=== PATIENT | female | born 1960 | race Caucasian/White ===

== ENCOUNTER 2017-10-05 09:44 | Outpatient (RCR) | payer BC, SELFPAY | END 2017-10-18 23:59 | LOC: NS 09:44 | PROVIDERS: Family Provider Internal Medicine; PCP Internal Medicine; Visit Provider Nurse Practitioner Family | DX: E66.01 Morbid (severe) obesity due to excess calories (principal); G47.30 Sleep apnea, unspecified; Z71.3 Dietary counseling and surveillance | CPT/HCPCS: 97802 ==

== ENCOUNTER 2017-11-16 10:52 | Outpatient (RCR) | payer BC, SELFPAY | END 2017-11-18 23:59 | LOC: NS 10:52 | PROVIDERS: Family Provider Internal Medicine; PCP Internal Medicine; Visit Provider Nurse Practitioner Family | DX: E66.01 Morbid (severe) obesity due to excess calories (principal); G47.30 Sleep apnea, unspecified; Z71.3 Dietary counseling and surveillance | CPT/HCPCS: 97803 ==

== ENCOUNTER 2018-01-11 10:00 | Outpatient (RCR) | payer BC, SELFPAY | END 2018-01-18 23:59 | LOC: NS 10:00 | PROVIDERS: Family Provider Internal Medicine; PCP Internal Medicine; Visit Provider Nurse Practitioner Family | DX: E66.01 Morbid (severe) obesity due to excess calories (principal); G47.30 Sleep apnea, unspecified; Z71.3 Dietary counseling and surveillance | CPT/HCPCS: 97803 ==

== ENCOUNTER 2018-01-25 08:14 | Outpatient (RCR) | payer BC, SELFPAY | END 2018-02-18 23:59 | LOC: NS 08:14 | PROVIDERS: Family Provider Internal Medicine; PCP Internal Medicine; Visit Provider Nurse Practitioner Family | DX: E66.01 Morbid (severe) obesity due to excess calories (principal); G47.30 Sleep apnea, unspecified; Z71.3 Dietary counseling and surveillance | CPT/HCPCS: 97803 ==

== ENCOUNTER → 2018-03-30 08:46 | Outpatient (CLI) | payer BC, SELFPAY ==
[2018-03-30 11:12] LABS: Absolute Lymphocyte Count 1.72 X10^3/ul (0.83-4.51); Absolute Neutrophil Count 4.5 X10^3/uL (2.0-7.7); Basophil# 0.02 X10^3/uL; Basophil% 0.3 % (0-1); Eosinophil# 0.34 X10^3/uL; Eosinophils% 4.8 % (0-5); Hemoglobin 13.1 g/dl (12.0-15.0); Lymphocyte # 1.72 X10^3/ul (4.0); Lymphocyte % 24.4 % (19-41); Mean Corpuscular Hgb 29.4 pg (27.0-32.0); Mean Corpuscular Volume 91.9 fL (81-99); Mean Platelet Vol. 10.1 fl (6.2-12.0); Monocyte# 0.47 X10^3/uL; Monocyte% 6.7 % (0-10); Neutrophil # 4.49 X10^3/uL (2.7-7.7); Neutrophil % 63.7 % (47-70); Platelet Count 312 K/mm3 (150-450); RBC Distribution Width CV 13.8 % (11.6-14.6); RBC Distribution Width SD 46.5 fl (35.1-43.9); Red Blood Count 4.46 M/mm3 (4.2-5.4); White Blood Count 7.1 K/mm3 (4.4-11.0)
[2018-03-30 11:15] LABS: POSITIVE COUNT NO; POSITIVE DIFFERENTIAL NO; POSITIVE MORPHOLOGY NO
[2018-03-30 11:35] LABS: ALB/GLOB Ratio 0.8 RATIO (0.9-2.4); AST(SGOT) 22 U/L (15-37); Alanine Aminotransfer ALT/SGPT 30 U/L (13-56); Albumin, Serum 3.4 g/dL (3.2-5.0); Alkaline Phosphatase 97 U/L (45-117); Anion Gap 6 (5-15); BUN 20 mg/dL (7-18); Calcium,Total 8.7 mg/dL (8.5-10.1); Chloride 106 mmol/L (98-107); Cholesterol 183 mg/dL (200); Creatinine, Serum 1.05 mg/dL (0.55-1.02); EST Glomerular Filtration Rate 57 mL/min (>60); Est Glom Filt Rate - Afr Amer 69 mL/min (>60); Glucose 109 mg/dL (74-106); High Density Lipoprotein 42 mg/dL; Potassium 4.7 mmol/L (3.5-5.1); Protein, Total 7.4 g/dL (6.4-8.2); Sodium Level 137 mmol/L (136-145); Triglycerides 99 mg/dL; Very Low Density Lipoprotein 20 mg/dL (5-40)
== END ==
PROVIDERS: Nurse Practitioner Family; Family Provider Internal Medicine; PCP Internal Medicine; Referring Provider Internal Medicine; Visit Provider Internal Medicine
DX: I10 Essential (primary) hypertension (principal); G47.30 Sleep apnea, unspecified; E66.01 Morbid (severe) obesity due to excess calories
CPT/HCPCS: 36415; 80053; 80061; 84443; 85025

== ENCOUNTER 2018-04-11 09:30 | Outpatient (RCR) | payer BC, SELFPAY | END 2018-04-11 23:59 | LOC: NS 09:30 | PROVIDERS: Family Provider Internal Medicine; PCP Internal Medicine; Visit Provider Nurse Practitioner Family | DX: E66.01 Morbid (severe) obesity due to excess calories (principal); G47.30 Sleep apnea, unspecified; Z71.3 Dietary counseling and surveillance | CPT/HCPCS: 97803 ==

== ENCOUNTER → 2018-09-16 10:01 | Outpatient (CLI) | payer BC, SELFPAY ==
[2018-07-05 11:07] VITALS: BMI 70.7
--- NOTE | 2018-09-16 10:03 | BI_ITS ---
MAMMOGRAPHY - BILATERAL SCREENING REASON FOR EXAM: Female, 58 years old. Routine annual screening examination. PERTINENT HISTORY: Non-contributory. Remote left excisional breast biopsy. TECHNIQUE: Digital bilateral breast eleanor (3D mammographic acquisition) in the CC and MLO projections. 2-D mediolateral oblique (MLO) and craniocaudad (CC) views of both breasts were obtained. CAD: Full Field Digital Mammography with Computer Added Detection was performed. COMPARISON: Comparison is made with prior artery examination dated October 14, 2016. FINDINGS: Breast Composition: The breasts are almost entirely fatty. There are no dominant masses or suspicious calcifications. Stable 7.3 mm well-defined nodule in the axillary region of the left breast most likely representing a small lymph node. Stable 7.1 mm well-defined nodule in the superior slightly lateral retroareolar region of the left breast suggestive of a small lymph node. No other significant abnormalities are identified. There has been no significant change since the prior study. BI/SCREEN MAMM (CAD) W/ELEANOR BILAT IMPRESSION: Stable bilateral screening mammogram. Yearly follow-up mammogram recommended. (A) ASSESSMENT CATEGORY: BIRADS Category 2: Benign. A letter regarding these results will be sent to the patient by the facility within 30 days. Approximately 10% of breast cancers are not detected by mammography. A normal mammogram should not delay biopsy of a clinically suspicious abnormality. [id number] Electronically Signed: Gutierrez Pichardo, at 8:31 EDT , Service support ,
== END ==
PROVIDERS: Family Provider Internal Medicine; PCP Internal Medicine; Referring Provider Internal Medicine; Visit Provider Internal Medicine
DX: Z12.31 Encounter for screening mammogram for malignant neoplasm of breast (principal)
CPT/HCPCS: 77063; 77067

== ENCOUNTER → 2018-10-06 10:05 | Outpatient (CLI) | payer BC, SELFPAY ==
[2018-10-06 09:27] VITALS: BMI 67.3
[2018-10-06 12:16] LABS: Absolute Lymphocyte Count 1.84 X10^3/ul (0.83-4.51); Absolute Neutrophil Count 7.7 X10^3/uL (2.0-7.7); Basophil# 0.01 X10^3/uL; Basophil% 0.1 % (0-1); Eosinophil# 0.19 X10^3/uL; Eosinophils% 1.8 % (0-5); Hematocrit 44.7 % (37-47); Hemoglobin 14.9 g/dl (12.0-15.0); Lymphocyte # 1.84 X10^3/ul (4.0); Lymphocyte % 17.4 % (19-41); Mean Corp Hgb Conc 33.3 g/gl (32-36); Mean Corpuscular Hgb 29.6 pg (27.0-32.0); Mean Corpuscular Volume 88.7 fL (81-99); Mean Platelet Vol. 10.4 fl (6.2-12.0); Monocyte# 0.83 X10^3/uL; Monocyte% 7.8 % (0-10); Neutrophil # 7.67 X10^3/uL (2.7-7.7); Neutrophil % 72.5 % (47-70); Platelet Count 378 K/mm3 (150-450); RBC Distribution Width CV 14.1 % (11.6-14.6); RBC Distribution Width SD 45.2 fl (35.1-43.9); Red Blood Count 5.04 M/mm3 (4.2-5.4); White Blood Count 10.6 K/mm3 (4.4-11.0)
[2018-10-06 12:17] LABS: POSITIVE COUNT NO; POSITIVE DIFFERENTIAL NO; POSITIVE MORPHOLOGY NO
[2018-10-06 12:31] LABS: ALB/GLOB Ratio 0.8 RATIO (0.9-2.4); AST(SGOT) 24 U/L (15-37); Alanine Aminotransfer ALT/SGPT 36 U/L (13-56); Albumin, Serum 3.4 g/dL (3.2-5.0); Alkaline Phosphatase 118 U/L (45-117); Amylase 17 U/L (25-115); Anion Gap 7 (5-15); BUN 14 mg/dL (7-18); BUN/Creat Ratio 9.9 RATIO (10-20); Calcium,Total 9.1 mg/dL (8.5-10.1); Chloride 104 mmol/L (98-107); Creatinine, Serum 1.41 mg/dL (0.55-1.02); EST Glomerular Filtration Rate 41 mL/min (>60); Est Glom Filt Rate - Afr Amer 49 mL/min (>60); Globulin 4.5 g/dL (2.2-4.2); Glucose 148 mg/dL (74-106); Lipase 61 U/L (73-393); Potassium 4.2 mmol/L (3.5-5.1); Protein, Total 7.9 g/dL (6.4-8.2); Sodium Level 135 mmol/L (136-145)
--- NOTE | 2018-10-06 14:54 | US_ITS ---
STUDY: ABDOMINAL ULTRASOUND - RIGHT UPPER QUADRANT REASON FOR VISIT: Female, 58 years old. Right upper quadrant pain. TECHNIQUE: Ultrasound evaluation of the right upper quadrant was performed with real-time and static whitaker-scale imaging. TECHNICAL QUALITY: Limited. Examination limited due to obesity. COMPARISON: None. FINDINGS: Liver: The liver measures 17.4 cm. There is increased echogenicity consistent with fatty infiltration. The bile ducts are within normal limits. There is hepatic color flow. The direction of portal flow is hepatopetal. There is no demonstrated mass lesion. Gallbladder: Normal distended gallbladder. The gallbladder wall is thickened and measures 12 mm. There is a positive sonographic Tapia's sign. There is pericholecystic fluid. There are multiple echogenic structures within the gallbladder, consistent with multiple gallstones. Sludge is seen in the gallbladder lumen. Common Bile Duct (C.B.D.): The common bile duct not well seen due to overlying bowel gas. Pancreas: Normal size of the head, body and tail of the pancreas. There is normal echogenicity of the pancreas. There is no demonstrated pancreatic mass or cyst. Right Kidney: Normal size of the right kidney. The right kidney measures 11.9 cm x 5.2 cm x 5.0 cm. Normal renal cortex. The right cortex measures 1.2 cm. There is no demonstrated renal mass or cyst. There is no right hydronephrosis. US/Abdomen Limited IMPRESSION: Diffuse fatty infiltration of the liver. Multiple gallstones with sludge in the gallbladder lumen and thickened gallbladder wall. Small amount of pericholecystic fluid. Electronically Signed: Gutierrez Pichardo, at 15:53 EDT , Service support ,
== END ==
PROVIDERS: Family Provider Internal Medicine; PCP Internal Medicine; Referring Provider Nurse Practitioner Family; Visit Provider Nurse Practitioner Family
DX: R10.11 Right upper quadrant pain (principal)
CPT/HCPCS: 36415; 76705; 80053; 82150; 83690; 85025

== ENCOUNTER 2018-10-11 07:13 | Inpatient (IN) | payer BC, SELFPAY ==
[2018-10-09 09:20] VITALS: BMI 67.3
[2018-10-10] VITALS (11 sets, daily range): BP systolic 105–147; BP diastolic 48–87; PULSE 61–76; RESP 16–20; TEMP 36.3–36.7; O2SAT 90–98; BMI 68.8
--- NOTE | 2018-10-10 13:20 | GALL_PTH ---
PATIENT: ANGELINA CALZADA LOC: [facility]2 U#:[id number] AGE/SX: 58/F ROOM: MS211 RE10/12/[address]: Dr. Sher Lam MD : 1960 BED: 1 DIS: 10/14/2018 SPEC #: [id number] RECD: 10/11/18 08:41 STATUS: YOEL SAVANNAH #: [id number] FELIPE: 10/10/18 13:[address]: Sher Lam DEPT: SURGICAL PATHOLOGY RECD BY: Shauna Mayo ENTERED: 10/11/18 11:27 SP TYPE: HERI GROVER DR: Dr. Esthela Wynne MD Tissues: Gallbladder, NOS Procedures: Surgery Specimen Level III HEADER OPERATION: Laparoscopic, cholecystectomy PRE-OP DIAGNOSIS: Calculus of gallbladder with acute on chronic cholecystitis without obstruction TISSUE SUBMITTED: Gallbladder MICROSCOPIC DIAGNOSIS Gallbladder, cholecystectomy: Acute and chronic cholecystitis with focal denudation of mucosa and cholelithiasis. AM:gayathri 10/12/18 MICROSCOPIC DESCRIPTION Slides are reviewed. GROSS DESCRIPTION Received is one container labeled with the patient's name and designated gallbladder. The specimen consists of a gallbladder measuring 7 cm in length and up to 4.5 cm in diameter. The external surface is pink-peng, smooth and glistening for the most part. Focally it is granular, hemorrhagic and contains cautery artifact. The gallbladder contains hemorrhagic bile and multiple multifaceted peng-brown stones measuring in aggregate 6.5 x 4 x 2 cm and 1 to 1.5 cm in greatest dimension. The mucosa is congested and hemorrhagic. The gallbladder wall measures up to 1 cm in thickness. Film Projector Operator sections from the gallbladder and the cystic duct are submitted in two cassettes. / SJ:gayathri 10/11/18 TC:2 CPT: 15574
--- NOTE | 2018-10-10 13:43 | PCM.OPRPT ---
Problem List (1) Calculus of gallbladder with acute on chronic cholecystitis without obstruction Status: Chronic Report of Operation Date of Procedure: 10/10/18 Pre-Operative Diagnosis: Calculus of the gallbladder with acute on chronic cholecystitis without obstruction Post-Operative Diagnosis: Same Surgery/Procedure Performed:: Laparoscopic cholecystectomy Type of Anesthesia:: General Anesthesiologist: Sher Brady Specimen's removed: Gallbladder Drains: #15 round IMELDA Estimated Blood Loss (mL): 50 cc Fluids Replaced: 1000cc LR Description of Procedure: Patient brought in the operating room and placed in the supine position. Under excellent general endotracheal intubation abdomen was sterilely prepped and draped in usual fashion. Local was injected supraumbilically dissection was carried down to the fascia the fascia grasped with a Vic varies needle was placed inside the abdomen the abdomen was insufflated 15 torr a 10/12 trocar was placed without difficulty. Patient was placed in the head up and rotated to the left subxiphoid #5 trocar was placed inferior to this another #5 trocar was placed laterally #5 trocar was placed. All of these were placed under direct visualization good hemostasis was noted. Patient had moderate amount of adhesions on the gallbladder. I took these down bluntly I tried to aspirate out the gallbladder the gallbladder was too thick it would not aspirate I tried to grasp the gallbladder and lifted in a cephalad direction I could not get a grasper around it. I placed a 5 mm liver retractor and I did a dome down dissection with the aid of a tenaculum grasper which actually really facilitated me getting circumferentially around the gallbladder and dissecting all the structures free . It became very clear that I was dissecting the cystic duct and common bile duct juncture and I identified the hepatic duct. At this point I had some bleeding from the cystic artery I was able to get around it and placed a Hemoclip just before it avulsed off of the gallbladder. At this point I then clearly saw both the hepatic duct, common bile duct and cystic duct I placed another clip on the cystic duct and ligated it. I placed a specimen specimen bag and delivered through the umbilical port without difficulty. There was a small visible vessel in the posterior aspect of the liver bed which I thought was the posterior cystic artery and I placed a Hemoclip on the liver edge itself was just very raw and since I did all that dissecting around the common bile duct I really did not want to do any electrocautery I placed Madhu on the liver bed and placed a 15 round Yadiel-Godfrey drain through the lateral incision into the liver bed is sutured into the skin with a 3-0 nylon. The remaining trochars were removed. Good hemostasis was noted. the umbilical defect was closed with interrupted sutures of 0 Vicryl. Skin incisions were closed with septicum stitches of 4-0 Monocryl. Steri-Strips were applied. Sterile dressings were applied. Patient tolerated the procedure well. - Admit VTE Documentation VTE Present on Admission: No VTE Mechan Device Prophylaxis: SCD's VTE Pharm Prophylaxis ordered?: No Reason prophylaxis not ordered:: Treatment Not Indicated
--- NOTE | 2018-10-10 13:45 | DCINST_ITS ---
Addendum entered and electronically signed by Bindu Kuo PA-C 10/13/18 15:15: Oxyir prescription was sent to the [facility] retail pharmacy. Percocet prescription was discarded. Original Note: Discharge Diet: Light diet - advance as tolerated Discharge Activity: May Not Drive - for 2-3 days or while taking narcotic pain medications., - - Do not drive, work heavy equipment or sign legal documents for 24 hours. May shower in (days): 1 - with the bandage in place. Additional Activity Instructions:: Pain medication may cause nausea. You should typically eat light foods as you take your pain medications. Pain medication may also cause constipation. If this is a problem for you, please discuss with your doctor. Call your doctor if your incision/area has: Continuous Slow Oozing, Sudden Increased Bleeding, Increased Pain/ Swelling, Increased Redness, Foul Smelling Discharge Call your doctor if you observe: Fever of 101 or Higher Suture Line Care: Avoid Pulling/Pushing, Avoid Pinching/Bending Additional Dressing/Incision Instructions:: Leave operative bandaids on for 2 days. When you remove dressing, leave Steri-Strips on until your follow-up appointment, or until the Steri-Strips fall off on their own. Allergies/Adverse Reactions: Allergies clindamycin Allergy (Severe, Verified 10/08/18 09:25) Hearing loss ciprofloxacin [From Cipro] Allergy (Verified 10/10/18 10:22) Other codeine Allergy (Verified 10/08/18 09:25) Other JITTERY & CRAZY hydrochlorothiazide Allergy (Verified 10/08/18 09:25) Other SORE JOINTS Penicillins [PCN] Allergy (Verified 10/08/18 09:25) Rash tramadol HCl [From Ultram] Allergy (Verified 10/08/18 09:25) Other MAKES MY HEART GO CRAZY HEART RACES Medications to take at Discharge Aspirin E.C. [Ecotrin] 81 mg PO DAILY@0800 06/24/15 Multivitamins,Therapeutic [Multivitamin] 1 tab PO DAILY 06/24/15 compression stocking,knee high,reg length, x-large circ See Dose Instructions .ROUTE .MEDSUPPLY #2 ea 09/15/17 ibuprofen 100 mg tablet 200 mg PO TID-QID PRN 03/25/18 lisinopril 40 mg tablet 40 mg PO DAILY #90 tab 03/25/18 amlodipine 10 mg tablet 10 mg PO QDAY #90 tab 09/05/18 fluoxetine 20 mg capsule 20 mg PO DAILY #90 cap 09/05/18 metronidazole 500 mg tablet 500 mg PO Q8H #21 tab 10/06/18 cefuroxime axetil 250 mg tablet 250 mg PO BID #14 tab 10/07/18 Oxycodone HCl/Acetaminophen [Percocet 5/325] 1 - 2 tab PO Q4H PRN PRN 6 Days #30 tab 10/10/18 The following prescriptions were given: Oxycodone HCl/Acetaminophen [Percocet 5/325] 1 - 2 tab PO Q4H PRN PRN 6 Days #30 tab PRN Reason: Pain Primary Care Physician: Esthela Wynne MD [Primary Care Provider] - Test Results: Test results from this visit will be discussed in further detail at your follow- up appointment, if applicable. Please Follow Up With: Sher Lam MD - Please call [phone] to schedule an appointment. When: 7 days after your surgery.
[2018-10-10] MEDS: Bupivacaine Mpf 0.5% 30 ML VIAL (13:54)
[2018-10-10] MEDS: HYDROmorphone 1 MG/ML Syringe IV ×3 (19:30→23:51)
--- NOTE | 2018-10-10 19:42 | CPS ---
rt added sterile water to home bipap.
[2018-10-10] MEDS: metroNIDAZOLE 500 MG Tablet PO (20:46)
[2018-10-10] MEDS: Ibuprofen 200 MG Tablet PO (20:49)
--- NOTE | 2018-10-10 20:49 | NURSING ---
pt walked to bathroom. pt unable to void. pt asst to chair
[2018-10-11] VITALS (7 sets, daily range): BP systolic 107–141; BP diastolic 52–79; PULSE 61–90; RESP 18–20; TEMP 36.2–36.7; O2SAT 85–95
[2018-10-11] MEDS: HYDROmorphone 1 MG/ML Syringe IV ×9 (00:18→20:32)
--- NOTE | 2018-10-11 00:21 | NURSING ---
pt yelling out in pain. 1mg dilaudid not helping. pt ordered 2mg dilaudid so anoth 1 mg ivp given
[2018-10-11] MEDS: Ibuprofen 200 MG Tablet PO ×2 (01:29→10:03)
[2018-10-11] MEDS: Lactated Ringers 1,000 ML 60 ML IV ×3 (04:45→16:38)
[2018-10-11] MEDS: metroNIDAZOLE 500 MG Tablet PO ×3 (04:49→20:36)
--- NOTE | 2018-10-11 05:02 | NURSING ---
Patient bladder scanned for 113ml
--- NOTE | 2018-10-11 07:13 | PCM.PN.SRG ---
Subjective: Patient evaluated resting comfortably in bed. She noted over night having intense pain in the right upper quadrant which required 2 mg Dilaudid. She notes discomfort at the drain site. She denies nausea, vomiting. She notes not being able to urinate much overnight. Last bladder scan was for 113 ml. - Physical Exam General: Alert, Oriented x3, Cooperative Abdomen: Hypoactive Bowel Sounds, Distended, Tender - RUQ, - - Incisions c/d/i. No active bleeding noted. IMELDA drain with dark red blood within the bulb. No bile noted. Vital Signs Temp Pulse Resp BP Pulse Ox 98.0 F 67 18 141/79 H 93 10/11/18 05:05 10/11/18 05:05 10/11/18 05:05 10/11/18 05:05 10/11/18 05:05 Oxygen Flow Rate (L/min) 1 Oxygen Delivery Method Bi-pap Weight: 400 lb 12.806 oz Body Mass Index (BMI) 68.8 Intake and Output for Last 24 Hours 10/09/18 10/10/18 10/11/18 23:59 23:59 23:59 Intake Total 1867 / 1867 919 / 919 Output Total 100 / 100 65 / 65 Balance 1767 / 1767 854 / 854 Laboratory Tests Past 24 Hrs 10/11/18 10/11/18 06:55 06:55 WBC Pending RBC Pending Hgb Pending Hct Pending MCV Pending MCH Pending MCHC Pending RDW Pending RDW Differential Pending Plt Count Pending Neut % (Auto) Pending Absolute Neuts (auto) Pending Total Counted Pending Sodium Pending Potassium Pending Chloride Pending Carbon Dioxide Pending Anion Gap Pending BUN Pending Creatinine Pending Est GFR (MDRD) Af Amer Pending Est GFR (MDRD) Non-Af Pending BUN/Creatinine Ratio Pending Glucose Pending Calcium Pending Total Bilirubin Pending AST Pending ALT Pending Alkaline Phosphatase Pending Total Protein Pending Albumin Pending Medical Necessity - Tobacco Use Smoking Status: Former smoker Assessment/Plan All Active Problems (Last Reviewed 10/09/18 @ 09:19 by Sher Lam MD) Abnormal uterine bleeding (Acute) History of benign breast tumor (Acute) I am following this patient in conjunction with Dr. Lam Impression: s/p cholecystectomy Order lab work Encourage ambulation and I.S. Lab work ordered We will continue to monitor this patient Code Visit Inpatient E&M: 99853 Subs Hosp L1 - Post-op/No charge
[2018-10-11 07:26] LABS: ALB/GLOB Ratio 0.8 RATIO (0.9-2.4); AST(SGOT) 89 U/L (15-37); Alanine Aminotransfer ALT/SGPT 95 U/L (13-56); Albumin, Serum 3.3 g/dL (3.2-5.0); Alkaline Phosphatase 118 U/L (45-117); Anion Gap 5 (5-15); BUN 25 mg/dL (7-18); Calcium,Total 8.5 mg/dL (8.5-10.1); Chloride 107 mmol/L (98-107); Creatinine, Serum 2.08 mg/dL (0.55-1.02); EST Glomerular Filtration Rate 26 mL/min (>60); Est Glom Filt Rate - Afr Amer 31 mL/min (>60); Estimated Creatinine Clearance 25.15 ml/min; Globulin 4.1 g/dL (2.2-4.2); Glucose 134 mg/dL (74-106); Potassium 5.4 mmol/L (3.5-5.1); Protein, Total 7.4 g/dL (6.4-8.2); Sodium Level 136 mmol/L (136-145)
[2018-10-11 07:28] LABS: Absolute Lymphocyte Count 1.01 X10^3/ul (0.83-4.51); Absolute Neutrophil Count 10.3 X10^3/uL (2.0-7.7); Basophil# 0.01 X10^3/uL; Basophil% 0.1 % (0-1); Eosinophil# 0.01 X10^3/uL; Eosinophils% 0.1 % (0-5); Hematocrit 39.6 % (37-47); Hemoglobin 12.8 g/dl (12.0-15.0); Lymphocyte # 1.01 X10^3/ul (4.0); Lymphocyte % 8.4 % (19-41); Mean Corp Hgb Conc 32.3 g/gl (32-36); Mean Corpuscular Volume 92.7 fL (81-99); Mean Platelet Vol. 9.5 fl (6.2-12.0); Monocyte# 0.75 X10^3/uL; Monocyte% 6.2 % (0-10); Neutrophil # 10.27 X10^3/uL (2.7-7.7); Neutrophil % 85.1 % (47-70); Platelet Count 430 K/mm3 (150-450); RBC Distribution Width CV 14.1 % (11.6-14.6); RBC Distribution Width SD 47.5 fl (35.1-43.9); Red Blood Count 4.27 M/mm3 (4.2-5.4); White Blood Count 12.1 K/mm3 (4.4-11.0)
[2018-10-11 07:36] LABS: POSITIVE COUNT NO; POSITIVE DIFFERENTIAL NO; POSITIVE MORPHOLOGY NO
[2018-10-11] MEDS: 0.9% NaCl Peripheral Flush Adult/Peds IV ×5 (08:10→18:16)
--- NOTE | 2018-10-11 08:15 | NURSING ---
PT USING CPAP FROM HOME
[2018-10-11] MEDS: Aspirin E.C. 81 MG Tablet PO (10:01)
[2018-10-11] MEDS: Enoxaparin 40 MG/0.4 ML Syringe SC (10:01)
[2018-10-11] MEDS: amLODIPine 10 MG Tablet PO (10:02)
[2018-10-11] MEDS: FLUoxetine 20 MG Capsule PO (10:02)
[2018-10-11] MEDS: Lisinopril 40 MG Tablet PO (10:02)
[2018-10-11] MEDS: Ondansetron 4 MG/2 ML Vial IV (10:12)
--- NOTE | 2018-10-11 10:31 | NURSING ---
PT PLACED ON O2 2L NC
--- NOTE | 2018-10-11 10:32 | NURSING ---
O2 SAT 88% ON RA. PT PLACED ON O2 2L NC.
--- NOTE | 2018-10-11 12:10 | NURSING ---
PT ATTEMPT TO VOID - UNSUCCESSFUL. BLADDER SCAN = 127ML. SILVIA NASSAR MADE AWARE. NEW ORDER RECEIVED.
[2018-10-11] MEDS: 0.9% Normal Saline 1,000 ML 999 ML IV (12:18)
[2018-10-11] MEDS: Tamsulosin HCl 0.4 MG Capsule PO (12:43)
--- NOTE | 2018-10-11 14:10 | NURSING ---
O2 INCREASED TO 3L NC
--- NOTE | 2018-10-11 15:55 | NURSING ---
PT RECEIVED ANOTHER NS BOLUS OF 1L PER MD ORDER. ATTEMPT TO VOID AGAIN UNSUCCESSFUL. BLADDER SCAN = 106ML. SILVIA NASSAR MADE AWARE. ELECTRONIC WARFARE TECHNICIAN STATES WILL DISCUSS WITH DR PERES & CONTACT THIS NURSE.
--- NOTE | 2018-10-11 16:07 | US_ITS ---
STUDY: RENAL ULTRASOUND - COMPLETE REASON FOR EXAM: Female, 58 years old. Acute renal failure. Recent cholecystectomy. Anuria. TECHNIQUE: Ultrasound evaluation of the kidneys was performed with real-time and static henry-scale imaging. COMPARISON: None. FINDINGS: Exam limited by patient size and bowel gas. RIGHT KIDNEY: Normal location of the right kidney, which is normal in size. The right kidney measures 11.8 x 4.9 x 5.3 cm. There is a normal cortex of the right kidney. The renal cortex measures 1.8 cm. There is no right renal mass or cyst. There are no right renal calculi. There is no right hydronephrosis. DISTAL RIGHT URETER: There is non-visualization of the distal right ureter. There is no demonstrated right ureterovesical junction calculus. There is no demonstrated right ureteral jet. LEFT KIDNEY: Normal location of the left kidney, which is normal in size. The left kidney measures 11.3 x 5.0 x 5.0 cm. There is a normal cortex of the left kidney. The renal cortex measures 1.9 cm. There is a 2.1 cm cyst. There are no left renal calculi. There is no left hydronephrosis. DISTAL LEFT URETER: There is non-visualization of the distal left ureter. There is no demonstrated left ureterovesical junction calculus. There is no demonstrated left ureteral jet. BLADDER: The distended urinary bladder has a volume of 175 ml. There is a normal wall thickness of the distended urinary bladder. There is no demonstrated mass within the urinary bladder. There are no demonstrated bladder calculi. US/Kidney and Bladder IMPRESSION: There are no acute malnutrition. No hydronephrosis. Electronically Signed: Destin Bowie MD at 18:17 EDT , Service support ,
--- NOTE | 2018-10-11 17:23 | PN_ITS ---
Subjective: Consulted for urinary retention. Patient underwent lap cholecystectomy yesterday with IMELDA drain placement per Dr. Lam for acute cholecystitis and cholelithiasis. Patient has not emptied her bladder since yesterday 9AM. She feels the need to go, and attempts to sit and go, but cannot. She complains of associated lower back pain. She also has noticed increased LE edema. She denies hx CHF. No fever or chills. No recent UTI or dysuria. She denies hx of voiding difficulties. She denies incontinence. She has underlying CKDIII. - Physical Exam General: Alert, Oriented x3, Cooperative HEENT: Atraumatic, PERRLA, EOMI, Normocephalic Neck: Supple, No JVD, Negative Carotid Bruits Lungs: Clear to auscultation, Normal air movement Cardiovascular: Regular rate, No murmurs Abdomen: Bowel Sounds Present, Soft, Non Tender, Obese Extremities: Capillary Refill Less than 3 Seconds, Edema Skin: No rashes, No breakdown Musculoskeletal: No Tenderness to Palpation of Joints or Extremities Neurological: Cranial nerves II-XII grossly intact Psych/Mental Status: Normal Affect, Appropriate Vital Signs Temp Pulse Resp BP Pulse Ox 97.9 F 65 18 119/60 86 10/11/18 14:00 10/11/18 14:00 10/11/18 17:00 10/11/18 14:00 10/11/18 14:00 Oxygen Flow Rate (L/min) 3 Oxygen Delivery Method Nasal Cannula Weight: 400 lb 12.806 oz Body Mass Index (BMI) 68.8 Intake and Output for Last 24 Hours 10/09/18 10/10/18 10/11/18 23:59 23:59 23:59 Intake Total 1867 / 1867 2876 / 2876 Output Total 100 / 100 155 / 155 Balance 1767 / 1767 2721 / 2721 Laboratory Tests Past 24 Hrs 10/11/18 10/11/18 06:55 06:55 WBC 12.1 H RBC 4.27 Hgb 12.8 Hct 39.6 MCV 92.7 MCH 30.0 MCHC 32.3 RDW 14.1 RDW Differential 47.5 H Plt Count 430 MPV 9.5 Immature Gran % (Auto) 0.100 Neut % (Auto) 85.1 H Lymph % (Auto) 8.4 L Wilson % (Auto) 6.2 Eos % (Auto) 0.1 Baso % (Auto) 0.1 Absolute Neuts (auto) 10.3 H Absolute Lymphs (auto) 1.01 Total Counted Not Reportable Sodium 136 Potassium 5.4 H Chloride 107 Carbon Dioxide 24.0 Anion Gap 5 BUN 25 H Creatinine 2.08 H Estim Creat Clear Calc 25.15 Est GFR (MDRD) Af Amer 31 L Est GFR (MDRD) Non-Af 26 L BUN/Creatinine Ratio 12.0 Glucose 134 H Calcium 8.5 Total Bilirubin 0.50 AST 89 H ALT 95 H Alkaline Phosphatase 118 H Total Protein 7.4 Albumin 3.3 Globulin 4.1 Albumin/Globulin Ratio 0.8 L Medical Necessity - Tobacco Use Smoking Status: Former smoker Assessment/Plan All Active Problems (Last Reviewed 10/09/18 @ 09:19 by Sher Lam MD) Abnormal uterine bleeding (Acute) History of benign breast tumor (Acute) 1. JASMINA 2/2 acute urinary retention - place flower. Obtain renal US. Hold nephrotoxins (pamela-i, ibuprofen). Renal dose lovenox. recheck potassium later tonight after flower successfully placed. If it does not go down - kayexalate x1. Bladder scan unreliable with morbid obesity. 2. Acute cholecystitis s/p resection / drain placement POD#1 - per Dr. Lam 3. FREDERICK - CPAP qhs 4. Super morbid obesity 5. HTN - stable 6. Anxiety - stable DVT ppx: renal lovenox Thank you for the opportunity to participate in the care of this patient. This patient was seen by Juan Barajas PA-C under the supervision of Dr. Zapata.
--- NOTE | 2018-10-11 18:51 | NURSING ---
1800 - LATE ENTRY - 16FR HANDY PLACED PER MD ORDER. PT TOLERATED WELL. IMMEDIATE RETURN OF 400ML DARK BC URINE.
[2018-10-11 19:21] LABS: Bacteria 0 SEEN /hpf (None Seen); Mucous, Urine 0 SEEN /hpf (<or=2+); Red Blood Cells-Urine 0 SEEN /hpf (0-5)
[2018-10-11 19:22] LABS: Color, Urine Straw (Yellow); Glucose, Dipstick Normal (Normal); Ketone-Dipstick 15 mg/dl (Negative); Leukocyte Esterase-Dipstick 25 /ul (Negative); Nitrite-Dipstick Positive (Negative); Occult Blood-Urine Negative /ul (Negative); Protein-Dipstick 30 mg/dl (Negative); Specific Gravity, Urine 1.025 (1.002-1.030); Urine Bilirubin Dipstick Negative (Negative); Urine Clarity Clear (Clear); Urine Urobilinogen Normal (Normal)
[2018-10-11 19:28] LABS: Urine Sodium 42 mmol/L (Not Establ.)
[2018-10-11 19:37] LABS: Squamous Epithelial Cells - UA 0-5 SEEN /hpf (5-10)
[2018-10-11 19:38] LABS: White Blood Cells 0-5 SEEN /hpf (0-5)
[2018-10-11] MEDS: 0.9% Normal Saline 1,000 ML 150 ML IV (20:38)
--- NOTE | 2018-10-11 21:36 | NURSING ---
PT PUT OWENS ON REQUESTING HER PAIN MEDS. INSTRUCTED PT SHE JUST GOT IT AT 2030. PT SAID OH I DONT REMEMBER. PT THEN WANTED TO GET PULLED UP IN BED. .I HAD PT GET OUT OF BED AND MOVE HERSELF UP IN BED. ENCOURAGE TO MOVE IN THE BED
[2018-10-12] VITALS (7 sets, daily range): BP systolic 100–111; BP diastolic 52–68; PULSE 68–78; RESP 16–20; TEMP 36.6–37.1; O2SAT 91–97
[2018-10-12] MEDS: HYDROmorphone 1 MG/ML Syringe IV ×5 (01:26→21:16)
[2018-10-12] MEDS: 0.9% Normal Saline 1,000 ML 150 ML IV ×3 (02:23→20:10)
[2018-10-12] MEDS: metroNIDAZOLE 500 MG Tablet PO ×3 (05:19→21:13)
[2018-10-12] MEDS: Ondansetron 4 MG/2 ML Vial IV (05:31)
[2018-10-12 07:31] LABS: Absolute Lymphocyte Count 0.81 X10^3/ul (0.83-4.51); Absolute Neutrophil Count 8.7 X10^3/uL (2.0-7.7); Basophil# 0.01 X10^3/uL; Basophil% 0.1 % (0-1); Eosinophil# 0.39 X10^3/uL; Eosinophils% 3.7 % (0-5); Hematocrit 36.4 % (37-47); Hemoglobin 11.6 g/dl (12.0-15.0); Lymphocyte # 0.81 X10^3/ul (4.0); Lymphocyte % 7.6 % (19-41); Mean Corp Hgb Conc 31.9 g/gl (32-36); Mean Corpuscular Hgb 29.4 pg (27.0-32.0); Mean Corpuscular Volume 92.2 fL (81-99); Mean Platelet Vol. 9.4 fl (6.2-12.0); Monocyte% 6.6 % (0-10); Neutrophil # 8.71 X10^3/uL (2.7-7.7); Neutrophil % 81.7 % (47-70); Platelet Count 332 K/mm3 (150-450); RBC Distribution Width CV 14.1 % (11.6-14.6); RBC Distribution Width SD 47.9 fl (35.1-43.9); Red Blood Count 3.95 M/mm3 (4.2-5.4); White Blood Count 10.7 K/mm3 (4.4-11.0)
[2018-10-12 07:48] LABS: POSITIVE COUNT NO; POSITIVE DIFFERENTIAL NO; POSITIVE MORPHOLOGY NO
[2018-10-12 07:53] LABS: ALB/GLOB Ratio 0.8 RATIO (0.9-2.4); AST(SGOT) 58 U/L (15-37); Alanine Aminotransfer ALT/SGPT 63 U/L (13-56); Albumin, Serum 2.9 g/dL (3.2-5.0); Alkaline Phosphatase 98 U/L (45-117); Anion Gap 8 (5-15); BUN 35 mg/dL (7-18); BUN/Creat Ratio 9.7 RATIO (10-20); Chloride 103 mmol/L (98-107); Creatinine, Serum 3.62 mg/dL (0.55-1.02); EST Glomerular Filtration Rate 14 mL/min (>60); Est Glom Filt Rate - Afr Amer 17 mL/min (>60); Estimated Creatinine Clearance 14.45 ml/min; Globulin 3.7 g/dL (2.2-4.2); Glucose 133 mg/dL (74-106); Protein, Total 6.6 g/dL (6.4-8.2); Sodium Level 132 mmol/L (136-145)
[2018-10-12] MEDS: Aspirin E.C. 81 MG Tablet PO (08:27)
[2018-10-12] MEDS: FLUoxetine 20 MG Capsule PO (08:27)
[2018-10-12] MEDS: amLODIPine 10 MG Tablet PO (08:27)
[2018-10-12] MEDS: Enoxaparin 30 MG/0.3 ML Syringe SC (08:27)
[2018-10-12 09:23] LABS: Hemoglobin A1c 5.9 % (4.2-6.3)
[2018-10-12] MEDS: 0.9% NaCl Peripheral Flush Adult/Peds IV ×2 (10:03→18:18)
--- NOTE | 2018-10-12 11:02 | PCM.PN.SRG ---
Subjective: Patient evaluated sitting in a chair. Hospitalist was consulted yesterday. Godinez catheter was placed. 400 mL dark urine was removed. Approximately 100 mL of urine output overnight was obtained. Patient denies pelvic pressure. She notes the urge to urinate. Patient notes intermittent pain at the IMELDA drain site. Drain output is noted to be bloody but starting to clear. Patient creatinine and BUN has increased. Nephrology is being consulted. - Physical Exam General: Alert, Oriented x3, Cooperative Abdomen: Soft, Hypoactive Bowel Sounds, Obese, Tender - RUQ near IMELDA drain, - - IMELDA drain intact. Difficult exam due to obesity. Vital Signs Temp Pulse Resp BP Pulse Ox 98.0 F 73 18 111/68 96 10/12/18 07:26 10/12/18 07:26 10/12/18 07:45 10/12/18 07:26 10/12/18 07:26 Oxygen Flow Rate (L/min) 3 Oxygen Delivery Method Nasal Cannula Weight: 400 lb 12.806 oz Body Mass Index (BMI) 68.8 Intake and Output for Last 24 Hours 10/10/18 10/11/18 10/12/18 23:59 23:59 23:59 Intake Total 1867 / 1867 6385 / 6385 1215 / 1215 Output Total 100 / 100 775 / 775 180 / 180 Balance 1767 / 1767 5610 / 5610 1035 / 1035 Laboratory Tests Past 24 Hrs 10/11/18 10/11/18 10/11/18 18:00 18:00 18:00 WBC RBC Hgb Hct MCV MCH MCHC RDW RDW Differential Plt Count MPV Immature Gran % (Auto) Neut % (Auto) Lymph % (Auto) Maries % (Auto) Eos % (Auto) Baso % (Auto) Absolute Neuts (auto) Absolute Lymphs (auto) Total Counted Sodium Potassium Chloride Carbon Dioxide Anion Gap BUN Creatinine Estim Creat Clear Calc Est GFR (MDRD) Af Amer Est GFR (MDRD) Non-Af BUN/Creatinine Ratio Glucose Hemoglobin A1c Calcium Total Bilirubin AST ALT Alkaline Phosphatase Total Protein Albumin Globulin Albumin/Globulin Ratio Urine Color Straw Urine Clarity Clear Urine pH 5.0 Ur Specific [place] 1.025 Urine Protein 30 H Urine Glucose (UA) Normal Urine Ketones 15 H Urine Occult Blood Negative Urine Nitrite Positive H Urine Bilirubin Negative Urine Urobilinogen Normal Ur Leukocyte Esterase 25 H Urine RBC 0 SEEN Urine WBC 0-5 SEEN Ur Squamous Epith Cells 0-5 SEEN Urine Bacteria 0 SEEN Urine Mucus 0 SEEN Ur Random Sodium 42 Urine Creatinine 288.00 10/12/18 10/12/18 10/12/18 07:15 07:15 07:15 WBC 10.7 RBC 3.95 L Hgb 11.6 L Hct 36.4 L MCV 92.2 MCH 29.4 MCHC 31.9 L RDW 14.1 RDW Differential 47.9 H Plt Count 332 MPV 9.4 Immature Gran % (Auto) 0.300 Neut % (Auto) 81.7 H Lymph % (Auto) 7.6 L Maries % (Auto) 6.6 Eos % (Auto) 3.7 Baso % (Auto) 0.1 Absolute Neuts (auto) 8.7 H Absolute Lymphs (auto) 0.81 L Total Counted Not Reportable Sodium 132 L Potassium 5.0 Chloride 103 Carbon Dioxide 21.0 Anion Gap 8 BUN 35 H Creatinine 3.62 H Estim Creat Clear Calc 14.45 Est GFR (MDRD) Af Amer 17 L Est GFR (MDRD) Non-Af 14 L BUN/Creatinine Ratio 9.7 L Glucose 133 H Hemoglobin A1c 5.9 Calcium 8.0 L Total Bilirubin 0.50 AST 58 H ALT 63 H Alkaline Phosphatase 98 Total Protein 6.6 Albumin 2.9 L Globulin 3.7 Albumin/Globulin Ratio 0.8 L Urine Color Urine Clarity Urine pH Ur Specific [place] Urine Protein Urine Glucose (UA) Urine Ketones Urine Occult Blood Urine Nitrite Urine Bilirubin Urine Urobilinogen Ur Leukocyte Esterase Urine RBC Urine WBC Ur Squamous Epith Cells Urine Bacteria Urine Mucus Ur Random Sodium Urine Creatinine Medical Necessity - Tobacco Use Smoking Status: Former smoker Assessment/Plan All Active Problems (Last Reviewed 10/09/18 @ 09:19 by Sher Lam MD) Abnormal uterine bleeding (Acute) History of benign breast tumor (Acute) I am following this patient in conjunction with Dr. Lam Impression: s/p cholecystectomy Creatinine 3.62 and BUN 35 Hospitalist consulted yesterday. Appreciate their input and continued care. Nephrology will be consulted today for acute renal injury. Keep IMELDA drain. We will continue to monitor this patient Code Visit Inpatient E&M: 84819 Subs Hosp L1 - No charge/Post-op
--- NOTE | 2018-10-12 11:05 | PN_ITS ---
<Juan Barajas - Last Filed: 10/12/18 10:54> Subjective: Pt resting comfortably in chair NAD. No fevers or chills. No irritation with flower. Very poor output from her flower - dark orange/yellow. She notes ongoing progressive decline with her renal function which is corroborated by PCPs notes. She has had improvement in the RUQ pain from her GB. She denies back or flank pain today. No dizziness/LH. Pt compliant with CPAP last night. No SOB. - Physical Exam General: Alert, Oriented x3, Cooperative HEENT: Atraumatic, PERRLA, EOMI, Normocephalic Neck: Supple, No JVD, Negative Carotid Bruits Lungs: Clear to auscultation, Normal air movement Cardiovascular: Regular rate, No murmurs Abdomen: Bowel Sounds Present, Soft, Non Tender, Obese, - - no CVA tenderness Extremities: No edema, Capillary Refill Less than 3 Seconds Skin: No rashes, No breakdown Musculoskeletal: No Tenderness to Palpation of Joints or Extremities Neurological: Cranial nerves II-XII grossly intact Psych/Mental Status: Normal Affect, Appropriate, Alert and oriented to time, place, person, mood and affect Vital Signs Temp Pulse Resp BP Pulse Ox 98.0 F 73 18 111/68 96 10/12/18 07:26 10/12/18 07:26 10/12/18 07:45 10/12/18 07:26 10/12/18 07:26 Oxygen Flow Rate (L/min) 3 Oxygen Delivery Method Nasal Cannula Weight: 400 lb 12.806 oz Body Mass Index (BMI) 68.8 Intake and Output for Last 24 Hours 10/10/18 10/11/18 10/12/18 23:59 23:59 23:59 Intake Total 1867 / 1867 6385 / 6385 1215 / 1215 Output Total 100 / 100 775 / 775 180 / 180 Balance 1767 / 1767 5610 / 5610 1035 / 1035 Laboratory Tests Past 24 Hrs 10/11/18 10/11/18 10/11/18 18:00 18:00 18:00 WBC RBC Hgb Hct MCV MCH MCHC RDW RDW Differential Plt Count MPV Immature Gran % (Auto) Neut % (Auto) Lymph % (Auto) [place] % (Auto) Eos % (Auto) Baso % (Auto) Absolute Neuts (auto) Absolute Lymphs (auto) Total Counted Sodium Potassium Chloride Carbon Dioxide Anion Gap BUN Creatinine Estim Creat Clear Calc Est GFR (MDRD) Af Amer Est GFR (MDRD) Non-Af BUN/Creatinine Ratio Glucose Hemoglobin A1c Calcium Total Bilirubin AST ALT Alkaline Phosphatase Total Protein Albumin Globulin Albumin/Globulin Ratio Urine Color Straw Urine Clarity Clear Urine pH 5.0 Ur Specific [place] 1.025 Urine Protein 30 H Urine Glucose (UA) Normal Urine Ketones 15 H Urine Occult Blood Negative Urine Nitrite Positive H Urine Bilirubin Negative Urine Urobilinogen Normal Ur Leukocyte Esterase 25 H Urine RBC 0 SEEN Urine WBC 0-5 SEEN Ur Squamous Epith Cells 0-5 SEEN Urine Bacteria 0 SEEN Urine Mucus 0 SEEN Ur Random Sodium 42 Urine Creatinine 288.00 10/12/18 10/12/18 10/12/18 07:15 07:15 07:15 WBC 10.7 RBC 3.95 L Hgb 11.6 L Hct 36.4 L MCV 92.2 MCH 29.4 MCHC 31.9 L RDW 14.1 RDW Differential 47.9 H Plt Count 332 MPV 9.4 Immature Gran % (Auto) 0.300 Neut % (Auto) 81.7 H Lymph % (Auto) 7.6 L [place] % (Auto) 6.6 Eos % (Auto) 3.7 Baso % (Auto) 0.1 Absolute Neuts (auto) 8.7 H Absolute Lymphs (auto) 0.81 L Total Counted Not Reportable Sodium 132 L Potassium 5.0 Chloride 103 Carbon Dioxide 21.0 Anion Gap 8 BUN 35 H Creatinine 3.62 H Estim Creat Clear Calc 14.45 Est GFR (MDRD) Af Amer 17 L Est GFR (MDRD) Non-Af 14 L BUN/Creatinine Ratio 9.7 L Glucose 133 H Hemoglobin A1c 5.9 Calcium 8.0 L Total Bilirubin 0.50 AST 58 H ALT 63 H Alkaline Phosphatase 98 Total Protein 6.6 Albumin 2.9 L Globulin 3.7 Albumin/Globulin Ratio 0.8 L Urine Color Urine Clarity Urine pH Ur Specific [place] Urine Protein Urine Glucose (UA) Urine Ketones Urine Occult Blood Urine Nitrite Urine Bilirubin Urine Urobilinogen Ur Leukocyte Esterase Urine RBC Urine WBC Ur Squamous Epith Cells Urine Bacteria Urine Mucus Ur Random Sodium Urine Creatinine Medical Necessity - Tobacco Use Smoking Status: Former smoker Assessment/Plan All Active Problems (Last Reviewed 10/09/18 @ 09:19 by Sher Lam MD) Abnormal uterine bleeding (Acute) History of benign breast tumor (Acute) 1. JASMINA on CKDIII 2/2 acute urinary retention : worsened with flower from 2.08 to 3.62. -flower in place. Poor urine production. -Nephrology consult. D/w Dr. Mann who will see the pt today -No recent IV contrast. -Renal US negative. -Held nephrotoxins (pamela-i, ibuprofen). -Change lovenox to heparin. -Potassium normalized. -Continue IV NaCl. -Check A1C -Mild hyponatremia 2. Acute cholecystitis s/p resection / drain placement POD#2 - per Dr. Lam. -LFTs improved -afebrile, WBCs normalized 3. FREDERICK - CPAP qhs 4. Super morbid obesity 5. HTN - stable 6. Anxiety - stable DVT ppx: heparin Thank you for the opportunity to participate in the care of this patient. This patient was seen by Juan Barajas PA-C under the supervision of Dr. Harrell. <Ramírez Harrell - Last Filed: 10/12/18 14:16> Subjective: Seen and examined. cumulative Urine output is 625 mL since admission, 260 mL on 10/11 and today 130 mL since midnight. Positive balance 2600 mL . Mild abdominal sore from surgery. - Physical Exam General: Alert, Oriented x3, Cooperative HEENT: Atraumatic, PERRLA, EOMI, Normocephalic Neck: Supple, No JVD, Negative Carotid Bruits Lungs: Clear to auscultation, Normal air movement, No rhonchi, No wheeze Cardiovascular: Regular rate, No murmurs Abdomen: Bowel Sounds Present, Soft, Non Tender Extremities: No edema, Capillary Refill Less than 3 Seconds Skin: No rashes, No breakdown Musculoskeletal: No Tenderness to Palpation of Joints or Extremities, Arthritic Changes, Muscle Wasting Neurological: Cranial nerves II-XII grossly intact, Deep Tendon Reflexes 2+/4 and Symmetrical, Neuro grossly intact Psych/Mental Status: Normal Affect, Appropriate Vital Signs Temp Pulse Resp BP Pulse Ox 98.0 F 73 18 111/68 91 10/12/18 07:26 10/12/18 07:26 10/12/18 07:45 10/12/18 07:26 10/12/18 11:32 Oxygen Flow Rate (L/min) 2 Oxygen Delivery Method Nasal Cannula Weight: 400 lb 12.806 oz Body Mass Index (BMI) 68.8 Intake and Output for Last 24 Hours 10/10/18 10/11/18 10/12/18 23:59 23:59 23:59 Intake Total 1867 / 1867 6385 / 6385 2933 / 2933 Output Total 100 / 100 775 / 775 305 / 305 Balance 1767 / 1767 5610 / 5610 2628 / 2628 Laboratory Tests Past 24 Hrs 10/11/18 10/11/18 10/11/18 18:00 18:00 18:00 WBC RBC Hgb Hct MCV MCH MCHC RDW RDW Differential Plt Count MPV Immature Gran % (Auto) Neut % (Auto) Lymph % (Auto) [place] % (Auto) Eos % (Auto) Baso % (Auto) Absolute Neuts (auto) Absolute Lymphs (auto) Total Counted Sodium Potassium Chloride Carbon Dioxide Anion Gap BUN Creatinine Estim Creat Clear Calc Est GFR (MDRD) Af Amer Est GFR (MDRD) Non-Af BUN/Creatinine Ratio Glucose Hemoglobin A1c Calcium Total Bilirubin AST ALT Alkaline Phosphatase Total Protein Albumin Globulin Albumin/Globulin Ratio Urine Color Straw Urine Clarity Clear Urine pH 5.0 Ur Specific [place] 1.025 Urine Protein 30 H Urine Glucose (UA) Normal Urine Ketones 15 H Urine Occult Blood Negative Urine Nitrite Positive H Urine Bilirubin Negative Urine Urobilinogen Normal Ur Leukocyte Esterase 25 H Urine RBC 0 SEEN Urine WBC 0-5 SEEN Ur Squamous Epith Cells 0-5 SEEN Urine Bacteria 0 SEEN Urine Mucus 0 SEEN Ur Random Sodium 42 Urine Creatinine 288.00 10/12/18 10/12/18 10/12/18 07:15 07:15 07:15 WBC 10.7 RBC 3.95 L Hgb 11.6 L Hct 36.4 L MCV 92.2 MCH 29.4 MCHC 31.9 L RDW 14.1 RDW Differential 47.9 H Plt Count 332 MPV 9.4 Immature Gran % (Auto) 0.300 Neut % (Auto) 81.7 H Lymph % (Auto) 7.6 L [place] % (Auto) 6.6 Eos % (Auto) 3.7 Baso % (Auto) 0.1 Absolute Neuts (auto) 8.7 H Absolute Lymphs (auto) 0.81 L Total Counted Not Reportable Sodium 132 L Potassium 5.0 Chloride 103 Carbon Dioxide 21.0 Anion Gap 8 BUN 35 H Creatinine 3.62 H Estim Creat Clear Calc 14.45 Est GFR (MDRD) Af Amer 17 L Est GFR (MDRD) Non-Af 14 L BUN/Creatinine Ratio 9.7 L Glucose 133 H Hemoglobin A1c 5.9 Calcium 8.0 L Total Bilirubin 0.50 AST 58 H ALT 63 H Alkaline Phosphatase 98 Total Protein 6.6 Albumin 2.9 L Globulin 3.7 Albumin/Globulin Ratio 0.8 L Urine Color Urine Clarity Urine pH Ur Specific [place] Urine Protein Urine Glucose (UA) Urine Ketones Urine Occult Blood Urine Nitrite Urine Bilirubin Urine Urobilinogen Ur Leukocyte Esterase Urine RBC Urine WBC Ur Squamous Epith Cells Urine Bacteria Urine Mucus Ur Random Sodium Urine Creatinine Assessment/Plan This patient was seen in conjunction with Juan NELSON. I have independently interviewed and examined the patient and reviewed pertinent history, examination findings, laboratory and plan of management. I have reviewed the note and agree with the documented findings with the few additional points. In brief, patient is a 58-year-old female was admitted after elective laparoscopic cholecystectomy on 10/10/2018 for low urine output. cumulative Urine output is 625 mL since admission, 260 mL on 10/11 and today 130 mL since midnight. Positive balance 2600 mL . The patient has IMELDA drain is mild serosanguineous. IMELDA drain output 130 mL. Patient seen by rebeamer for acute kidney injury. Patient does not have history of kidney failure. She is admitted with creatinine 2.0 and creatinine went up to 3.6 on 10/12. Patient has a Flower catheter but has minimal amount of urine, dark yellow. Patient had low blood pressure 101/57 last night. Patient was taking ibuprofen 400 mg sometimes once or twice daily. Renal ultrasound is negative for hydronephrosis. FENa 0.4%. Mechanics Supervisor thinks most likely prerenal acute kidney injury. Continue conservative management with IV fluid and blood pressure, map more than 65. I have discussed my assessment with Juan NELSON and orders have been reviewed. Code Visit Inpatient E&M: 80231 Subs Hosp L2
--- NOTE | 2018-10-12 11:12 | PCM.CONS.R ---
Consultation - Renal 10/12/18 PCP/ Referring MD: Requesting physician: Dr Zapata Primary care physician: Esthela Wynne MD Reason for Consultation:: JASMINA - History of Present Illness History of Present Illness: The patient is a 58 year old F who was admitted electively for a cholecystectomy on Wednesday. Renal consulted for acute renal failure. No prior history of kidney failure. Last known creatinine was normal from last year. On the of this month she had preop work-up and creatinine was 1.4 at that time. She was admitted with a creatinine of 2.0 and today is up to 3.6. Overnight she did not make any urine at all. No recent contrast studies. Blood pressure is on the lower side. Patient says she has not eaten much over the last 1 week or so due to fear of aggravating the cholecystitis pain. Godinez placed with minimal return of urine. Currently complains of low back pain. Apparently was taking ibuprofen 400 mg At least once a day with sometimes twice a day. - Allergies Allergies: Allergies clindamycin Allergy (Severe, Verified 10/08/18 09:25) Hearing loss ciprofloxacin [From Cipro] Allergy (Verified 10/10/18 10:22) Other codeine Allergy (Verified 10/11/18 15:57) Rash hydrochlorothiazide Allergy (Verified 10/08/18 09:25) Other SORE JOINTS Penicillins [PCN] Allergy (Verified 10/08/18 09:25) Rash tramadol HCl [From Ultram] Allergy (Verified 10/08/18 09:25) Other MAKES MY HEART GO CRAZY HEART RACES - Current Medications Current Medications: Current Medications Amlodipine Besylate (Norvasc) 10 mg PO DAILY [facility] Last Admin: 10/12/18 08:27 Dose: 10 mg Aspirin (Ecotrin) 81 mg PO DAILY@0800 [facility] Last Admin: 10/12/18 08:27 Dose: 81 mg Fluoxetine HCl (Prozac) 20 mg PO DAILY [facility] Last Admin: 10/12/18 08:27 Dose: 20 mg Heparin Sodium (Porcine) (Heparin Na) 5,000 unit SC Q8 [facility] Hydralazine HCl (Apresoline Iv) 10 mg IV Q4H PRN PRN PRN Reason: SBP > 160 Hydromorphone HCl (Dilaudid Inj) 1 - 2 mg IV Q2H PRN PRN PRN Reason: Mod/Severe (pain scale 6-10) Last Admin: 10/12/18 10:03 Dose: 1 mg Hydromorphone HCl (Dilaudid Inj) 1 - 2 mg IV Q2H PRN PRN PRN Reason: Mod/Severe (pain scale 6-10) Sodium Chloride () 1,000 mls @ 150 mls/hr IV .Q6H40M [facility] Last Admin: 10/12/18 02:23 Dose: 150 mls/hr Metronidazole (Flagyl) 500 mg PO TID [facility] Last Admin: 10/12/18 05:19 Dose: 500 mg Ondansetron HCl (Zofran) 4 mg IV Q8H PRN PRN PRN Reason: Nausea Last Admin: 10/12/18 05:31 Dose: 4 mg Sodium Chloride () 5 - 15 ml IV UD PRN PRN Reason: SALINE FLUSH Last Admin: 10/12/18 10:03 Dose: 10 ml - Past Medical History Past Medical History (Chronic Problems): Chronic Problems (Last Reviewed 10/09/18 @ 09:19 by Sher Lam MD) Calculus of gallbladder with acute on chronic cholecystitis without obstruction (Chronic) Anxiety and depression (Chronic) Sleep apnea in adult (Chronic) GERD (gastroesophageal reflux disease) (Chronic) Seasonal allergies (Chronic) Depression (Chronic) Venous insufficiency (Chronic) Hearing impairment (Chronic) Morbid obesity (Chronic) Hypertension (Chronic) - Social History Smoking Status: Former smoker Review of Systems Constitutional: Denies: Chills, Fever, Weight Change HEENT: Denies: Head Aches, Sinus Congestion, Sinus Drainage Cardiovascular: Denies: Chest Pain, Palpitations Respiratory: Denies: Cough, Shortness of breath at rest, Sputum production Gastrointestinal: Denies: Abdominal Pain, Nausea, Vomiting Genitourinary: Denies: Dysuria Musculoskeletal: Denies: Joint Pain, Joint Tenderness Skin: Denies: Rash, Wounds Neurological: Denies: Numbness, Tingling, Focal weakness Psychiatric: Denies: Anxiety, Depression, Homicidal Ideations, Suicidal Ideations Hematologic/ Lymphatic: Denies: Easy Bruising, Easy Bleeding - Physical Exam General: Alert, Oriented x3, Cooperative HEENT: Atraumatic, PERRLA, EOMI, Normocephalic Neck: Supple, No JVD, Negative Carotid Bruits Lungs: Clear to auscultation, Normal air movement Cardiovascular: Regular rate, No murmurs Abdomen: Bowel Sounds Present, Soft, Non Tender Extremities: No edema, Capillary Refill Less than 3 Seconds Skin: No rashes, No breakdown Musculoskeletal: No Tenderness to Palpation of Joints or Extremities Neurological: Cranial nerves II-XII grossly intact Psych/Mental Status: Normal Affect, Appropriate Vital Signs Temp Pulse Resp BP Pulse Ox 98.0 F 73 18 111/68 96 10/12/18 07:26 10/12/18 07:26 10/12/18 07:45 10/12/18 07:26 10/12/18 07:26 Oxygen Flow Rate (L/min) 3 Oxygen Delivery Method Nasal Cannula Weight: 181.8 kg Body Mass Index (BMI) 68.8 Intake and Output for Last 24 Hours 10/10/18 10/11/18 10/12/18 23:59 23:59 23:59 Intake Total 1867 / 1867 6385 / 6385 1215 / 1215 Output Total 100 / 100 775 / 775 180 / 180 Balance 1767 / 1767 5610 / 5610 1035 / 1035 Laboratory Tests Past 24 Hrs 10/11/18 10/11/18 10/11/18 18:00 18:00 18:00 WBC RBC Hgb Hct MCV MCH MCHC RDW RDW Differential Plt Count MPV Immature Gran % (Auto) Neut % (Auto) Lymph % (Auto) [place] % (Auto) Eos % (Auto) Baso % (Auto) Absolute Neuts (auto) Absolute Lymphs (auto) Total Counted Sodium Potassium Chloride Carbon Dioxide Anion Gap BUN Creatinine Estim Creat Clear Calc Est GFR (MDRD) Af Amer Est GFR (MDRD) Non-Af BUN/Creatinine Ratio Glucose Hemoglobin A1c Calcium Total Bilirubin AST ALT Alkaline Phosphatase Total Protein Albumin Globulin Albumin/Globulin Ratio Urine Color Straw Urine Clarity Clear Urine pH 5.0 Ur Specific [place] 1.025 Urine Protein 30 H Urine Glucose (UA) Normal Urine Ketones 15 H Urine Occult Blood Negative Urine Nitrite Positive H Urine Bilirubin Negative Urine Urobilinogen Normal Ur Leukocyte Esterase 25 H Urine RBC 0 SEEN Urine WBC 0-5 SEEN Ur Squamous Epith Cells 0-5 SEEN Urine Bacteria 0 SEEN Urine Mucus 0 SEEN Ur Random Sodium 42 Urine Creatinine 288.00 10/12/18 10/12/18 10/12/18 07:15 07:15 07:15 WBC 10.7 RBC 3.95 L Hgb 11.6 L Hct 36.4 L MCV 92.2 MCH 29.4 MCHC 31.9 L RDW 14.1 RDW Differential 47.9 H Plt Count 332 MPV 9.4 Immature Gran % (Auto) 0.300 Neut % (Auto) 81.7 H Lymph % (Auto) 7.6 L [place] % (Auto) 6.6 Eos % (Auto) 3.7 Baso % (Auto) 0.1 Absolute Neuts (auto) 8.7 H Absolute Lymphs (auto) 0.81 L Total Counted Not Reportable Sodium 132 L Potassium 5.0 Chloride 103 Carbon Dioxide 21.0 Anion Gap 8 BUN 35 H Creatinine 3.62 H Estim Creat Clear Calc 14.45 Est GFR (MDRD) Af Amer 17 L Est GFR (MDRD) Non-Af 14 L BUN/Creatinine Ratio 9.7 L Glucose 133 H Hemoglobin A1c 5.9 Calcium 8.0 L Total Bilirubin 0.50 AST 58 H ALT 63 H Alkaline Phosphatase 98 Total Protein 6.6 Albumin 2.9 L Globulin 3.7 Albumin/Globulin Ratio 0.8 L Urine Color Urine Clarity Urine pH Ur Specific [place] Urine Protein Urine Glucose (UA) Urine Ketones Urine Occult Blood Urine Nitrite Urine Bilirubin Urine Urobilinogen Ur Leukocyte Esterase Urine RBC Urine WBC Ur Squamous Epith Cells Urine Bacteria Urine Mucus Ur Random Sodium Urine Creatinine Assessment/Plan All Active Problems (Last Reviewed 10/09/18 @ 09:19 by Sher Lam MD) Abnormal uterine bleeding (Acute) History of benign breast tumor (Acute) Acute renal failure. New onset within the last 1 week. Preoperative creatinine was around 1.4. Increase to 2 yesterday and 3.6 today. Renal ultrasound does not show any hydronephrosis. Godinez in place and there is not much urine output. Urine analysis looks fairly benign with 1+ protein, some cells. However this is a Godinez sample. Fractional excretion of sodium is 0.4%. At least as per history, she did not eat or drink much for the last 1 week or so. She was also taking large amounts of ibuprofen. Most likely prerenal JASMINA. Continue fluids for 1 more day. Since blood pressure is on the lower side, stop amlodipine for today. We will continue to follow. Reviewed her medication list over the last 6 months. Only change was switching felodipine to amlodipine
--- NOTE | 2018-10-12 11:19 | CON.PCM_ITS ---
Consultation - Renal 10/12/18 PCP/ Referring MD: Requesting physician: Dr Zapata Primary care physician: Esthela Wynne MD Reason for Consultation:: JASMINA - History of Present Illness History of Present Illness: The patient is a 58 year old F who was admitted electively for a cholecystectomy on Wednesday. Renal consulted for acute renal failure. No prior history of kidney failure. Last known creatinine was normal from last year. On the of this month she had preop work-up and creatinine was 1.4 at that time. She was admitted with a creatinine of 2.0 and today is up to 3.6. Overnight she did not make any urine at all. No recent contrast studies. Blood pressure is on the lower side. Patient says she has not eaten much over the last 1 week or so due to fear of aggravating the cholecystitis pain. Godinez placed with minimal return of urine. Currently complains of low back pain. Apparently was taking ibuprofen 400 mg At least once a day with sometimes twice a day. - Allergies Allergies: Allergies clindamycin Allergy (Severe, Verified 10/08/18 09:25) Hearing loss ciprofloxacin [From Cipro] Allergy (Verified 10/10/18 10:22) Other codeine Allergy (Verified 10/11/18 15:57) Rash hydrochlorothiazide Allergy (Verified 10/08/18 09:25) Other SORE JOINTS Penicillins [PCN] Allergy (Verified 10/08/18 09:25) Rash tramadol HCl [From Ultram] Allergy (Verified 10/08/18 09:25) Other MAKES MY HEART GO CRAZY HEART RACES - Current Medications Current Medications: Current Medications Amlodipine Besylate (Norvasc) 10 mg PO DAILY [facility] Last Admin: 10/12/18 08:27 Dose: 10 mg Aspirin (Ecotrin) 81 mg PO DAILY@0800 [facility] Last Admin: 10/12/18 08:27 Dose: 81 mg Fluoxetine HCl (Prozac) 20 mg PO DAILY [facility] Last Admin: 10/12/18 08:27 Dose: 20 mg Heparin Sodium (Porcine) (Heparin Na) 5,000 unit SC Q8 [facility] Hydralazine HCl (Apresoline Iv) 10 mg IV Q4H PRN PRN PRN Reason: SBP > 160 Hydromorphone HCl (Dilaudid Inj) 1 - 2 mg IV Q2H PRN PRN PRN Reason: Mod/Severe (pain scale 6-10) Last Admin: 10/12/18 10:03 Dose: 1 mg Hydromorphone HCl (Dilaudid Inj) 1 - 2 mg IV Q2H PRN PRN PRN Reason: Mod/Severe (pain scale 6-10) Sodium Chloride () 1,000 mls @ 150 mls/hr IV .Q6H40M [facility] Last Admin: 10/12/18 02:23 Dose: 150 mls/hr Metronidazole (Flagyl) 500 mg PO TID [facility] Last Admin: 10/12/18 05:19 Dose: 500 mg Ondansetron HCl (Zofran) 4 mg IV Q8H PRN PRN PRN Reason: Nausea Last Admin: 10/12/18 05:31 Dose: 4 mg Sodium Chloride () 5 - 15 ml IV UD PRN PRN Reason: SALINE FLUSH Last Admin: 10/12/18 10:03 Dose: 10 ml - Past Medical History Past Medical History (Chronic Problems): Chronic Problems (Last Reviewed 10/09/18 @ 09:19 by Sher Lam MD) Calculus of gallbladder with acute on chronic cholecystitis without obstruction (Chronic) Anxiety and depression (Chronic) Sleep apnea in adult (Chronic) GERD (gastroesophageal reflux disease) (Chronic) Seasonal allergies (Chronic) Depression (Chronic) Venous insufficiency (Chronic) Hearing impairment (Chronic) Morbid obesity (Chronic) Hypertension (Chronic) - Social History Smoking Status: Former smoker Review of Systems Constitutional: Denies: Chills, Fever, Weight Change HEENT: Denies: Head Aches, Sinus Congestion, Sinus Drainage Cardiovascular: Denies: Chest Pain, Palpitations Respiratory: Denies: Cough, Shortness of breath at rest, Sputum production Gastrointestinal: Denies: Abdominal Pain, Nausea, Vomiting Genitourinary: Denies: Dysuria Musculoskeletal: Denies: Joint Pain, Joint Tenderness Skin: Denies: Rash, Wounds Neurological: Denies: Numbness, Tingling, Focal weakness Psychiatric: Denies: Anxiety, Depression, Homicidal Ideations, Suicidal Ideations Hematologic/ Lymphatic: Denies: Easy Bruising, Easy Bleeding - Physical Exam General: Alert, Oriented x3, Cooperative HEENT: Atraumatic, PERRLA, EOMI, Normocephalic Neck: Supple, No JVD, Negative Carotid Bruits Lungs: Clear to auscultation, Normal air movement Cardiovascular: Regular rate, No murmurs Abdomen: Bowel Sounds Present, Soft, Non Tender Extremities: No edema, Capillary Refill Less than 3 Seconds Skin: No rashes, No breakdown Musculoskeletal: No Tenderness to Palpation of Joints or Extremities Neurological: Cranial nerves II-XII grossly intact Psych/Mental Status: Normal Affect, Appropriate Vital Signs Temp Pulse Resp BP Pulse Ox 98.0 F 73 18 111/68 96 10/12/18 07:26 10/12/18 07:26 10/12/18 07:45 10/12/18 07:26 10/12/18 07:26 Oxygen Flow Rate (L/min) 3 Oxygen Delivery Method Nasal Cannula Weight: 181.8 kg Body Mass Index (BMI) 68.8 Intake and Output for Last 24 Hours 10/10/18 10/11/18 10/12/18 23:59 23:59 23:59 Intake Total 1867 / 1867 6385 / 6385 1215 / 1215 Output Total 100 / 100 775 / 775 180 / 180 Balance 1767 / 1767 5610 / 5610 1035 / 1035 Laboratory Tests Past 24 Hrs 10/11/18 10/11/18 10/11/18 18:00 18:00 18:00 WBC RBC Hgb Hct MCV MCH MCHC RDW RDW Differential Plt Count MPV Immature Gran % (Auto) Neut % (Auto) Lymph % (Auto) [place] % (Auto) Eos % (Auto) Baso % (Auto) Absolute Neuts (auto) Absolute Lymphs (auto) Total Counted Sodium Potassium Chloride Carbon Dioxide Anion Gap BUN Creatinine Estim Creat Clear Calc Est GFR (MDRD) Af Amer Est GFR (MDRD) Non-Af BUN/Creatinine Ratio Glucose Hemoglobin A1c Calcium Total Bilirubin AST ALT Alkaline Phosphatase Total Protein Albumin Globulin Albumin/Globulin Ratio Urine Color Straw Urine Clarity Clear Urine pH 5.0 Ur Specific [place] 1.025 Urine Protein 30 H Urine Glucose (UA) Normal Urine Ketones 15 H Urine Occult Blood Negative Urine Nitrite Positive H Urine Bilirubin Negative Urine Urobilinogen Normal Ur Leukocyte Esterase 25 H Urine RBC 0 SEEN Urine WBC 0-5 SEEN Ur Squamous Epith Cells 0-5 SEEN Urine Bacteria 0 SEEN Urine Mucus 0 SEEN Ur Random Sodium 42 Urine Creatinine 288.00 10/12/18 10/12/18 10/12/18 07:15 07:15 07:15 WBC 10.7 RBC 3.95 L Hgb 11.6 L Hct 36.4 L MCV 92.2 MCH 29.4 MCHC 31.9 L RDW 14.1 RDW Differential 47.9 H Plt Count 332 MPV 9.4 Immature Gran % (Auto) 0.300 Neut % (Auto) 81.7 H Lymph % (Auto) 7.6 L [place] % (Auto) 6.6 Eos % (Auto) 3.7 Baso % (Auto) 0.1 Absolute Neuts (auto) 8.7 H Absolute Lymphs (auto) 0.81 L Total Counted Not Reportable Sodium 132 L Potassium 5.0 Chloride 103 Carbon Dioxide 21.0 Anion Gap 8 BUN 35 H Creatinine 3.62 H Estim Creat Clear Calc 14.45 Est GFR (MDRD) Af Amer 17 L Est GFR (MDRD) Non-Af 14 L BUN/Creatinine Ratio 9.7 L Glucose 133 H Hemoglobin A1c 5.9 Calcium 8.0 L Total Bilirubin 0.50 AST 58 H ALT 63 H Alkaline Phosphatase 98 Total Protein 6.6 Albumin 2.9 L Globulin 3.7 Albumin/Globulin Ratio 0.8 L Urine Color Urine Clarity Urine pH Ur Specific [place] Urine Protein Urine Glucose (UA) Urine Ketones Urine Occult Blood Urine Nitrite Urine Bilirubin Urine Urobilinogen Ur Leukocyte Esterase Urine RBC Urine WBC Ur Squamous Epith Cells Urine Bacteria Urine Mucus Ur Random Sodium Urine Creatinine Assessment/Plan All Active Problems (Last Reviewed 10/09/18 @ 09:19 by Sher Lam MD) Abnormal uterine bleeding (Acute) History of benign breast tumor (Acute) Acute renal failure. New onset within the last 1 week. Preoperative creatinine was around 1.4. Increase to 2 yesterday and 3.6 today. Renal ultrasound does not show any hydronephrosis. Godinez in place and there is not much urine output. Urine analysis looks fairly benign with 1+ protein, some cells. However this is a Godinez sample. Fractional excretion of sodium is 0.4%. At least as per history, she did not eat or drink much for the last 1 week or so. She was also taking large amounts of ibuprofen. Most likely prerenal JASMINA. Continue fluids for 1 more day. Since blood pressure is on the lower side, stop amlodipine for today. We will continue to follow. Reviewed her medication list over the last 6 months. Only change was switching felodipine to amlodipine
--- NOTE | 2018-10-12 14:15 | CASEMGMT ---
RN REAGAN FORESTRY PATROLMAN CM to room to meet with patient for initial transition planning/care coordination assessment. JAMES KIRK introduced self and role at [facility]. Pt voices understanding and consents to assessment at this time. Pt resting in bed in no distress at this time. Pt is A/O at this time and answers all questions appropriately. Care providers, pharmacy, and demographics verified/updated at this time. PCP: Sherrell Specialists: none Preferred Pharmacy: [facility] Retail Insurance: [place] Prescription Benefit: Yes Living Will/HPOA: does not have LW or HCPOA . Interested in more information and would like to talk with her before completing paperwork. Provided information on advanced directives. Pt states her will be back tomorrow between 10 and 12 and inquired if SW could come in some time tomorrow while he is present. SW, Oksana, made aware . Pt made aware if SW unable to meet with her during that time, that she can utilize [facility] social work for advanced directive completion as an out-pt as well. Provided technical services librarian Rac Card. Educated patient that, if patient so chooses, can come back to [facility] and meet with a SW as an outpatient to complete health care advanced directives. Patient expresses understanding. LNOK: . 2 adult children: 21-yr-old son and 18-yr old handicapped daughter whom she helps take care of. Living Arrangements: Lives with and 2 adult children as listed above. Lives in 2-story farmhouse w/partial basement. States she mainly stays on main floor where bedroom, bath, kitchen, and laundry are. She states she has difficulty with the stairs and does not go up/down the stairs to 2nd floor or basement very often at all. Ramp entrance into home for her daughter which she uses. Transportation: Pt states drives self and states no transportation concerns at this time. also drives. DME: has the following DME: rails/grab bars, hand held shower, and CPAP which she got thru [facility]. No home O2. Pt states no need for further DME at this time. HHC/SNF: No history of either. Denies wanting HHC or out-pt therapy. Made aware if she is interested in HHC or Out-pt therapy in the future, to talk with her PCP about this. Pt voices understanding. Pt wishes to return home and states has no concerns with going home at time of discharge. Pt states does not currently smoke and rarely drinks alcohol. CM to follow for home oxygen needs and any further discharge planning/needs. Pt voices no further concerns/needs at this time. Advised pt to ask for CM if any further questions/concerns/needs arise. Voices understanding. PLAN: Home with family support and discharge plans in place. SW C/S for AD. Edgar HUYNH RN CM
[2018-10-13] MEDS: 0.9% Normal Saline 1,000 ML 150 ML IV (02:17)
[2018-10-13 03:09] VITALS: BP 117/56; PULSE 74; RESP 16; TEMP 36.5; O2SAT 94
[2018-10-13 05:26] LABS: Anion Gap 8 (5-15); BUN 37 mg/dL (7-18); Calcium,Total 7.8 mg/dL (8.5-10.1); Chloride 106 mmol/L (98-107); Creatinine, Serum 2.18 mg/dL (0.55-1.02); EST Glomerular Filtration Rate 25 mL/min (>60); Est Glom Filt Rate - Afr Amer 30 mL/min (>60); Estimated Creatinine Clearance 23.99 ml/min; Glucose 125 mg/dL (74-106); Potassium 4.5 mmol/L (3.5-5.1); Sodium Level 136 mmol/L (136-145)
[2018-10-13] MEDS: HYDROmorphone 1 MG/ML Syringe IV ×3 (06:23→22:05)
[2018-10-13] MEDS: metroNIDAZOLE 500 MG Tablet PO ×3 (06:25→20:23)
[2018-10-13 08:50] VITALS: BP 110/45; PULSE 76; RESP 16; TEMP 36.8; O2SAT 94
[2018-10-13] MEDS: Aspirin E.C. 81 MG Tablet PO (09:00)
[2018-10-13] MEDS: Heparin Injection (Vial) 5,000 UNIT/ML VIAL 5000 UNIT SC ×3 (09:01→20:23)
[2018-10-13] MEDS: FLUoxetine 20 MG Capsule PO (09:01)
[2018-10-13] MEDS: 0.9% Normal Saline 1,000 ML 100 ML IV ×2 (10:45→20:23)
[2018-10-13] MEDS: 0.9% NaCl Peripheral Flush Adult/Peds IV (10:48)
--- NOTE | 2018-10-13 11:10 | PCM.PN.SRG ---
Subjective: Patient evaluated this morning laying in bed comfortably. She notes abdominal discomfort has improved. She denies nausea. She is tolerating a full liquid diet. - Physical Exam General: Alert, Oriented x3, Cooperative Abdomen: Bowel Sounds Present, Soft, Obese, Tender - generalized, - - Incisions c/d/i. No erythema or infection noted. Minimal amount of dried blood noted. IMELDA drain with increased drainage. Becoming more clear. SA fluid. Skin: - - Flower catheter intact with light yellowish urine Vital Signs Temp Pulse Resp BP Pulse Ox 97.7 F L 74 16 117/56 L 94 10/13/18 03:09 10/13/18 03:09 10/13/18 03:09 10/13/18 03:09 10/13/18 03:09 Oxygen Flow Rate (L/min) 2 Oxygen Delivery Method CPAP Weight: 400 lb 12.806 oz Body Mass Index (BMI) 68.8 Intake and Output for Last 24 Hours 10/11/18 10/12/18 10/13/18 23:59 23:59 23:59 Intake Total 6385 / 6385 4425 / 4425 2394 / 2394 Output Total 775 / 775 750 / 750 1710 / 1710 Balance 5610 / 5610 3675 / 3675 684 / 684 Microbiology Past 72 Hours 10/11/18 18:00 Urine Culture - Preliminary Urine Catheter - Flower Culture exhibits no growth. Laboratory Tests Past 24 Hrs 10/13/18 04:54 Sodium 136 Potassium 4.5 Chloride 106 Carbon Dioxide 22.0 Anion Gap 8 BUN 37 H Creatinine 2.18 H Estim Creat Clear Calc 23.99 Est GFR (MDRD) Af Amer 30 L Est GFR (MDRD) Non-Af 25 L BUN/Creatinine Ratio 17.0 Glucose 125 H Calcium 7.8 L Medical Necessity - Tobacco Use Smoking Status: Former smoker Assessment/Plan All Active Problems (Last Reviewed 10/09/18 @ 09:19 by Sher Lam MD) Abnormal uterine bleeding (Acute) History of benign breast tumor (Acute) I am following this patient in conjunction with Dr. Lam Impression: s/p cholecystectomy Creatinine 2.1 improving. BUN 37. Keep flower intact Keep IMELDA drain. We will continue to monitor this patient Code Visit Inpatient E&M: 70173 Subs Hosp L1 - Post-op/ No charge
--- NOTE | 2018-10-13 11:20 | CASEMGMT ---
SW spoke w/pt in room in regard to LW/POA. Pt is not ready to complete the forms just yet, wanted to look them over and speak w/her who just arrived to the hospital. SW let pt know if she would like to complete the forms today, SW is available. Otherwise, SW will stop in tomorrow to see her. SW gave pt the blank forms and the SW card to call the SW dept after discharge to complete the forms should she decide she does not want to complete them while in the hospital. Pt states understanding. BESS Nguyen
--- NOTE | 2018-10-13 12:35 | PCM.PN.REN ---
Subjective: no new complaints - Physical Exam General: Alert, Oriented x3, Cooperative HEENT: Atraumatic, PERRLA, EOMI, Normocephalic Neck: Supple, No JVD, Negative Carotid Bruits Lungs: Clear to auscultation, Normal air movement Cardiovascular: Regular rate, No murmurs Abdomen: Bowel Sounds Present, Soft, Non Tender Extremities: No edema, Capillary Refill Less than 3 Seconds Skin: No rashes, No breakdown Musculoskeletal: No Tenderness to Palpation of Joints or Extremities Neurological: Cranial nerves II-XII grossly intact Psych/Mental Status: Normal Affect, Appropriate Vital Signs Temp Pulse Resp BP Pulse Ox 98.2 F 76 16 110/45 L 94 10/13/18 08:50 10/13/18 08:50 10/13/18 08:50 10/13/18 08:50 10/13/18 08:50 Oxygen Flow Rate (L/min) 2 Oxygen Delivery Method Room Air Weight: 181.8 kg Body Mass Index (BMI) 68.8 Intake and Output for Last 24 Hours 10/11/18 10/12/18 10/13/18 23:59 23:59 23:59 Intake Total 6385 / 6385 4425 / 4425 3442 / 3442 Output Total 775 / 775 750 / 750 2270 / 2270 Balance 5610 / 5610 3675 / 3675 1172 / 1172 Microbiology Past 72 Hours 10/11/18 18:00 Urine Culture - Preliminary Urine Catheter - Godinez Culture exhibits no growth. Laboratory Tests Past 24 Hrs 10/13/18 04:54 Sodium 136 Potassium 4.5 Chloride 106 Carbon Dioxide 22.0 Anion Gap 8 BUN 37 H Creatinine 2.18 H Estim Creat Clear Calc 23.99 Est GFR (MDRD) Af Amer 30 L Est GFR (MDRD) Non-Af 25 L BUN/Creatinine Ratio 17.0 Glucose 125 H Calcium 7.8 L Medical Necessity - Tobacco Use Smoking Status: Former smoker Assessment/Plan All Active Problems (Last Reviewed 10/09/18 @ 09:19 by Sher Lam MD) Abnormal uterine bleeding (Acute) History of benign breast tumor (Acute) Acute renal failure. New onset within the last 1 week. Preoperative creatinine was around 1.4. Increase to3.6. Renal ultrasound does not show any hydronephrosis. Urine analysis looks fairly benign with 1+ protein, some cells. However this is a Godinez sample. Fractional excretion of sodium is 0.4%. At least as per history, she did not eat or drink much for the last 1 week or so. She was also taking large amounts of ibuprofen. Most likely prerenal JASMINA. Continue fluids for 1 more day. Reviewed her medication list over the last 6 months. Only change was switching felodipine to amlodipine probably can dc fluids tomorrow if creatinine trends down further
--- NOTE | 2018-10-13 14:32 | PCM.PN.HOSP ---
Subjective: Patient has good improvement in urine output. 1850 mL since past midnight. About 550 mL yesterday. Positive fluid balance. Kidney function has improved. Electrolytes are better. Vitals/I&O's: Vital Signs Temp Pulse Resp BP Pulse Ox 98.2 F 76 16 110/45 L 94 10/13/18 08:50 10/13/18 08:50 10/13/18 08:50 10/13/18 08:50 10/13/18 08:50 Oxygen Flow Rate (L/min) 2 Oxygen Delivery Method Room Air Weight: 400 lb 12.806 oz Body Mass Index (BMI) 68.8 Intake and Output for Last 24 Hours 10/11/18 10/12/18 10/13/18 23:59 23:59 23:59 Intake Total 6385 / 6385 4425 / 4425 3442 / 3442 Output Total 775 / 775 750 / 750 2270 / 2270 Balance 5610 / 5610 3675 / 3675 1172 / 1172 General: Alert, Oriented x3, Cooperative HEENT: Atraumatic, PERRLA, EOMI, Normocephalic Neck: Supple, No JVD, Negative Carotid Bruits Lungs: Clear to auscultation, Normal air movement, Diminished, - - Wheezing on both lower lungs. Cardiovascular: Regular rate, Regular Rhythm, Normal S1, Normal S2, No murmurs Abdomen: Bowel Sounds Present, Soft, Non Tender, Non-Distended Extremities: No edema, Capillary Refill Less than 3 Seconds Skin: No rashes, No breakdown Musculoskeletal: No Tenderness to Palpation of Joints or Extremities Neurological: Cranial nerves II-XII grossly intact Psych/Mental Status: Normal Affect, Appropriate Microbiology Past 72 Hours 10/11/18 18:00 Urine Catheter - Godinez Urine Culture - Preliminary Culture exhibits no growth. Laboratory Results 10/13/18 04:54: Sodium 136, Potassium 4.5, Chloride 106, Carbon Dioxide 22.0, Anion Gap 8, BUN 37 H, Creatinine 2.18 H, Estim Creat Clear Calc 23.99, Est GFR (MDRD) Af Amer 30 L, Est GFR (MDRD) Non-Af 25 L, BUN/Creatinine Ratio 17.0, Glucose 125 H, Calcium 7.8 L Current Medications Aspirin (Ecotrin) 81 mg PO DAILY@0800 [facility] Last Admin: 10/13/18 09:00 Dose: 81 mg Fluoxetine HCl (Prozac) 20 mg PO DAILY [facility] Last Admin: 10/13/18 09:01 Dose: 20 mg Heparin Sodium (Porcine) (Heparin Na) 5,000 unit SC Q8 [facility] Last Admin: 10/13/18 13:28 Dose: 5,000 unit Hydralazine HCl (Apresoline Iv) 10 mg IV Q4H PRN PRN PRN Reason: SBP > 160 Hydromorphone HCl (Dilaudid Inj) 1 - 2 mg IV Q2H PRN PRN PRN Reason: Mod/Severe (pain scale 6-10) Last Admin: 10/13/18 13:33 Dose: 1 mg Hydromorphone HCl (Dilaudid Inj) 1 - 2 mg IV Q2H PRN PRN PRN Reason: Mod/Severe (pain scale 6-10) Sodium Chloride () 1,000 mls @ 100 mls/hr IV .Q10H [facility] Last Admin: 10/13/18 10:45 Dose: 100 mls/hr Metronidazole (Flagyl) 500 mg PO TID [facility] Last Admin: 10/13/18 13:28 Dose: 500 mg Ondansetron HCl (Zofran) 4 mg IV Q8H PRN PRN PRN Reason: Nausea Last Admin: 10/12/18 05:31 Dose: 4 mg Sodium Chloride () 5 - 15 ml IV UD PRN PRN Reason: SALINE FLUSH Last Admin: 10/13/18 10:48 Dose: 10 ml Medical Necessity - Tobacco Use Smoking Status: Former smoker Assessment/Plan All Active Problems (Last Reviewed 10/09/18 @ 09:19 by Sher Lam MD) Abnormal uterine bleeding (Acute) History of benign breast tumor (Acute) This is a 58-year-old female was admitted after elective laparoscopic cholecystectomy on 10/10/2018 for low urine output/oliguria. The urine output 260 mL on 10/11 and 575 mL on 10/12 but improved to 1850 mL on 10/13. 1. JASMINA on CKDIII , new onset most likely secondary to prerenal/NSAIDs: Patient has Godinez catheter. Discussed with security guards dispatcher Dr. Mann. FENa 0.4%. Patient urine output increased and and seems the patient will begin diuretic phage. We will keep the Godinez catheter. Renal ultrasound is negative for acute hydronephrosis. Normal renal cortex of right and left kidney. Normal wall thickness of urinary bladder. No demonstrated calculi or mass in kidneys and bladder. Hold nephrotoxins. 2. Electrolyte abnormality: Mild hyperkalemia, 5.4 resolved. Mild hyponatremia, sodium 132: Resolved. Continue IV fluid normal saline, rate decreased to 100 mL/ 3. Acute cholecystitis s/p lap cholecystectomy with IMELDA drain: IMELDA drain amount is minimal. Rest as per Dr. Lam. 4. FREDERICK - CPAP qhs. Patient has wheezing in bilateral lower lobes. Will need further PFT as an outpatient. Bronchodilator DuoNeb every 6 hourly. 5. Other comorbidities include hypertension, anxiety and depression and super morbid obesity. DVT ppx: heparin Microbiology Past 72 Hours 10/11/18 18:00 Urine Catheter - Godinez Urine Culture - Preliminary Culture exhibits no growth. Laboratory Results 10/13/18 04:54: Sodium 136, Potassium 4.5, Chloride 106, Carbon Dioxide 22.0, Anion Gap 8, BUN 37 H, Creatinine 2.18 H, Estim Creat Clear Calc 23.99, Est GFR (MDRD) Af Amer 30 L, Est GFR (MDRD) Non-Af 25 L, BUN/Creatinine Ratio 17.0, Glucose 125 H, Calcium 7.8 L Clinical Impression(s) from Imaging Studies Renal Ultrasound 10/11/18 16:07 IMPRESSION: There are no hydronephrosis. Code Visit Inpatient E&M: 42307 Subs Hosp L2
--- NOTE | 2018-10-13 14:44 | PN_ITS ---
Subjective: Patient has good improvement in urine output. 1850 mL since past midnight. About 550 mL yesterday. Positive fluid balance. Kidney function has improved. Electrolytes are better. Vitals/I&O's: Vital Signs Temp Pulse Resp BP Pulse Ox 98.2 F 76 16 110/45 L 94 10/13/18 08:50 10/13/18 08:50 10/13/18 08:50 10/13/18 08:50 10/13/18 08:50 Oxygen Flow Rate (L/min) 2 Oxygen Delivery Method Room Air Weight: 400 lb 12.806 oz Body Mass Index (BMI) 68.8 Intake and Output for Last 24 Hours 10/11/18 10/12/18 10/13/18 23:59 23:59 23:59 Intake Total 6385 / 6385 4425 / 4425 3442 / 3442 Output Total 775 / 775 750 / 750 2270 / 2270 Balance 5610 / 5610 3675 / 3675 1172 / 1172 General: Alert, Oriented x3, Cooperative HEENT: Atraumatic, PERRLA, EOMI, Normocephalic Neck: Supple, No JVD, Negative Carotid Bruits Lungs: Clear to auscultation, Normal air movement, Diminished, - - Wheezing on both lower lungs. Cardiovascular: Regular rate, Regular Rhythm, Normal S1, Normal S2, No murmurs Abdomen: Bowel Sounds Present, Soft, Non Tender, Non-Distended Extremities: No edema, Capillary Refill Less than 3 Seconds Skin: No rashes, No breakdown Musculoskeletal: No Tenderness to Palpation of Joints or Extremities Neurological: Cranial nerves II-XII grossly intact Psych/Mental Status: Normal Affect, Appropriate Microbiology Past 72 Hours 10/11/18 18:00 Urine Catheter - Godinez Urine Culture - Preliminary Culture exhibits no growth. Laboratory Results 10/13/18 04:54: Sodium 136, Potassium 4.5, Chloride 106, Carbon Dioxide 22.0, Anion Gap 8, BUN 37 H, Creatinine 2.18 H, Estim Creat Clear Calc 23.99, Est GFR (MDRD) Af Amer 30 L, Est GFR (MDRD) Non-Af 25 L, BUN/Creatinine Ratio 17.0, Glucose 125 H, Calcium 7.8 L Current Medications Aspirin (Ecotrin) 81 mg PO DAILY@0800 [facility] Last Admin: 10/13/18 09:00 Dose: 81 mg Fluoxetine HCl (Prozac) 20 mg PO DAILY [facility] Last Admin: 10/13/18 09:01 Dose: 20 mg Heparin Sodium (Porcine) (Heparin Na) 5,000 unit SC Q8 [facility] Last Admin: 10/13/18 13:28 Dose: 5,000 unit Hydralazine HCl (Apresoline Iv) 10 mg IV Q4H PRN PRN PRN Reason: SBP > 160 Hydromorphone HCl (Dilaudid Inj) 1 - 2 mg IV Q2H PRN PRN PRN Reason: Mod/Severe (pain scale 6-10) Last Admin: 10/13/18 13:33 Dose: 1 mg Hydromorphone HCl (Dilaudid Inj) 1 - 2 mg IV Q2H PRN PRN PRN Reason: Mod/Severe (pain scale 6-10) Sodium Chloride () 1,000 mls @ 100 mls/hr IV .Q10H [facility] Last Admin: 10/13/18 10:45 Dose: 100 mls/hr Metronidazole (Flagyl) 500 mg PO TID [facility] Last Admin: 10/13/18 13:28 Dose: 500 mg Ondansetron HCl (Zofran) 4 mg IV Q8H PRN PRN PRN Reason: Nausea Last Admin: 10/12/18 05:31 Dose: 4 mg Sodium Chloride () 5 - 15 ml IV UD PRN PRN Reason: SALINE FLUSH Last Admin: 10/13/18 10:48 Dose: 10 ml Medical Necessity - Tobacco Use Smoking Status: Former smoker Assessment/Plan All Active Problems (Last Reviewed 10/09/18 @ 09:19 by Sher Lam MD) Abnormal uterine bleeding (Acute) History of benign breast tumor (Acute) This is a 58-year-old female was admitted after elective lap aroscopic cholecystectomy on 10/10/2018 for low urine output/oliguria. The urine output 260 mL on 10/11 and 575 mL on 10/12 but improved to 1850 mL on 10/13. 1. JASMINA on CKDIII , new onset most likely secondary to prerenal/NSAIDs: Patient has Godinez catheter. Discussed with vendor quality supervisor Dr. Mann. FENa 0.4%. Patient urine output increased and and seems the patient will begin diuretic phage. We will keep the Godinez catheter. Renal ultrasound is negative for acute hydronephrosis. Normal renal cortex of right and left kidney. Normal wall thickness of urinary bladder. No demonstrated calculi or mass in kidneys and bladder. Hold nephrotoxins. 2. Electrolyte abnormality: Mild hyperkalemia, 5.4 resolved. Mild hyponatremia, sodium 132: Resolved. Continue IV fluid normal saline, rate decreased to 100 mL/ 3. Acute cholecystitis s/p lap cholecystectomy with IMELDA drain: IMELDA drain amount is minimal. Rest as per Dr. Lam. 4. FREDERICK - CPAP qhs. Patient has wheezing in bilateral lower lobes. Will need further PFT as an outpatient. Bronchodilator DuoNeb every 6 hourly. 5. Other comorbidities include hypertension, anxiety and depression and super morbid obesity. DVT ppx: heparin Microbiology Past 72 Hours 10/11/18 18:00 Urine Catheter - Godinez Urine Culture - Preliminary Culture exhibits no growth. Laboratory Results 10/13/18 04:54: Sodium 136, Potassium 4.5, Chloride 106, Carbon Dioxide 22.0, Anion Gap 8, BUN 37 H, Creatinine 2.18 H, Estim Creat Clear Calc 23.99, Est GFR (MDRD) Af Amer 30 L, Est GFR (MDRD) Non-Af 25 L, BUN/Creatinine Ratio 17.0, Glucose 125 H, Calcium 7.8 L Clinical Impression(s) from Imaging Studies Renal Ultrasound 10/11/18 16:07 IMPRESSION: There are no hydronephrosis. Code Visit Inpatient E&M: 87624 Subs Hosp L2
[2018-10-13 15:20] VITALS: BP 111/58; PULSE 68; RESP 16; TEMP 37; O2SAT 96
[2018-10-13 19:25] VITALS: PULSE 108; RESP 18; O2SAT 94
[2018-10-13] MEDS: Ipratropium/Albuterol Sulfate 3 ML AMPUL.NEB INHALATION (19:26)
[2018-10-13] MEDS: oxyCODONE 5 MG Tablet PO (20:24)
[2018-10-13 20:29] VITALS: BP 146/82; PULSE 79; RESP 18; TEMP 37.6; O2SAT 95
[2018-10-14 02:30] VITALS: BP 147/76; PULSE 72; RESP 16; TEMP 37; O2SAT 95
[2018-10-14 05:49] LABS: Absolute Lymphocyte Count 1.43 X10^3/ul (0.83-4.51); Absolute Neutrophil Count 4.5 X10^3/uL (2.0-7.7); Basophil# 0.02 X10^3/uL; Basophil% 0.3 % (0-1); Eosinophil# 0.47 X10^3/uL; Eosinophils% 6.7 % (0-5); Hematocrit 36.5 % (37-47); Hemoglobin 12.1 g/dl (12.0-15.0); Lymphocyte # 1.43 X10^3/ul (4.0); Lymphocyte % 20.4 % (19-41); Mean Corp Hgb Conc 33.2 g/gl (32-36); Mean Corpuscular Hgb 29.8 pg (27.0-32.0); Mean Corpuscular Volume 89.9 fL (81-99); Mean Platelet Vol. 9.5 fl (6.2-12.0); Monocyte# 0.56 X10^3/uL; Neutrophil # 4.48 X10^3/uL (2.7-7.7); Platelet Count 443 K/mm3 (150-450); RBC Distribution Width CV 13.6 % (11.6-14.6); Red Blood Count 4.06 M/mm3 (4.2-5.4)
[2018-10-14 05:52] LABS: POSITIVE COUNT NO; POSITIVE DIFFERENTIAL NO; POSITIVE MORPHOLOGY NO
[2018-10-14 06:07] LABS: Anion Gap 6 (5-15); BUN 27 mg/dL (7-18); BUN/Creat Ratio 22.7 RATIO (10-20); Calcium,Total 8.4 mg/dL (8.5-10.1); Chloride 111 mmol/L (98-107); Creatinine, Serum 1.19 mg/dL (0.55-1.02); EST Glomerular Filtration Rate 49 mL/min (>60); Est Glom Filt Rate - Afr Amer 60 mL/min (>60); Estimated Creatinine Clearance 43.96 ml/min; Glucose 140 mg/dL (74-106); Potassium 4.6 mmol/L (3.5-5.1); Sodium Level 139 mmol/L (136-145)
[2018-10-14] MEDS: 0.9% Normal Saline 1,000 ML 100 ML IV (06:10)
[2018-10-14] MEDS: metroNIDAZOLE 500 MG Tablet PO (06:10)
[2018-10-14] MEDS: Heparin Injection (Vial) 5,000 UNIT/ML VIAL 5000 UNIT SC (06:10)
[2018-10-14 07:55] VITALS: BP 156/75; PULSE 69; RESP 16; TEMP 36.6; O2SAT 95
--- NOTE | 2018-10-14 08:20 | PN_ITS ---
Subjective: The patient had good urine output. 1000 mL today since 12 AM and about 2600 mL yesterday. Blood pressure is controlled. No fever chills or tachycardia. Kidney function has much improved. Godinez catheter and IMELDA drain are removed Vitals/I&O's: Vital Signs Temp Pulse Resp BP Pulse Ox 98.6 F 72 16 147/76 H 95 10/14/18 02:30 10/14/18 02:30 10/14/18 02:30 10/14/18 02:30 10/14/18 02:30 Oxygen Flow Rate (L/min) 2 Oxygen Delivery Method Room Air Weight: 400 lb 12.806 oz Body Mass Index (BMI) 68.8 Intake and Output for Last 24 Hours 10/12/18 10/13/18 10/14/18 23:59 23:59 23:59 Intake Total 4425 / 4425 4432 / 4432 1229 / 1229 Output Total 750 / 750 3020 / 3020 1025 / 1025 Balance 3675 / 3675 1412 / 1412 204 / 204 General: Alert, Oriented x3, Cooperative HEENT: Atraumatic, PERRLA, EOMI, Normocephalic Neck: Supple, No JVD, Negative Carotid Bruits Lungs: Clear to auscultation, No rhonchi, No rales, Diminished, Wheezes - Wheezing is much improved. Cardiovascular: Regular rate, Regular Rhythm, Normal S1, Normal S2, No murmurs Abdomen: Bowel Sounds Present, Soft, Non Tender, Non-Distended Extremities: No edema, Capillary Refill Less than 3 Seconds Skin: No rashes, No breakdown Musculoskeletal: No Tenderness to Palpation of Joints or Extremities, Arthritic Changes Neurological: Cranial nerves II-XII grossly intact, Deep Tendon Reflexes 2+/4 and Symmetrical, Neuro grossly intact Psych/Mental Status: Normal Affect, Appropriate Microbiology Past 72 Hours 10/11/18 18:00 Urine Catheter - Godinez Urine Culture - Preliminary Culture exhibits no growth. Laboratory Results 10/14/18 05:22: WBC 7.0, RBC 4.06 L, Hgb 12.1, Hct 36.5 L, MCV 89.9, MCH 29.8, MCHC 33.2, RDW 13.6, RDW Differential 44.0 H, Plt Count 443, MPV 9.5, Immature Gran % (Auto) 0.600, Neut % (Auto) 64.0, Lymph % (Auto) 20.4, [place] % (Auto) 8.0, Eos % (Auto) 6.7 H, Baso % (Auto) 0.3, Absolute Neuts (auto) 4.5, Absolute Lymphs (auto) 1.43, Total Counted Not Reportable 10/14/18 05:22: Sodium 139, Potassium 4.6, Chloride 111 H, Carbon Dioxide 22.0, Anion Gap 6, BUN 27 H, Creatinine 1.19 H, Estim Creat Clear Calc 43.96, Est GFR (MDRD) Af Amer 60, Est GFR (MDRD) Non-Af 49 L, BUN/Creatinine Ratio 22.7 H, Glucose 140 H, Calcium 8.4 L Current Medications Albuterol/Ipratropium (Duoneb) 3 ml INHALATION Q6HWA.RT [facility] Last Admin: 10/14/18 07:00 Dose: Not Given Aspirin (Ecotrin) 81 mg PO DAILY@0800 [facility] Last Admin: 10/13/18 09:00 Dose: 81 mg Fluoxetine HCl (Prozac) 20 mg PO DAILY [facility] Last Admin: 10/13/18 09:01 Dose: 20 mg Heparin Sodium (Porcine) (Heparin Na) 5,000 unit SC Q8 [facility] Last Admin: 10/14/18 06:10 Dose: 5,000 unit Hydralazine HCl (Apresoline Iv) 10 mg IV Q4H PRN PRN PRN Reason: SBP > 160 Hydromorphone HCl (Dilaudid Inj) 1 - 2 mg IV Q2H PRN PRN PRN Reason: Mod/Severe (pain scale 6-10) Last Admin: 10/13/18 22:05 Dose: 1 mg Hydromorphone HCl (Dilaudid Inj) 1 - 2 mg IV Q2H PRN PRN PRN Reason: Mod/Severe (pain scale 6-10) Sodium Chloride () 1,000 mls @ 100 mls/hr IV .Q10H [facility] Last Admin: 10/14/18 06:10 Dose: 100 mls/hr Metronidazole (Flagyl) 500 mg PO TID [facility] Last Admin: 10/14/18 06:10 Dose: 500 mg Ondansetron HCl (Zofran) 4 mg IV Q8H PRN PRN PRN Reason: Nausea Last Admin: 10/12/18 05:31 Dose: 4 mg Oxycodone HCl (Oxyir) 5 mg PO Q6H PRN PRN PRN Reason: SEVERE PAIN (6-10/10) Last Admin: 10/13/18 20:24 Dose: 5 mg Sodium Chloride () 5 - 15 ml IV UD PRN PRN Reason: SALINE FLUSH Last Admin: 10/13/18 10:48 Dose: 10 ml Medical Necessity - Tobacco Use Smoking Status: Former smoker Assessment/Plan All Active Problems (Last Reviewed 10/09/18 @ 09:19 by Sher Lam MD) Abnormal uterine bleeding (Acute) History of benign breast tumor (Acute) This is a 58-year-old female was admitted after elective laparoscopic cholecystectomy on 10/10/2018 for low urine output/oliguria. The urine output 260 mL on 10/11 and 575 mL on 10/12 but improved to 1850 mL on 10/13. Since patient is on diuresis for age, 25 and abnormal urine output yesterday and about 1000 mL since midnight. 1. JASMINA on CKDIII , new onset most likely secondary to prerenal/NSAIDs: Patient has Godinez catheter. Discussed with java flex developer Dr. Mann. FENa 0.4%. Patient urine output increased and and seems the patient will begin diuretic phage. Godinez catheter removed. Creatinine has improved, BUN 27/creatinine 1.19. Renal ultrasound is negative for acute hydronephrosis. Normal renal cortex of right and left kidney. Normal wall thickness of urinary bladder. No demonstrated calculi or mass in kidneys and bladder. Hold nephrotoxins. Urine culture is negative. No UTI. 2. Electrolyte abnormality: Mild hyperkalemia, 5.4 resolved. Mild hyponatremia, sodium 132: Resolved. Discontinue IV fluid 3. Acute cholecystitis s/p lap cholecystectomy with IMELDA drain: IMELDA drain was removed. Rest as per Dr. Lam. 4. FREDERICK - CPAP qhs. Patient has wheezing in bilateral lower lobes. Will need further PFT as an outpatient. Bronchodilator DuoNeb every 6 hourly. 5. Other comorbidities include hypertension, anxiety and depression and super morbid obesity. DVT ppx: heparin The patient is hemodynamically stable. Acute kidney injury has resolved. Electrolytes are on baseline. Patient can be discharged from medical standpoint. Follow-up PCP in 2 weeks. Follow-up with surgeon as scheduled. Microbiology Past 72 Hours 10/11/18 18:00 Urine Catheter - Godinez Urine Culture - Preliminary Culture exhibits no growth. Laboratory Results 10/14/18 05:22: WBC 7.0, RBC 4.06 L, Hgb 12.1, Hct 36.5 L, MCV 89.9, MCH 29.8, MCHC 33.2, RDW 13.6, RDW Differential 44.0 H, Plt Count 443, MPV 9.5, Immature Gran % (Auto) 0.600, Neut % (Auto) 64.0, Lymph % (Auto) 20.4, [place] % (Auto) 8.0, Eos % (Auto) 6.7 H, Baso % (Auto) 0.3, Absolute Neuts (auto) 4.5, Absolute Lymphs (auto) 1.43, Total Counted Not Reportable 10/14/18 05:22: Sodium 139, Potassium 4.6, Chloride 111 H, Carbon Dioxide 22.0, Anion Gap 6, BUN 27 H, Creatinine 1.19 H, Estim Creat Clear Calc 43.96, Est GFR (MDRD) Af Amer 60, Est GFR (MDRD) Non-Af 49 L, BUN/Creatinine Ratio 22.7 H, Glucose 140 H, Calcium 8.4 L Clinical Impression(s) from Imaging Studies Renal Ultrasound 10/11/18 16:07 IMPRESSION: There are no hydronephrosis. Code Visit Inpatient E&M: 80470 Subs Hosp L2
[2018-10-14] MEDS: FLUoxetine 20 MG Capsule PO (09:46)
[2018-10-14] MEDS: Aspirin E.C. 81 MG Tablet PO (09:46)
--- NOTE | 2018-10-14 10:20 | PCM.DC.GB ---
Discharge Diet: Light diet - advance as tolerated Discharge Activity: May Not Drive - for 2-3 days or while taking narcotic pain medications., - - Do not drive, work heavy equipment or sign legal documents for 24 hours. May shower in (days): 1 - with the bandage in place. Additional Activity Instructions:: Pain medication may cause nausea. You should typically eat light foods as you take your pain medications. Pain medication may also cause constipation. If this is a problem for you, please discuss with your doctor. Call your doctor if your incision/area has: Continuous Slow Oozing, Sudden Increased Bleeding, Increased Pain/ Swelling, Increased Redness, Foul Smelling Discharge Call your doctor if you observe: Fever of 101 or Higher Suture Line Care: Avoid Pulling/Pushing, Avoid Pinching/Bending Additional Dressing/Incision Instructions:: Leave operative bandaids on for 2 days. When you remove dressing, leave Steri-Strips on until your follow-up appointment, or until the Steri-Strips fall off on their own. Allergies/Adverse Reactions: Allergies clindamycin Allergy (Severe, Verified 10/08/18 09:25) Hearing loss ciprofloxacin [From Cipro] Allergy (Verified 10/10/18 10:22) Other codeine Allergy (Verified 10/11/18 15:57) Rash hydrochlorothiazide Allergy (Verified 10/08/18 09:25) Other SORE JOINTS Penicillins [PCN] Allergy (Verified 10/08/18 09:25) Rash tramadol HCl [From Ultram] Allergy (Verified 10/08/18 09:25) Other MAKES MY HEART GO CRAZY HEART RACES Medications to take at Discharge Aspirin E.C. [Ecotrin] 81 mg PO DAILY@0800 06/24/15 Multivitamins,Therapeutic [Multivitamin] 1 tab PO DAILY 06/24/15 compression stocking,knee high,reg length, x-large circ See Dose Instructions .ROUTE .MEDSUPPLY #2 ea 09/15/17 ibuprofen 100 mg tablet 200 mg PO TID-QID PRN 03/25/18 lisinopril 40 mg tablet 40 mg PO DAILY #90 tab 03/25/18 amlodipine 10 mg tablet 10 mg PO QDAY #90 tab 09/05/18 fluoxetine 20 mg capsule 20 mg PO DAILY #90 cap 09/05/18 metronidazole 500 mg tablet 500 mg PO Q8H #21 tab 10/06/18 cefuroxime axetil 250 mg tablet 250 mg PO BID #14 tab 10/07/18 Oxycodone [Oxyir] 5 mg PO Q6H PRN PRN 6 Days #20 tablet 10/13/18 The following prescriptions were given: Oxycodone [Oxyir] 5 mg PO Q6H PRN PRN 6 Days #20 tablet PRN Reason: Severe Pain (6-03/30) Primary Care Physician: Esthela Wynne MD [Primary Care Provider] - Test Results: Test results from this visit will be discussed in further detail at your follow-up appointment, if applicable. Please Follow Up With: Sher Lam MD - Please call [phone] to schedule an appointment. When: 7 days after your surgery.
--- NOTE | 2018-10-14 10:23 | DCINST_ITS ---
Discharge Diet: Light diet - advance as tolerated Discharge Activity: May Not Drive - for 2-3 days or while taking narcotic pain medications., - - Do not drive, work heavy equipment or sign legal documents for 24 hours. May shower in (days): 1 - with the bandage in place. Additional Activity Instructions:: Pain medication may cause nausea. You should typically eat light foods as you take your pain medications. Pain medication may also cause constipation. If this is a problem for you, please discuss with your doctor. Call your doctor if your incision/area has: Continuous Slow Oozing, Sudden Increased Bleeding, Increased Pain/ Swelling, Increased Redness, Foul Smelling Discharge Call your doctor if you observe: Fever of 101 or Higher Suture Line Care: Avoid Pulling/Pushing, Avoid Pinching/Bending Additional Dressing/Incision Instructions:: Leave operative bandaids on for 2 days. When you remove dressing, leave Steri-Strips on until your follow-up appointment, or until the Steri-Strips fall off on their own. Allergies/Adverse Reactions: Allergies clindamycin Allergy (Severe, Verified 10/08/18 09:25) Hearing loss ciprofloxacin [From Cipro] Allergy (Verified 10/10/18 10:22) Other codeine Allergy (Verified 10/11/18 15:57) Rash hydrochlorothiazide Allergy (Verified 10/08/18 09:25) Other SORE JOINTS Penicillins [PCN] Allergy (Verified 10/08/18 09:25) Rash tramadol HCl [From Ultram] Allergy (Verified 10/08/18 09:25) Other MAKES MY HEART GO CRAZY HEART RACES Medications to take at Discharge Aspirin E.C. [Ecotrin] 81 mg PO DAILY@0800 06/24/15 Multivitamins,Therapeutic [Multivitamin] 1 tab PO DAILY 06/24/15 compression stocking,knee high,reg length, x-large circ See Dose Instructions .ROUTE .MEDSUPPLY #2 ea 09/15/17 ibuprofen 100 mg tablet 200 mg PO TID-QID PRN 03/25/18 lisinopril 40 mg tablet 40 mg PO DAILY #90 tab 03/25/18 amlodipine 10 mg tablet 10 mg PO QDAY #90 tab 09/05/18 fluoxetine 20 mg capsule 20 mg PO DAILY #90 cap 09/05/18 metronidazole 500 mg tablet 500 mg PO Q8H #21 tab 10/06/18 cefuroxime axetil 250 mg tablet 250 mg PO BID #14 tab 10/07/18 Oxycodone [Oxyir] 5 mg PO Q6H PRN PRN 6 Days #20 tablet 10/13/18 The following prescriptions were given: Oxycodone [Oxyir] 5 mg PO Q6H PRN PRN 6 Days #20 tablet PRN Reason: Severe Pain (6-03/30) Primary Care Physician: Esthela Wynne MD [Primary Care Provider] - Test Results: Test results from this visit will be discussed in further detail at your follow- up appointment, if applicable. Please Follow Up With: Sher Lam MD - Please call [phone] to schedule an appointment. When: 7 days after your surgery.
--- NOTE | 2018-10-14 10:23 | PCM.PN.SRG ---
Subjective: Significant improvement. Patient had a bowel movement. Pain is well controlled. Objective: Abdomen is soft dressings are dry - Physical Exam Vital Signs Temp Pulse Resp BP Pulse Ox 97.8 F 69 16 156/75 H 95 10/14/18 07:55 10/14/18 07:55 10/14/18 07:55 10/14/18 07:55 10/14/18 07:55 Oxygen Flow Rate (L/min) 2 Oxygen Delivery Method Room Air Weight: 400 lb 12.806 oz Body Mass Index (BMI) 68.8 Intake and Output for Last 24 Hours 10/12/18 10/13/18 10/14/18 23:59 23:59 23:59 Intake Total 4425 / 4425 4432 / 4432 1229 / 1229 Output Total 750 / 750 3020 / 3020 1025 / 1025 Balance 3675 / 3675 1412 / 1412 204 / 204 Microbiology Past 72 Hours 10/11/18 18:00 Urine Culture - Final Urine Catheter - Godinez Culture exhibits no growth. Laboratory Tests Past 24 Hrs 10/14/18 10/14/18 05:22 05:22 WBC 7.0 RBC 4.06 L Hgb 12.1 Hct 36.5 L MCV 89.9 MCH 29.8 MCHC 33.2 RDW 13.6 RDW Differential 44.0 H Plt Count 443 MPV 9.5 Immature Gran % (Auto) 0.600 Neut % (Auto) 64.0 Lymph % (Auto) 20.4 [place] % (Auto) 8.0 Eos % (Auto) 6.7 H Baso % (Auto) 0.3 Absolute Neuts (auto) 4.5 Absolute Lymphs (auto) 1.43 Total Counted Not Reportable Sodium 139 Potassium 4.6 Chloride 111 H Carbon Dioxide 22.0 Anion Gap 6 BUN 27 H Creatinine 1.19 H Estim Creat Clear Calc 43.96 Est GFR (MDRD) Af Amer 60 Est GFR (MDRD) Non-Af 49 L BUN/Creatinine Ratio 22.7 H Glucose 140 H Calcium 8.4 L Medical Necessity - Tobacco Use Smoking Status: Former smoker Assessment/Plan All Active Problems (Last Reviewed 10/09/18 @ 09:19 by Sher Lam MD) Abnormal uterine bleeding (Acute) History of benign breast tumor (Acute) Patient is appropriate for discharge
--- NOTE | 2018-10-14 12:17 | PCM.PN.REN ---
Subjective: No new complaints - Physical Exam General: Alert, Oriented x3, Cooperative HEENT: Atraumatic, PERRLA, EOMI, Normocephalic Neck: Supple, No JVD, Negative Carotid Bruits Lungs: Clear to auscultation, Normal air movement Cardiovascular: Regular rate, No murmurs Abdomen: Bowel Sounds Present, Soft, Non Tender Extremities: No edema, Capillary Refill Less than 3 Seconds Skin: No rashes, No breakdown Musculoskeletal: No Tenderness to Palpation of Joints or Extremities Neurological: Cranial nerves II-XII grossly intact Psych/Mental Status: Normal Affect, Appropriate Vital Signs Temp Pulse Resp BP Pulse Ox 97.8 F 69 16 156/75 H 95 10/14/18 07:55 10/14/18 07:55 10/14/18 07:55 10/14/18 07:55 10/14/18 07:55 Oxygen Flow Rate (L/min) 2 Oxygen Delivery Method Room Air Weight: 181.8 kg Body Mass Index (BMI) 68.8 Intake and Output for Last 24 Hours 10/12/18 10/13/18 10/14/18 23:59 23:59 23:59 Intake Total 4425 / 4425 4432 / 4432 2322 / 2322 Output Total 750 / 750 3020 / 3020 1974 / 1974 Balance 3675 / 3675 1412 / 1412 347 / 347 Microbiology Past 72 Hours 10/11/18 18:00 Urine Culture - Final Urine Catheter - Godinez Culture exhibits no growth. Laboratory Tests Past 24 Hrs 10/14/18 10/14/18 05:22 05:22 WBC 7.0 RBC 4.06 L Hgb 12.1 Hct 36.5 L MCV 89.9 MCH 29.8 MCHC 33.2 RDW 13.6 RDW Differential 44.0 H Plt Count 443 MPV 9.5 Immature Gran % (Auto) 0.600 Neut % (Auto) 64.0 Lymph % (Auto) 20.4 [place] % (Auto) 8.0 Eos % (Auto) 6.7 H Baso % (Auto) 0.3 Absolute Neuts (auto) 4.5 Absolute Lymphs (auto) 1.43 Total Counted Not Reportable Sodium 139 Potassium 4.6 Chloride 111 H Carbon Dioxide 22.0 Anion Gap 6 BUN 27 H Creatinine 1.19 H Estim Creat Clear Calc 43.96 Est GFR (MDRD) Af Amer 60 Est GFR (MDRD) Non-Af 49 L BUN/Creatinine Ratio 22.7 H Glucose 140 H Calcium 8.4 L Medical Necessity - Tobacco Use Smoking Status: Former smoker Assessment/Plan All Active Problems (Last Reviewed 10/09/18 @ 09:19 by Sher Lam MD) Abnormal uterine bleeding (Acute) History of benign breast tumor (Acute) Acute renal failure. New onset within the last 1 week. Preoperative creatinine was around 1.4. Increase to3.6. Renal ultrasound does not show any hydronephrosis. Urine analysis looks fairly benign with 1+ protein, some cells. However this is a Godniez sample. Fractional excretion of sodium is 0.4%. At least as per history, she did not eat or drink much for the last 1 week or so. She was also taking large amounts of ibuprofen. Most likely prerenal JASMINA. Creatinine is back to normal. DC fluids. Okay to discharge today. Reviewed her medication list over the last 6 months. Only change was switching felodipine to amlodipine His creatinine is back to normal, no need for renal follow-up.
--- NOTE | 2018-10-14 12:33 | CASEMGMT ---
Pt is discharged and about to leave. SW let pt know that if she would like to complete the POA/LW forms, to call the number on the card provided to her and she can set up a time to come in and complete the LW/POA forms. BESS Nguyen
--- NOTE | 2018-10-19 15:23 | PCM.DC.SUM ---
Discharge Date and Diagnosis Date of Admission: 10/10/18 Date of Discharge: 10/14/18 - Primary Discharge Diagnosis Acute cholecystitis - Secondary Discharge Diagnosis Chronic Problems (Last Updated 10/18/18 @ 08:19 by Riana Mixon) Calculus of gallbladder with acute on chronic cholecystitis without obstruction (Chronic) Anxiety and depression (Chronic) Sleep apnea in adult (Chronic) GERD (gastroesophageal reflux disease) (Chronic) Seasonal allergies (Chronic) Depression (Chronic) Venous insufficiency (Chronic) Hearing impairment (Chronic) Morbid obesity (Chronic) Hypertension (Chronic) Hospital Course and Treatment Operations: cholecystecomy Summary of Care Provided: The patient is a 58 year old F who presented for an elective cholecystectomy. Dr. Lam performed a laparoscopic cholecystectomy on 10/10/2018. Patient tolerated the procedure well. She had a drain placed and was held onto over night. She was not able to urinate overnight. She was only bladder scanning for 113 cc. Hospitalist was consulted. Godinez catheter was placed. Patient continued to have low urine output. Nephrology was consult who ordered a renal ultrasound which was unremarkable. Patient continued to be hydrated via IV. On POD # 3, patient started to urinate. Godinez catheter was removed. IMELDA drain was removed. Upon discharge, patient's creatinine had went from max 3.6 down to 1.1. Patient had minimal amount of abdominal discomfort. She denies nausea, vomiting. She was tolerating a diet. - Physical Exam General: Alert, Oriented x3, Cooperative Abdomen: Soft, Obese, Tender - generalized, - - Incisions c/d/i. No erythema or infection noted. Vital Signs Temp Pulse Resp BP Pulse Ox 97.8 F 69 16 156/75 H 95 10/14/18 07:55 10/14/18 07:55 10/14/18 07:55 10/14/18 07:55 10/14/18 07:55 Oxygen Flow Rate (L/min) 2 Oxygen Delivery Method Room Air Weight: 400 lb 12.806 oz Body Mass Index (BMI) 68.8 Discharge Diet: Light diet - advance as tolerated Discharge Activity: May Not Drive - for 2-3 days or while taking narcotic pain medications., - - Do not drive, work heavy equipment or sign legal documents for 24 hours. May shower in (days): 1 - with the bandage in place. Additional Activity Instructions:: Pain medication may cause nausea. You should typically eat light foods as you take your pain medications. Pain medication may also cause constipation. If this is a problem for you, please discuss with your doctor. Call your doctor if your incision/area has: Continuous Slow Oozing, Sudden Increased Bleeding, Increased Pain/ Swelling, Increased Redness, Foul Smelling Discharge Call your doctor if you observe: Fever of 101 or Higher Suture Line Care: Avoid Pulling/Pushing, Avoid Pinching/Bending Additional Dressing/Incision Instructions:: Leave operative bandaids on for 2 days. When you remove dressing, leave Steri-Strips on until your follow-up appointment, or until the Steri-Strips fall off on their own. Home Medications: Medications to take at Discharge Aspirin E.C. [Ecotrin] 81 mg PO DAILY@0800 06/24/15 Multivitamins,Therapeutic [Multivitamin] 1 tab PO DAILY 06/24/15 compression stocking,knee high,reg length, x-large circ See Dose Instructions .ROUTE .MEDSUPPLY #2 ea 09/15/17 ibuprofen 100 mg tablet 200 mg PO TID-QID PRN 03/25/18 lisinopril 40 mg tablet 40 mg PO DAILY #90 tab 03/25/18 amlodipine 10 mg tablet 10 mg PO QDAY #90 tab 09/05/18 fluoxetine 20 mg capsule 20 mg PO DAILY #90 cap 09/05/18 Primary Care Physician: Esthela Wynne MD [Primary Care Provider] - Please Follow Up With: Sher Lam MD - Please call [phone] to schedule an appointment. When: 7 days after your surgery. Disposition: Home Minutes spent on discharge:: 25 Patient Condition:: Stable Medical Necessity - Tobacco Use Smoking Status: Former smoker Meaningful Use Info Meaningful Use Diagnoses (Choose all that apply): None applicable Code Visit Inpatient E&M: 13006 Disch Hosp - No charge
== END 2018-10-14 12:34 | disposition home or self-care (01) | DRG 988 ==
LOC: SDC 15:36
PROVIDERS: Family Medicine; Physician Assistant; Admitting Provider Surgery; Family Provider Internal Medicine; PCP Internal Medicine; Referring Provider Surgery; Visit Provider Surgery
DX: N17.9 Acute kidney failure, unspecified (principal); K80.12 Calculus of gallbladder with acute and chronic cholecystitis without obstruction; Z68.44 Body mass index [BMI] 60.0-69.9, adult; E87.1 Hypo-osmolality and hyponatremia; E66.01 Morbid (severe) obesity due to excess calories; G47.33 Obstructive sleep apnea (adult) (pediatric); E87.5 Hyperkalemia; I10 Essential (primary) hypertension; Z87.891 Personal history of nicotine dependence
CPT/HCPCS: 36415; 76770; 80048; 80053; 81001; 82570; 83036; 84300; 85025; 87086; 88304; 94640; 94762; 99406; J7030; J7040; J7120; A4216; J2405

== ENCOUNTER → 2018-10-18 08:40 | Outpatient (CLI) | payer BC, SELFPAY ==
[2018-10-18 08:21] VITALS: BMI 68.8
[2018-10-18 12:24] LABS: Anion Gap 6 (5-15); BUN 10 mg/dL (7-18); BUN/Creat Ratio 10.2 RATIO (10-20); Chloride 104 mmol/L (98-107); Creatinine, Serum 0.98 mg/dL (0.55-1.02); EST Glomerular Filtration Rate 62 mL/min (>60); Est Glom Filt Rate - Afr Amer 75 mL/min (>60); Glucose 124 mg/dL (74-106); Potassium 4.4 mmol/L (3.5-5.1); Sodium Level 138 mmol/L (136-145)
== END ==
PROVIDERS: Family Provider Internal Medicine; PCP Internal Medicine; Visit Provider Internal Medicine
DX: N17.9 Acute kidney failure, unspecified (principal)
CPT/HCPCS: 36415; 80048

== ENCOUNTER → 2019-01-03 | Outpatient (CLI) | payer BC, SELFPAY ==
[2019-01-03 10:14] VITALS: BMI 68.8
[2019-01-03 12:54] LABS: Anion Gap 8 (5-15); BUN 22 mg/dL (7-18); BUN/Creat Ratio 17.5 RATIO (10-20); Chloride 106 mmol/L (98-107); Creatinine, Serum 1.26 mg/dL (0.55-1.02); EST Glomerular Filtration Rate 46 mL/min (>60); Est Glom Filt Rate - Afr Amer 56 mL/min (>60); Glucose 118 mg/dL (74-106); Potassium 5.2 mmol/L (3.5-5.1); Sodium Level 138 mmol/L (136-145)
== END | disposition home or self-care (01) ==
LOC: BIMLAB 10:37
PROVIDERS: Family Provider Internal Medicine; PCP Internal Medicine; Visit Provider Nurse Practitioner Family
DX: I10 Essential (primary) hypertension (principal)
CPT/HCPCS: 36415; 80048

== ENCOUNTER → 2019-02-15 10:59 | Outpatient (CLI) | payer BC, SELFPAY ==
[2019-01-03 10:14] VITALS: BMI 68.8
[2019-02-15 11:02] LABS: Bacteria 0 SEEN /hpf (None Seen); Mucous, Urine 0 SEEN /hpf (<or=2+); White Blood Cells 0 SEEN /hpf (0-5)
[2019-02-15 12:12] LABS: Color, Urine Yellow (Yellow); Glucose, Dipstick Normal (Normal); Ketone-Dipstick Negative (Negative); Leukocyte Esterase-Dipstick Negative /ul (Negative); Nitrite-Dipstick Negative (Negative); Occult Blood-Urine 25 /ul (Negative); Protein-Dipstick Negative (Negative); Urine Bilirubin Dipstick Negative (Negative); Urine Clarity Sl. Cloudy (Clear); Urine Urobilinogen Normal (Normal); Urine pH 6.5 (5.0 - 8.0)
[2019-02-15 12:21] LABS: Anion Gap 10 (5-15); BUN 15 mg/dL (7-18); Calcium,Total 8.6 mg/dL (8.5-10.1); Chloride 107 mmol/L (98-107); Creatinine, Serum 1.07 mg/dL (0.55-1.02); EST Glomerular Filtration Rate 56 mL/min (>60); Est Glom Filt Rate - Afr Amer 67 mL/min (>60); Glucose 108 mg/dL (74-106); Potassium 4.6 mmol/L (3.5-5.1); Sodium Level 140 mmol/L (136-145)
[2019-02-15 12:36] LABS: Red Blood Cells-Urine 0-5 SEEN /hpf (0-5); Squamous Epithelial Cells - UA 0-5 SEEN /hpf (5-10)
== END ==
PROVIDERS: Family Provider Internal Medicine; PCP Internal Medicine; Visit Provider Nurse Practitioner Family
DX: I10 Essential (primary) hypertension (principal); R35.0 Frequency of micturition
CPT/HCPCS: 36415; 80048; 81001; 87086; 87088

== ENCOUNTER → 2019-03-29 14:38 | Outpatient (CLI) | payer BC, SELFPAY ==
[2019-03-29 10:18] VITALS: BMI 68.8
[2019-04-03 17:37] LABS: HPV APTIMA, High Risk Negative (Negative)
== END ==
PROVIDERS: Family Provider Internal Medicine; PCP Internal Medicine; Visit Provider Nurse Practitioner Women's Health
DX: Z12.4 Encounter for screening for malignant neoplasm of cervix (principal)
CPT/HCPCS: 87624; 88175; G0145

== ENCOUNTER → 2019-04-03 11:48 | Outpatient (CLI) | payer BC, SELFPAY ==
[2019-03-29 10:18] VITALS: BMI 68.8
[2019-04-03 10:06] VITALS: BMI 68.8
--- NOTE | 2019-04-03 11:50 | US_ITS ---
STUDY: ULTRASOUND TRANSVAGINAL CLINICAL: Female, 58 years old. Postmenopausal bleeding TECHNIQUE: Transvaginal COMPARISON: None. FINDINGS: Normal uterine size measuring 8.1 cm in maximal craniocaudal dimension. There are 2 separate fibroids, larger measures 3.1 cm, smaller 1.8 cm. Normal endometrial thickness measuring 6 mm. There are no endometrial masses, and there is no fluid in the endometrial cavity. Nabothian cysts noted. Normal uterine cervix. Normal right ovary, measuring 3.8 x 3.4 x 2.3 cm. There are multiple follicles with a dominant 1.9 cm cyst. Normal left ovary, measuring 2.7 x 2.5 x 1.8 cm. There are multiple follicles without a dominant cyst. There is no free fluid in the pelvis. US/Transvaginal Non- IMPRESSION: Endometrial thickness is abnormal at 6 mm. Since patient is intermittently bleeding, and is postmenopausal, further evaluation including biopsy recommended to exclude endometrial carcinoma. Simple right ovarian cyst, follow-up recommended to ensure resolution 2 uterine fibroids Electronically Signed: Sumanth Ordaz MD at 15:49 EDT , Service support ,
--- NOTE | 2019-04-03 11:58 | RAD_ITS ---
STUDY: X-RAY - LUMBAR SPINE REASON FOR EXAM: Female, 58 years old. Low back pain TECHNIQUE: 3 view(s) of the lumbar spine were obtained. COMPARISON: None FINDINGS: Normal lumbar lordosis. There is no substantial scoliosis. There is a normal alignment of the vertebrae. There is multilevel endplate spondylosis of the lumbar vertebrae. Mild disc space narrowing with spur formation. There is no demonstrated fracture. The soft tissue structures are unremarkable. RAD/Lumbar Spine 2 or 3 Views IMPRESSION: Degenerative changes of the spine, as detailed above. Electronically Signed: Sumanth Ordaz MD at 12:26 EDT , Service support ,
== END ==
PROVIDERS: Family Provider Internal Medicine; PCP Internal Medicine; Referring Provider Nurse Practitioner Women's Health; Visit Provider Nurse Practitioner Women's Health
DX: N95.0 Postmenopausal bleeding (principal); N83.291 Other ovarian cyst, right side; D25.9 Leiomyoma of uterus, unspecified; M47.896 Other spondylosis, lumbar region; G89.29 Other chronic pain
CPT/HCPCS: 72100; 76830; 93976

== ENCOUNTER 2019-04-18 13:29 | Day surgery (SDC) | payer BC, SELFPAY ==
[2019-03-29 10:18] VITALS: BMI 68.8
[2019-04-03 10:06] VITALS: BMI 68.8
[2019-04-11 13:51] LABS: Hematocrit 42.4 % (37-47); Hemoglobin 13.4 g/dL (12.0-15.0); Mean Corp Hgb Conc 31.6 g/dL (32-36); Mean Corpuscular Hgb 29.5 pg (27.0-32.0); Mean Corpuscular Volume 93.4 fL (81-99); Platelet Count 331 K/mm3 (150-450); RBC Distribution Width CV 13.2 % (11.6-14.6); RBC Distribution Width SD 45.1 fl (35.1-43.9); Red Blood Count 4.54 M/mm3 (4.2-5.4); White Blood Count 6.3 K/mm3 (4.4-11.0)
[2019-04-11 14:19] LABS: ALB/GLOB Ratio 0.9 RATIO (0.9-2.4); AST(SGOT) 11 U/L (15-37); Alanine Aminotransfer ALT/SGPT 22 U/L (13-56); Albumin, Serum 3.5 g/dL (3.2-5.0); Alkaline Phosphatase 100 U/L (45-117); Anion Gap 6 (5-15); BUN 16 mg/dL (7-18); BUN/Creat Ratio 17.1 RATIO (10-20); Calcium,Total 9.1 mg/dL (8.5-10.1); Chloride 106 mmol/L (98-107); Creatinine, Serum 0.93 mg/dL (0.55-1.02); EST Glomerular Filtration Rate 65 mL/min (>60); Est Glom Filt Rate - Afr Amer 79 mL/min (>60); Estradiol 35.7 pg/mL; Follicle Stimulating Hormone 22.6 mIU/mL; Globulin 3.8 g/dL (2.2-4.2); Glucose 104 mg/dL (74-106); Potassium 4.3 mmol/L (3.5-5.1); Protein, Total 7.3 g/dL (6.4-8.2); Sodium Level 137 mmol/L (136-145)
[2019-04-18] VITALS (9 sets, daily range): BP systolic 140–175; BP diastolic 59–114; PULSE 59–69; RESP 12–20; TEMP 36.1–36.2; O2SAT 95–99; BMI 70.2
--- NOTE | 2019-04-18 04:07 | HP.PCM_ITS ---
- Problem List (1) Postmenopausal bleeding Status: Acute Comment: Plan D&C, hysteroscopy, symphion (2) Anxiety and depression Status: Chronic (3) Sleep apnea in adult Status: Chronic (4) Abnormal uterine bleeding Status: Acute Comment: needs d and c hysteroscopy (5) GERD (gastroesophageal reflux disease) Status: Chronic (6) Seasonal allergies Status: Chronic (7) Depression Status: Chronic (8) Venous insufficiency Status: Chronic (9) Hearing impairment Status: Chronic (10) Morbid obesity Status: Chronic (11) Hypertension Status: Chronic History and Physical Date of Admission: 04/18/19 Intake Vital Signs 04/03/19 Body Mass Index (BMI) 68.8 04/03/19 Height 5 ft 4 in 04/03/19 Weight: 421 lb 4 oz 04/03/19 Body Mass Index (BMI) 72.3 04/03/19 Blood Pressure 116/84 H Intake Visit Reasons: Pre op D&C Chief Complaint: Pre Op D&C 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 [Ecotrin] 81 mg PO DAILY@0800 06/24/15 [History Confirmed 04/03/19] Multivitamins,Therapeutic [Multivitamin] 1 tab PO DAILY 06/24/15 [History Confirmed 04/03/19] ibuprofen 100 mg tablet 200 mg PO TID-QID PRN 03/25/18 [History Confirmed 04/03/19] amlodipine 10 mg tablet 10 mg PO QDAY #90 tab 09/05/18 [Rx Confirmed 04/03/19] fluoxetine 20 mg capsule 20 mg PO DAILY #90 cap 09/05/18 [Rx Confirmed 04/03/19] compression stocking,knee high,reg length, x-large circ See Rx Instructions .ROUTE .MEDSUPPLY #2 ea 12/15/18 [Rx Confirmed 04/03/19] lisinopril 40 mg tablet See Rx Instructions .ROUTE .COMPLEX #90 tablet 03/15/19 [Rx Confirmed 04/03/19] oxycodone-acetaminophen 5 mg-325 mg tablet 1 tab PO BID PRN #20 tab 03/28/19 [Rx Confirmed 04/03/19] Is last menstrual period known: No Post menopausal: No Patient : No : No PFSH Medical History (Updated 04/03/19 @ 10:21 by Ayde Sahni MD) Kidney failure (Resolved) Sleep apnea in adult (Chronic) Abnormal uterine bleeding (Acute) GERD (gastroesophageal reflux disease) (Chronic) History of benign breast tumor (Acute) Seasonal allergies (Chronic) Depression (Chronic) Venous insufficiency (Chronic) Hearing impairment (Chronic) Morbid obesity (Chronic) Hypertension (Chronic) history of premature delivery (Acute) Surgical History History of D&C (Acute) History of benign breast biopsy (Acute) History of section (Acute) History of cholecystectomy (Acute) History of placement of ear tubes (Acute) Family History Mother CVA (cerebral vascular accident) Hypertension Sister cranial stenosis Father Hypertension Asthma Arthritis Social History (Updated 04/03/19 @ 10:26 by Ayde Sahni MD) Smoking Status: Former smoker how long ago did patient quit smokin alcohol intake: current alcohol intake frequency: holidays/special occasions only Alcohol type: wine substance use type: does not use caffeine: Yes what type of physical activity do you participate in: none seatbelt use: always do you feel safe at home: Yes additional social history: [id number] HPI Pre op D&C: Details: ANGELINA CALZADA is a 58 year old who presents for preop exam. she has had intermittent bleeding and is unclear when she has been postmenopausal. she has some cervical stenosis. she has an 18 year old daughter, Patricia, with CP that she provides care for- she does lifting. Pregancy History 5 Elective abortions Hx Para 2 Spontaneous abortions 3 Hx # Term Pregnancies Ectopic pregnancies Hx # Pregnancies Multiple births # of living children Past Pregnancies Del. Date Name GA/Weeks Outcome Route Bth Weight Gen Labor Lgth Anesthesia Del Locatn Provider FOB Unknown James-1997 Unknown Patricia-1999 ROS Const Constitutional: Reports system reviewed and no additional complaints, except as docu Eyes Eyes: Reports system reviewed and no additional complaints, except as docu Cardio Card: Denies chest pain Resp Resp: Denies cough or dyspnea GI GI: Denies abdominal pain or change in bowel habits : Reports as per HPI; denies nipple discharge Musc Musc: Reports back pain (hronic) Details: dificulty ambulating uses walker Skin Skin/Breast: Denies change in hair, breast lump, breast pain, breast skin changes or nipple discharge Exam Const General: cooperative Nutritional Appearance: obese Orientation: oriented x3 HENMT Head: normal to inspection, normocephalic Ears: hearing grossly normal bilaterally, external ears normal Nose: external nose normal, nares normal Face and sinus: normal facial exam Neck Neck: normal visual inspection, no lymphadenopathy, trachea midline Thyroid: thyroid normal Chest Chest palpation & inspection: normal inspection of the chest Resp Effort & Inspection: normal respiratory effort Auscultation: clear to auscultation bilaterally Cardio Rate: regular rate Rhythm: regular rhythm Heart Sounds: S1 normal, S2 normal GI Inspection: normal to inspection, non-distended Palpation: soft, no hepatosplenomegaly External Female Exam: normal external appearance, normal appearance of the urethra Urethra: normal appearance of the urethra Speculum Exam - Vagina: normal appearance of the vagina Speculum Exam - Cervix: normal appearance of the cervix (pale, stenotic) Bimanual Exam- Vagina & Uterus: other (Unable to confirm size due to body habitus. No masses noted) Bimanual Exam- Adnexa, other: normal adnexae, adnexae non-tender Other: Cervix cleansed with betadine solution and tenaculum applied. Attempt to dilate cervix with dilators, pipelle and unsuccessful, endometrial biopsy deferred. Assessment & Plan Problems 1. Abnormal uterine bleeding N93.9 needs d and c hysteroscopy Plan After discussing the patient's diagnosis and treatment plan options, patient wishes to proceed with surgical management. I have discussed with the patient the risks, benefits, and alternatives of the procedure which include but are not limited to risks of anesthesia, bleeding, infection, possible damage to bowel, bladder, or surrounding vasculature which could lead to additional surgery to evaluate any complications. Patient agrees to procedure and wishes to proceed. ACOG/uptodate references given for additional information regarding procedure. Coding Level of Care Code No Charge Diagnoses Abnormal uterine bleeding N93.9
[2019-04-18] MEDS: Lactated Ringers 1,000 ML 100 ML IV (14:21)
--- NOTE | 2019-04-18 15:10 | ECC_PTH ---
PATIENT: ANGELINA CALZADA [place] [facility] [place][id number] AGE/SX: 58/F ROOM: RE04/18/[address]: Dr. Ayde Sahni MD : 1960 BED: DIS: 04/18/2019 SPEC #: [id number] RECD: 04/19/19 08:59 STATUS: YOEL SAVANNAH #: [id number] FELIPE: 04/18/19 15:[address]: Ayde Sahni DEPT: SURGICAL PATHOLOGY RECD BY: Shauna Mayo ENTERED: 04/19/19 10:01 SP TYPE: ECC REILLY DR: Dr. Esthela Wynne MD Tissues: Endocervical Procedures: Surgery Specimen Level IV HEADER OPERATION: Hysteroscopy, D & C Symphion PRE-OP DIAGNOSIS: Postmenopausal bleeding TISSUE SUBMITTED: Endocervical curettings, polyp MICROSCOPIC DIAGNOSIS Endocervical curettings and polyp, excision: Polypoid fragments of endometrium with focal simple cystic hyperplasia and secretory change. Scant strips of benign superficial squamous mucosa and endocervical tissue. AM:gayathri 04/20/19 COMMENT Case has been reviewed in consultation with Dr. Arizmendi who concurs with the above diagnosis. IDC:[email or web address] MICROSCOPIC DESCRIPTION Slides are reviewed. GROSS DESCRIPTION Received in fixative is one container labeled with the patient's name and designated endocervical curettings and polyp. The specimen consists of multiple fragments of pink hemorrhagic soft tissue that in aggregate measure 5 x 3 x 0.3 cm. The entire specimen is submitted in two cassettes. / SJ:gayathri 04/19/19 TC:1 CPT: 92909
--- NOTE | 2019-04-18 17:11 | PCM.OPRPT ---
Problem List (1) Postmenopausal bleeding Status: Acute Comment: Plan D&C, hysteroscopy, symphion (2) Anxiety and depression Status: Chronic (3) Sleep apnea in adult Status: Chronic (4) Abnormal uterine bleeding Status: Acute Comment: needs d and c hysteroscopy (5) GERD (gastroesophageal reflux disease) Status: Chronic (6) Seasonal allergies Status: Chronic (7) Depression Status: Chronic (8) Venous insufficiency Status: Chronic (9) Hearing impairment Status: Chronic (10) Morbid obesity Status: Chronic (11) Hypertension Status: Chronic Report of Operation Date of Procedure: 04/18/19 Pre-Operative Diagnosis: pmb Post-Operative Diagnosis: same Surgery/Procedure Performed:: d and c hysteroscopy Description of Surgical Findings:: thin lining with polyp present right cornua Type of Anesthesia:: Local MAC Special Medications: none Specimen's removed: emc polyp Drains: none Estimated Blood Loss (mL): minimal Fluids Replaced: crystalloid Description of Procedure: Patient was prepped and draped in a normal sterile fashion under MAC anesthesia. A weighted speculum was placed in the vagina and the anterior lip of the cervix was grasped with a single-tooth tenaculum. A paracervical block was placed with 1% lidocaine. Cervix was progressively dilated to allow passage of a 5 mm hysteroscope. The lining was fully visualized and noted to have thin lining with right polyp in the cornua . Uterine sounded to 9cm. direct visual Curettage and polypectomy using the symphion device was performed and a moderate amount of specimen was removed , sent to pathology. All instruments were removed from the vagina and excellent hemostasis was noted. Patient was awoken and taken to recovery in stable condition. Grafts/Implants Used: none - Complications none - Admit VTE Documentation VTE Present on Admission: No VTE Mechan Device Prophylaxis: SCD's Multi Select Codes - Urinary/Genital Urinary/Genital CPT Codes: 76881 Hysteroscopy,EMC, Polypectomy
--- NOTE | 2019-04-18 17:11 | DCINST_ITS ---
Discharge Diet: No Restrictions Discharge Activity: Return to Normal Activity, May Shower, May Take a Tub Bath Allergies/Adverse Reactions: Allergies clindamycin Allergy (Severe, Verified 04/18/19 13:49) Hearing loss ciprofloxacin [From Cipro] Allergy (Verified 04/18/19 13:49) Other codeine Allergy (Verified 04/18/19 13:49) Rash hydrochlorothiazide Allergy (Verified 04/18/19 13:49) Other SORE JOINTS Penicillins [PCN] Allergy (Verified 04/18/19 13:49) Rash tramadol HCl [From Ultram] Allergy (Verified 04/18/19 13:49) Other MAKES MY HEART GO CRAZY HEART RACES spironolactone [From Aldactone] Adverse Reaction (Verified 04/18/19 13:49) Causes Potassium to elevate Medications to take at Discharge Aspirin E.C. [Ecotrin] 81 mg PO DAILY@0800 06/24/15 Multivitamins,Therapeutic [Multivitamin] 1 tab PO DAILY 06/24/15 amlodipine 10 mg tablet 10 mg PO QDAY #90 tab 09/05/18 fluoxetine 20 mg capsule 20 mg PO DAILY #90 cap 09/05/18 compression stocking,knee high,reg length, x-large circ See Rx Instructions .ROUTE .MEDSUPPLY #2 ea 12/15/18 lisinopril 40 mg tablet See Rx Instructions .ROUTE .COMPLEX #90 tablet 03/15/19 oxycodone-acetaminophen 5 mg-325 mg tablet 1 tab PO BID PRN #20 tab 03/28/19 Primary Care Physician: Esthela Wynne MD [Primary Care Provider] - Test Results: Test results from this visit will be discussed in further detail at your follow- up appointment, if applicable. Please Follow Up With: Ayde Sahni MD - [phone]
== END 2019-04-18 18:50 | disposition home or self-care (01) ==
LOC: SDC 13:31 → AC 13:32
PROVIDERS: Family Provider Internal Medicine; PCP Internal Medicine; Referring Provider Obstetrics & Gynecology; Visit Provider Obstetrics & Gynecology
PROC: 0UB98ZZ Excision of Uterus, Via Natural or Artificial Opening Endoscopic (ICD-10-PCS; CPT 58558; principal; 2019-04-18 14:55)
DX: N95.0 Postmenopausal bleeding (principal); N85.01 Benign endometrial hyperplasia; N93.9 Abnormal uterine and vaginal bleeding, unspecified; I87.2 Venous insufficiency (chronic) (peripheral); I10 Essential (primary) hypertension; F32.9 Major depressive disorder, single episode, unspecified; F41.9 Anxiety disorder, unspecified; G47.30 Sleep apnea, unspecified; K21.9 Gastro-esophageal reflux disease without esophagitis; J30.2 Other seasonal allergic rhinitis; H91.93 Unspecified hearing loss, bilateral; E66.01 Morbid (severe) obesity due to excess calories; Z68.44 Body mass index [BMI] 60.0-69.9, adult; Z79.82 Long term (current) use of aspirin; Z79.899 Other long term (current) drug therapy; Z87.891 Personal history of nicotine dependence
CPT/HCPCS: 58558; 36415; 80053; 82670; 83001; 85027; 86850; 86900; 86901; 88305; 93005; J7120

== ENCOUNTER 2019-05-22 11:00 | Outpatient (RCR) | payer BC, SELFPAY ==
[2019-04-03 10:06] VITALS: BMI 68.8
[2019-04-18 13:51] VITALS: BMI 70.2
--- NOTE | 2019-04-21 12:31 | HP.PTEVAL_ITS ---
Patient's Visit Information ANGELINA CALZADA is a 58 year old F referred to Physical Therapy by Esthela Wynne MD with a diagnosis of DORSALGIA. Date of Evaluation: 04/21/19 Physical Therapist: Maritza Rodriguez PT, Cert MDT - Visit Plan Frequency: 2-3x /Week Duration: 4-6 Weeks Plan: AQUATIC THERAPY FOR PAIN RELEIF, POSTURE CORRECTION/STRENGTHENING, INSTRUCTION IN APPROPRIATE BODY MECHANICS AND ACTIVITY MODIFICATIONS. DLS STARTING WITH A NEUTRAL SPINE PROGRESSING ROM TOLERATED. SALO LE ROM, STRETCHING AND STRENGTHENING. HEP INSTRUCTION. 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 A LOT OF TUGGING, LIFTING AND PULLING INVOLVED. Disability: NO. Present symptoms: LOW BACK TAYLOR, RIGHT HIP PAIN, RIGHT GROIN PAIN AND PAIN DOWN THE BACK OF BOTH LEGS AT TIMES TO THE KNEES. INTERMITTENT TINGLING DOWN THE BACK OF BOTH LEGS TO KNEES. Present since: ABOUT 5-6 YEARS AGO. Pain Scale: WORST 10/10, LEAST 8/10. Currently: 8/10. Commenced as a result of: NO APPARENT REASON. Sy mptoms at onset: LOW BACK. Worse: WALKING, STANDING, TAKING CARE OF DAUGHTER WITH CP, BEING UP RIGHT, ANY TYPE OF HOUSEWORK. Better: SITTING, LYING DOWN ON RIGHT SIDE. Disturbed sleep: YES. Previous history/Previous treatment: NONE OTHER THAN PAIN MEDICINE. Coughing/sneezing/straining: NEGATIVE. Gait: ROLLATOR SINCE DECEMBER WHICH HELPS A LOT. PATIENT REPORTS SHE IS GETTING DEPENDENT ON IT. SHE DOES WALK WITHOUT IT IN THE HOUSE. PATIENT REPORTS SHE HAS A LOT OF TROUBLE ON STEPS BUT SHE IS FAMILIAR WITH OUR POOL FROM BRINGING HER DAUGHTER AND SHE THINKS SHE CAN GO UP AND DOWN THE POOL STEPS WITH THE HELP OF THE HANDRAILS. Difficulty initiating urinatin: NO. Accidents: NO. Unexplained weight loss: NO. STATES SHE HAS LOST ABOUT 40 LBS AND IS WORKING ON LOSING MORE. Imaging: RECENT LOW BACK X-RAY - STUDY: X-RAY - LUMBAR SPINE. REASON FOR EXAM: Female, 58 years old. Low back pain. TECHNIQUE: 3 view(s) of the lumbar spine were obtained. FINDINGS: Normal lumbar lordosis. There is no substantial scoliosis. There is a. normal alignment of the vertebrae. There is multilevel endplate spondylosis of the lumbar vertebrae. Mild. disc space narrowing with spur formation. There is no demonstrated. fracture. The soft tissue structures are unremarkable. RAD/Lumbar Spine 2 or 3 Views. IMPRESSION: Degenerative changes of the spine, as detailed above. PMH: HEARING LOSS FROM VIRUS ABOUT 4 YEARS AGO, BALANCE PROBLEMS FOR ABOUT 4 YEARS ALSO. VERTIGO. HTN, DEPRESSION. VENOUS INSUFFICIENCY. SALO KNEE PAIN - RIGHT KNEE GOES OUT OF PLACE. Recent major surgery: 04/18/19 D&C. GALLBLADDER REMOVAL SEPTEMBER 2018. SLEEP APNEA - Objective Sitting/Standing Posture: POOR. Lordosis: INCREASED. Lateral shift: NO. Relevant shift: N/A. Active Correction of posture: WORSE. Other Observations: INDEP GAIT INTO PT WITH ROLLATOR X APPROX 300 FEET WITHOUT REST. Motor deficit: SALO LE'S 5/5 WITH MMT'ING. Sensory deficit: SALO LE LIGHT TOUCH SENSATION IS INTACT AND SYMMETRICAL. ROM deficit: DECREASED SALO KNEE FLEXION - NOT MEASURED. Reflexes: NT. Dural Signs: POSITIVE RIGHT AND NEGATIVE LLE. Lumbar mvmt loss: flex - MIN. ext - MOD. R SG - MOD. L SG - MOD. PATIENT REPORTS BENDING FORWARD FEELS GOOD BUT INCREASED LOW BACK PAIN WITH EXT AND SALO SG TESTING. Core strength: POOR - Goals Goal 1:: DECREASE C/O BACK PAIN Goal Time Frame: 4-6 Weeks Goal 2:: IMRPOVE PERSONAL CARE, LIFITNG, WALKING, STANDING, SLEEP, SOCIAL LIFE, TRAVEL AND HOMEMAKING FUNCTION. Goal Time Frame: 4-6 Weeks Goal 3:: INSTRUCT IN PROPHYLAXIS Goal Time Frame: 4-6 Weeks - Rehabilitation Potential Rehabilitation Potential: Fair - Anticipated Interventions Patient/Client Instruction: Educate patient on: Condition, Plan of Care, Risk Factors, Benefits of Fitness Program For the Purpose of:: To improve self management Therapeutic Exercise to Include: Strength training, Endurance training, Balance training, Body mechanics, Postural training, Flexibilty training, Gait and locomotor training, In an aquatic setting, Dynamic Lumbar Stabilization For the Purpose of:: To decrease pain, To increase ROM, To improve muscle performance and motor function, To increase tolerance to activity/condition/position, To improve ability of physical actions for home/community/work/leisure, To improve gait and locomotor functions Thank you for the opportunity to evaluate your patient. For Medicare and Medicare HMO plans, please review the plan of care and approve it. It will need to be FAXED BACK to us at [phone] for Medicare purposes. For Medicare only, by signing this I certify the plan of care. Please let me know if there are questions or concerns regarding this plan of care. Physician Signature: Date:
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
--- NOTE | 2019-06-26 10:14 | HP.PT.NRP ---
HP - Discharge Summary (1) - Patient Information ANGELINA CALZADA was seen in my office for initial evaluation on 04/21/19. The following Plan of Care was established for this patient: Initial Frequency: 2-3x /Week Initial Duration: 4-6 Weeks - Anticipated Interventions Patient/Client Instruction: Educate patient on: Condition, Plan of Care, Risk Factors, Benefits of Fitness Program For the Purpose of:: To improve self management Therapeutic Exercise to Include: Strength training, Endurance training, Balance training, Body mechanics, Postural training, Flexibilty training, Gait and locomotor training, In an aquatic setting, Dynamic Lumbar Stabilization For the Purpose of:: To decrease pain, To increase ROM, To improve muscle performance and motor function, To increase tolerance to activity/condition/position, To improve ability of physical actions for home/community/work/leisure, To improve gait and locomotor functions This patient was last seen in our office 05/22/19. Pertinent comments regarding their Physical therapy will appear below: This patient has not returned to Physical Therapy and is appropriate to return to MD for further follow-up as needed. At this point I will be discontinuing this patient from physical therapy. I would be happy to see this patient again in the future if found appropriate by the physician. Thank you! Maritza Rodriguez PT, Cert MDT
== END 2019-05-22 19:00 | disposition home or self-care (01) ==
LOC: PT 11:00
PROVIDERS: Family Provider Internal Medicine; PCP Internal Medicine; Referring Provider Internal Medicine; Visit Provider Internal Medicine
DX: M54.9 Dorsalgia, unspecified (principal); G89.29 Other chronic pain
CPT/HCPCS: 97110; 97113; 97162; 97530

== ENCOUNTER → 2020-03-05 10:41 | Outpatient (CLI) | payer BC, SELFPAY ==
[2020-02-27 10:02] VITALS: BMI 71.8
--- NOTE | 2020-03-05 10:50 | CT_ITS ---
STUDY: CT ABDOMEN AND PELVIS WITH CONTRAST REASON FOR EXAM: Female, 59 years old. LLQ ABDOMINAL PAIN. KNOWN UMBILICAL HERNIA. HX OF ZAIDA D and amp;C TUBAL LIGATION, . HX OF HTN RADIATION DOSAGE (If Supplied By Facility): CTDIvol = ( 40.91 ) mGy, DLP = ( 2033.71 ) mGycm TECHNIQUE: Transaxial images were obtained from the dome of the diaphragm to the symphysis pubis with oral contrast. Oral and amp; IV Readi-CAT and amp; 100mL Isovue-300 was administered. Sagittal and coronal images were reconstructed. Individualized dose optimization techniques were used for this CT. COMPARISON: None. FINDINGS: The visualized lung bases are unremarkable. Coronary artery calcification. Normal liver. The patient is status post cholecystectomy. Normal spleen. Normal pancreas. Normal bilateral adrenal glands. Normal right kidney. Normal left kidney. Normal visualized stomach. Normal small intestine. There are scattered colonic diverticula consistent with diverticulosis. The appendix is visualized and appears normal. There is diffuse atherosclerotic calcification of the abdominal aorta, without a demonstrated aneurysm. Normal inferior vena cava. Normal retroperitoneum. Normal urinary bladder. There is a small umbilical hernia containing fat. There are degenerative changes of the visualized lumbar spine. Straightening of the normal lumbar lordosis. CT/Abdomen/Pelvis WITH Contrast IMPRESSION: Scattered sigmoid diverticula. Umbilical hernia containing fat. Electronically Signed: Gutierrez Pichardo, at 13:01 EDT , Service support ,
[2020-03-05 11:01] LABS: EGFR FINGERSTICK > 60.0000 mL/min (>60)
== END ==
PROVIDERS: PCP Internal Medicine; Referring Provider Surgery; Visit Provider Surgery
DX: K57.30 Diverticulosis of large intestine without perforation or abscess without bleeding (principal); K42.9 Umbilical hernia without obstruction or gangrene
CPT/HCPCS: 74177; Q9967

== ENCOUNTER → 2020-09-02 12:08 | Outpatient (CLI) | payer OTHER, SELFPAY ==
[2020-09-02 15:25] LABS: Absolute Lymphocyte Count 1.48 X10^3/uL (0.83-4.51); Absolute Neutrophil Count 3.6 X10^3/uL (2.0-7.7); Basophil# 0.02 X10^3/uL; Basophil% 0.4 % (0-1); Eosinophil# 0.16 X10^3/uL; Eosinophils% 2.8 % (0-5); Hematocrit 44.7 % (37-47); Hemoglobin 14.2 g/dL (12.0-15.0); Lymphocyte # 1.48 X10^3/ul (4.0); Lymphocyte % 26.2 % (19-41); Mean Corp Hgb Conc 31.8 g/dL (32-36); Mean Corpuscular Hgb 29.5 pg (27.0-32.0); Mean Corpuscular Volume 92.7 fL (81-99); Mean Platelet Vol. 10.1 fl (6.2-12.0); Monocyte# 0.39 X10^3/uL; Monocyte% 6.9 % (0-10); NRBC Flagged by Analyzer 0 % (0-5); Neutrophil # 3.58 X10^3/uL (2.7-7.7); Neutrophil % 63.5 % (47-70); Platelet Count 368 K/mm3 (150-450); RBC Distribution Width CV 13.7 % (11.6-14.6); RBC Distribution Width SD 46.5 fl (35.1-43.9); Red Blood Count 4.82 M/mm3 (4.2-5.4); White Blood Count 5.6 K/mm3 (4.4-11.0)
[2020-09-02 15:39] LABS: ALB/GLOB Ratio 0.9 RATIO (0.9-2.4); AST(SGOT) 21 U/L (15-37); Alanine Aminotransfer ALT/SGPT 39 U/L (13-56); Albumin, Serum 3.6 g/dL (3.2-5.0); Alkaline Phosphatase 112 U/L (45-117); Anion Gap 6 (5-15); BUN 14 mg/dL (7-18); BUN/Creat Ratio 14.1 RATIO (10-20); Chloride 106 mmol/L (98-107); Cholesterol 179 mg/dL (200); EST Glomerular Filtration Rate 60 mL/min (>60); Est Glom Filt Rate - Afr Amer 73 mL/min (>60); Globulin 4.2 g/dL (2.2-4.2); Glucose 106 mg/dL (74-106); High Density Lipoprotein 52 mg/dL; Potassium 4.7 mmol/L (3.5-5.1); Protein, Total 7.8 g/dL (6.4-8.2); Sodium Level 137 mmol/L (136-145); Triglycerides 103 mg/dL; Very Low Density Lipoprotein 21 mg/dL (5-40)
== END ==
PROVIDERS: PCP Internal Medicine; Visit Provider Internal Medicine
DX: I10 Essential (primary) hypertension (principal); F32.9 Major depressive disorder, single episode, unspecified; F41.9 Anxiety disorder, unspecified
CPT/HCPCS: 36415; 80053; 80061; 85025

== ENCOUNTER → 2020-10-08 11:43 | Outpatient (CLI) | payer OTHER, SELFPAY ==
[2020-02-27 10:02] VITALS: BMI 71.8
--- NOTE | 2020-10-08 11:46 | BI_ITS ---
MAMMOGRAPHY - BILATERAL SCREENING REASON FOR EXAM: Female, 60 years old. Routine annual screening examination. PERTINENT HISTORY: Non-contributory. History of remote left excisional breast biopsy. TECHNIQUE: Digital bilateral breast eleanor (3D mammographic acquisition) in the CC and MLO projections. 2-D mediolateral oblique (MLO) and craniocaudad (CC) views of both breasts were obtained. CAD: Full Field Digital Mammography with Computer Added Detection was performed. COMPARISON: Comparison is made with prior study dated 09/16/2018. FINDINGS: Breast Composition: The breasts are almost entirely fatty. There are no dominant masses or suspicious calcifications. Stable 7.3 mm well-defined nodule in the axillary region of the left breast. Stable 7 mm well-defined nodule in the superior slightly lateral retroareolar region of the left breast. No other significant abnormalities are identified. There has been no significant change since the prior study. BI/SCRN MAMM (CAD)W/ELEANOR BILAT IMPRESSION: Stable bilateral screening mammogram. Yearly follow-up mammogram recommended. (A) ASSESSMENT CATEGORY: BIRADS Category 2: Benign. A letter regarding these results will be sent to the patient by the facility within 30 days. Approximately 10% of breast cancers are not detected by mammography. A normal mammogram should not delay biopsy of a clinically suspicious abnormality. [id number] Electronically Signed: Gutierrez Pichardo MD at 13:10 EDT , Service support ,
== END ==
PROVIDERS: PCP Internal Medicine; Referring Provider Internal Medicine; Visit Provider Internal Medicine
DX: Z12.31 Encounter for screening mammogram for malignant neoplasm of breast (principal)
CPT/HCPCS: 77063; 77067

== ENCOUNTER 2021-08-18 13:33 | Outpatient (CLI) | payer OTHER, SELFPAY ==
[2021-08-18 15:17] LABS: Absolute Lymphocyte Count 1.91 X10^3/uL (0.83-4.51); Absolute Neutrophil Count 4.3 X10^3/uL (2.0-7.7); Basophil# 0.03 X10^3/uL; Basophil% 0.4 % (0-1); Eosinophil# 0.21 X10^3/uL; Eosinophils% 3.1 % (0-5); Hematocrit 42.9 % (37-47); Hemoglobin 13.6 g/dL (12.0-15.0); Lymphocyte # 1.91 X10^3/ul (0.83-4.51); Lymphocyte % 27.9 % (19-41); Mean Corp Hgb Conc 31.7 g/dL (32-36); Mean Corpuscular Hgb 29.4 pg (27.0-32.0); Mean Corpuscular Volume 92.7 fL (81-99); Monocyte# 0.39 X10^3/uL; Monocyte% 5.7 % (0-10); NRBC Flagged by Analyzer 0 % (0-5); Neutrophil # 4.26 X10^3/uL (2.7-7.7); Neutrophil % 62.2 % (47-70); Platelet Count 357 K/mm3 (150-450); RBC Distribution Width CV 13.5 % (11.6-14.6); RBC Distribution Width SD 45.6 fl (35.1-43.9); Red Blood Count 4.63 M/mm3 (4.2-5.4); White Blood Count 6.9 K/mm3 (4.4-11.0)
[2021-08-18 15:48] LABS: ALB/GLOB Ratio 0.8 RATIO (0.9-2.4); AST(SGOT) 15 U/L (15-37); Alanine Aminotransfer ALT/SGPT 27 U/L (13-56); Albumin, Serum 3.5 g/dL (3.2-5.0); Alkaline Phosphatase 109 U/L (45-117); Anion Gap 7 (5-15); BUN 16 mg/dL (7-18); BUN/Creat Ratio 16.9 RATIO (10-20); Calcium,Total 8.9 mg/dL (8.5-10.1); Chloride 106 mmol/L (98-107); Cholesterol 192 mg/dL (200); Creatinine, Serum 0.94 mg/dL (0.55-1.02); EST Glomerular Filtration Rate 64 mL/min (>60); Est Glom Filt Rate - Afr Amer 77 mL/min (>60); Globulin 4.2 g/dL (2.2-4.2); Glucose 114 mg/dL (74-106); High Density Lipoprotein 48 mg/dL; Potassium 4.6 mmol/L (3.5-5.1); Protein, Total 7.7 g/dL (6.4-8.2); Sodium Level 138 mmol/L (136-145); Triglycerides 168 mg/dL; Very Low Density Lipoprotein 34 mg/dL (5-40)
== END 2021-08-18 23:59 | disposition home or self-care (01) ==
LOC: BIMLAB 13:34
PROVIDERS: PCP Internal Medicine; Visit Provider Internal Medicine
DX: I10 Essential (primary) hypertension (principal)
CPT/HCPCS: 36415; 80053; 80061; 85025

== ENCOUNTER → 2021-11-04 | Outpatient (CLI) | payer OTHER, SELFPAY ==
--- NOTE | 2021-11-04 10:30 | BI_ITS ---
MAMMOGRAPHY - BILATERAL SCREENING REASON FOR EXAM: Female, 61 years old. Routine annual screening examination. PERTINENT HISTORY: Non-contributory. Remote left excisional breast biopsy. TECHNIQUE: Digital bilateral breast eleanor (3D mammographic acquisition) in the CC and MLO projections. 2-D mediolateral oblique (MLO) and craniocaudad (CC) views of both breasts were obtained. CAD: Full Field Digital Mammography with Computer Added Detection was performed. COMPARISON: Comparison is made with prior study dated 10/08/2020 and 09/16/2018. FINDINGS: Breast Composition: The breasts are almost entirely fatty. There are no dominant masses or suspicious calcifications. Stable small benign appearing bilateral axillary nodes. No other significant abnormalities are identified. There has been no significant change since the prior study. BI/SCRN MAMM (CAD)W/ELEANOR BILAT IMPRESSION: Stable bilateral screening mammogram. Yearly follow-up mammogram recommended. (A) ASSESSMENT CATEGORY: BIRADS Category 2: Benign. A letter regarding these results will be sent to the patient by the facility within 30 days. Approximately 10% of breast cancers are not detected by mammography. A normal mammogram should not delay biopsy of a clinically suspicious abnormality. [id number] Electronically Signed: Gutierrez Pichardo MD at 12:10 EDT ,
== END | disposition home or self-care (01) ==
LOC: OPBI 10:28
PROVIDERS: PCP Internal Medicine; Visit Provider Internal Medicine
DX: Z12.31 Encounter for screening mammogram for malignant neoplasm of breast (principal)
CPT/HCPCS: 77063; 77067

== ENCOUNTER → 2022-03-25 | Outpatient (CLI) | payer OTHER, SELFPAY ==
[2022-03-25 13:13] LABS: Anion Gap 7 (5-15); BUN 18 mg/dL (7-18); BUN/Creat Ratio 18.8 RATIO (10-20); Calcium,Total 9.2 mg/dL (8.5-10.1); Chloride 106 mmol/L (98-107); Creatinine, Serum 0.96 mg/dL (0.55-1.02); EST Glomerular Filtration Rate 63 mL/min (>60); Est Glom Filt Rate - Afr Amer 76 mL/min (>60); Glucose 104 mg/dL (74-106); Potassium 4.6 mmol/L (3.5-5.1); Sodium Level 139 mmol/L (136-145)
== END | disposition home or self-care (01) ==
LOC: BIMLAB 11:37
PROVIDERS: PCP Internal Medicine; Referring Provider Internal Medicine; Visit Provider Internal Medicine
DX: I10 Essential (primary) hypertension (principal)
CPT/HCPCS: 36415; 80048

== ENCOUNTER → 2022-10-23 | Outpatient (CLI) | payer OTHER, SELFPAY ==
[2022-10-23 16:20] LABS: ALB/GLOB Ratio 0.9 RATIO (0.9-2.4); AST(SGOT) 16 U/L (15-37); Absolute Lymphocyte Count 1.75 X10^3/uL (0.83-4.51); Absolute Neutrophil Count 4.6 X10^3/uL (2.0-7.7); Alanine Aminotransfer ALT/SGPT 30 U/L (13-56); Albumin, Serum 3.5 g/dL (3.2-5.0); Alkaline Phosphatase 109 U/L (45-117); Anion Gap 7 (5-15); BUN 22 mg/dL (7-18); BUN/Creat Ratio 21.2 RATIO (10-20); Basophil# 0.03 X10^3/uL; Basophil% 0.4 % (0-1); Calcium,Total 9.2 mg/dL (8.5-10.1); Chloride 107 mmol/L (98-107); Cholesterol 194 mg/dL (200); Creatinine, Serum 1.04 mg/dL (0.55-1.02); EST Glomerular Filtration Rate 57 mL/min (>60); Eosinophil# 0.16 X10^3/uL; Eosinophils% 2.3 % (0-5); Est Glom Filt Rate - Afr Amer 69 mL/min (>60); Globulin 4.1 g/dL (2.2-4.2); Glucose 127 mg/dL (74-106); Hematocrit 44.6 % (37-47); Hemoglobin 14.2 g/dL (12.0-15.0); High Density Lipoprotein 48 mg/dL; Lymphocyte # 1.75 X10^3/ul (0.83-4.51); Mean Corp Hgb Conc 31.8 g/dL (32-36); Mean Corpuscular Hgb 29.8 pg (27.0-32.0); Mean Corpuscular Volume 93.7 fL (81-99); Mean Platelet Vol. 10.2 fl (6.2-12.0); Monocyte# 0.44 X10^3/uL; Monocyte% 6.3 % (0-10); NRBC Flagged by Analyzer 0 % (0-5); Neutrophil # 4.59 X10^3/uL (2.7-7.7); Neutrophil % 65.4 % (47-70); Platelet Count 366 K/mm3 (150-450); Potassium 4.7 mmol/L (3.5-5.1); Protein, Total 7.6 g/dL (6.4-8.2); RBC Distribution Width CV 13.1 % (11.6-14.6); RBC Distribution Width SD 45.1 fl (35.1-43.9); Red Blood Count 4.76 M/mm3 (4.2-5.4); Sodium Level 138 mmol/L (136-145); Triglycerides 121 mg/dL; Very Low Density Lipoprotein 24 mg/dL (5-40)
== END | disposition home or self-care (01) ==
LOC: BIMLAB 14:21
PROVIDERS: PCP Internal Medicine; Referring Provider Internal Medicine; Visit Provider Internal Medicine
DX: I10 Essential (primary) hypertension (principal)
CPT/HCPCS: 36415; 80053; 80061; 85025

== ENCOUNTER → 2022-11-19 | Outpatient (CLI) | payer OTHER, SELFPAY ==
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
--- NOTE | 2022-11-19 12:26 | BD_ITS ---
STUDY: DUAL ENERGY X-RAY ABSORPTIOMETRY / DXA REASON FOR EXAM: Female, 62 years old. Post Menopausal TECHNIQUE: Bone Mineral Density (BMD) measurements of lumbar spine and bilateral hips were obtained. COMPARISON: None. FINDINGS: Lumbar Spine (L1-L4): g/cm2 (1.376) / T-score (2.7) / Z-score (4.4) Findings are suggestive of normal bone density with a low fracture risk. Left Femur Total: g/cm2 (1.389) / T-score (3.7) / Z-score (4.8) Left Femoral Neck: g/cm2 (0.972) / T-score (1.1) / Z-score (2.5) Right Femur Total: g/cm2 (1.352) / T-score (3.4) / Z-score (4.5) Right Femoral Neck: g/cm2 (1.017) / T-score (1.5) / Z-score (2.9) BD/Dexa Bone Density Study IMPRESSION: The patient is considered normal as outlined below according to World Steffen Organization (WHO) criteria with a low fracture risk. Reference Information: The T-score is the number of standard deviations above or below the standard which is normal for young adults at their peak bone mineral density. The World Health Organization (WHO) interprets the T-scores as follows: Above -1 Normal bone density Between -1 and -2.5 Osteopenia Equal to / or below -2.5 Osteoporosis As a practical clinical guideline, osteopenia may be graded as follows: Mild -1 through -1.5 Moderate -1.6 through -2.0 Severe -2.1 through -2.4 The Z-score is the number of standard deviations above or below age-matched controls. A Z-score of less than -1.5 would be considered abnormal. References: 1. NIH Osteoporosis and Related Bone Diseases www osteo.org 2. International Society for Clinical Densitometry www iscd.org 3. National Osteoporosis Foundation www nof.org Electronically Signed: Gutierrez Pichardo MD at 14:35 EDT ,
== END | disposition home or self-care (01) ==
LOC: OPBD 12:07
PROVIDERS: PCP Internal Medicine; Referring Provider Internal Medicine; Visit Provider Internal Medicine
DX: Z12.31 Encounter for screening mammogram for malignant neoplasm of breast (principal); Z78.0 Asymptomatic menopausal state
CPT/HCPCS: 77063; 77067; 77080

== ENCOUNTER → 2023-01-13 | Outpatient (CLI) | payer OTHER, SELFPAY ==
[2023-01-13 15:31] LABS: Absolute Lymphocyte Count 1.96 X10^3/uL (0.83-4.51); Absolute Neutrophil Count 4.2 X10^3/uL (2.0-7.7); Basophil# 0.03 X10^3/uL; Basophil% 0.4 % (0-1); Eosinophil# 0.39 X10^3/uL; Eosinophils% 5.5 % (0-5); Hematocrit 42.6 % (37-47); Hemoglobin 13.7 g/dL (12.0-15.0); Lymphocyte # 1.96 X10^3/ul (0.83-4.51); Lymphocyte % 27.8 % (19-41); Mean Corp Hgb Conc 32.2 g/dL (32-36); Mean Corpuscular Hgb 30.3 pg (27.0-32.0); Mean Corpuscular Volume 94.2 fL (81-99); Monocyte# 0.48 X10^3/uL; Monocyte% 6.8 % (0-10); NRBC Flagged by Analyzer 0 % (0-5); Neutrophil # 4.18 X10^3/uL (2.7-7.7); Neutrophil % 59.2 % (47-70); Platelet Count 353 K/mm3 (150-450); RBC Distribution Width CV 13.2 % (11.6-14.6); RBC Distribution Width SD 45.7 fl (35.1-43.9); Red Blood Count 4.52 M/mm3 (4.2-5.4); White Blood Count 7.1 K/mm3 (4.4-11.0)
[2023-01-13 16:19] LABS: ALB/GLOB Ratio 0.8 RATIO (0.9-2.4); AST(SGOT) 15 U/L (15-37); Alanine Aminotransfer ALT/SGPT 27 U/L (13-56); Albumin, Serum 3.4 g/dL (3.2-5.0); Alkaline Phosphatase 105 U/L (45-117); Anion Gap 4 (5-15); BUN 21 mg/dL (7-18); BUN/Creat Ratio 20.8 RATIO (10-20); Calcium,Total 8.8 mg/dL (8.5-10.1); Chloride 108 mmol/L (98-107); Creatinine, Serum 1.01 mg/dL (0.55-1.02); EST Glomerular Filtration Rate 59 mL/min (>60); Est Glom Filt Rate - Afr Amer 71 mL/min (>60); Glucose 125 mg/dL (74-106); Potassium 4.7 mmol/L (3.5-5.1); Protein, Total 7.4 g/dL (6.4-8.2); Sodium Level 138 mmol/L (136-145)
[2023-01-14 10:01] LABS: Hemoglobin A1c 5.9 % (3.8-5.6)
== END | disposition home or self-care (01) ==
LOC: BIMLAB 13:41
PROVIDERS: PCP Internal Medicine; Referring Provider Internal Medicine; Visit Provider Internal Medicine
DX: R73.03 Prediabetes (principal); N95.0 Postmenopausal bleeding
CPT/HCPCS: 36415; 80053; 83036; 85025

== ENCOUNTER 2023-01-26 11:21 | Day surgery (SDC) | payer OTHER, SELFPAY ==
[2023-01-26] VITALS (8 sets, daily range): BP systolic 110–159; BP diastolic 69–83; PULSE 59–73; RESP 16–17; TEMP 36.4–36.8; O2SAT 96–99; BMI 72.1
--- NOTE | 2023-01-26 10:15 | HP.PCM_ITS ---
History and Physical Date of Admission: 01/26/23 Intake Vital Signs 11/20/2311:20 01/13/2313:12 01/19/2310:36 Height 5 ft 4 in 5 ft 4 in 5 ft 4 in BP 150/82 H Intake Visit Reasons: hysteroscopy D&C [employer] Supervisor Required: No Is patient in pain?: No Allergies clindamycin Allergy (Severe, Verified 01/19/23 10:37) Hearing lossciprofloxacin [From Cipro] Allergy (Verified 01/19/23 10:37) Othercodeine Allergy (Verified 01/19/23 10:37) Rashhydrochlorothiazide Allergy (Verified 01/19/23 10:37) OtherPenicillins [PCN] Allergy (Verified 01/19/23 10:37) Rashtramadol HCl [From Ultram] Allergy (Verified 01/19/23 10:37) Otherspironolactone [From Aldactone] Adverse Reaction (Verified 01/19/23 10:37) Causes Potassium to elevate Medications aspirin 81 mg tablet,delayed release 81 mg PO DAILY@0800 06/24/15 [History Confirmed 01/19/23] multivitamin with folic acid 400 mcg tablet 1 tab PO DAILY 06/24/15 [History Confirmed 01/19/23] Cpap Supplies #1 ea 08/18/21 [Rx Confirmed 01/19/23] amlodipine 10 mg tablet 10 mg PO QDAY #90 tabs 03/10/22 [Rx Confirmed 01/19/23] lisinopril 40 mg tablet 40 mg PO DAILY #90 tabs 06/04/22 [Rx Confirmed 01/19/23] tizanidine 2 mg tablet 2 mg PO QHS PRN muscle spasticity #90 tabs 08/03/22 [Rx Confirmed 01/19/23] fluoxetine 20 mg capsule See Rx Instructions .Route .COMPLEX #90 caps 08/31/22 [Rx Confirmed 01/19/23] Pancreat-Bet CKu-sqd-qfyz-pap 250 mg-162 mg-65 mg-125 mg capsule (Super Enzyme) 1 cap PO .with meals 10/23/22 [History Confirmed 01/19/23] anita.stocking,knee,reg,xlrg #2 ea 10/23/22 [Rx Confirmed 01/19/23] Post menopausal: No Patient : No : No PFSH Medical History Abnormal uterine bleeding Asthmatic bronchitis with acute exacerbation Borderline type 2 diabetes mellitus Depression GERD (gastroesophageal reflux disease) Health care maintenance Hearing impairment History of benign breast tumor history of premature delivery Hypertension Kidney failure Morbid obesity Obstructive sleep apnea Preoperative evaluation to rule out surgical contraindication Seasonal allergies Venous insufficiency Surgical History History of benign breast biopsy History of section History of cholecystectomy History of D&C History of placement of ear tubes Family History Mother CVA (cerebral vascular accident) HypertensionSister cranial stenosisFather Hypertension Asthma Arthritis Social History Smoking Status: Former smoker how long ago did patient quit smokin alcohol intake: current alcohol intake frequency: holidays/special occasions only Alcohol type: wine substance use type: does not use caffeine: Yes what type of physical activity do you participate in: none seatbelt use: always do you feel safe at home: Yes additional social history: Chfhzdi-Ccc-Mdc HPI hysteroscopy D&C Details: ANGELINA CALZADA is a 62 year old who presents for preoperative examination. She is scheduled for a hysteroscopy Dilation and curettage for has h/o endometrial hyperplasia declines IUD and does not like how she feels on provera. History 5 Elective abortions Hx Para 2 Spontaneous abortions 3 Hx # Term Pregnancies Ectopic pregnancies Hx # Pregnancies Multiple births # of living children Past Pregnancies Del. Date Name GA/Weeks Outcome Route Bth Weight [facility] James-1997 Unknown Patricia-1999 ROS Const ROS Unobtainable: All systems reviewed & are unremarkable except as noted in H Resp Resp: Reports system reviewed and no additional complaints, except as docu mented; Denies cough GI GI: Reports as per HPI Psych Psych: Reports system reviewed and no additional complaints, except as documented Exam Const General: cooperative, healthy appearing, comfortable and no acute distress Resp Effort & Inspection: normal respiratory effort Skin General: no rashes or lesions noted Psych Appearance: grossly normal Speech and Movement: speech and movement normal Coding Level of Care Code Off vis,est,level 3 Diagnoses Borderline type 2 diabetes mellitus R73.03 Simple endometrial hyperplasia N85.01 Morbid obesity E66.01 Hearing impairment H91.90 Primary hypertension I10 Hypertension type: primary hypertension Postmenopausal bleeding N95.0 Assessment and Plan Assessment and Plan (1) Borderline type 2 diabetes mellitus: Status: Acute (2) Simple endometrial hyperplasia: Status: Chronic Plan: After discussing the patient's diagnosis and treatment plan options, patient wishes to proceed with surgical management. I have discussed with the patient the risks, benefits, and alternatives of the procedure which include but are not limited to risks of anesthesia, bleeding, infection, possible damage to bowel, bladder, or surrounding vasculature which could lead to additional surgery to evaluate any complications. Patient agrees to procedure and wishes to proceed. ACOG/uptodate references given for additional information regarding procedure. plan is for a hysteroscopy dilation and curettage. (3) Morbid obesity: Status: Chronic (4) Hearing impairment: Status: Chronic (5) Hypertension: Status: Chronic Qualifiers: Hypertension type: primary hypertension Qualified Code(s): I10 - Essential (primary) hypertension (6) Postmenopausal bleeding: Status: Resolved
--- NOTE | 2023-01-26 12:42 | DCINST_ITS ---
Discharge Instructions Diet Discharge Diet: No restrictions Activity Discharge Activity: Return to Normal Activity, May Shower and May Take a Tub Bath (after 1 week) May resume sexual activity in: 1-2 weeks Weight Bearing Status: Weight bearing as tolerated Lifting Restrictions: none Dressing / Incision Call your doctor if you observe: Fever of 101 or Higher, Using more than 1 pad per hour, Shortness of breath and Uncontrolled pain Follow Up Care Please Follow Up With: Deepti Tran, When: Call [phone] to schedule appointment. Test Results: Test results from this visit will be discussed in further detail at your follow- up appointment, if applicable. Discharge Plan Admission Primary Reason for Your Visit: dilation and curettage Attending Provider: Deepti Tran Primary Care Provider: Esthela Wynne Discharge Orders/Prescriptions Prescriptions: New oxycodone 5 mg capsule 5 mg PO Q6H PRN (Reason: pain) 3 Days Qty: 5 0RF Continued (DME) Cpap Supplies See Rx Instructions .Route .MEDSUPPLY Qty: 1 0RF Rx Instructions: As directed Super Enzyme [id number] mg capsule 1 cap PO .with meals (DME) anita.stocking,knee,reg,xlrg Misc See Rx Instructions .ROUTE .MEDSUPPLY Qty: 2 3RF Rx Instructions: As directed for venous inusfficiency 30-40 mmhg aspirin 81 MG tablet 81 mg PO DAILY@0800 multivitamin with folic acid 1 TABLET tablet 1 tab PO DAILY amlodipine 10 mg tablet 10 mg PO QDAY Qty: 90 3RF lisinopril 40 mg tablet 40 mg PO DAILY Qty: 90 3RF tizanidine 2 mg tablet 2 mg PO QHS PRN (Reason: muscle spasticity) Qty: 90 1RF fluoxetine 20 mg capsule See Rx Instructions .ROUTE .COMPLEX Qty: 90 3RF Dose Instruction: TAKE 1 CAPSULE BY MOUTH EVERY DAY Rx Instructions: TAKE 1 CAPSULE BY MOUTH EVERY DAY Referrals / Follow Up: Esthela Wynne MD [Primary Care Provider] - Disposition Disposition (needs filled in before D/C Order can be placed): Home, Self Care
[2023-01-26] MEDS: Lactated Ringers 1,000 ML 15 ML IV (12:51)
--- NOTE | 2023-01-26 13:25 | EMB_PTH ---
PATIENT: ANGELINA CALZADA [place] [facility] [id number] AGE/SX: 62/F ROOM: RE01/26/[address]: Dr. Deepti Tran DO : 1960 BED: DIS: 01/26/2023 SPEC #: [id number] RECD: 01/26/23 14:31 STATUS: YOEL SAVANNAH #: [id number] FELIPE: 01/26/23 13:[address]: Deepti Tran DEPT: SURGICAL PATHOLOGY RECD BY: Shauna Mayo ENTERED: 01/27/23 07:12 SP TYPE: ENDOM BX/C REILLY DR: Dr. Esthela Wynne MD Tissues: Endometrium, NOS Procedures: Surgery Specimen Level IV HEADER OPERATION: Hysteroscopy, dilation and curettage PRE-OP DIAGNOSIS: Simple endometrial hyperplasia TISSUE SUBMITTED: Endometrial curettings MICROSCOPIC DIAGNOSIS Endometrial curettings: Scant strips of benign endometrial epithelium. Fragments of benign ecto- and endocervical epithelium, blood and mucous. See comment. YAIR:gayathri 01/28/2023 COMMENT The specimen predominantly consists of ecto- and endocervical epithelium, blood and mucous. Clinical correlation and appropriate follow up are necessary. Please make reference to previous specimen ([id number]) endocervical curettings and polyp, excision with diagnosis of polypoid fragment of endometrium with focal simple cystic hyperplasia and secretory change. MICROSCOPIC DESCRIPTION Slides are reviewed. GROSS DESCRIPTION Received in fixative is one container labeled with the patient's name and designated endometrial curettings. The specimen consists of multiple fragments of hemorrhagic soft tissue that in aggregate measure 2.5 x 1.5 x 0.2 cm. The specimen is totally submitted in one cassette. / YAIR:gayathri 01/27/2023 TC:4 CPT: 53863
--- NOTE | 2023-01-26 14:18 | OP.PCM_ITS ---
Problems Associated Problem List Diagnoses (1) Postmenopausal bleeding: (2) Simple endometrial hyperplasia: (3) Morbid obesity: Report of Operation Date of Procedure: 01/26/23 Pre-Operative Diagnosis: 62 y/o with a history of simple endometrial hyperplasia and postmenopausal bleeding, morbid obesity Post-Operative Diagnosis: 62 y/o with a history of simple endometrial hyperplasia and postmenopausal bleeding, morbid obesity Surgery/Procedure Performed:: hysteroscopy dilation and curettage Description of Surgical Findings:: atrophic appearing uterus, scant tissue from D&C Surgeon: Deepti Tran Type of Anesthesia: MAC/Supplemental/Local Anesthesiologist: Abdi Cali Specimen's removed: endometrial curetting's Estimated Blood Loss (mL): 5 cc Description of Procedure: Patient was prepped and draped in a normal sterile fashion under MAC anesthesia. A weighted speculum was placed in the vagina and the anterior lip of the cervix was grasped with a single-tooth tenaculum. A paracervical block was placed with 1% lidocaine. Cervix was progressively dilated to allow passage of a 5 mm hysteroscope. The lining was fully visualized and noted to have atrophic appearing tissue . Uterine sounded to 7 cm. Curettage was performed and scan tissue was sent to pathology. All instruments were removed from the vagina and excellent hemostasis was noted. Patient was awoken and taken to recovery in st able condition. Complications none Admit VTE Documentation VTE Present on Admission: No VTE Pharm Prophylaxis ordered?: No Multi Select Codes Urinary/Genital Urinary/Genital CPT Codes: 16396 Hysteroscopy,EMC, Polypectomy
== END 2023-01-26 16:10 | disposition home or self-care (01) ==
LOC: SDC 11:24 → AC 11:35
PROVIDERS: PCP Internal Medicine; Referring Provider Obstetrics & Gynecology; Visit Provider Obstetrics & Gynecology
PROC: 0UDB8ZZ Extraction of Endometrium, Via Natural or Artificial Opening Endoscopic (ICD-10-PCS; CPT 58558; principal; 2023-01-26 13:15)
DX: N95.0 Postmenopausal bleeding (principal); E66.01 Morbid (severe) obesity due to excess calories; Z68.45 Body mass index [BMI] 70 or greater, adult; N85.01 Benign endometrial hyperplasia; I10 Essential (primary) hypertension; H91.93 Unspecified hearing loss, bilateral; R73.03 Prediabetes; Z97.4 Presence of external hearing-aid; Z79.82 Long term (current) use of aspirin; Z79.899 Other long term (current) drug therapy; Z87.891 Personal history of nicotine dependence
CPT/HCPCS: 58558; 00952; 86850; 86900; 86901; 88305; J7120; J2405

== ENCOUNTER → 2023-08-12 | Outpatient (CLI) | payer OTHER, SELFPAY ==
[2023-08-12 16:51] LABS: Absolute Lymphocyte Count 1.98 X10^3/uL (0.83-4.51); Absolute Neutrophil Count 5.2 X10^3/uL (2.0-7.7); Basophil# 0.03 X10^3/uL; Basophil% 0.4 % (0-1); Eosinophil# 0.26 X10^3/uL; Eosinophils% 3.3 % (0-5); Hematocrit 43.9 % (37-47); Hemoglobin 14.1 g/dL (12.0-15.0); Lymphocyte # 1.98 X10^3/ul (0.83-4.51); Lymphocyte % 24.9 % (19-41); Mean Corp Hgb Conc 32.1 g/dL (32-36); Mean Corpuscular Hgb 29.9 pg (27.0-32.0); Mean Platelet Vol. 10.1 fl (6.2-12.0); Monocyte# 0.48 X10^3/uL; NRBC Flagged by Analyzer 0 % (0-5); Neutrophil # 5.16 X10^3/uL (2.7-7.7); Platelet Count 360 K/mm3 (150-450); RBC Distribution Width CV 13.3 % (11.6-14.6); RBC Distribution Width SD 45.5 fl (35.1-43.9); Red Blood Count 4.72 M/mm3 (4.2-5.4); White Blood Count 7.9 K/mm3 (4.4-11.0)
[2023-08-12 17:07] LABS: ALB/GLOB Ratio 0.9 RATIO (0.9-2.4); AST(SGOT) 17 U/L (15-37); Alanine Aminotransfer ALT/SGPT 31 U/L (13-56); Albumin, Serum 3.7 g/dL (3.2-5.0); Alkaline Phosphatase 96 U/L (45-117); Anion Gap 5 (5-15); BUN 26 mg/dL (7-18); BUN/Creat Ratio 26.5 RATIO (10-20); Calcium,Total 9.6 mg/dL (8.5-10.1); Chloride 106 mmol/L (98-107); Cholesterol 191 mg/dL (200); Creatinine, Serum 0.98 mg/dL (0.55-1.02); EST Glomerular Filtration Rate 61 mL/min (>60); Est Glom Filt Rate - Afr Amer 74 mL/min (>60); Glucose 106 mg/dL (74-106); High Density Lipoprotein 53 mg/dL; Potassium 4.8 mmol/L (3.5-5.1); Protein, Total 7.7 g/dL (6.4-8.2); Sodium Level 137 mmol/L (136-145); Triglycerides 80 mg/dL; Very Low Density Lipoprotein 16 mg/dL (5-40)
--- OUTSIDE RECORDS SUMMARY | 2023-08-12 18:40 | XMS RPT_ITS | CCD ---
Author Name Unknown Address [address] [place] [address] Organization [facility] Care Team Providers Care Property Insurance Agent Name Role Phone Juany Breaux Unavailable Unavailable Sherrell JOHN, Esthela Severino Primary Care Provider [phone] ESTHELA THOMSON Primary Care Unavailable ISRAEL SANDOVAL Attending Unavailable Allergies Allergy Classification Reported Allergen(s) Allergy Type Date of Onset Reaction(s) Facility (3 sources) clindamycin; Translations: [CLINDAMYCIN] Drug Allergy 7 Other: See Comments [facility] Work Phone: (1 source) codeine Drug Allergy 7 intolerance [facility] Work Phone: (1 source) penicillin v Drug Allergy 7 rash [facility] Work Phone: (1 source) ULTRUM drug allergy 7 [facility] Work Phone: (1 source) HCTZ drug allergy 7 muscle aches [facility] Work Phone: (2 sources) Codeine; Translations: [CODEINE] Drug Allergy 5 Intolerance [facility] Work Phone: (2 sources) hydroCHLOROthia zide; Translations: [HYDROCHLOROTHI AZIDE] Drug Allergy 9 Intolerance [facility] Work Phone: (2 sources) Penicillins; Translations: [PENICILLINS] Propensity to adverse reactions 5 Hives [facility] Work Phone: (2 sources) traMADol; Translations: [TRAMADOL HCL] Drug Allergy 6 Intolerance [facility] (2 sources) Ciprocinonide; Translations: [CIPROCINONIDE] Drug Intolerance 6 Diarrhea [facility] Work Phone: Medications Completed/Discontinued Medications Medication Drug Class(es) Dates Sig (Normalized) Sig (Original) [id number] 200 actuat albuterol 0.09 mg/actuat metered dose inhaler (2 sources) beta2-Adrenergic Agonist Start: 04-24-2016 take 2 puff(s) by inhalation every four hours as needed albuterol HFA (PROAIR HFA) 90 mcg/actuation inhaler Inhale 2 Puffs as instructed every 4 hours as needed. 1 Inhaler 0 04/24/2016 Active Problems Active Problems Problem Classification Problem Date Documented Da te Episodic/Chronic Abdominal hernia (2 sources) Umbilical hernia; Translations: [Umbilical hernia without obstruction or gangrene] Onset: 03-24-2023 03-24-2023 Episodic Anxiety disorders (1 source) Mixed anxiety and depressive disorder; Translations: [Other specified anxiety disorders] Onset: 04-16-2017 04-16-2017 Chronic Disorders of lipid metabolism (3 sources) Hyperlipidemia; Translations: [Hyperlipidemia, unspecified] Onset: 05-08-2015 03-24-2023 Chronic Essential hypertension (4 sources) Hypertensive disorder; Translations: [Essential (primary) hypertension] Onset: 04-16-2017 04-16-2017 Chronic Mood disorders (1 source) Dysthymia; Translations: [Dysthymic disorder] 03-28-2005 Chronic Other ear and sense organ disorders (1 source) Hearing loss of right ear; Translations: [Unspecified hearing loss, right ear] Onset: 08-08-2015 08-08-2015 Chronic Other female genital disorders (2 sources) Abnormal uterine and vaginal bleeding, unspecified; Translations: [Abnormal uterine bleeding] Onset: 11-15-2012 04-16-2017 Chronic Other nutritional; endocrine; and metabolic disorders (1 source) Severe obesity; Translations: [Morbid (severe) obesity due to excess calories] 03-24-2023 Chronic Other nutritional; endocrine; and metabolic disorders (1 source) Body mass index 40+ - severely obese; Translations: [Body mass index (BMI) 70 or greater, adult] Onset: 07-12-2015 07-12-2015 Chronic Other nutritional; endocrine; and metabolic disorders (1 source) Morbid obesity; Translations: [Body mass index (BMI) 60.0-69.9, adult] Onset: 08-01-2015 08-01-2015 Chronic Other nutritional; endocrine; and metabolic disorders (1 source) Morbid (severe) obesity due to excess calories; Translations: [Class 3 severe obesity with serious comorbidity and body mass index (BMI) greater than or equal to 70 in adult, unspecified obesity type (HCC)] Onset: 03-24-2023 Chronic Other nutritional; endocrine; and metabolic disorders (1 source) Body mass index (BMI) 70 or greater, adult; Translations: [Class 3 severe obesity with serious comorbidity and body mass index (BMI) greater than or equal to 70 in adult, unspecified obesity type (HCC)] Onset: 03-24-2023 Chronic Other screening for suspected conditions (not mental disorders or infectious disease) (1 source) Endometrium thickened; Translations: [Abnormal findings on diagnostic imaging of other specified body structures] Onset: 11-23-2012 11-23-2012 Chronic Residual codes; unclassified (1 source) Sleep apnea; Translations: [Sleep apnea, unspecified] Onset: 10-21-2012 10-21-2012 Chronic Residual codes; unclassified (1 source) Family history of cancer of colon; Translations: [Family history of malignant neoplasm of digestive organs] 03-24-2023 Episodic Residual codes; unclassified (1 source) Family history of malignant neoplasm of digestive organs; Translations: [Family history of colon cancer requiring screening colonoscopy] Onset: 03-24-2023 Episodic Past or Other Problems Problem Classification Problem Date Documented Date Episodic/Chronic Intestinal infection (1 source) Clostridium difficile diarrhea; Translations: [Enterocolitis due to Clostridium difficile, not specified as recurrent] Onset: 08-08-2015 08-08-2015 Episodic Other diseases of veins and lymphatics (1 source) Peripheral venous insufficiency; Translations: [Venous insufficiency (chronic) (peripheral)] Onset: 04-16-2017 04-16-2017 Episodic Other nervous system disorders (1 source) Impairment of balance; Translations: [Unspecified lack of coordination] Onset: 04-16-2017 04-16-2017 Episodic Spondylosis; intervertebral disc disorders; other back problems (1 source) Chronic low back pain; Translations: [Low back pain] Onset: 04-16-2017 04-16-2017 Episodic Results Test Name Value Interpretation Reference Range Facil ity Vital Signs Date Time Vital Sign Value Performing Clinician Facility 03-24-2023 13:15-0400 Body height 162.6 cm Israel Sandoval MD Work Phone: [facility] 03-24-2023 13:15-0400 Body weight 189.97 kg Israel Sandoval MD Work Phone: [facility] 03-24-2023 13:15-0400 Diastolic blood pressure 80 mm[Hg] Israel Sandoval MD Work Phone: [facility] 03-24-2023 13:15-0400 Heart rate 67 /min Israel Sandoval MD Work Phone: [facility] 03-24-2023 13:15-0400 Systolic blood pressure 130 mm[Hg] Israel Sandoval MD Work Phone: [facility] 04-16-2017 11:05-0400 BMI (Body Mass Index) 71.06 kg/m2 [facility]: 04-16-2017 11:05-0400 Body Temperature 96.8 [degF] Juany Breaux [facility] Work Phone: 04-16-2017 11:05-0400 BP Diastolic 90 mm[Hg] Juany [facility] Work Phone: 04-16-2017 11:05-0400 BP Systolic 140 mm[Hg] Wilberchay [facility] Work Phone: 04-16-2017 11:05-0400 Height 162.56 cm Juany [facility] Work Phone: 04-16-2017 11:05-0400 Pulse (Heart Rate) 58 /min Juany Breaux [facility] Work Phone: 04-16-2017 11:05-0400 Respiratory Rate 16 /min Juany Breaux [facility] Work Phone: 04-16-2017 11:05-0400 Weight 187.79 kg Juany Breaux [facility] Work Phone: Encounters Encounter Date Encounter Type Care Provider Facility Start: 03-24-2023 End: 03-24-2023 ambulatory CARLATIFFANIE THOMSON Facility:[facility] Start: 03-24-2023 End: 03-24-2023 Patient encounter procedure Israel Sandoval MD Work Phone: [facility] Procedures Date Procedure Procedure Detail Performing Clinician Start: 07-11-2015 Lipid 1996 panel - S rudolph or Plasma Israel Sandoval MD Work Phone: Start: 12-26-2012 Colonoscopy Israel obrien MD Work Phone: Plan of Treatment Date Care Activity Detail Author Start: 02-19-2023 Influenza vaccination Influenza Vaccine (#1) [facility] Start: 12-26-2022 Colonoscopy Colonoscopy [facility] Start: 12-26-2022 Colorectal Cancer Screening Colorectal Cancer Screening [facility] Start: 10-14-2021 Pap Testing Pap Testing [facility] Start: 06-04-2021 Urine microalbumin profile DTaP,Tdap,Td Vaccine (2 - Td or Tdap) [facility] Start: 07-11-2020 Lipid 1996 panel - Serum or Plasma Lipid Screening [facility] Start: 08-01-2018 Diabetes Screening Diabetes Screening [facility] Start: 10-14-2017 Mammography Mammogram Screening [facility] Start: 07-16-2017 End: 07-16-2017 Appointment Appointment [facility] Work Phone: Start: 04-16-2017 End: 04-16-2017 Gynecology & Obstetrics Gynecology & Obstetrics Ayde Sahni, [facility], [address], [address], [place], [address] [facility] Work Phone: Start: 04-16-2017 End: 04-16-2017 Physical Therapy General Physical Therapy [facility], [address], [place], [address] [facility] Work Phone: Start: 07-13-2016 Fecal Occult Blood Fecal Occult Blood [facility] Start: 09-16-2009 Shingrix Vaccine (1 of 2) Shingrix Vaccine (1 of 2) [facility] Start: 09-16-2004 Cologuard (FIT-DNA) Cologuard (FIT-DNA) [facility] Start: 09-16-[address] COLONOGRAPHY [facility] Start: 09-16-2004 SIGMOIDOSCOPY SIGMOIDOSCOPY [facility] Start: 09-16-1989 HPV Testing HPV Testing [facility] Start: 09-16-1977 Annual PCP Team Chronic Disease Visit Annual PCP Team Chronic Disease Visit [facility] Start: 09-16-1977 BP Controlled (<130/80) BP Controlled (<130/80) [facility] Start: 09-16-1977 Hepatitis C Screening Hepatitis C Screening [facility] Start: 09-16-1977 HIV Screening HIV Screening [facility]ini [facility] Immunizations Immunization Date Immunization Notes Care Provider Fa cili 06-04-2011 tetanus toxoid, redu alonzo diphtheria toxoid, and acellular pertussis vaccine, adsorbed Israel Sandoval MD Work Phone: [facility] Work Phone: Payers Date Payer Category Payer Unknown LUCIA OSEGUERA RANCHO [id number] 2021-Present [phone] [address] [place] [address] [employer] [id number] 2021 Unknown [id number] Social History Date Type Detail Facility Start: 03-24-2023 Tobacco smoking stat us NHIS Ex-smoker [facility] End: 06-21-1999 History of tobacco use Current smoker [facility] End: 06-21-1999 History of tobacco use Cigarette Smoker [facility] Start: 03-24-2023 Cigarettes smoked cu rrent (pack per day) - Reported 1 [facility] Start: 03-24-2023 Tobacco use and exposure Smoke less tobacco non-user [facility] Start: 03-24-2023 Alcohol intake Current drinke r of alcohol (finding) [facility] Start: 03-24-2023 Tobacco use panel [facility] National Score (1-10 0), lower number is lower risk 57 [facility] Start: 03-24-2023 Tobacco Comment quit 5 years ago [facility] Start: 1960 Sex Assigned At Not on file C [facility] Progress note 03-24-2023 Note Date & Type Note Facility 03-24-2023 Note HNO ID: [id number] Author: Israel Sandoval MD Service: ? Author Type: Physician Type: Progress Notes Filed: 03/24/2023 2:02 PM Note Text: SURGICAL SERVICES HISTORY AND PHYSICAL EXAMINATION SERVICE DATE: 03/24/2023 SERVICE TIME: 1:38 PM PRIMARY CARE PHYSICIAN: Esthela Thomson MD SUBJECTIVE CHIEF COMPLAINT: hernia and need for colonoscopy HISTORY OF PRESENT ILLNESS: Ms. Patton is a 62 year old female with a PMH of depression, HTN, HLD, obesity (BMI 71.89), umbilical hernia, and dysmetabolic syndrome who presents for surgical consultation. Surgical consultation was requested by the patient's referring physician, Dr. Proctor. A copy of this consultation note will be provided to the requesting physician(s) by way of shared medical record or letter via [place] mail. Patient states that she was referred to my office due to her hernia and due to need for colonoscopy. She states that she was the same BMI 10 years ago and she underwent colonoscopy without difficulty. She was told by her local hospital that they could not do her colonoscopy due to her BMI and her large hernia. Regarding her hernia - she began to notice it 3 months after undergoing lap CCx in 2019. It has grown in size since that time. She has experienced two episodes which sounds like it was incarcerated, but each time she was able to push it in with great care and this has not happened in 3 years. She states that the hernia is not painful to her - she is a belly sleeper and this does not bother her. Her most recent A1c was 5.1 - she is following with her PCP regarding this. She is working to lose weight. Her highest weight was 435 pounds. She has struggled with weight her entire life. She states she is so tired of carrying the extra weight as it is negatively impacting her mobility. She is somewhat interested in bariatric surgery and would like to more about it. 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 Her is undergoing cancer therapy as well. PSHx: AND TTL, left breast lumpectomy, Lap CCx (2019) PAST MEDICAL HISTORY: PAST MEDICAL HISTORY Diagnosis Date Benign neoplasm of colon hyperplastic Dysmetabolic syndrome X Dysthymic disorder Depression (non-psychotic) Essential hypertension Other and unspecified hyperlipidemia Other diseases of pharynx, not elsewhere classified(478.29) c pap Umbilical hernia Unspecified essential hypertension PAST SURGICAL HISTORY: PAST SURGICAL HISTORY Procedure Laterality Date DELIVERY ONLY 06/21/1999 , low cervical CHOLECYSTECTOMY HX N/A 2019 COLONOSCOPY FLX DX W/COLLJ SPEC WHEN PFRMD 12/26/2012 Colonoscopy COLSC FLX W/RMVL OF TUMOR POLYP LESION SNARE TQ 05/05/2007 Polyp at 28cm-hyperplastic DILATION AND CURETTAGE DXAND/THER NONOBSTETRIC 12/07/[address] Young [facility] ESOPHAGOGASTRODUODENOSCOPY TRANSORAL DIAGNOSTIC 12/26/2012 EGD HYSTEROSCOPY BX ENDOMETRIUMAND/POLYPC W/WO DANDC 12/06/2012 LUMPECTOMY/RADIOTHERAPY DIAG MAMM/A10 left breast FAMILY HISTORY: FAMILY HISTORY Problem Relation Age of Onset Hypertension Mother Hypertension Father Heart Father SOCIAL HISTORY: Social History Tobacco Use Smoking status: Former Packs/day: 1.00 Years: 10.00 Additional pack years: 0.00 Total pack years: 10.00 Types: Cigarettes Quit date: 06/21/1999 Years since quittin.7 Smokeless tobacco: Never Tobacco comments: quit 5 years ago Substance Use Topics Alcohol use: Yes Drug use: No MEDICATIONS: Current Outpatient Medications Medication Sig amLODIPine (NORVASC) 10 mg tablet Take 1 tablet by mouth every afternoon. progesterone micronized (PROMETRIUM) 100 mg capsule pancreat/betaine/pepsin/bromel (SUPER ENZYME ORAL) Take by mouth once daily. FLUoxetine (PROZAC) 20 mg capsule Take 1 capsule by mouth once daily. lisinopril (ZESTRIL, PRINIVIL) 40 mg tablet Take 1 tablet by mouth once daily. albuterol HFA (PROAIR HFA) 90 mcg/actuation inhaler Inhale 2 Puffs as instructed every 4 hours as needed. albuterol 90 mcg/actuation Aero Inhale 2 Puffs as instructed every 4 hours as needed (shortness of breath, cough, wheeze. ). With spacer, please. multivitamin (DAILY VITAMIN) ORAL Tab Take one(1) tablet daily. ASPIRIN 81 MG TAB Take one (1) tablet daily . felodipine ER (PLENDIL) 5 mg 24 hr tablet Take 1 tablet by mouth once daily. (Patient not taking: Reported on 03/24/2023) LORazepam (ATIVAN) 0.5 mg tab Take 1 tablet by mouth twice daily as needed. (Patient not taking: Reported on 03/24/2023) No current facility-administered medications for this visit. ALLERGIES: ALLERGIES Allergen Reactions Penicillins Hives Ciprocinonide Diarrhea Clindamycin Other: See Comments Codeine Intolerance Hctz [Hydrochloroth* Intolerance muscle soreness Ultram [Tramadol Hc* Intolerance Heart racing COMPLETE REVIEW OF (more content not included)... [facility] History of Present illness Narrative 03-24-2023 Israel Sandoval MD - 03/24/2023 1:38 PM EDT Note Date & Type Note Facility 03-24-2023 History of Presen t illness Narrative SURGICAL SERVICES HISTORY AND PHYSICAL EXAMINATION SERVICE DATE: 03/24/2023 SERVICE TIME: 1:38 PM PRIMARY CARE PHYSICIAN: Esthela Thomson MD SUBJECTIVE CHIEF COMPLAINT: hernia and need for colonoscopy HISTORY OF PRESENT ILLNESS: Ms. Patton is a 62 year old female with a PMH of depression, HTN, HLD, obesity (BMI 71.89), umbilical hernia, and dysmetabolic syndrome who presents for surgical consultation. Surgical consultation was requested by the patient's referring physician, Dr. Proctor. A copy of this consultation note will be provided to the requesting physician(s) by way of shared medical record or letter via [place] mail. Patient states that she was referred to my office due to her hernia and due to need for colonoscopy. She states that she was the same BMI 10 years ago and she underwent colonoscopy without difficulty. She was told by her local hospital that they could not do her colonoscopy due to her BMI and her large hernia. Regarding her hernia - she began to notice it 3 months after undergoing lap CCx in 2019. It has grown in size since that time. She has experienced two episodes which sounds like it was incarcerated, but each time she was able to push it in with great care and this has not happened in 3 years. She states that the hernia is not painful to her - she is a belly sleeper and this does not bother her. Her most recent A1c was 5.1 - she is following with her PCP regarding this. She is working to lose weight. Her highest weight was 435 pounds. She has struggled with weight her entire life. She states she is so tired of carrying the extra weight as it is negatively impacting her mobility. She is somewhat interested in bariatric surgery and would like to more about it. 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 Her is undergoing cancer therapy as well. PSHx: & TTL, left breast lumpectomy, Lap CCx (2019) PAST MEDICAL HISTORY: PAST MEDICAL HISTORY Diagnosis Date Benign neoplasm of colon hyperplastic Dysmetabolic syndrome X Dysthymic disorder Depression (non-psychotic) Essential hypertension Other and unspecified hyperlipidemia Other diseases of pharynx, not elsewhere classified(478.29) c pap Umbilical hernia Unspecified essential hypertension PAST SURGICAL HISTORY: PAST SURGICAL HISTORY Procedure Laterality Date DELIVERY ONLY 06/21/1999 , low cervical CHOLECYSTECTOMY HX N/A 2018 COLONOSCOPY FLX DX W/COLLJ SPEC WHEN PFRMD 12/26/2012 Colonoscopy COLSC FLX W/RMVL OF TUMOR POLYP LESION SNARE TQ 05/05/2007 Polyp at 28cm-hyperplastic DILATION & CURETTAGE DX&/THER NONOBSTETRIC 12/07/2012 Dilation & curettage Dr Young [facility] ESOPHAGOGASTRODUODENOSCOPY TRANSORAL DIAGNOSTIC 12/26/2012 EGD HYSTEROSCOPY BX ENDOMETRIUM&/POLYPC W/WO D&C 12/06/2012 LUMPECTOMY/RADIOTHERAPY DIAG MAMM/A10 left breast FAMILY HISTORY: FAMILY HISTORY Problem Relation Age of Onset Hypertension Mother Hypertension Father Heart Father SOCIAL HISTORY: Social History Tobacco Use Smoking status: Former Packs/day: 1.00 Years: 10.00 Additional pack years: 0.00 Total pack years: 10.00 Types: Cigarettes Quit date: 06/21/1999 Years since quittin.7 Smokeless tobacco: Never Tobacco comments: quit 5 years ago Substance Use Topics Alcohol use: Yes Drug use: No MEDICATIONS: Current Outpatient Medications Medication Sig amLODIPine (NORVASC) 10 mg tablet Take 1 tablet by mouth every afternoon. progesterone micronized (PROMETRIUM) 100 mg capsule pancreat/betaine/pepsin/bromel (SUPER ENZYME ORAL) Take by mouth once daily. FLUoxetine (PROZAC) 20 mg capsule Take 1 capsule by mouth once daily. lisinopril (ZESTRIL, PRINIVIL) 40 mg tablet Take 1 tablet by mouth once daily. albuterol HFA (PROAIR HFA) 90 mcg/actuation inhaler Inhale 2 Puffs as instructed every 4 hours as needed. albuterol 90 mcg/actuation Aero Inhale 2 Puffs as instructed every 4 hours as needed (shortness of breath, cough, wheeze. ). With spacer, please. multivitamin (DAILY VITAMIN) ORAL Tab Take one(1) tablet daily. ASPIRIN 81 MG TAB Take one (1) tablet daily . felodipine ER (PLENDIL) 5 mg 24 hr tablet Take 1 tablet by mouth once daily. (Patient not taking: Reported on 03/24/2023) LORazepam (ATIVAN) 0.5 mg tab Take 1 tablet by mouth twice daily as needed. (Patient not taking: Reported on 03/24/2023) No current facility-administered medications for this visit. ALLERGIES: ALLERGIES Allergen Reactions Penicillins Hives Ciprocinonide Diarrhea Clindamycin Other: See Comments Codeine Intolerance Hctz [Hydrochloroth* Intolerance muscle soreness Ultram [Tramadol Hc* Intolerance Heart racing COMPLETE REVIEW OF SYSTEMS: ROS OBJECTIVE PHYSICAL EXAM: BP 130/80 Pulse 67 Ht 5' 4 (1.63m) Wt 418 lb 12.8 oz (190.0kg) LMP 11/30/2012 BMI 71.85 kg/(m^2). Physical Exam DATA: Diagnostic tests reviewed for today's visit: - EMR reviewed Plan ASSESSMENT AND PLAN Alesia Patton is a 62 year old female with a PMH as noted above who presents with umbilical hernia and severe obesity. ASSESSMENT/PLAN: 1. Umbilical hernia without obstruction and without gangrene - ICD9: 553.1, ICD10: K42.9 (primary diagnosis) - She is currently relatively asymptomatic from the umbilical hernia and I am not recommending repair at this time due to her BMI of 71.89. We discussed need to lose weight. She would like to consider bariatric surgery and we discussed this at length. - would not repair UHR unless she loses weight to a BMI of 40 or less. - We discussed sx/sx of incarceration and strangulation and reason to present to the ER 2. Class 3 severe obesity with serious comorbidity and body mass index (BMI) greater than or equal to 70 in adult, unspecified obesity type (HCC) - ICD9: 278.01, V85.45, ICD10: E66.01, Z68.45 - Discussed the importance of weight loss. She is somewhat interested in the bariatric surgical options. Will send the bariatric seminar and she will fill out and then follow up with me and the team for bariatric surgical discussions 3. Hypertension, unspecified type - ICD9: 401.9, ICD10: I10 - Continue current medical management 4. Hyperlipidemia, unspecified hyperlipidemia type - ICD9: 272.4, ICD10: E78.5 - Continue current medical management 5. Family history of colon cancer requiring screening colonoscopy - ICD9: V16.0, ICD10: Z80.0 - Needs a screening colonoscopy. Will refer to GI as I am no longer performing screening colonoscopy as a part of my surgical practice. - CONSULT TO GASTROENTEROLOGY Medical Decision Making: Problems: Moderate: 2+ stable chronic illnesses Data: Discussed management or test w/ external physician/QHCP/source Medical Decision Making Level: 4 - Moderate SIGNATURE: Israel Sandoval MD PATIENT NAME: Alesia Patton DATE: March 24, 2023 TIME: 1:38 PM PAGER/CONTACT #: [phone] documented in this encounter [facility] History of Past illness Narrative 11-23-2012 Note Date & Type Note Facility documented as of this encounter (statuses as of 03/26/2023) [facility] Evaluation note Note Date & Type Note Facility documented in this encounter [facility] Summary Purpose Family History No Family History Records FoundNo Family History Records Found Advance Directives No Advanced Directives Records FoundNo Advanced Directives Records Found Reason for Referral Specialty Diagnoses / Procedures Referred By Contac t Referred To Contact Gastroenterology Diagnoses Family history of colon cancer requiring screening colonoscopy Procedures CONSULT TO GASTROENTEROLOGY OFFICE/OUTPATIENT [facility] 60-74 MINUTES Israel Sandoval MD [address] [facility] [address] [place] [address] Referral ID Status Reason Start Date Expiration Date Visits Requested Visits Authorized [id number] Pending Review PCP Requested Referral 03/24/2023 03/23/2024 1 1 Additional Source Comments INFORMATION SOURCE (unrecogn ized section and content) DATE CREATED AUTHOR AUTHOR'S ORGANIZ ATION 03/28/2023 [facility] Source Comments (unrecognize d section and content) In the event this informatio n is protected by the Federal Confidentiality of Alcohol and Drug Abuse Patient Records regulations: The Federal rules restrict any use of the information to criminally investigate or prosecute any alcohol or drug abuse patient.[facility] Reason for Visit (unrecogniz ed section and content) Care Teams (unrecognized sec tion and content) FOR RECORDS PERTAINING TO PATIENTS WHO ARE OR HAVE BEEN ENROLLED IN A CHEMICAL DEPENDENCY/SUBSTANCEABUSE PROGRAM, SOME INFORMATION MAY BE OMITTED. This clinical summary was aggregated from multiple sources. Caution should be exercised in using it in the provision of clinical care. This summary normalizes information from multiple sources, and as a consequence, information in this document may materially change the coding, format and clinical context of patient data. In addition, data may be omitted in some cases. CLINICAL DECISIONS SHOULD BE BASED ON THE PRIMARY CLINICAL RECORDS. [facility] [employer] [facility]. provides no warranty or guarantee of the accuracy or completeness of information in this document.
== END | disposition home or self-care (01) ==
LOC: BIMLAB 14:35
PROVIDERS: PCP Internal Medicine; Visit Provider Internal Medicine
DX: I10 Essential (primary) hypertension (principal)
CPT/HCPCS: 36415; 80053; 80061; 85025

== ENCOUNTER → 2024-01-20 | Outpatient (CLI) | payer OTHER, SELFPAY ==
[2024-01-20 16:42] LABS: Anion Gap 6 (5-15); BUN 26 mg/dL (7-18); BUN/Creat Ratio 22.8 RATIO (10-20); Calcium,Total 9.1 mg/dL (8.5-10.1); Chloride 107 mmol/L (98-107); Creatinine, Serum 1.14 mg/dL (0.55-1.02); EST Glomerular Filtration Rate 51 mL/min (>60); Est Glom Filt Rate - Afr Amer 62 mL/min (>60); Glucose 107 mg/dL (74-106); Potassium 5.4 mmol/L (3.5-5.1); Sodium Level 136 mmol/L (136-145)
== END | disposition home or self-care (01) ==
LOC: BIMLAB 15:39
PROVIDERS: PCP Internal Medicine; Referring Provider Internal Medicine; Visit Provider Internal Medicine
DX: I10 Essential (primary) hypertension (principal)
CPT/HCPCS: 36415; 80048

== ENCOUNTER → 2024-01-25 | Outpatient (CLI) | payer OTHER, SELFPAY ==
--- NOTE | 2024-01-25 10:29 | BI_ITS ---
MAMMOGRAPHY - BILATERAL SCREENING REASON FOR EXAM: Female, 63 years old. Routine annual screening examination. PERTINENT HISTORY: Non-contributory. Remote left excisional breast biopsy. TECHNIQUE: Digital bilateral breast eleanor (3D mammographic acquisition) in the CC and MLO projections. 2-D mediolateral oblique (MLO) and craniocaudad (CC) views of both breasts were obtained. CAD: Full Field Digital Mammography with Computer Added Detection was performed. COMPARISON: Comparison is made with prior study dated November 19, 2022 and November 04, 2021. FINDINGS: Breast Composition: The breasts are almost entirely fatty. There are no dominant masses or suspicious calcifications. Stable fat-containing axillary lymph nodes. No other significant abnormalities are identified. There has been no significant change since the prior study. BI/SCRN MAMM (CAD)W/ELEANOR BILAT IMPRESSION: Stable bilateral screening mammogram. Yearly follow-up mammogram recommended. (A) ASSESSMENT CATEGORY: BIRADS Category 2: Benign. A letter regarding these results will be sent to the patient by the facility within 30 days. Approximately 10% of breast cancers are not detected by mammography. A normal mammogram should not delay biopsy of a clinically suspicious abnormality. [id number] Electronically Signed: Gutierrez Pichardo MD at 11:24 EDT ,
== END | disposition home or self-care (01) ==
LOC: OPBI 10:29
PROVIDERS: PCP Internal Medicine; Referring Provider Physician Assistant; Visit Provider Physician Assistant
DX: Z12.31 Encounter for screening mammogram for malignant neoplasm of breast (principal)
CPT/HCPCS: 77063; 77067

== ENCOUNTER → 2024-02-03 | Outpatient (CLI) | payer OTHER, SELFPAY ==
[2024-02-03 18:35] LABS: Anion Gap 8 (5-15); BUN 21 mg/dL (7-18); BUN/Creat Ratio 18.8 RATIO (10-20); Calcium,Total 9.7 mg/dL (8.5-10.1); Chloride 104 mmol/L (98-107); Creatinine, Serum 1.12 mg/dL (0.55-1.02); EST Glomerular Filtration Rate 52 mL/min (>60); Est Glom Filt Rate - Afr Amer 63 mL/min (>60); Glucose 123 mg/dL (74-106); Potassium 4.7 mmol/L (3.5-5.1); Sodium Level 136 mmol/L (136-145)
== END | disposition home or self-care (01) ==
PROVIDERS: PCP Internal Medicine; Referring Provider Family Medicine; Visit Provider Family Medicine
DX: E87.5 Hyperkalemia (principal)
CPT/HCPCS: 36415; 80048

== ENCOUNTER 2024-02-27 11:31 | Emergency (ER) | payer OTHER, SELFPAY ==
[2024-02-27 11:32] VITALS: BP 147/79; PULSE 101; RESP 19; TEMP 35.8; O2SAT 98; BMI 70.5
--- NOTE | 2024-02-27 11:41 | RAD_ITS ---
EXAM: XR CHEST, 1 VIEW CLINICAL INDICATION: SOB TECHNIQUE: Frontal view of the chest. COMPARISON: No relevant prior studies available. FINDINGS: LUNGS AND PLEURAL SPACES: Unremarkable. No consolidation or edema. No pneumothorax. No effusion. HEART: Cardiomegaly. MEDIASTINUM: Central airways and mediastinal contour are unremarkable. BONES/JOINTS: Unremarkable. No acute fracture. SOFT TISSUES: Unremarkable. RAD/Chest 1 View (Portable) IMPRESSION: Cardiomegaly but no suspicious acute cardiopulmonary pathology. Electronically Signed: Randell Rodriguez MD at 12:48 EDT ,
--- NOTE | 2024-02-27 11:41 | EKG12_ITS ---
Test Reason : GI Blood Pressure : / mmHG Vent. Rate : 082 BPM Atrial Rate : 000 BPM P-R Int : 000 ms QRS Dur : 098 ms QT Int : 368 ms P-R-T Axes : 000 -12 006 degrees QTc Int : 429 ms Atrial fibrillation Low voltage QRS Abnormal ECG Confirmed by UMA JOHN, MARTÍN ([id number]), editor trade journal SILVIA MILLER ([id number]) on 02/28/2024 2:48:12 PM Referred By: Confirmed By:MARTÍN EATON MD
[2024-02-27 12:10] LABS: Absolute Lymphocyte Count 1.37 X10^3/uL (0.83-4.51); Absolute Neutrophil Count 4.8 X10^3/uL (2.0-7.7); Basophil# 0.04 X10^3/uL; Basophil% 0.6 % (0-1); Eosinophil# 0.22 X10^3/uL; Eosinophils% 3.2 % (0-5); Hematocrit 40.7 % (37-47); Hemoglobin 13.1 g/dL (12.0-15.0); Lymphocyte # 1.37 X10^3/ul (0.83-4.51); Lymphocyte % 19.7 % (19-41); Mean Corp Hgb Conc 32.2 g/dL (32-36); Mean Corpuscular Hgb 29.8 pg (27.0-32.0); Mean Corpuscular Volume 92.7 fL (81-99); Mean Platelet Vol. 9.2 fl (6.2-12.0); Monocyte# 0.44 X10^3/uL; Monocyte% 6.3 % (0-10); NRBC Flagged by Analyzer 0 % (0-5); Neutrophil # 4.84 X10^3/uL (2.7-7.7); Neutrophil % 69.6 % (47-70); Platelet Count 353 K/mm3 (150-450); RBC Distribution Width CV 13.5 % (11.6-14.6); RBC Distribution Width SD 45.9 fl (35.1-43.9); Red Blood Count 4.39 M/mm3 (4.2-5.4)
--- NOTE | 2024-02-27 12:15 | EDS_ITS ---
HPI History of Present Illness Chief Complaint: Dizziness Informant: patient Narrative Narrative: Patient is a 63-year-old female with history of GERD, venous insufficiency, hypertension, chronic leg swelling and borderline type 2 diabetes mellitus presenting with shortness of breath and dizziness. Patient states that she scheduled for colonoscopy tomorrow with Dr. Waddell. She ate late 2 days ago and started a clear liquid diet yesterday. She is about to start her prep at 2 PM today. She notes that today she is not having lightheadedness and dizziness and feels like she almost might pass out. She feels a little short of breath. She has some associated nausea. Denies any abdominal pain and change in her bowel movements. Denies any fever or URI symptoms. Denies any chest pain. States that she has had a lot of urinary frequency but is not sure if that is because she has been drinking liquids the last 24 hours. Came in to be evaluated before she starts her prep. No other complaints or concerns reported at this time. Reports that she has chronic lymphedema but states this actually bit better today. [facility] Medical History Hypertension Flu vaccine need Colon cancer screening PONV (postoperative nausea and vomiting) Wears glasses Wears hearing aid Wears partial dentures Wears dentures Anxiety Walker as ambulation aid Restless legs History of umbilical hernia Former smoker CPAP (continuous positive airway pressure) dependence Leg cramps History of stress test Borderline type 2 diabetes mellitus Preoperative evaluation to rule out surgical contraindication Health care maintenance Asthmatic bronchitis with acute exacerbation Obstructive sleep apnea Kidney failure history of premature delivery Abnormal uterine bleeding GERD (gastroesophageal reflux disease) History of benign breast tumor Seasonal allergies Depression Venous insufficiency Hearing impairment Morbid obesity Hypertension Home Medications ?Medication ?Instructions ?Recorded ?Last Taken ?Type aspirin 81 mg tablet,delayed 81 mg PO DAILY@0800 06/24/15 Unknown History release multivitamin with folic acid 400 1 tab PO DAILY 06/24/15 Unknown History mcg tablet Cpap Supplies #1 ea 08/18/21 Unknown Rx Pancreat-Bet POi-bla-cvnb-pap 250 1 cap PO .with meals 10/23/22 Unknown History mg-162 mg-65 mg-125 mg capsule (Super Enzyme) anita.stocking,knee,reg,xlrg #2 ea 10/23/22 Unknown Rx Cpap Supplies #1 ea 01/27/23 Unknown Rx lisinopril 40 mg tablet 40 mg PO DAILY #90 tabs 05/28/23 Unknown Rx fluoxetine 20 mg capsule See Rx Instructions .Route 10/08/23 Unknown Rx .COMPLEX #90 caps amlodipine 10 mg tablet 10 mg PO QDAY #90 tabs 02/14/24 Unknown Rx tizanidine 2 mg tablet See Rx Instructions .Route 02/14/24 Unknown Rx .COMPLEX #90 tabs apixaban 5 mg tablet (Eliquis) 5 mg PO BID #60 tabs 02/27/24 Unknown Rx metoprolol tartrate 25 mg tablet 25 mg PO BID #60 tabs 02/27/24 Unknown Rx Allergy/AdvReac Type Severity Reaction Status Date / Time clindamycin Allergy Severe Hearing Verified 02/23/24 12:47 loss ciprofloxacin (From Cipro) Allergy Other Verified 02/23/24 12:47 codeine Allergy Rash Verified 02/23/24 12:47 hydrochlorothiazide Allergy Other Verified 02/23/24 12:47 Penicillins (PCN) Allergy Rash Verified 02/23/24 12:47 tramadol HCl (From Ultram) Allergy Other Verified 02/23/24 12:47 spironolactone (From AdvReac Causes Verified 02/23/24 12:47 Aldactone) Potassium to elevate Family History Mother CVA (cerebral vascular accident) Hypertension Sister cranial stenosis Father Hypertension Asthma Arthritis Surgical History History of hysteroscopy H/O dilation and curettage History of tubal ligation History of cholecystectomy History of placement of ear tubes History of D&C History of section History of benign breast biopsy Social History household members: spouse Smoking Status: Former smoker how long ago did patient quit smokin alcohol intake: current alcohol intake frequency: holidays/special occasions only Alcohol type: wine substance use type: does not use caffeine: Yes what type of physical activity do you participate in: none seatbelt use: always do you feel safe at home: Yes additional social history: Tnwopgi-[id number]-Fxm ROS ROS ED Constitutional Constitutional ED: Reports other Details: Lightheaded ; Denies chills or fever(s) Cardiovascular Cardiovascular: Denies chest pain or palpitations Respiratory/Chest Respiratory/Chest: Reports dyspnea and dyspnea on exertion; Denies cough Gastrointestinal Gastrointestinal: Reports nausea; Denies abdominal pain, melena or vomiting Genitourinary Genitourinary ED: Reports urinary frequency; Denies dysuria Musculoskeletal Musculoskeletal: Denies arthralgias or myalgias Integumentary Denies rash Neurologic Neurologic: Reports weakness; Denies headache(s) or paresthesias Hematologic/Lymphatic Hematologic/Lymphatic: Denies easy bleeding or easy bruising EXAM Physical Exam Const Vital Signs: 02/27/24 11:32 02/27/24 13:32 02/27/24 14:49 Temperature 96.4 F L Temperature Source Temporal Pulse Rate 101 H 80 Pulse Rate [Lying] 87 Pulse Rate [Sitting (for 1 minute prior to obtaining)] 98 Pulse Rate [Standing (for 1 minute prior to obtaining)] 115 H Respiratory Rate 19 H Blood Pressure 147/79 H 128/80 H Blood Pressure [Lying] 123/92 H Blood Pressure [Sitting (for 1 minute prior to obtaining)] 146/100 H Blood Pressure [Standing (for 1 minute prior to obtaining)] 161/104 H Blood Pressure Mean 101 96 Blood Pressure Mean [Lying] 102 Blood Pressure Mean [Sitting (for 1 minute prior to obtaining)] 115 Blood Pressure Mean [Standing (for 1 minute prior to obtaining)] 123 Pulse Ox 98 98 Oxygen Delivery Method Room Air Room Air 02/27/24 15:00 02/27/24 17:00 Temperature Temperature Source Pulse Rate 96 90 Pulse Rate [Lying] Pulse Rate [Sitting (for 1 minute prior to obtaining)] Pulse Rate [Standing (for 1 minute prior to obtaining)] Respiratory Rate Blood Pressure 105/62 120/93 H Blood Pressure [Lying] Blood Pressure [Sitting (for 1 minute prior to obtaining)] Blood Pressure [Standing (for 1 minute prior to obtaining)] Blood Pressure Mean 76 102 Blood Pressure Mean [Lying] Blood Pressure Mean [Sitting (for 1 minute prior to obtaining)] Blood Pressure Mean [Standing (for 1 minute prior to obtaining)] Pulse Ox 96 96 Oxygen Delivery Method Room Air Room Air Positive well nourished, well developed and obese General Appearance ED: well developed and NAD Nutritional Appearance: obese HEENT Reports dry mucous membranes Mouth ED: Yes dry mucous membranes Mouth: dry mucous membranes Eyes PERRL Neck supple and no JVD Chest Wall inspection of chest normal and palpation of chest normal Resp normal respiratory effort and clear to auscultation bilaterally Auscultation: Negative for rhonchi, wheezes or diminished lung sounds Cardio regular rate Rhythm: abnormal rhythm GI normal to inspection, nondistended, normoactive bowel sounds and non-tender Extremity normal to inspection Extremity Narrative: Chronic appearing lymphedema present, no pitting edema General Extremety ED: Yes edema General Extremity: edema Neuro oriented x3 Sensorium / Orientation: alert Motor Exam: general weakness Psych mental status grossly normal Skin no rashes or lesions noted and no wounds MDM MDM MDM Narrative Medical decision making narrative: Patient is evaluated for lightheadedness and dizziness as well as some associated shortness of breath. She is well-appearing. Vital signs are no significant for very mild tachycardia rmal. Will obtain cardiac workup and also check electrolytes. Will also obtain cardiac workup including troponin EKG as well as chest x-ray. Will add on a D-dimer as patient is complained of shortness of breath and is mildly tachycardic. EKG does show atrial fibrillation which appears to be new onset. Will add on a TSH. Repeat EKG continues to show atrial fibrillation. Workup however is largely no rmal. No signs of anemia, significant electrolyte abnormalities or renal insufficiency. She does have an elevated D-dimer at 1.33. CTA is ordered which does not show any acute process. Her potassium is elevated 5.9 but is also hemolyzed. Her EKG is not consistent with hyperkalemia. TSH is normal. Patient is reevaluated and received IV fluids in emergency room. States she is feeling much better. I discussed that her EKG does show atrial fibrillation and she will need cardiology evaluation for this. Patient states that her has cancer and she takes care of the son who has other medical conditions she does not want to be in the hospital. As she is hemodynamically stable and rate controlled I think she is a good candidate for outpatient treatment. I did discuss the case with Dr. Ann. He is agreeable with outpatient follow-up given that she is rate controlled. Will start her on Eliquis and metoprolol 25 mg twice daily. Discussed at length with patient's the nature of atrial fibrillation and complications associated with A-fib, the increased risk of stroke as well as risk of bleeding associated blood thinners. She is agreeable with this. Will be discharged home with a prescription for Eliquis, Eliquis trial coupon and a prescription for metoprolol. Patient is given first dose of these medications in the emergency room today. She will call Dr. Waddell's office tomorrow and reschedule for colonoscopy given these new diagnosis. History & Record Review Additional record(s) reviewed:: Prior outpatient record (PCP note from 01/20/2024- stable primary hypertension, continue lisinopril, amlodipine. Border type 2 diabetes mellitus-no medications) Lab Data Attestation: I reviewed the patient's lab results. Labs: Laboratory Results - last 24 hr 02/27/24 02/27/24 02/27/24 11:55 12:10 12:45 WBC 7.0 RBC 4.39 Hgb 13.1 Hct 40.7 MCV 92.7 MCH 29.8 MCHC 32.2 RDW Std Deviation 45.9 H RDW Coeff of Quinton 13.5 Plt Count 353 MPV 9.2 Immature Gran % (Auto) 0.600 Neut % (Auto) 69.6 Lymph % (Auto) 19.7 Pratt % (Auto) 6.3 Eos % (Auto) 3.2 Baso % (Auto) 0.6 Absolute Neuts (auto) 4.8 Absolute Lymphs (auto) 1.37 Nucleated RBC % 0 D-Dimer Quant (PE/DVT) 1.33 H* Sodium 135 L Potassium 5.9 H Chloride 106 Carbon Dioxide 28.0 Anion Gap 1 L BUN 14 Creatinine 1.08 H Estim Creat Clear Calc 89.23 Est GFR (MDRD) Af Amer 66 Est GFR (MDRD) Non-Af 54 L BUN/Creatinine Ratio 13.0 Glucose 116 H Lactic Acid 1.3 Calcium 9.5 Magnesium 1.9 Total Bilirubin 0.60 AST 44 H ALT 45 Alkaline Phosphatase 108 Troponin I High Sens 5 Total Protein 7.7 Albumin 3.4 Globulin 4.3 H Albumin/Globulin Ratio 0.8 L TSH 2.180 Urine Color Yellow Urine Clarity Clear Urine pH 7.0 Ur Specific Jackson 1.005 Urine Protein Negative Urine Glucose (UA) Normal Urine Ketones Negative Urine Occult Blood Negative Urine Nitrite Negative Urine Bilirubin Negative Urine Urobilinogen Normal Ur Leukocyte Esterase Negative Urine RBC 0 SEEN Urine WBC 0 SEEN Ur Squamous Epith Cells 0-5 SEEN Urine Bacteria 1+ Urine Mucus 0 SEEN Radiography Chest X-Ray - ED: 1 View, Read by ED Physician, Read by Radiologist and No Acute Disease Diagnostic Testing: Clinical Impression(s) from Imaging Studies Chest X-Ray 02/27/24 11:41 IMPRESSION: Cardiomegaly but no suspicious acute cardiopulmonary pathology. Electronically Signed: Randell Rodriguez MD at 12:48 EDT , Chest CTA 02/27/24 12:42 IMPRESSION: 1. No CTA evidence of central pulmonary thromboembolism but peripheral pulmonary embolism cannot be evaluated or determined due to suboptimal contrast enhancement of the peripheral pulmonary arteries. 2. Cardiomegaly without visible coronary calcifications are plaques. 3. Breathing motion degradation artifacts but no suspicious pneumonia. Minimal subsegmental atelectases in the left lung base. 4. Mild dilatation of the ascending aorta with a diameter of 3.6 cm versus 2.4 cm for the descending thoracic aorta. No aortic dissection. Electronically Signed: Randell Rodriguez MD at 14:01 EDT , Rhythm Strip Rhythm Strip: A-fib Rate: 82 Ectopy: None EKG Initial EKG: Interpretation: Atrial Fibrillation Comments: Atrial fibrillation rate of 82 bpm Normal axis No low voltage QRS Normal ST segments Prior EKG tracings: not available for review Management Discussion w/another healthcare provider: Health And Nutrition Specialist Discharge Plan Triage Chief Complaint: Dizziness ED Provider: Zita Kim Dx/Rx/DC Orders Clinical Impression: Dizziness, Atrial fibrillation Instructions: ED AFIB, ED Dizziness, Uncertain Cause Prescriptions: New Eliquis 5 mg tablet 5 mg PO BID Qty: 60 0RF metoprolol tartrate 25 mg tablet 25 mg PO BID Qty: 60 0RF No Action (DME) Cpap Supplies See Rx Instructions .Route .MEDSUPPLY Qty: 1 0RF Rx Instructions: As directed Super Enzyme [id number] mg capsule 1 cap PO .with meals (DME) anita.stocking,knee,reg,xlrg Misc See Rx Instructions .ROUTE .MEDSUPPLY Qty: 2 3RF Rx Instructions: As directed for venous inusfficiency 30-40 mmhg aspirin 81 MG tablet 81 mg PO DAILY@0800 multivitamin with folic acid 1 TABLET tablet 1 tab PO DAILY (DME) Cpap Supplies See Rx Instructions .Route .MEDSUPPLY Qty: 1 0RF Rx Instructions: As directed lisinopril 40 mg tablet 40 mg PO DAILY Qty: 90 3RF fluoxetine 20 mg capsule See Rx Instructions .ROUTE .COMPLEX Qty: 90 3RF Dose Instruction: TAKE 1 CAPSULE BY MOUTH EVERY DAY Rx Instructions: TAKE 1 CAPSULE BY MOUTH EVERY DAY tizanidine 2 mg tablet See Rx Instructions .ROUTE .COMPLEX Qty: 90 1RF Dose Instruction: TAKE 1 TABLET BY MOUTH AT BEDTIME NEEDED FOR MUSCLE SPASTICITY Rx Instructions: TAKE 1 TABLET BY MOUTH AT BEDTIME NEEDED FOR MUSCLE SPASTICITY amlodipine 10 mg tablet 10 mg PO QDAY Qty: 90 3RF Primary Care Provider: Esthela Wynne Referrals: Bright Ann MD [Med Staff - Active Staff] - 1-2 Weeks Esthela Wynne MD [Primary Care Provider] - Activity Restrictions/Additional Instructions: Your workup was remarkable for new onset of atrial fibrillation. Your heart rate was controlled however. Atrial fibrillation does increase the risk of strokes even started on Eliquis for this. Eliquis does increase the risk of bleeding and if you develop any bleeding with bowel movements, black stool or have any type of head injury please return to the emergency room for repeat evaluation. You have also been started on metoprolol to keep your heart from going too fast. 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 He may always return to the emergency room. Your workup otherwise today was normal. Please follow-up outpatient with cardiology with your primary care doctor. Please reschedule your colonoscopy. Print Language: Khmer Disposition Disposition: Home, Self Care
[2024-02-27 12:26] LABS: ALB/GLOB Ratio 0.8 RATIO (0.9-2.4); AST(SGOT) 44 U/L (15-37); Alanine Aminotransfer ALT/SGPT 45 U/L (13-56); Albumin, Serum 3.4 g/dL (3.2-5.0); Alkaline Phosphatase 108 U/L (45-117); Anion Gap 1 (5-15); BUN 14 mg/dL (7-18); Calcium,Total 9.5 mg/dL (8.5-10.1); Chloride 106 mmol/L (98-107); Creatinine, Serum 1.08 mg/dL (0.55-1.02); EST Glomerular Filtration Rate 54 mL/min (>60); Est Glom Filt Rate - Afr Amer 66 mL/min (>60); Estimated Creatinine Clearance 89.23 ml/min; Globulin 4.3 g/dL (2.2-4.2); Glucose 116 mg/dL (74-106); Magnesium 1.9 mg/dL (1.6-2.6); Potassium 5.9 mmol/L (3.5-5.1); Protein, Total 7.7 g/dL (6.4-8.2); Sodium Level 135 mmol/L (136-145); Troponin-I HS 5 pg/mL (3.0-54.0)
[2024-02-27 12:41] LABS: D-Dimer Quantitative (DVT/PE) 1.33 FEU/ug/m (0.27-0.49)
--- NOTE | 2024-02-27 12:42 | CT_ITS ---
EXAM: CT ANGIOGRAPHY CHEST WITHOUT AND WITH INTRAVENOUS CONTRAST CLINICAL INDICATION: SOB. Elevated d-dimer. TECHNIQUE: Helically acquired angiography images were obtained of the chest without and with intravenous contrast. This CT exam was performed using one or more of the following dose reduction techniques: automated exposure control, adjustment of the mA and/or kV according to patient size, and/or use of iterative reconstruction technique. MIP reconstructed images were created and reviewed. CONTRAST: IV 100mL [id number] RADIATION DOSE: CTDIvol = 30.07 mGy, DLP = 706.88 mGy-cm COMPARISON: CT abdomen and pelvis with contrast 03/05/2020. No prior CT chest or CTA chest comparison. FINDINGS: PULMONARY ARTERIES: Unremarkable. Normal in caliber. Normal central pulmonary arteries. Suboptimal contrast enhancement of the peripheral pulmonary arteries. AORTA: Mild dilatation of the ascending aorta with a diameter of 3.6 cm versus 2.4 cm for the descending thoracic aorta. No aortic dissection. GREAT VESSELS OF AORTIC ARCH: Unremarkable. Normal in caliber. No evidence of dissection. LUNGS AND PLEURAL SPACES: Breathing motion artifacts. No suspicious pulmonary nodules, infiltrates, consolidation or edema. No pneumothorax. Minimal subsegmental atelectasis in left posterior lung base. No pleural effusion or thickening. HEART: Cardiomegaly. No pericardial effusion. No significant coronary artery calcifications. MEDIASTINUM: Unremarkable. No mediastinal or hilar adenopathy. Esophagus is unremarkable. No hiatal hernia. THYROID: Unremarkable. No thyroid lesions. BONES/JOINTS: Bridging anterior marginal spurs and bridging ossification of the anterior longitudinal ligament in the lower thoracic spine. No lytic or blastic lesions. CT/CTA Chest W/WO Contrast IMPRESSION: 1. No CTA evidence of central pulmonary thromboembolism but peripheral pulmonary embolism cannot be evaluated or determined due to suboptimal contrast enhancement of the peripheral pulmonary arteries. 2. Cardiomegaly without visible coronary calcifications are plaques. 3. Breathing motion degradation artifacts but no suspicious pneumonia. Minimal subsegmental atelectases in the left lung base. 4. Mild dilatation of the ascending aorta with a diameter of 3.6 cm versus 2.4 cm for the descending thoracic aorta. No aortic dissection. Electronically Signed: Randell Rodriguez MD at 14:01 EDT ,
[2024-02-27 13:25] LABS: Lactic Acid 1.3 mmol/L (0.4-1.9)
[2024-02-27 13:32] VITALS: BP 128/80; PULSE 80; O2SAT 98
--- NOTE | 2024-02-27 13:35 | EKG12_ITS ---
Test Reason : REPEAT Blood Pressure : / mmHG Vent. Rate : 105 BPM Atrial Rate : 000 BPM P-R Int : 000 ms QRS Dur : 102 ms QT Int : 300 ms P-R-T Axes : 000 -10 057 degrees QTc Int : 396 ms Atrial fibrillation with rapid ventricular response Low voltage QRS Nonspecific ST abnormality Abnormal ECG Confirmed by UMA JOHN, MARTÍN ([id number]), school photograph editor SILVIA MILLER ([id number]) on 02/28/2024 2:48:23 PM Referred By: Confirmed By:MARTÍN EATON MD
[2024-02-27 14:11] LABS: Mucous, Urine 0 SEEN /hpf (<or=2+); Red Blood Cells-Urine 0 SEEN /hpf (0-5); White Blood Cells 0 SEEN /hpf (0-5)
[2024-02-27 14:13] LABS: Color, Urine Yellow (Yellow); Glucose, Dipstick Normal (Normal); Ketone-Dipstick Negative (Negative); Leukocyte Esterase-Dipstick Negative /ul (Negative); Nitrite-Dipstick Negative (Negative); Occult Blood-Urine Negative /ul (Negative); Protein-Dipstick Negative (Negative); Specific Gravity, Urine 1.005 (1.002-1.030); Urine Bilirubin Dipstick Negative (Negative); Urine Clarity Clear (Clear); Urine Urobilinogen Normal (Normal)
[2024-02-27 14:20] LABS: Squamous Epithelial Cells - UA 0-5 SEEN /hpf (5-10)
[2024-02-27 14:24] LABS: Bacteria 1+ /hpf (None Seen)
[2024-02-27 14:49] VITALS: BP 123/92; BP 146/100; BP 161/104; PULSE 115; PULSE 87; PULSE 98
[2024-02-27 15:00] VITALS: BP 105/62; PULSE 96; O2SAT 96
[2024-02-27 17:00] VITALS: BP 120/93; PULSE 90; O2SAT 96
[2024-02-27 17:51] VITALS: BP 159/88; PULSE 81; RESP 19; TEMP 36.6; O2SAT 96
[2024-02-27] MEDS: Metoprolol Tartrate 25 MG Tablet PO (18:09)
[2024-02-27] MEDS: APIXABAN 5 MG TABLET PO (18:11)
== END 2024-02-27 18:15 | disposition home or self-care (01) ==
PROVIDERS: Emergency Provider Emergency Medicine; PCP Internal Medicine; Visit Provider Emergency Medicine
DX: I48.91 Unspecified atrial fibrillation (principal); I10 Essential (primary) hypertension; Z79.82 Long term (current) use of aspirin; Z79.899 Other long term (current) drug therapy; Z87.891 Personal history of nicotine dependence
CPT/HCPCS: 36415; 71045; 71275; 80053; 81001; 83605; 83735; 84443; 84484; 85025; 85379; 93005; 99283; Q9967; A4216

== ENCOUNTER → 2024-03-13 | Outpatient (CLI) | payer OTHER, SELFPAY ==
[2024-03-13 17:04] LABS: Absolute Lymphocyte Count 1.74 X10^3/uL (0.83-4.51); Absolute Neutrophil Count 5.1 X10^3/uL (2.0-7.7); Basophil# 0.03 X10^3/uL; Basophil% 0.4 % (0-1); Eosinophils% 3.9 % (0-5); Hematocrit 42.6 % (37-47); Hemoglobin 13.6 g/dL (12.0-15.0); Lymphocyte # 1.74 X10^3/ul (0.83-4.51); Lymphocyte % 22.5 % (19-41); Mean Corp Hgb Conc 31.9 g/dL (32-36); Mean Corpuscular Hgb 29.8 pg (27.0-32.0); Mean Corpuscular Volume 93.4 fL (81-99); Monocyte# 0.56 X10^3/uL; Monocyte% 7.2 % (0-10); NRBC Flagged by Analyzer 0 % (0-5); Neutrophil # 5.05 X10^3/uL (2.7-7.7); Neutrophil % 65.2 % (47-70); Platelet Count 357 K/mm3 (150-450); RBC Distribution Width SD 47.2 fl (35.1-43.9); Red Blood Count 4.56 M/mm3 (4.2-5.4); White Blood Count 7.7 K/mm3 (4.4-11.0)
[2024-03-13 17:15] LABS: Anion Gap 3 (5-15); BNP,B-Type NATRIURETIC PEPTIDE 170.3 pg/mL (0-100); BUN 22 mg/dL (7-18); BUN/Creat Ratio 20.2 RATIO (10-20); Calcium,Total 9.7 mg/dL (8.5-10.1); Chloride 107 mmol/L (98-107); Creatinine, Serum 1.09 mg/dL (0.55-1.02); EST Glomerular Filtration Rate 54 mL/min (>60); Est Glom Filt Rate - Afr Amer 65 mL/min (>60); Glucose 115 mg/dL (74-106); Potassium 4.8 mmol/L (3.5-5.1); Sodium Level 137 mmol/L (136-145)
[2024-03-15 14:10] LABS: ANTINUCLEAR ANTIBODIES DIRECT Negative (Negative)
== END | disposition home or self-care (01) ==
LOC: BIMLAB 14:49
PROVIDERS: PCP Internal Medicine; Referring Provider Internal Medicine; Visit Provider Internal Medicine
DX: R06.02 Shortness of breath (principal); I48.91 Unspecified atrial fibrillation; R68.2 Dry mouth, unspecified; H04.123 Dry eye syndrome of bilateral lacrimal glands
CPT/HCPCS: 36415; 80048; 83880; 85025; 86038; 86225; 86235

== ENCOUNTER → 2024-03-27 | Outpatient (CLI) | payer OTHER, SELFPAY ==
--- NOTE | 2024-03-27 12:23 | ECHOCS_ITS ---
Reason For Study: SOB Procedure This was a 2D Doppler, Color Flow transthoracic echocardiogram. The study was technically difficult. Contrast injection was performed. Exam performed in department. Left Ventricle Normal LV size. Left ventricular systolic function is lower limits of normal. The left ventricular ejection fraction is 50 %. No regional wall motion abnormalities noted. Right Ventricle Normal RV size. Normal systolic function. Atria The left atrium is moderately enlarged. Normal right atrium. Mitral Valve Normal mitral valve. Tricuspid Valve Normal tricuspid valve. Aortic Valve The aortic valve is not well visualized. Pulmonic Valve The pulmonic valve is not well visualized. Great Vessels Normal aortic root. The pulmonary is not well visualized. Normal inferior vena cava. Pericardium/Pleural No pericardial effusion. Medication 22 gauge I.V. with prn adaptor inserted into left arm. Diluted definity 1ml given slow IV push to enhance endocardial definition. Performed a rapid injection of agitated mix of 9 cc saline and 1cc air to assess for atrial septal defect. MMode/2D Measurements & Calculations LVIDd: 5.0 cm IVSd: 1.1 cm LAV(MOD-bp): 84.4 ml LVIDs: 3.6 cm LVPWd: 1.6 cm FS: 28.1 % LAV(MOD-bp) Indexed: 31.7 ml/m2 LAV(MOD-sp2): 61.1 ml LAV(MOD-sp4): 91.9 ml SV(MOD-sp4): 65.1 ml SV(sp4-el): 66.2 ml LVAd ap4: 35.6 cm2 LVLd ap4: 8.9 cm EDV(MOD-sp4): 119.2 ml EDV(sp4-el): 120.7 ml LVAs ap4: 22.1 cm2 LVLs ap4: 7.6 cm ESV(MOD-sp4): 54.1 ml ESV(sp4-el): 54.6 ml EF(MOD-sp4): 54.6 % EF(sp4-el): 54.8 % LA dimension(2D): 4.5 cm LA A4 area: 27.1 cm2 RA A4 area: 17.9 cm2 Doppler Measurements & Calculations MV E max maría: 101.7 cm/sec Ao V2 max: 167.4 cm/sec LV V1 max: 138.0 cm/sec Ao max P.3 mmHg LV V1 max P.6 mmHg Ao V2 mean: 114.1 cm/sec LV V1 mean P.3 mmHg Ao mean P.1 mmHg LV V1 mean: 98.9 cm/sec Ao V2 VTI: 36.8 cm LV V1 VTI: 33.0 cm AV (velocity ratio): 0.90 ECHO/Echo Complete W/ Contrast Interpretation Summary Normal LV size. Left ventricular systolic function is lower limits of normal. The left ventricular ejection fraction is 50 %. Contrast injection was performed. Ordering Physician: Esthela Wynne Referring Physician: Esthela Wynne Performed By: Julia Salazar RCS
== END | disposition home or self-care (01) ==
LOC: CVS 12:22
PROVIDERS: PCP Internal Medicine; Referring Provider Internal Medicine; Visit Provider Internal Medicine
DX: R06.02 Shortness of breath (principal)
CPT/HCPCS: 93306; Q9957; A4216; C8929

== ENCOUNTER → 2024-05-02 | Outpatient (CLI) | payer OTHER, SELFPAY | END | disposition home or self-care (01) | LOC: PSN 11:29 | PROVIDERS: PCP Internal Medicine; Referring Provider Internal Medicine Cardiovascular Disease; Visit Provider Internal Medicine Cardiovascular Disease | DX: I48.91 Unspecified atrial fibrillation (principal) | CPT/HCPCS: 93225; 93226 ==

== ENCOUNTER → 2024-07-05 | Outpatient (CLI) | payer OTHER, SELFPAY ==
[2024-07-05 15:51] LABS: Anion Gap 9 (5-15); BUN 18 mg/dL (7-18); BUN/Creat Ratio 15.5 RATIO (10-20); Calcium,Total 9.4 mg/dL (8.5-10.1); Chloride 106 mmol/L (98-107); Creatinine, Serum 1.16 mg/dL (0.55-1.02); EST Glomerular Filtration Rate 50 mL/min (>60); Est Glom Filt Rate - Afr Amer 60 mL/min (>60); Glucose 114 mg/dL (74-106); Potassium 4.5 mmol/L (3.5-5.1); Sodium Level 142 mmol/L (136-145)
== END | disposition home or self-care (01) ==
LOC: BIMLAB 13:53
PROVIDERS: PCP Internal Medicine; Referring Provider Internal Medicine; Visit Provider Internal Medicine
DX: R73.03 Prediabetes (principal); I10 Essential (primary) hypertension
CPT/HCPCS: 36415; 80048; 83036

== ENCOUNTER → 2024-07-21 | Outpatient (CLI) | payer OTHER, SELFPAY ==
--- NOTE | 2024-07-21 12:01 | RAD_ITS ---
PROCEDURE: KNEE 3 VIEWS REASON FOR EXAM: Pain TECHNIQUE: Three views left knee COMPARISON: None. FINDINGS: Osseous structures intact. Prominent degenerative changes primarily in the medial tricompartment. No dislocations. No suprapatellar joint effusion. RAD/Knee 3 Views IMPRESSION: As above. [facility]
--- NOTE | 2024-07-21 12:01 | RAD_ITS ---
PROCEDURE: CERV SPINE 2 OR 3 VIEWS REASON FOR EXAM: Radiculopathy. TECHNIQUE: 3 views of the cervical spine. COMPARISON: None. RAD/Cerv Spine 2 or 3 Views IMPRESSION: The cervical thoracic junction is obscured due to overlying tissues. Prominent degenerative changes throughout the mid to lower cervical spine are s een are seen, with at least moderate disc narrowing at C6-C7 and C5-C6, moderately severe at C4-C5 and C3-C4 levels. Prominent anterior syndesmophytes are seen. No fracture, subluxation, or prevertebral soft tissue swelling is noted. Reading Location: [id number]
== END | disposition home or self-care (01) ==
LOC: RAD 12:00
PROVIDERS: PCP Internal Medicine; Referring Provider Internal Medicine; Visit Provider Internal Medicine
DX: M25.562 Pain in left knee (principal); M54.12 Radiculopathy, cervical region
CPT/HCPCS: 72040; 73562

== ENCOUNTER → 2024-10-17 | Outpatient (CLI) | payer MEDICARE, SELFPAY ==
--- NOTE | 2024-10-17 11:16 | MRI_ITS ---
PROCEDURE: SPINE CERVICAL (ROUTINE) 10/17/2024 REASON FOR EXAM: PAIN TECHNIQUE: Multiplanar and multisequence images were obtained without IV contrast administration. COMPARISON: X-ray 08/2024 FINDINGS: Vertebrae: Cervical vertebral body heights are preserved. Bone marrow signal is unremarkable. Alignment: Normal. No spondylolisthesis. Straightening of the normal lordotic curvature. Spinal Cord: Cervical spinal cord is of normal size and signal intensities. Structures at the foramen magnum are unremarkable. C2-3: Unremarkable C3-4: Mild broad disc osteophyte complex produces mild spinal stenosis and mild bilateral neural foraminal stenosis. C4-5: Moderate broad disc osteophyte complex produces moderate spinal stenosis with abutment of the central spinal cord and mild bilateral neural foraminal stenosis. C5-6: Moderate broad disc osteophyte complex produces moderate spinal stenosis with abutment of the central spinal cord and mild bilateral neural foraminal stenosis. C6-7: Moderate broad disc osteophyte complex produces moderate spinal stenosis with abutment of the central spinal cord and mild bilateral neural foraminal stenosis. C7-T1: Unremarkable MRI/Spine Cervical (Routine) IMPRESSION: Degenerative disc disease as described above. Reading Location: [id number]
== END | disposition home or self-care (01) ==
PROVIDERS: PCP Internal Medicine; Referring Provider Student in an Organized Health Care Education/Training Program; Visit Provider Student in an Organized Health Care Education/Training Program
DX: M54.12 Radiculopathy, cervical region (principal)
CPT/HCPCS: 72141

== ENCOUNTER 2024-11-06 08:39 | Day surgery (SDC) | payer MEDICARE, SELFPAY ==
--- NOTE | 2024-11-03 10:14 | PAT.ANESEVAL ---
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 When Was Last Pacemaker Check QUESTION #4 FULL TEXT: You/Your Family Experience fever (hyperthermia) with Anesthesia Last Oral Intake Last Oral intake: Last Oral Intake NPO since Meds taken in AM with sips of water? Meds patient instructed to take am of surgery PONV PONV - insurance territory manager: PONV - insurance territory manager Female Yes 11/03/24 09:46 HX of Motion Sickness Yes 11/03/24 09:46 HX of N/V After Surgery Yes 11/03/24 09:46 Non-Smoker Yes 11/03/24 09:46 Duration of Surgery greater No 11/03/24 09:46 than 60 minutes Number of Risk Factors 4 11/03/24 09:46 PONV Score Severe Risk 11/03/24 09:46 Height & Weight Height & Weight: Anesthesia: Height & Weight Height 5 ft 4 in 07/21/24 13:06 Respiratory Assessment Respiratory Assessment - insurance territory manager: Respiratory Tract Infection Hx - insurance territory manager Hx Respiratory Tract Infection No 11/03/24 09:46 STOP Sleep Apnea STOP Sleep Apnea - insurance territory manager: STOP Sleep Apnea - insurance territory manager Hx Hypertension Yes: CONTROLLED WITH MED 11/03/24 09:46 Hx Sleep Apnea Yes 11/03/24 09:46 CPAP Yes 11/03/24 09:46 BIPAP No 11/03/24 09:46 Do you snore loudly (louder than talking or can be heard Do you often feel tired/ fatigued/ sleepy during daytime? Has anyone observed you stop breathing during sleep? STOP Results Positive 11/03/24 09:46 QUESTION #5 FULL TEXT : Do you snore loudly (louder than talking or can be heard through closed doors)? 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 Specify any problems Hx of Preganancy in last 3 No 11/03/24 09:46 Months Nurse Filling Out Transfusion DSCHRIBER 11/03/24 09:46 & Questions: Date: 11/03/24 11/03/24 09:46 Time: 09:51 11/03/24 09:46 Patient unable to answer at this time (ie. confused, unrespo /Reproduction History /Reproductive History - insurance territory manager: /Reproductive Hx- insurance territory manager Hx Now No 11/03/24 09:46 Gestational Age (in weeks): EDC: Hx Hx Para Hx Section SAB No 11/03/24 09:46 PFSH Medical History (Updated 11/03/24 @ 09:59 by Latisha Mazariegos) Wears hearing aid Wears glasses Wears partial dentures Wears dentures Anxiety Diabetes Walker as ambulation aid History of renal disease Umbilical hernia Former smoker Shortness of breath on exertion History of pain when walking History of edema History of Holter monitoring History of echocardiogram Cardiology follow-up encounter History of atrial fibrillation Left knee pain Radiculopathy, cervical OAB (overactive bladder) Hyperkalemia Wears hearing aid Restless legs CPAP (continuous positive airway pressure) dependence Asthmatic bronchitis with acute exacerbation Postmenopausal bleeding History of benign breast tumor Venous insufficiency Morbid obesity Hypertension Home Medications ?Medication ?Instructions ?Recorded ?Last Taken ?Type multivitamin with folic acid 400 1 tab PO DAILY 06/24/15 Unknown History mcg tablet Cpap Supplies #1 ea 08/18/21 Unknown Rx Pancreat-Bet HXh-nho-ohyr-pap 250 1 cap PO .with meals 10/23/22 Unknown History mg-162 mg-65 mg-125 mg capsule (Super Enzyme) anita.stocking,knee,reg,xlrg #2 ea 10/23/22 Unknown Rx Cpap Supplies #1 ea 01/27/23 Unknown Rx lisinopril 40 mg tablet 40 mg PO DAILY #90 tabs 03/14/24 Unknown Rx apixaban 5 mg tablet (Eliquis) 5 mg PO BID #60 tabs 09/11/24 11/03/24 Rx metoprolol tartrate 25 mg tablet 12.5 mg (1/2 x 25 mg) PO BID #90 09/22/24 Unknown Rx tabs amlodipine 10 mg tablet 10 mg PO QHS 11/03/24 Unknown History fluoxetine 20 mg capsule 20 mg PO DAILY 11/03/24 Unknown History tizanidine 2 mg tablet 2 mg PO QHS PRN PRN muscle 11/03/24 Unknown History spasticity Allergy/AdvReac Type Severity Reaction Status Date / Time clindamycin Allergy Severe Hearing Verified 11/03/24 09:43 loss ciprofloxacin (From Cipro) Allergy Other Verified 11/03/24 09:43 codeine Allergy Rash Verified 11/03/24 09:43 hydrochlorothiazide Allergy Other Verified 11/03/24 09:43 Penicillins (PCN) Allergy Rash Verified 11/03/24 09:43 tramadol HCl (From Ultram) Allergy Other Verified 11/03/24 09:43 spironolactone (From AdvReac Causes Verified 11/03/24 09:43 Aldactone) Potassium to elevate Family History Mother CVA (cerebral vascular accident) Hypertension Sister cranial stenosis Father Hypertension Asthma Arthritis Surgical History History of hysteroscopy H/O dilation and curettage History of tubal ligation History of cholecystectomy History of placement of ear tubes History of D&C History of section History of benign breast biopsy Social History household members: spouse Smoking Status: Former smoker how long ago did patient quit smokin alcohol intake: current alcohol intake frequency: holidays/special occasions only Alcohol type: wine substance use type: does not use caffeine: Yes what type of physical activity do you participate in: none seatbelt use: always do you feel safe at home: Yes additional social history: Rroelrb-Ryt-Pni Audit: Pertinent Findings Pertinent Findings EKG Perinent findings: [facility] [address] [place] [address] 12 Lead EKG performed by [facility] 04/12/24 1429 MR#: [id number] Acct: [id number] Name: ANGELINA CALZADA Rep #: [id number] : 1960 [id number] From: Bright Ann MD Attending Dr: Dr. Bright Ann MD Status: DEP AMB Ordering Dr: Bright Ann MD Date: 04/12/24 Location: [facility] Sex: F C Admitted: [facility]/12 Lead EKG performed by [facility] ECG Report Interpretation atrial fibrillation Low voltage in precordial leads. -RSR(V1) -nondiagnostic. - Nonspecific T-abnormality. ABNORMAL Electronically signed on 04/13/2024 at 08:40 by Bright Ann [employer] Version 8610 Echo (EF%) pertinent findings: [facility] [address] [place] [address] Echo Complete W/ Contrast 03/27/24 1258 MR#: [id number] Acct: [id number] Name: ANGELINA CALZADA Rep #: [id number] : 1960 [id number] From: Bright Ann MD Attending Dr: Dr. Esthela Wynne MD Status: REG CLI Ordering Dr: Esthela Wynne MD Date: 03/27/24 Location: [facility] Sex: F C Admitted: Reason For Study: SOB Procedure This was a 2D Doppler, Color Flow transthoracic echocardiogram. The study was technically difficult. Contrast injection was performed. Exam performed in department. Left Ventricle Normal LV size. Left ventricular systolic function is lower limits of normal. The left ventricular ejection fraction is 50 %. No regional wall motion abnormalities noted. Right Ventricle Normal RV size. Normal systolic function. Atria The left atrium is moderately enlarged. Normal right atrium. Mitral Valve Normal mitral valve. Tricuspid Valve Normal tricuspid valve. Aortic Valve The aortic valve is not well visualized. Pulmonic Valve The pulmonic valve is not well visualized. Great Vessels Normal aortic root. The pulmonary is not well visualized. Normal inferior vena cava. Pericardium/Pleural No pericardial effusion. Medication 22 gauge I.V. with prn adaptor inserted into left arm. Diluted definity 1ml given slow IV push to enhance endocardial definition. Performed a rapid injection of agitated mix of 9 cc saline and 1cc air to assess for atrial septal defect. MMode/2D Measurements & Calculations LVIDd: 5.0 cm IVSd: 1.1 cm LAV(MOD-bp): 84.4 ml LVIDs: 3.6 cm LVPWd: 1.6 cm FS: 28.1 % LAV(MOD-bp) Indexed: 31.7 ml/m2 LAV(MOD-sp2): 61.1 ml LAV(MOD-sp4): 91.9 ml SV(MOD-sp4): 65.1 ml SV(sp4-el): 66.2 ml LVAd ap4: 35.6 cm2 LVLd ap4: 8.9 cm EDV(MOD-sp4): 119.2 ml EDV(sp4-el): 120.7 ml LVAs ap4: 22.1 cm2 LVLs ap4: 7.6 cm ESV(MOD-sp4): 54.1 ml ESV(sp4-el): 54.6 ml EF(MOD-sp4): 54.6 % EF(sp4-el): 54.8 % LA dimension(2D): 4.5 cm LA A4 area: 27.1 cm2 RA A4 area: 17.9 cm2 Doppler Measurements & Calculations MV E max maría: 101.7 cm/sec Ao V2 max: 167.4 cm/sec LV V1 max: 138.0 cm/sec Ao max P.3 mmHg LV V1 max P.6 mmHg Ao V2 mean: 114.1 cm/sec LV V1 mean P.3 mmHg Ao mean P.1 mmHg LV V1 mean: 98.9 cm/sec Ao V2 VTI: 36.8 cm LV V1 VTI: 33.0 cm AV (velocity ratio): 0.90 ECHO/Echo Complete W/ Contrast Interpretation Summary Normal LV size. Left ventricular systolic function is lower limits of normal. The left ventricular ejection fraction is 50 %. Contrast injection was performed. Consult pertinent findings: Assessment and Plan Assessment and Plan (1) Atrial fibrillation: Status: Chronic Qualifiers: Atrial fibrillation type: longstanding persistent Qualified Code(s): I48.11 - Longstanding persistent atrial fibrillation Plan: [id number] score: 2 (gender, HTN) (2.2% stroke risk) Atrial fibrillation stage: Presumed to be 3C, long standing persistent 12 Lead EC04/12/2024-atrial fibrillation Echocardiogram: 03/27/2024-EF: 50%, moderately enlarged left atrium Holter monitor: 05/02/2024?average rate 70 bpm, atrial fibrillation Heart Rate Control: Metoprolol tartrate 12.5 mg p.o. twice daily Anticoagulation/CVA Protection: Eliquis 5 mg p.o. twice daily This is presumed to be long-standing persistent. We discussed rate control versus rhythm controlling strategies. Her echocardiogram showed moderately enlarged left atrium. We mutually opted to focus on rate control and consider EP evaluation if desire discussion for rhythm controlling strategies that may include cardioversion, antiarrthmic baring in mind age, or ablation. Lifestlye modifications reviewed, most notably weight loss. (2) Preoperative cardiovascular examination: Status: Acute Plan: She may proceed with colonoscopy. She should hold Eliquis two days prior. Plan Details Additional Comments: Thank you for allowing us to participate in the patients plan of care, if you have any questions please do not hesitate to call. Plan was reviewed with patient/family member along with red flag symptoms. Understanding was acknowledged. Questions were answered to apparent satisfaction. This note was generated using a voice recognition system and there may be incorrect words, spelling or punctuation that were not noted when reviewing the office note prior to saving. Portions of this documentation were copied and pasted from previous office visit notes to provide a cohesive continuity of the history. The note has been reviewed, edited, and updated, as necessary. 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
[2024-11-06] VITALS (7 sets, daily range): BP systolic 117–144; BP diastolic 67–81; PULSE 65–76; RESP 18–20; TEMP 36.4–36.6; O2SAT 96–99
--- NOTE | 2024-11-06 09:07 | PRE.ANES_ITS ---
ASA Classification* ASA Classification ASA Classification: 3 Assessment & Plan Anesthesia* Anesthesia Assessment Anesthesia Assessment: Discussed sedation and/or anesthesia options, risks, benefits, and alternatives with patient/parents/legal guardian/POA. Questions invited. The patient/parents/legal guardian/POA seems to understand and agrees to proceed with anesthesia plan. Reviewed the physical assessment, medical history, allergy history and patient home medications list prior to surgery/procedure/anesthetic and documented any changes. Performed airway and anesthesia risk assessments. Anesthesia Type Anesthesia Type: MAC Anesthesia Focused Assessment* Airway Assessment Mouth opens: >3 cm Mallampati Score: II Focused Labs Anesthesia Preop lab: CBC WBC 7.7 K/mm3 (4.4-11.0) 03/13/24 14:50 03/13/24 RBC 4.56 M/mm3 (4.2-5.4) 03/13/24 14:50 03/13/24 Hgb 13.6 g/dL (12.0-15.0) 03/13/24 14:50 03/13/24 Hct 42.6 % (37-47) 03/13/24 14:50 03/13/24 Plt Count 357 K/mm3 (150-450) 03/13/24 14:50 03/13/24 CHEMISTRY Potassium 4.5 mmol/L (3.5-5.1) 07/05/24 13:53 07/05/24 Sodium 142 mmol/L (136-145) 07/05/24 13:53 07/05/24 Magnesium 1.9 mg/dL (1.6-2.6) 02/27/24 11:55 02/27/24 BUN 18 mg/dL (7-18) 07/05/24 13:53 07/05/24 Creatinine 1.16 mg/dL (0.55-1.02) H 07/05/24 13:53 Glucose 114 mg/dL (74-106) H 07/05/24 13:53 07/05/24 TSH 2.180 uIU/mL (0.358-3.740) 02/27/24 11:55 0902/11 COAG Pre-Assessment Diagnosis/Proposed Procedure Planned Operative Procedure(s): RIGHT MEDIAL BRANCH BLOCK C4,5,6,7 UNDER FLUOROSCOPY Anesthesia History 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 When Was Last Pacemaker Check QUESTION #4 FULL TEXT: You/Your Family Experience fever (hyperthermia) with Anesthesia Last Oral Intake Last Oral intake: Last Oral Intake NPO since Meds taken in AM with sips of water? Meds patient instructed to take am of surgery PONV PONV - weatherization crew leader: PONV - weatherization crew leader Female Yes 11/03/24 09:46 HX of Motion Sickness Yes 11/03/24 09:46 HX of N/V After Surgery Yes 11/03/24 09:46 Non-Smoker Yes 11/03/24 09:46 Duration of Surgery greater No 11/03/24 09:46 than 60 minutes Number of Risk Factors 4 11/03/24 09:46 PONV Score Severe Risk 11/03/24 09:46 Height & Weight Height & Weight: Anesthesia: Height & Weight Height 5 ft 4 in 07/21/24 13:06 Respiratory Assessment Respiratory Assessment - weatherization crew leader: Respiratory Tract Infection Hx - weatherization crew leader Hx Respiratory Tract Infection No 11/03/24 09:46 STOP Sleep Apnea STOP Sleep Apnea - weatherization crew leader: STOP Sleep Apnea - weatherization crew leader Hx Hypertension Yes: CONTROLLED WITH MED 11/03/24 09:46 Hx Sleep Apnea Yes 11/03/24 09:46 CPAP Yes 11/03/24 09:46 BIPAP No 11/03/24 09:46 Do you snore loudly (louder than talking or can be heard Do you often feel tired/ fatigued/ sleepy during daytime? Has anyone observed you stop breathing during sleep? STOP Results Positive 11/03/24 09:46 QUESTION #5 FULL TEXT : Do you snore loudly (louder than talking or can be heard through closed doors)? 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 Specify any problems Hx of Preganancy in last 3 No 11/03/24 09:46 Months Nurse Filling Out Transfusion DSCHRIBER 11/03/24 09:46 & Questions: Date: 11/03/24 11/03/24 09:46 Time: 09:51 11/03/24 09:46 Patient unable to answer at this time (ie. confused, unrespo /Reproduction History /Reproductive History - weatherization crew leader: /Reproductive Hx- weatherization crew leader Hx Now No 11/03/24 09:46 Gestational Age (in weeks): EDC: Hx Hx Para Hx Section SAB No 11/03/24 09:46 Active Medications Active Medications: Current Medications Generic Name Dose Route Start Last Admin Trade Name Freq PRN Reason Stop Dose Admin Lactated Ringer's 1,000 mls @ 15 mls/hr 11/06/24 09:00 IV .Q48H ENMANUEL PFSH Medical History Wears hearing aid Wears glasses Wears partial dentures Wears dentures Anxiety Diabetes Walker as ambulation aid History of renal disease Umbilical hernia Former smoker Shortness of breath on exertion History of pain when walking History of edema History of Holter monitoring History of echocardiogram Cardiology follow-up encounter History of atrial fibrillation Left knee pain Radiculopathy, cervical OAB (overactive bladder) Hyperkalemia Wears hearing aid Restless legs CPAP (continuous positive airway pressure) dependence Asthmatic bronchitis with acute exacerbation Postmenopausal bleeding History of benign breast tumor Venous insufficiency Morbid obesity Hypertension Home Medications ?Medication ?Instructions ?Recorded ?Last Taken ?Type multivitamin with folic acid 400 1 tab PO DAILY Unknown History mcg tablet Cpap Supplies #1 ea 08/18/21 Unknown Rx Pancreat-Bet IXs-gko-qaxj-pap 250 1 cap PO .with meals 10/23/22 Unknown History mg-162 mg-65 mg-125 mg capsule (Super Enzyme) anita.stocking,knee,reg,xlrg #2 ea 10/23/22 Unknown Rx Cpap Supplies #1 ea 01/27/23 Unknown Rx lisinopril 40 mg tablet 40 mg PO DAILY #90 tabs 02/20 10/12 Unknown Rx apixaban 5 mg tablet (Eliquis) 5 mg PO BID #60 tabs 11/03/24 Rx metoprolol tartrate 25 mg tablet 12.5 mg (1/2 x 25 mg) PO BID #90 09/22/24 Unknown Rx tabs amlodipine 10 mg tablet 10 mg PO QHS 11/03/24 Unknow n History fluoxetine 20 mg capsule 20 mg PO DAILY 11/03/24 Unkn own History tizanidine 2 mg tablet 2 mg PO QHS PRN PRN muscle 0 11/03/24 Unknown History spasticity Allergy/AdvReac Type Severity Reaction Status Date / Time clindamycin Allergy Severe Hearing Verified 11/03/24 09:43 loss ciprofloxacin (From Cipro) Allergy Other Verified 11/03/24 09:43 codeine Allergy Rash Verified 11/03/24 09:43 hydrochlorothiazide Allergy Other Verified 11/03/24 09:43 Penicillins (PCN) Allergy Rash Verified 11/03/24 09:43 tramadol HCl (From Ultram) Allergy Other Verified 11/03/24 09:43 spironolactone (From AdvReac Causes Verified 11/03/24 09:43 Aldactone) Potassium to elevate Family History Mother CVA (cerebral vascular accident) Hypertension Sister cranial stenosis Father Hypertension Asthma Arthritis Surgical History History of hysteroscopy H/O dilation and curettage History of tubal ligation History of cholecystectomy History of placement of ear tubes History of D&C History of section History of benign breast biopsy Social History household members: spouse Smoking Status: Former smoker how long ago did patient quit smokin alcohol intake: current alcohol intake frequency: holidays/special occasions only Alcohol type: wine substance use type: does not use caffeine: Yes what type of physical activity do you participate in: none seatbelt use: always do you feel safe at home: Yes additional social history: [id number] Review of Systems (Anesthesia) ROS Narrative System reviewed and no additional complaints, except as documented.
[2024-11-06] MEDS: Lactated Ringers 1,000 ML 15 ML IV (09:35)
--- NOTE | 2024-11-06 09:35 | RAD_ITS ---
PROCEDURE: CERV SPINE 4 OR 5 VIEWS 11/06/2024 REASON FOR EXAM: RT MEDIAL BRANCH BLOCK C4 C5 C6 C7 TECHNIQUE: Fluoroscopy with 4 spot images during cervical spine block/injection FINDINGS: Fluoroscopy time 9.9 seconds Cumulative dose 4.45 mGy 4 spot images show unilateral multilevel needle localization. Please see procedural report for further detail. RAD/Cerv Spine 4 or 5 Views IMPRESSION: Fluoroscopy as above. Reading Location: [id number]
[2024-11-06] MEDS: MethylPREDNISolone Acetate 80 MG/ML Vial (09:56)
[2024-11-06] MEDS: Bupivacaine 0.25% 30 ML Vial (09:57)
--- NOTE | 2024-11-06 10:05 | PCM.POST.ANE ---
Anesthesia: Postop Eval I Current Vital Signs Temperature: 97.5 F Pulse Rate: 67 Blood Pressure: 126/67 Respiratory Rate: 18 Pulse Ox: 96 Assessment Airway patent: Yes Spontaneous unlabored respirations: Yes nausea: No Vomiting: No Anesthesia Complication: No Fluid Hydration Crystalloid volume administer (ml): 100 Total IV fluid infused: 100 Progress Note Anesthesia document: Postop Eval 1 completed: Yes
--- NOTE | 2024-11-06 10:29 | PCM.OPRPT ---
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 machine operator: No Type of Anesthesia: Local MAC RN Documented Start/Stop Times: Operation Date: 11/06/24 10:35 Case Time Into Pre-Op 11/06/24 08:49 Anesthesia Start 11/06/24 09:50 Into Room 11/06/24 09:50 Procedure Start 11/06/24 09:56 Procedure End 11/06/24 09:58 Anesthesia End 11/06/24 10:00 Out of Room 11/06/24 10:00 Into Recovery 11/06/24 10:05 Out of Recovery 11/06/24 10:20 Into Phase II Recovery 11/06/24 10:22 Procedure Start Time: 10:30 Procedure Stop Time: 10:30 Select all DRAINS/GRAFTS/IMPLANTS that apply: None Estimated Blood Loss: 0 Specimen collected: No Description of surgery: ANESTHESIA: MAC. BLOOD LOSS: Minimal. COMPLICATIONS: None. DESCRIPTION OF PROCEDURE: History and physical of today was reviewed. Risks and benefits of the procedure were explained. The patient understood and agreed to proceed. Informed consent was obtained. IV inserted per routine protocol. The patient was taken to the operating room and placed in the prone position with a pillow positioned underneath the chest. The neck area was prepped and draped in a sterile fashion using iodine x3. Under fluoroscopy guidance on an AP view, the C4 through C7 vertebral bodies were visualized at approximately 10-degree angle, starting on the right C4, ending on the right C7, passing through the C5 and C6. Using a 25-gauge 3-1/2-inch spinal needle, the needle was advanced via the skin. The tip of the needle was maneuvered and directed towards the epiphyseal junction of each corresponding vertebra. Once the tip of the needle was at the vicinity of the medial branch, the needle was pulled approximately 2 mm off the bone. After negative aspiration of blood or CSF and confirmation on AP, oblique as well as lateral view, a total of 4 mL of preservative-free 0.25% Marcaine with 80 mg of Depo-Medrol was injected in divided doses between those four levels. The needles were then removed intact. The patient experienced no sign or symptoms of intrathecal or intravascular injection. The patient experienced no paresthesia. The procedure was completed without any apparent difficulty or any complications. The patient appeared to tolerate it well. ASSESSMENT AND PLAN: This is a 64-year-old female with cervical spondylosis, cervical degenerative disc disease, cervical facet arthropathy, status post right-sided cervical medial branch block at C4-C7, patient will continue her current medications, patient will follow-up in approximately 1 to 2 weeks for reevaluation. Surgical Findings: 0 Complications Complications: No Admit VTE Documentation VTE Present on Admission: No VTE Mechan Device Prophylaxis: None VTE Pharm Prophylaxis ordered?: No
--- NOTE | 2024-11-06 10:47 | POSTOPAN2_ITS ---
Anesthesia Postop Eval I Sum Postop Eval Completion status Anesthesia document: Postop Eval 1 completed: Yes Anesthesia Postop Eval I Summary Anesthesia Postop Eval I Summary: Anesthesia Postop Eval I: Assessment Summary Airway patent Yes 11/06/24 10:46 ASSISTANT EDITOR.CSIR Spontaneous unlabored Yes 11/06/24 10:46 ASSISTANT EDITOR.CSIR respirations Mental status nausea No 11/06/24 10:46 ASSISTANT EDITOR.CSIR Vomiting No 11/06/24 10:46 ASSISTANT EDITOR.CSIR Anesthesia Postop Eval I: Fluid Summary Crystalloid volume administer 100 11/06/24 10:46 ASSISTANT EDITOR.CSIR (ml) Colloids volume administered ( ml) Blood Product volume administered (ml) Total IV fluid infused 100 11/06/24 10:46 ASSISTANT EDITOR.CSIR Anesthesia Postop Eval I: Summary Notes Anesthesia Complication No 11/06/24 10:46 ASSISTANT EDITOR.CSIR Anesthesia Complication Comment: Post-operative progress note Anesthesia: Postop Eval II Evaluation Mental status: Awake Pain Level: 3 nausea: No Vomiting: No
--- NOTE | 2024-11-06 10:47 | PCM.POSTANE2 ---
Anesthesia Postop Eval I Sum Postop Eval Completion status Anesthesia document: Postop Eval 1 completed: Yes Anesthesia Postop Eval I Summary Anesthesia Postop Eval I Summary: Anesthesia Postop Eval I: Assessment Summary Airway patent Yes 11/06/24 10:46 SENIOR TECHNICAL ANALYST.CSIR Spontaneous unlabored Yes 11/06/24 10:46 SENIOR TECHNICAL ANALYST.CSIR respirations Mental status nausea No 11/06/24 10:46 SENIOR TECHNICAL ANALYST.CSIR Vomiting No 11/06/24 10:46 SENIOR TECHNICAL ANALYST.CSIR Anesthesia Postop Eval I: Fluid Summary Crystalloid volume administer 100 11/06/24 10:46 SENIOR TECHNICAL ANALYST.CSIR (ml) Colloids volume administered ( ml) Blood Product volume administered (ml) Total IV fluid infused 100 11/06/24 10:46 SENIOR TECHNICAL ANALYST.CSIR Anesthesia Postop Eval I: Summary Notes Anesthesia Complication No 11/06/24 10:46 SENIOR TECHNICAL ANALYST.CSIR Anesthesia Complication Comment: Post-operative progress note Anesthesia: Postop Eval II Evaluation Mental status: Awake Pain Level: 3 nausea: No Vomiting: No
== END 2024-11-06 11:11 | disposition home or self-care (01) ==
LOC: SDC 08:44 → AC 08:45
PROVIDERS: PCP Internal Medicine; Referring Provider Anesthesiology Pain Medicine; Visit Provider Anesthesiology Pain Medicine
PROC: 3E0S3BZ Introduction of Anesthetic Agent into Epidural Space, Percutaneous Approach (ICD-10-PCS; CPT 62322; principal; 2024-11-06 10:30)
DX: M47.812 Spondylosis without myelopathy or radiculopathy, cervical region (principal); M50.30 Other cervical disc degeneration, unspecified cervical region; M46.92 Unspecified inflammatory spondylopathy, cervical region; Z79.899 Other long term (current) drug therapy; Z79.01 Long term (current) use of anticoagulants
CPT/HCPCS: 64491; 01992; 64490; 72050

== ENCOUNTER → 2024-11-29 | Outpatient (CLI) | payer MEDICARE, SELFPAY ==
[2024-11-29 15:57] LABS: Absolute Lymphocyte Count 1.89 X10^3/uL (0.83-4.51); Absolute Neutrophil Count 5.1 X10^3/uL (2.0-7.7); Basophil# 0.03 X10^3/uL; Basophil% 0.4 % (0-1); Eosinophil# 0.24 X10^3/uL; Eosinophils% 3.1 % (0-5); Hematocrit 43.7 % (37-47); Hemoglobin 14.4 g/dL (12.0-15.0); Lymphocyte # 1.89 X10^3/ul (0.83-4.51); Lymphocyte % 24.3 % (19-41); Mean Corpuscular Hgb 30.9 pg (27.0-32.0); Mean Corpuscular Volume 93.8 fL (81-99); Monocyte# 0.47 X10^3/uL; NRBC Flagged by Analyzer 0 % (0-5); Neutrophil # 5.12 X10^3/uL (2.7-7.7); Neutrophil % 65.8 % (47-70); Platelet Count 339 K/mm3 (150-450); RBC Distribution Width CV 13.4 % (11.6-14.6); Red Blood Count 4.66 M/mm3 (4.2-5.4); White Blood Count 7.8 K/mm3 (4.4-11.0)
[2024-11-29 17:35] LABS: ALB/GLOB Ratio 1.2 RATIO (0.9-2.4); AST(SGOT) 18 U/L (<=31); Alanine Aminotransfer ALT/SGPT 24 U/L (<=34); Alkaline Phosphatase 102 U/L (35-104); Anion Gap 12 (5-15); BUN 34 mg/dL (4-19); BUN/Creat Ratio 31.6 RATIO (10-20); Calcium,Total 9.5 mg/dL (7.6-11.0); Carbon Dioxide 19.6 mmol/L (21.0-32.0); Chloride 106 mmol/L (98-108); Cholesterol 171 mg/dL (<=200); Creatinine, Serum 1.07 mg/dL (0.70-1.20); EST Glomerular Filtration Rate 58 (>60); Globulin 3.2 g/dL (2.2-4.2); Glucose 117 mg/dL (70-99); High Density Lipoprotein 47 mg/dL; Low Density Lipoprotein Calc. 93 mg/dL; Protein, Total 7.2 g/dL (5.9-8.4); Sodium Level 138 mmol/L (133-145); Total Bilirubin 0.26 mg/dL (0.00-1.30); Triglycerides 152 mg/dL; Very Low Density Lipoprotein 30 mg/dL (5-40); cholesterol:hdl ratio screen 3.62
== END | disposition home or self-care (01) ==
LOC: BIMLAB 13:37
PROVIDERS: PCP Internal Medicine; Referring Provider Internal Medicine; Visit Provider Internal Medicine
DX: I10 Essential (primary) hypertension (principal); R73.03 Prediabetes
CPT/HCPCS: 36415; 80053; 80061; 85025

== ENCOUNTER → 2024-12-06 | Outpatient (CLI) | payer MEDICARE, SELFPAY | END | disposition home or self-care (01) | LOC: LABSPEC 13:18 | PROVIDERS: PCP Internal Medicine; Referring Provider Internal Medicine; Visit Provider Internal Medicine | DX: R79.89 Other specified abnormal findings of blood chemistry (principal); Z79.01 Long term (current) use of anticoagulants | CPT/HCPCS: 82274 ==

== ENCOUNTER → 2024-12-20 | Outpatient (CLI) | payer MEDICARE, SELFPAY ==
[2024-12-20 16:23] LABS: Anion Gap 12 (5-15); BUN 24 mg/dL (4-19); BUN/Creat Ratio 24.0 RATIO (10-20); Calcium,Total 9.3 mg/dL (7.6-11.0); Carbon Dioxide 22.2 mmol/L (21.0-32.0); Chloride 102 mmol/L (98-108); Glucose 108 mg/dL (70-99); Potassium 4.9 mmol/L (3.3-5.1)
== END | disposition home or self-care (01) ==
LOC: MTLAB 11:26
PROVIDERS: PCP Internal Medicine; Referring Provider Internal Medicine; Visit Provider Internal Medicine
DX: R79.89 Other specified abnormal findings of blood chemistry (principal)
CPT/HCPCS: 36415; 80048

== ENCOUNTER 2024-12-26 12:00 | Outpatient (RCR) | payer MEDICARE, SELFPAY ==
--- NOTE | 2024-10-27 14:09 | HP.PTEVAL_ITS ---
Patient's Visit Information Visit Information Visit Information: ANGELINA CALZADA is a 64 year old F referred to Physical Therapy by OMAR Mccallum with a diagnosis of Cervical and Lumbar Radiculopathy. Date of Evaluation: 10/27/24 Physical Therapist: Maritza Rodriguez PT, Cert MDT Visit Plan Frequency: 2x /Week Duration: 4-6 Weeks Plan: AQUATIC THERAPY FOR NECK AND BACK PAIN RELIEF, GAIT AND BALANCE TRAINING, POSTURE CORRECTION/STRENGTHENING, INSTRUCTION IN APPROPRIATE BODY MECHANICS AND ACTIVITY MODIFICATIONS. DLS STARTING WITH A NEUTRAL SPINE PROGRESSING ROM TOLERATED. SALO UE AND LE ROM, STRETCHING AND STRENGTHENING. HEP INSTRUCTION. 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 Present symptoms: NECK PAIN, SALO SHLD PAIN, SALO HAND TINGLING R > L. SALO LOW BACK PAIN, SALO THIGH PAIN, AND SALO LE WEAKNESS. SALO LE STINGING THAT PATIENT R ELATES TO LE EDEMA. DENIES LE NUMBNESS. Present since: CHRONIC LOW BACK FOR 10+ YEARS. NECK PAIN X APPROX 1 YEAR. Getting Better, Getting Worse or Staying the Same: LOW BACK PAIN IS STAYING THE SAME, AND NECK PAIN IS GETTING A LITTLE BETTER. Pain Scale: Worst - 8/10 Least - 3/10 Currently: 3/10 Commenced as a result of: NO APPARENT REASON Worse: STANDING, TRANSFERING DAUGHTER, WALKING (CAN NOT WALK WITHOUT ROLLATOR), CAREGIVING DUTIES Better: SITTING DOWN, TYLONOL HELPS A LITTLE BIT, MASSAGE THERAPY. Disturbed sleep: YES - ESPECIALLY HANDS GOING TO SLEEP. Previous history/[facility] AQUATIC THERAPY WITH BENEFIT, MASSAGE THERAPY WITH BENEFIT. CHIROPRACTIC WITHOUT BENEFIT. This episode: MASSAGE THERAPY, PAIN MGMT CERVICAL JAKOB PENDING 11/06/24 Dizziness: YES Tinnitus: YES Nausea: NO Shortness of Breath: YES Difficulty Swallowing: NO Bowel or Bladder Dysfunction: Bladder Dysfunction at night Gait: ROLLATOR AT ALL TIMES. RAMP IN/OUT OF HOUSE. CAN GO UP/DOWN STEPS WITH ONE RAIL ONE STEP AT A TIME ([facility] A MONTH AGO). FELL ON ICE IN WINTER - NO FX'S. Accidents: NO Unexplained weight loss: NO Imaging: PROCEDURE: SPINE CERVICAL (ROUTINE) 10/17/2024 REASON FOR EXAM: PAIN TECHNIQUE: Multiplanar and multisequence images were obtained without IV contrast administration. COMPARISON: X-ray 08/2024 FINDINGS: Vertebrae: Cervical vertebral body heights are preserved. Bone marrow signal is unremarkable. Alignment: Normal. No spondylolisthesis. Straightening of the normal lordotic curvature. Spinal Cord: Cervical spinal cord is of normal size and signal intensities. Structures at the foramen magnum are unremarkable. C2-3: Unremarkable C3-4: Mild broad disc osteophyte complex produces mild spinal stenosis and mild bilateral neural foraminal stenosis. C4-5: Moderate broad disc osteophyte complex produces moderate spinal stenosis with abutment of the central spinal cord and mild bilateral neural foraminal stenosis. C5-6: Moderate broad disc osteophyte complex produces moderate spinal stenosis with abutment of the central spinal cord and mild bilateral neural foraminal stenosis. C6-7: Moderate broad disc osteophyte complex produces moderate spinal stenosis with abutment of the central spinal cord and mild bilateral neural foraminal stenosis. C7-T1: Unremarkable MRI/Spine Cervical (Routine) IMPRESSION: Degenerative disc disease as described above. PMH/Recent major surgery: Left knee pain Radiculopathy, cervical OAB (overactive bladder) Dry mouth and eyes Atrial fibrillation Shortness of breath Dizziness Hyperkalemia Wears hearing aid Restless legs History of umbilical hernia CPAP (continuous positive airway pressure) dependence Leg cramps Borderline type 2 diabetes mellitus Asthmatic bronchitis with acute exacerbation Obstructive sleep apnea Postmenopausal bleeding Kidney failure Anxiety and depression GERD (gastroesophageal reflux disease) History of benign breast tumor Seasonal allergies Venous insufficiency Hearing impairment Morbid obesity Hypertension History of hysteroscopy H/O dilation and curettage History of tubal ligation History of cholecystectomy History of placement of ear tubes History of D&C History of section History of benign breast biopsy Objective Objective: THIS PATIENT AMBULATES INDEP INTO PT X > 300 FEET FROM LOBBY TO TREATMENT ROOM BY POOL WITHOUT REST BREAK BUT DECREASED CADANCE AND LEANING HEAVILY ON ROLLATOR. SHE IS HARD OF HEARING BUT ABLE TO FOLLOW COMMANDS WELL. SHE IS PLEASANT AND COOPERATIVE TO WORK WITH. Sitting Posture/Standing Posture: POOR. UNABLE TO SIT AND STAND ERECT AND ATTEMPS PROVOKE PAIN. Active Correction of posture: ABLE TO PARTIALLY CORRECT BUT NOT MAINTAIN. PARTIAL CORRECTION IN SITTING ALLEVIATES SX'S TEMPORARILY. RESPONDS WELL TO LUMBAR SUPPORT IN SITTING WITH LUMBAR ROLL IN ROLLATOR IN CLINIC TODAY. Sensory deficit: SALO UE AND LE LIGHT TOUGH SENSATION GROSSLY INTACT AND SYMMETRICAL. ROM deficit: 116 DEG ELEVATION R UE, 90 DEG L UE. -45 DEG ELBOW EXT R AND -50 DEG ELBOW EXT LEFT. LIMITED SALO FOREARM PRONATION BUT SALO HAND ROM WFL. ~ 90 DEG KNEE FLEX SALO. GENERALIZED JOINT STIFFNESS THROUGHOUT. Motor deficit: R SHLD 3-/5, ELBOW 3-/5, MOTION PICTURE CAMERA LENS TECHNICIAN 34 LBS. L SHLD 2/5, ELBOW 3-/5, MOTION PICTURE CAMERA LENS TECHNICIAN 38 LBS. SALO LE'S GROSSLY 4-/5 WITH MMT'ING IN MID-RANGE. Lumbar mvmt loss: flex - MIN ext - RAMIREZ Cervical Mvmt Loss: Flex: NIL Pro: NIL Ext: MOD Ret: RAMIREZ RSB: MOD LSB: MOD R Rot: MOD L Rot: MOD PATIENT C/O INCREASED NECK PAIN WITH CERVICAL ROM TESTING ALL PLANES BUT NW A RESULT. DENIES INCREASED SALO UE SX'S WITH NECK ROM TESTING. Postural strength: POOR Core Strength: POOR Palpation: SALO LE PITTING EDEMA. NOT HYPERSENSATIVE WITH SALO UE AND LE LIGHT TOUCH SENSATION TESTING. TUG TIME: 31.85 WITH ROLLATOR 30 STS TEST: 4 WITH SALO UE ASSIST. Balance/Special Test Scores Oswestry Low Back Score: 27 Oswestry Neck Score: 18 Goals Goal 1:: DECREASE C/O NECK PAIN AND UE SX'S BY AT LEAST 50% TO EASE ADL'S Goal Time Frame: 4-6 Weeks Goal 2:: DECREASE C/O LOW BACK PAIN AND LE SX'S BY AT LEAST 50% TO EASE ADL'S Goal Time Frame: 4-6 Weeks Goal 3:: IMPROVE STANDING, WALKING, PERSONAL CARE, CARE GIVING, LIFTING, SLEEP, AND HOUSEWORK FUNCTION WITH AT LEAST 5 POINT IMPROVEMENT IN NECK AND BACK OSWESTY QUESTIONNAIRE SCORES. Goal Time Frame: 4-6 Weeks Goal 4:: PATIENT WILL COMPLETE 6 STANDS IN 30 SECS WITH ONE UE ASSIST TO DEMONSTRATE IMPROVED FUNCTIONAL STRENGTH Goal Time Frame: 4-6 Weeks Goal 5:: PATIENT WILL COMPLETE TUG IN < 25 SECS WITH ROLLATOR TO DEMONSTRATE IMPROVED GAIT STABILITY Goal Time Frame: 4-6 Weeks Goal 6:: INDEP POOL EX PROGRAM Goal Time Frame: 4-6 Weeks Rehabilitation Potential Physical Therapy Diagnosis: POSTURUAL AND CORE WEAKNESS AND STIFFNESS ALONG WITH EXTREMITY WEAKNESS AND STIFFNESS X 4 LIMITING MOBILITY AND ADL'S. Rehabilitation Potential: Fair Anticipated Interventions Patient/Client Instruction: Educate patient on: Condition, Plan of Care and Risk Factors For the Purpose of:: To improve self management Therapeutic Exercise to Include: Strength training, Endurance training, Body mechanics, Postural training, Flexibilty training, Gait and locomotor training, Neuromotor development, In an aquatic setting, Dynamic Lumbar Stabilization and Scapular Strength/Stabilization For the Purpose of:: To decrease pain, To improve nutrient delivery to tissue, To improve muscle performance and motor function, To improve ability to perform ADL's, To increase tolerance to activity/condition/position, To improve ability of physical actions for home/community/work/leisure, To improve gait and locomotor functions, To increase flexibility/ROM, To improve endurance and To improve self management Text: Thank you for the opportunity to evaluate your patient. For Medicare and Medicare HMO plans, please review the plan of care and approve it. It will need to be FAXED BACK to us at [phone] for Medicare purposes. For Medicare only, by signing this I certify the plan of care. Please let me know if there are questions or concerns regarding this plan of care. Physician Signature: Date:
--- NOTE | 2024-10-27 14:09 | HP.PTEVAL_ITS ---
Patient's Visit Information Visit Information Visit Information: ANGELINA CALZADA is a 64 year old F referred to Physical Therapy by OMAR Mccallum with a diagnosis of Cervical and Lumbar Radiculopathy. Date of Evaluation: 10/27/24 Physical Therapist: Maritza Rodriguez PT, Cert MDT Visit Plan Frequency: 2x /Week Duration: 4-6 Weeks Plan: AQUATIC THERAPY FOR NECK AND BACK PAIN RELIEF, GAIT AND BALANCE TRAINING, POSTURE CORRECTION/STRENGTHENING, INSTRUCTION IN APPROPRIATE BODY MECHANICS AND ACTIVITY MODIFICATIONS. DLS STARTING WITH A NEUTRAL SPINE PROGRESSING ROM TOLERATED. SALO UE AND LE ROM, STRETCHING AND STRENGTHENING. HEP INSTRUCTION. 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 Present symptoms: NECK PAIN, SALO SHLD PAIN, SALO HAND TINGLING R > L. SALO LOW BACK PAIN, SALO THIGH PAIN, AND SALO LE WEAKNESS. SALO LE STINGING THAT PATIENT R ELATES TO LE EDEMA. DENIES LE NUMBNESS. Present since: CHRONIC LOW BACK FOR 10+ YEARS. NECK PAIN X APPROX 1 YEAR. Getting Better, Getting Worse or Staying the Same: LOW BACK PAIN IS STAYING THE SAME, AND NECK PAIN IS GETTING A LITTLE BETTER. Pain Scale: Worst - 8/10 Least - 3/10 Currently: 3/10 Commenced as a result of: NO APPARENT REASON Worse: STANDING, TRANSFERING DAUGHTER, WALKING (CAN NOT WALK WITHOUT ROLLATOR), CAREGIVING DUTIES Better: SITTING DOWN, TYLONOL HELPS A LITTLE BIT, MASSAGE THERAPY. Disturbed sleep: YES - ESPECIALLY HANDS GOING TO SLEEP. Previous history/Previous treatment: [facility] AQUATIC THERAPY WITH BENEFIT, MASSAGE THERAPY WITH BENEFIT. CHIROPRACTIC WITHOUT BENEFIT. This episode: MASSAGE THERAPY, PAIN MGMT CERVICAL JAKOB PENDING 11/06/24 Dizziness: YES Tinnitus: YES Nausea: NO Shortness of Breath: YES Difficulty Swallowing: NO Bowel or Bladder Dysfunction: Bladder Dysfunction at night Gait: ROLLATOR AT ALL TIMES. RAMP IN/OUT OF HOUSE. CAN GO UP/DOWN STEPS WITH ONE RAIL ONE STEP AT A TIME ([facility] A MONTH AGO). FELL ON ICE IN WINTER - NO FX'S. Accidents: NO Unexplained weight loss: NO Imaging: PROCEDURE: SPINE CERVICAL (ROUTINE) 10/17/2024 REASON FOR EXAM: PAIN TECHNIQUE: Multiplanar and multisequence images were obtained without IV contrast administration. COMPARISON: X-ray 08/2024 FINDINGS: Vertebrae: Cervical vertebral body heights are preserved. Bone marrow signal is unremarkable. Alignment: Normal. No spondylolisthesis. Straightening of the normal lordotic curvature. Spinal Cord: Cervical spinal cord is of normal size and signal intensities. Structures at the foramen magnum are unremarkable. C2-3: Unremarkable C3-4: Mild broad disc osteophyte complex produces mild spinal stenosis and mild bilateral neural foraminal stenosis. C4-5: Moderate broad disc osteophyte complex produces moderate spinal stenosis with abutment of the central spinal cord and mild bilateral neural foraminal stenosis. C5-6: Moderate broad disc osteophyte complex produces moderate spinal stenosis with abutment of the central spinal cord and mild bilateral neural foraminal stenosis. C6-7: Moderate broad disc osteophyte complex produces moderate spinal stenosis with abutment of the central spinal cord and mild bilateral neural foraminal stenosis. C7-T1: Unremarkable MRI/Spine Cervical (Routine) IMPRESSION: Degenerative disc disease as described above. PMH/Recent major surgery: Left knee pain Radiculopathy, cervical OAB (overactive bladder) Dry mouth and eyes Atrial fibrillation Shortness of breath Dizziness Hyperkalemia Wears hearing aid Restless legs History of umbilical hernia CPAP (continuous positive airway pressure) dependence Leg cramps Borderline type 2 diabetes mellitus Asthmatic bronchitis with acute exacerbation Obstructive sleep apnea Postmenopausal bleeding Kidney failure Anxiety and depression GERD (gastroesophageal reflux disease) History of benign breast tumor Seasonal allergies Venous insufficiency Hearing impairment Morbid obesity Hypertension History of hysteroscopy H/O dilation and curettage History of tubal ligation History of cholecystectomy History of placement of ear tubes History of D&C History of section History of benign breast biopsy Objective Objective: THIS PATIENT AMBULATES INDEP INTO PT X > 300 FEET FROM LOBBY TO TREATMENT ROOM BY POOL WITHOUT REST BREAK BUT DECREASED CADANCE AND LEANING HEAVILY ON ROLLATOR. SHE IS HARD OF HEARING BUT ABLE TO FOLLOW COMMANDS WELL. SHE IS PLEASANT AND COOPERATIVE TO WORK WITH. Sitting Posture/Standing Posture: POOR. UNABLE TO SIT AND STAND ERECT AND ATTEMPS PROVOKE PAIN. Active Correction of posture: ABLE TO PARTIALLY CORRECT BUT NOT MAINTAIN. PARTIAL CORRECTION IN SITTING ALLEVIATES SX'S TEMPORARILY. RESPONDS WELL TO LUMBAR SUPPORT IN SITTING WITH LUMBAR ROLL IN ROLLATOR IN CLINIC TODAY. Sensory deficit: SALO UE AND LE LIGHT TOUGH SENSATION GROSSLY INTACT AND SYMMETRICAL. ROM deficit: 116 DEG ELEVATION R UE, 90 DEG L UE. -45 DEG ELBOW EXT R AND -50 DEG ELBOW EXT LEFT. LIMITED SALO FOREARM PRONATION BUT ASLO HAND ROM WFL. ~ 90 DEG KNEE FLEX SALO. GENERALIZED JOINT STIFFNESS THROUGHOUT. Motor deficit: R SHLD 3-/5, ELBOW 3-/5, BOTTOM SAW OPERATOR 34 LBS. L SHLD 2/5, ELBOW 3-/5, BOTTOM SAW OPERATOR 38 LBS. SALO LE'S GROSSLY 4-/5 WITH MMT'ING IN MID-RANGE. Lumbar mvmt loss: flex - MIN ext - RAMIREZ Cervical Mvmt Loss: Flex: NIL Pro: NIL Ext: MOD Ret: RAMIREZ RSB: MOD LSB: MOD R Rot: MOD L Rot: MOD PATIENT C/O INCREASED NECK PAIN WITH CERVICAL ROM TESTING ALL PLANES BUT NW A RESULT. DENIES INCREASED SALO UE SX'S WITH NECK ROM TESTING. Postural strength: POOR Core Strength: POOR Palpation: SALO LE PITTING EDEMA. NOT HYPERSENSATIVE WITH SALO UE AND LE LIGHT TOUCH SENSATION TESTING. TUG TIME: 31.85 WITH ROLLATOR 30 STS TEST: 4 WITH SALO UE ASSIST. Balance/Special Test Scores Oswestry Low Back Score: 27 Oswestry Neck Score: 18 Goals Goal 1:: DECREASE C/O NECK PAIN AND UE SX'S BY AT LEAST 50% TO EASE ADL'S Goal Time Frame: 4-6 Weeks Goal 2:: DECREASE C/O LOW BACK PAIN AND LE SX'S BY AT LEAST 50% TO EASE ADL'S Goal Time Frame: 4-6 Weeks Goal 3:: IMPROVE STANDING, WALKING, PERSONAL CARE, CARE GIVING, LIFTING, SLEEP, AND HOUSEWORK FUNCTION WITH AT LEAST 5 POINT IMPROVEMENT IN NECK AND BACK OSWESTY QUESTIONNAIRE SCORES. Goal Time Frame: 4-6 Weeks Goal 4:: PATIENT WILL COMPLETE 6 STANDS IN 30 SECS WITH ONE UE ASSIST TO DEMONSTRATE IMPROVED FUNCTIONAL STRENGTH Goal Time Frame: 4-6 Weeks Goal 5:: PATIENT WILL COMPLETE TUG IN < 25 SECS WITH ROLLATOR TO DEMONSTRATE IMPROVED GAIT STABILITY Goal Time Frame: 4-6 Weeks Goal 6:: INDEP POOL EX PROGRAM Goal Time Frame: 4-6 Weeks Rehabilitation Potential Physical Therapy Diagnosis: POSTURUAL AND CORE WEAKNESS AND STIFFNESS ALONG WITH EXTREMITY WEAKNESS AND STIFFNESS X 4 LIMITING MOBILITY AND ADL'S. Rehabilitation Potential: Fair Anticipated Interventions Patient/Client Instruction: Educate patient on: Condition, Plan of Care and Risk Factors For the Purpose of:: To improve self management Therapeutic Exercise to Include: Strength training, Endurance training, Body mechanics, Postural training, Flexibilty training, Gait and locomotor training, Neuromotor development, In an aquatic setting, Dynamic Lumbar Stabilization and Scapular Strength/Stabilization For the Purpose of:: To decrease pain, To improve nutrient delivery to tissue, To improve muscle performance and motor function, To improve ability to perform ADL's, To increase tolerance to activity/condition/position, To improve ability of physical actions for home/community/work/leisure, To improve gait and locomotor functions, To increase flexibility/ROM, To improve endurance and To improve self management Text: Thank you for the opportunity to evaluate your patient. For Medicare and Medicare HMO plans, please review the plan of care and approve it. It will need to be FAXED BACK to us at [phone] for Medicare purposes. For Medicare only, by signing this I certify the plan of care. Please let me know if there are questions or concerns regarding this plan of care. Physician Signature: Date:
--- NOTE | 2024-12-26 13:04 | HP.PTDCSUM ---
Discharge Summary D/C summary: It has been my pleasure to treat ANGELINA CALZADA referred by OMAR Mccallum, with the diagnosis of Cervical and Lumbar Radiculopathy for a total of 8 visit(s). Discharge Date: 12/26/24 Please see the following information for a summary of their discharge status. Subjective Subjective: PATIENT REPORTS SHE REALLY ENJOYED THE WATER THERAPY. PATIENT SHE CAN STAND A LITTLE BIT LONGER TO COOK AND DO DISHES SINCE STARTING THERAPY. I DON'T HAVE THE REALLY SHARP PAIN IN MY LOW BACK LIKE I DID BEFORE I STARTED PT. PATIENT ALSO REPORTS HER BALANCE IS A LITTLE BETTER. SHE STATES THAT HER NECK AND ARMS ARE FEELING BETTER TOO SINCE SHE HAS STARTED THE WATER AND HOME EX'S. PATIENT REPORTS SHE HAS SOME OTHER HEALTH CONCERNS GOING ON AND SHE IS GOING TO BE SEEING HER OBGYN WEDNESDAY AND HAVING A PELVIC US WEDNESDAY. SHE IS ALSO HAVING A COLONOSCOPY IN [place]. THEREFORE SHE WANTS TO HOLD FURTHER PT FOR NOW. SHE STATES SHE WILL FOLLOW UP WITH [facility] ABOUT THE MRI FOR HER BACK TOO. Pain LBP: Pain Intensity (Out of 10): 2 Cervical pain: Pain Intensity (Out of 10): 2 L knee: Pain Intensity (Out of 10): 7 TAILBONE: Pain Intensity (Out of 10): 3 Overall Improvement % Improvement: 50 Objective Objective/Function: PATIENT WAS SEEN TODAY FOR RE-ASSESSMENT OF PROGRESS TOWARD THE SET PT GOALS AND THE NEED FOR FURTHER PHYSICAL THERAPY VS READINESS FOR DISCHARGE. THIS PATIENT HAS MADE SOME MINIMAL PROGRESS TOWARD THE SET PT GOALS SO FAR. SHE DID HAVE A FALL DURING THIS EPISODE OF CARE AND HAS ONLY ATTENDED 6 POOL SESSION SINCE HER INITIAL EVAL 10/27/24. AT THIS TIME SHE WANTS TO STOP PT AND FIND OUT WHAT IS GOING ON WITH HER OTHER HEALTH ISSUES. UPON EXAM TODAY: OM deficit: 116 DEG ELEVATION R UE, 90 DEG L UE. -45 DEG ELBOW EXT R AND -50 DEG ELBOW EXT LEFT. LIMITED SALO FOREARM PRONATION BUT SALO HAND ROM WFL. ~ 90 DEG KNEE FLEX SALO. GENERALIZED JOINT STIFFNESS THROUGHOUT. Motor deficit: R SHLD 3-/5, ELBOW 3-/5, MACHINIST MATE 35 LBS. L SHLD 2/5, ELBOW 3-/5, MACHINIST MATE 37 LBS. SALO LE'S GROSSLY 4-/5 WITH MMT'ING IN MID-RANGE. R HIP 4/5, KNEE 4/5, ANKLE 5/5. L HIP 4-/5, KNEE 4-/5, ANKLE 5/5. Lumbar mvmt loss: flex - MIN ext - RAMIREZ Cervical Mvmt Loss: Flex: NIL Pro: NIL Ext: MOD Ret: RAMIREZ RSB: MOD LSB: MOD R Rot: MOD L Rot: MOD PATIENT C/O INCREASED NECK PAIN WITH CERVICAL ROM TESTING ALL PLANES BUT NW A RESULT. DENIES INCREASED SALO UE SX'S WITH NECK ROM TESTING. Postural strength: POOR Core Strength: POOR Palpation: SALO LE PITTING EDEMA. NOT HYPERSENSATIVE WITH SALO UE AND LE LIGHT TOUCH SENSATION TESTING. NOT WEARING COMPRESSION STOCKINGS. TUG TIME: 30.85 WITH ROLLATOR 30 STS TEST: 4 WITH SALO UE ASSIST. Goals Goal 1:: DECREASE C/O NECK PAIN AND UE SX'S BY AT LEAST 50% TO EASE ADL'S Goal Progress: Goal Met Goal 2:: DECREASE C/O LOW BACK PAIN AND LE SX'S BY AT LEAST 50% TO EASE ADL'S Goal Progress: Goal Met Goal 3:: IMPROVE STANDING, WALKING, PERSONAL CARE, CARE GIVING, LIFTING, SLEEP, AND HOUSEWORK FUNCTION WITH AT LEAST 5 POINT IMPROVEMENT IN NECK AND BACK OSWESTY QUESTIONNAIRE SCORES. Goal Progress: Progressing Goal 4:: PATIENT WILL COMPLETE 6 STANDS IN 30 SECS WITH ONE UE ASSIST TO DEMONSTRATE IMPROVED FUNCTIONAL STRENGTH Goal Progress: Not Progressing Goal 5:: PATIENT WILL COMPLETE TUG IN < 25 SECS WITH ROLLATOR TO DEMONSTRATE IMPROVED GAIT STABILITY Goal Progress: Not Progressing Goal 6:: [facility] EX PROGRAM Goal Progress: Progressing Plan Plan: D/C AT PATIENTS REQUEST DUE TO OTHER HEALTH CONCERNS. D/C Information d/c sentence: If there are questions or concerns regarding this patient's physical therapy, please feel free to call me at [phone]. Thank you for the referral of this patient. Sincerely, Maritza Rodriguez, PT, Cert MDT Balance/Gait/Functional tests Balance/Special Test Scores Oswestry Low Back Score: 22 Oswestry Neck Score: 16 Improvement % Improvement: 50
--- NOTE | 2024-12-26 13:04 | HP.PTDCSUM ---
Discharge Summary D/C summary: It has been my pleasure to treat ANGELINA CALZADA referred by OMAR Mccallum, with the diagnosis of Cervical and Lumbar Radiculopathy for a total of 8 visit(s). Discharge Date: 12/26/24 Please see the following information for a summary of their discharge status. Subjective Subjective: PATIENT REPORTS SHE REALLY ENJOYED THE WATER THERAPY. PATIENT SHE CAN STAND A LITTLE BIT LONGER TO COOK AND DO DISHES SINCE STARTING THERAPY. I DON'T HAVE THE REALLY SHARP PAIN IN MY LOW BACK LIKE I DID BEFORE I STARTED PT. PATIENT ALSO REPORTS HER BALANCE IS A LITTLE BETTER. SHE STATES THAT HER NECK AND ARMS ARE FEELING BETTER TOO SINCE SHE HAS STARTED THE WATER AND HOME EX'S. PATIENT REPORTS SHE HAS SOME OTHER HEALTH CONCERNS GOING ON AND SHE IS GOING TO BE SEEING HER OBGYN WEDNESDAY AND HAVING A PELVIC US WEDNESDAY. SHE IS ALSO HAVING A COLONOSCOPY IN [place]. THEREFORE SHE WANTS TO HOLD FURTHER PT FOR NOW. SHE STATES SHE WILL FOLLOW UP WITH [facility] ABOUT THE MRI FOR HER BACK TOO. Pain LBP: Pain Intensity (Out of 10): 2 Cervical pain: Pain Intensity (Out of 10): 2 L knee: Pain Intensity (Out of 10): 7 TAILBONE: Pain Intensity (Out of 10): 3 Overall Improvement % Improvement: 50 Objective Objective/Function: PATIENT WAS SEEN TODAY FOR RE-ASSESSMENT OF PROGRESS TOWARD THE SET PT GOALS AND THE NEED FOR FURTHER PHYSICAL THERAPY VS READINESS FOR DISCHARGE. THIS PATIENT HAS MADE SOME MINIMAL PROGRESS TOWARD THE SET PT GOALS SO FAR. SHE DID HAVE A FALL DURING THIS EPISODE OF CARE AND HAS ONLY ATTENDED 6 POOL SESSION SINCE HER INITIAL EVAL 10/27/24. AT THIS TIME SHE WANTS TO STOP PT AND FIND OUT WHAT IS GOING ON WITH HER OTHER HEALTH ISSUES. UPON EXAM TODAY: OM deficit: 116 DEG ELEVATION R UE, 90 DEG L UE. -45 DEG ELBOW EXT R AND -50 DEG ELBOW EXT LEFT. LIMITED SALO FOREARM PRONATION BUT SALO HAND ROM WFL. ~ 90 DEG KNEE FLEX SALO. GENERALIZED JOINT STIFFNESS THROUGHOUT. Motor deficit: R SHLD 3-/5, ELBOW 3-/5, AML ANALYST 35 LBS. L SHLD 2/5, ELBOW 3-/5, AML ANALYST 37 LBS. SALO LE'S GROSSLY 4-/5 WITH MMT'ING IN MID-RANGE. R HIP 4/5, KNEE 4/5, ANKLE 5/5. L HIP 4-/5, KNEE 4-/5, ANKLE 5/5. Lumbar mvmt loss: flex - MIN ext - RAMIREZ Cervical Mvmt Loss: Flex: NIL Pro: NIL Ext: MOD Ret: RAMIREZ RSB: MOD LSB: MOD R Rot: MOD L Rot: MOD PATIENT C/O INCREASED NECK PAIN WITH CERVICAL ROM TESTING ALL PLANES BUT NW A RESULT. DENIES INCREASED SALO UE SX'S WITH NECK ROM TESTING. Postural strength: POOR Core Strength: POOR Palpation: SALO LE PITTING EDEMA. NOT HYPERSENSATIVE WITH SALO UE AND LE LIGHT TOUCH SENSATION TESTING. NOT WEARING COMPRESSION STOCKINGS. TUG TIME: 30.85 WITH ROLLATOR 30 STS TEST: 4 WITH SALO UE ASSIST. Goals Goal 1:: DECREASE C/O NECK PAIN AND UE SX'S BY AT LEAST 50% TO EASE ADL'S Goal Progress: Goal Met Goal 2:: DECREASE C/O LOW BACK PAIN AND LE SX'S BY AT LEAST 50% TO EASE ADL'S Goal Progress: Goal Met Goal 3:: IMPROVE STANDING, WALKING, PERSONAL CARE, CARE GIVING, LIFTING, SLEEP, AND HOUSEWORK FUNCTION WITH AT LEAST 5 POINT IMPROVEMENT IN NECK AND BACK OSWESTY QUESTIONNAIRE SCORES. Goal Progress: Progressing Goal 4:: PATIENT WILL COMPLETE 6 STANDS IN 30 SECS WITH ONE UE ASSIST TO DEMONSTRATE IMPROVED FUNCTIONAL STRENGTH Goal Progress: Not Progressing Goal 5:: PATIENT WILL COMPLETE TUG IN < 25 SECS WITH ROLLATOR TO DEMONSTRATE IMPROVED GAIT STABILITY Goal Progress: Not Progressing Goal 6:: [facility] EX PROGRAM Goal Progress: Progressing Plan Plan: D/C AT PATIENTS REQUEST DUE TO OTHER HEALTH CONCERNS. D/C Information d/c sentence: If there are questions or concerns regarding this patient's physical therapy, please feel free to call me at [phone]. Thank you for the referral of this patient. Sincerely, Maritza Rodriguez, PT, Cert MDT Balance/Gait/Functional tests Balance/Special Test Scores Oswestry Low Back Score: 22 Oswestry Neck Score: 16 Improvement % Improvement: 50
== END 2024-12-26 19:00 | disposition home or self-care (01) ==
LOC: PT 12:00
PROVIDERS: PCP Internal Medicine; Referring Provider Student in an Organized Health Care Education/Training Program; Visit Provider Student in an Organized Health Care Education/Training Program
DX: M54.12 Radiculopathy, cervical region (principal); M54.16 Radiculopathy, lumbar region
CPT/HCPCS: 97113; 97162; 97530

== ENCOUNTER → 2024-12-28 | Outpatient (CLI) | payer MEDICARE, SELFPAY ==
--- NOTE | 2024-12-28 11:50 | EMB_PTH ---
PATIENT: ANGELINA CALZADA LOC: [facility] U#:[id number] AGE/SX: 64/F ROOM: RE12/28/[address]: ADA Payne : 1960 BED: DIS: 12/28/2024 SPEC #: [id number] RECD: 12/28/24 16:54 STATUS: YOEL SAVANNAH #: [id number] FELIPE: 12/28/24 11:[address]: Tammi Cortes NP DEPT: SURGICAL PATHOLOGY RECD BY: Leoncio Copoer ENTERED: 12/29/24 10:37 SP TYPE: ENDOM BX/C REILLY DR: Dr. Esthela Wynne MD Tissues: A - Endometrium, NOS Procedures: Surgery Specimen Level IV HEADER OPERATION: Endometrial biopsy PRE-OP DIAGNOSIS: Postmenopausal bleeding TISSUE SUBMITTED: A- Endometrial lining MICROSCOPIC DIAGNOSIS A. Endometrium, biopsy: * Fragments of benign endocervical glandular tissue and squamous epithelium * Endometrial sampling is not identified MICROSCOPIC DESCRIPTION Slides are reviewed. GROSS DESCRIPTION A. Received in formalin labeled with the patient's name and date of is a 2.9 x 1.2 x 0.2 cm aggregate of mucoid material and flecks of apparent soft tissue. Entirely submitted in 1 cassette. The entirety of the specimen may not survive processing. MI 12/29/2024 CPT:51988
--- OUTSIDE RECORDS SUMMARY | 2024-12-28 22:31 | XMS RPT_ITS | CCD ---
Author Organization [facility] Care Team Providers Care [employer] An[employer] Name Role Phone Juany Breaux Unavailable Unavailable Dr. Bushra Wynne Primary Care Provider [phone] Dr. Bushra Wynne Attending Provider [phone] Dr. Bushra Wynne Referring Provider [phone] Dr. Bushra Wynne Primary Care Provider 1(33 [phone]) Dr. Bushra Wynne Referring Provider [phone] OMAR Metz Attending Provider Dr. Bushra Wynne Attending Provider [phone] Dr. Deepti Tran Attending Provider 1(3 [phone]) Dr. Deepti Tran Referring Provider 1(3 30) Dr. Deepti Tran Other Provider Bushra Wynne MD Primary Care Provider 1(3 30) BUSHRA WYNNE Primary Care Unavailable ESTELLA SANDOVAL Attending Unavailable Dr. Bushra Wynne Primary Care Provider [phone]) Dr. Bushra Wynne Attending Provider [phone] Dr. Bushra Wynne Referring Provider [phone] Bushra Wynne MD Primary Care Provider [phone] BUSHRA WYNNE Primary Care Unavailable ZUNILDA BECERRIL Referring Unavailable BUSHRA WYNNE Primary Care Unavailable Dr. Bushra Wynne MD Primary Care Provider Sherrell JOHN, Dr. Proctor Attending Provider [phone]) Sherrell JOHN, Dr. Proctor Referring Provider [phone] Melvin Gramajo Attending Provider Sonal To Attending Provider Marissa JOHN, Dr. Novoa Attending Provider Sonal To Referring Provider [phone] Emile JOHN, Dr. Hutchins Attending Provider Emile JOHN, Dr. Hutchins Referring Provider Sherrell JOHN, Dr. Proctor Primary Care Provider Sherrell JOHN, Dr. Proctor Referring Provider [phone]) Sherrell JOHN, Dr. Proctor Attending Provider [phone] Sheila Yeung Attending Provider Oleghe, Efewongbe Referring Unavailable Oleghe, Efewongbe Attending Unavailable Oleghe, Efewongbe Primary Care Unavailable Oleghe, Efewongbe Primary Care Unavailable Cuong Baptiste Attending Unavailable Cuong Baptiste Referring Unavailable Oleghe, Efewongbe Primary Care Unavailable Sonal Aguilar Attending Unavailable Oleghe, Efewongbe Referring Unavailable Zita Kim Attending Unavailable Oleghe, Efewongbe Primary Care Unavailable Bright Ann Attending Unavailable Oleghe, Efewongbe Primary Care Unavailable Oleghe, Efewongbe Referring Unavailable Oleghe, Efewongbe Attending Unavailable Oleghe, Efewongbe Primary Care Unavailable Oleghe, Efewongbe Referring Unavailable Bright Ann Attending Unavailable Oleghe, Efewongbe Primary Care Unavailable Oleghe, Efewongbe Primary Care Unavailable Bright Ann Attending Unavailable Oleghe, Efewongbe Referring Unavailable Sheila Ralph Attending Unavailable Oleghe, Efewongbe Primary Care Unavailable Reyna Brooks Attending Unavailable Oleghe, Efewongbe Primary Care Unavailable Oleghe, Efewongbe Referring Unavailable Oleghe, Efewongbe Attending Unavailable Oleghe, Efewongbe Primary Care Unavailable Bairon, Girihs Attending Unavailable Oleghe, Efewongbe Primary Care Unavailable Oleghe, Efewongbe Referring Unavailable Oleghe, Efewongbe Attending Unavailable Oleghe, Efewongbe Primary Care Unavailable Oleghe, Efewongbe Primary Care Unavailable Oleghe, Efewongbe Attending Unavailable Oleghe, Efewongbe Referring Unavailable Oleghe, Efewongbe Primary Care Unavailable Oleghe, Efewongbe Attending Unavailable Oleghe, Efewongbe Referring Unavailable Oleghe, Efewongbe Referring Unavailable Oleghe, Efewongbe Attending Unavailable Oleghe, Efewongbe Primary Care Unavailable Marissa, Bright Attending Unavailable Marissa, Bright Referring Unavailable Oleghe, Efewongbe Primary Care Unavailable Mode Syed Attending Unavailable Mode Syed R Referring Unavailable Oleghe, Efewongbe Primary Care Unavailable Roger Parekh Attending Unavailable Roger Parekh Referring Unavailable Oleghe, Efewongbe Primary Care Unavailable Oleghe, Efewongbe Referring Unavailable Carlos Mccartya Attending Unavailable Oleghe, Efewongbe Primary Care Unavailable Oleghe, Efewongbe Referring Unavailable Oleghe, Efewongbe Attending Unavailable Oleghe, Efewongbe Primary Care Unavailable Oleghe, Efewongbe Attending Unavailable Oleghe, Efewongbe Referring Unavailable Oleghe, Efewongbe Primary Care Unavailable Mode Syed Attending Unavailable Oleghe, Efewongbe Referring Unavailable Oleghe, Efewongbe Primary Care Unavailable Oleghe, Efewongbe Primary Care Unavailable Roof Melvin ALBARRAN Attending Unavailable Oleghe, Efewongbe Referring Unavailable Oleghe, Efewongbe Referring Unavailable Oleghe, Efewongbe Attending Unavailable Oleghe, Efewongbe Primary Care Unavailable Marissa, Hugoton Referring Unavailable Marissa, Bright Attending Unavailable Oleghe, Efewongbe Primary Care Unavailable Oleghe, Efewongbe Referring Unavailable Oleghe, Efewongbe Attending Unavailable Oleghe, Efewongbe Primary Care Unavailable Oleghe, Efewongbe Primary Care Unavailable Jeff, Sonal Attending Unavailable Jeff, Sonal Referring Unavailable Oleghe, Efewongbe Primary Care Unavailable Jeff, Sonal Attending Unavailable Jeff, Sonal Referring Unavailable Oleghe, Efewongbe Referring Unavailable Oleghe, Efewongbe Attending Unavailable Oleghe, Efewongbe Primary Care Unavailable Tammi Cates Attending Provider [phone] Allergies Allergy Classification Reported Allergen(s) Allergy Type Date of Onset Reaction(s) Facility (19 sources) clindamycin; Translations: [CLINDAMYCIN] Drug Allergy Other: See Comments [facility] Work Phone: [phone] (1 source) codeine Drug Allergy 017 intolerance [facility] Work Phone: [phone] (1 source) penicillin v Drug Allergy rash [facility] Work Phone: [phone] (1 source) ULTRUM drug allergy 017 [facility] Work Phone: [phone] (1 source) HCTZ drug allergy muscle aches [facility] Work Phone: [phone] (12 sources) Ciprofloxacin Drug Allergy Other [facility] (17 sources) Codeine; Translations: [CODEINE] Drug Allergy 005 Intolerance [facility] (17 sources) hydroCHLOROthiazide; Translations: [HYDROCHLOROTHIAZIDE] Drug Allergy 009 Intolerance [facility] Comment on above: SORE JOINTS (18 sources) Penicillins; Translations: [PENICILLINS] Allergy to substance 005 Hives [facility] (12 sources) Spironolactone Drug Allergy Causes Potassium to elevate [facility] (18 sources) traMADol; Translations: [TRAMADOL HCL] Drug Allergy Intolerance [facility] Comment on above: MAKES MY HEART GO C RAZY HEART RACES (5 sources) Ciprocinonide; Translations: [CIPROCINONIDE] Drug Intolerance 016 Diarrhea [facility] Work Phone: (1 source) Ciprofloxacin Drug Allergy 06-04-22 [facility] (1 source) Codeine Drug Allergy [facility] (1 source) hydroCHLOROthiazide Drug Allergy [facility] (1 source) Spironolactone Drug Allergy [facility] Medications Current Medications Medication Drug Class(es) Dates Sig (Normalized) Sig (Original) [id number] 200 actuat albuterol 0.09 mg/actuat metered dose inhaler (18 sources) beta2-Adrenergic Agonist Start: 05-22-2024 take 2 puff(s) by inhalation every four hours as needed for wheezing albuterol HFA (PROVENTIL HFA, VENTOLIN HFA) 90 mcg/actuation inhaler Inhale 2 Puffs as instructed every 4 hours as needed for wheezing/shortnes s of breath. 8 g 05/22/2024 Active Start: 10-07-2022 End: 01-13-2023 Albuterol Sulfate 90 mcg/act uation HFA aerosol inhaler Discontinued 2 NMA INHALATION EVERY 6 HOURS as needed for shortness of breath or wheezing 8.5 0 October 07, 2022 12:00am January 13, 2023 1:11pm Start: 10-07-2022 End: 01-13-2023 take 1 puff(s) by inhalation every six hours Albuterol Sulfate Discontinued 2 PUFF INHALATION EVERY 6 HOURS 8.5 October 06, 2022 11:00pm January 13, 2023 12:11pm Start: 04-24-2016 take 2 puff(s) by in halation every four hours as needed albuterol HFA (PROAIR HFA) 90 mcg/actuation inhaler Inhale 2 Puffs as instructed every 4 hours as needed. 1 Inhaler 0 04/24/2016 Active Start: 04-20-2012 take 2 puff(s) by in halation every four hours as needed for cough albuterol 90 mcg/actuation Aero Indications: Bronchitis , Reactive airway disease Inhale 2 Puffs as instructed every 4 hours as needed (shortness of breath, cough, wheeze. ). With spacer, please. 1 Inhaler 0 04/20/2012 Active Comment on above: Inhale 2 Puffs as in structed every 4 hours as needed (shortness of breath, cough, wheeze. ). With spacer, please. Inhale 2 Puffs as in structed every 4 hours as needed. betaine hydrochloride 162 mg / bromelains 125 mg / pancreatin 250 mg / papain 125 mg / pepsin a 65 mg oral capsule (11 sources) Methylating Agent Start: 10-23-2022 Pancreat-Bet Blh-Hjg-Kook-Pap (Super Enzyme) [id number] mg capsule Active 1 NMA PO .with meals October 23, 2022 12:00am Anita.Stocking,Knee,Reg ,Xlrg (11 sources) Start: 10-23-2022 Anita.Stocking,Knee,Re g,Xlrg Active 0 .ROUTE .MEDSUPPLY 2 October 23, 2022 1:18pm As directed for venous inusfficiency 30-40 mmhg Start: 10-23-2022 Anita.Stocki ng,Knee,Reg,Xlrg Active 0 .ROUTE .MEDSUPPLY 2 October 23, 2022 2:18pm As directed for venous inusfficiency 30-40 mmhg Start: 12-15-2018 Anita.Stocki ng,Knee,Reg,Xlrg Active 0 .ROUTE .MEDSUPPLY 2 December 15, 2018 8:56am As directed for venous inusfficiency 30-40 mmhg Start: 12-15-2018 End: 10-23-2022 Anita.Stocking,Knee,Reg,Xl rg Discontinued 0 .ROUTE .MEDSUPPLY 2 December 14, 2018 11:00pm October 23, 2022 1:18pm As directed for venous inusfficiency 30-40 mmhg Start: 12-15-2018 End: 10-23-2022 Anita.Stocking,Knee,Reg,Xl rg Discontinued 0 .ROUTE .MEDSUPPLY 2 December 15, 2018 12:00am October 23, 2022 2:18pm As directed for venous inusfficiency 30-40 mmhg Anita.Stocking,Knee,Reg,Xl rg misc (20 sources) Start: 10-23-2022 Anita.Stocking,Knee,Reg,Xl rg misc Active 0 .ROUTE .MEDSUPPLY 2 October 23, 2022 2:18pm As directed for venous inusfficiency 30-40 mmhg Start: 10-23-2022 Anita.Stocki ng,Knee,Reg,Xlrg misc Active 0 .ROUTE .MEDSUPPLY 2 October 23, 2022 2:18pm As directed for venous inusfficiency 30-40 mmhg Start: 12-15-2018 End: 10-23-2022 Anita.Stocking,Knee,Reg,Xl rg misc Discontinued 0 .ROUTE .MEDSUPPLY 2 3 December 15, 2018 12:00am October 23, 2022 2:18pm As directed for venous inusfficiency 30-40 mmhg Start: 12-15-2018 End: 10-23-2022 Anita.Stocking,Knee,Reg,Xl rg misc Discontinued 0 .ROUTE .MEDSUPPLY 2 December 15, 2018 12:00am October 23, 2022 2:18pm As directed for venous inusfficiency 30-40 mmhg Start: 10-19-2018 End: 11-18-2018 Anita.Stocking,Knee,Reg,Xl rg misc Discontinued 0 .ROUTE .MEDSUPPLY 2 1 October 19, 2018 4:23pm November 18, 2018 10:12am Venous insufficiency (chronic) (peripheral) with zipper, wear daily for venous insufficiency Start: 10-19-2018 End: 11-18-2018 Anita.Stocking,Knee,Reg,Xl rg misc Discontinued 0 .ROUTE .MEDSUPPLY 2 October 19, 2018 4:23pm November 18, 2018 10:12am with zipper, wear daily for venous insufficiency Start: 09-15-2017 End: 10-19-2018 Anita.Stocking,Knee,Reg,Xl rg misc Discontinued 0 .ROUTE .MEDSUPPLY 2 1 September 15, 2017 12:00am October 19, 2018 4:24pm Venous insufficiency (chronic) (peripheral) wear daily for venous insufficiency Start: 09-15-2017 End: 10-19-2018 Anita.Stocking,Knee,Reg,Xl rg misc Discontinued 0 .ROUTE .MEDSUPPLY 2 September 15, 2017 12:00am October 19, 2018 4:24pm wear daily for venous insufficiency Cpap Supplies (19 sources) Start: 01-27-2023 Cpap Supplies Active 0 .Route .MEDSUPPLY 1 0 January 27, 2023 12:00am Obstructive sleep apnea syndrome Obstructive sleep apnea (adult) (pediatric) As directed Start: 01-27-2023 Cpap Supplies Active 0 .Route .MEDSUPPLY 1 January 27, 2023 12:00am As directed Start: 01-27-2023 Cpap Supplies Active 0 .Route .MEDSUPPLY 1 January 26, 2023 11:00pm As directed Start: 08-18-2021 Cpap Supplies Active 0 .Route .MEDSUPPLY 1 August 18, 2021 5:44pm As directed Start: 08-18-2021 Cpap Supplies Active 0 .Route .MEDSUPPLY 1 0 August 18, 2021 1:00am Obstructive sleep apnea syndrome Obstructive sleep apnea (adult) (pediatric) As directed Start: 08-18-2021 Cpap Supplies Active 0 .Route .MEDSUPPLY 1 August 18, 2021 12:00am As directed Start: 08-18-2021 Cpap Supplies Active 0 .Route .MEDSUPPLY 1 August 18, 2021 1:00am As directed HEMP OIL COMPLEX (12 sources) Start: 07-14-2019 HEMP OIL COMPL EX Active PO July 14, 2019 11:58am Start: 07-14-2019 End: 01-13-2023 HEMP OIL COMPLEX Discontinue d PO 0 July 14, 2019 1:00am January 13, 2023 1:12pm Benign endometrial hyperplasia Start: 07-14-2019 End: 01-13-2023 HEMP OIL COMPLEX Discontinue d PO July 14, 2019 12:00am January 13, 2023 12:12pm Start: 07-14-2019 End: 01-13-2023 HEMP OIL COMPLEX Discontinue d PO July 14, 2019 1:00am January 13, 2023 1:12pm Start: 07-14-2019 HEMP OIL COMPL EX Active PO July 14, 2019 1:00am Inhalational Spacing Device (1 source) Start: 05-22-2024 End: 05-22-2024 Inhalational Spacing Device 1 Device one time only for 1 dose. 1 Each 05/22/2024 05/22/2024 Active LORazepam 0.5 mg oral tablet (3 sources) Benzodiazepine Start: 03-19-2015 take 1 tablet by mouth every twelve hours as needed LORazepam (ATIVAN) 0.5 mg tab Take 1 tablet by mouth twice daily as needed. 30 tablet 1 03/19/2015 Active Comment on above: Take 1 tablet by dilcia th twice daily as needed. multivitamin (DAILY VITAMIN) ORAL Tab (3 sources) Start: 04-27-2007 take 1 tablet by mouth once daily multivitamin (DAILY VITAMIN) ORAL Tab Take one(1) tablet daily. 0 04/27/2007 Active Comment on above: Take one(1) tablet d aily. Multivitamin With Folic Acid (6 sources) Start: 06-24-2015 take 1 tablet by mouth once daily Multivitamin With Folic Acid Active 1 TABLET PO DAILY June 24, 2015 3:51pm Start: 06-24-2015 take 1 tablet by dilcia th once daily Multivitamin With Folic Acid Active 1 TABLET PO DAILY June 24, 2015 12:00am Start: 06-24-2015 take 1 tablet by dilcia th once daily Multivitamin With Folic Acid Active 1 TABLET PO DAILY June 24, 2015 1:00am Multivitamin With Folic Acid 1 TABLET tablet (6 sources) Start: 06-24-2015 take 1 tablet by mouth once daily Multivitamin With Folic Acid 1 TABLET tablet Active 1 {tbl} PO DAILY June 24, 2015 1:00am pancreat/betaine/pepsin/ bromel (SUPER ENZYME ORAL) (3 sources) pancreat/betaine /pepsin /bromel (SUPER ENZYME ORAL) Take by mouth once daily. Active pancreat/betaine /pepsin/bromel (SUPER ENZYME ORAL) Take by mouth once daily. 0 Active Comment on above: Take by mouth once d aily. predniSONE 10 mg oral tablet (20 sources) Start: 05-22-2024 predniSONE (DELTASONE) 10 mg tablet Take 4 tabs daily for 3 days, then 2 tabs daily for 3 days, then 1 tab daily for 3 days with food. 21 tablet 05/22/2024 Active Start: 10-07-2022 End: 10-23-2022 take 1 tablet by mouth once daily Prednisone 50 mg tablet Discontinued 50 mg PO DAILY 5 0 October 07, 2022 12:00am October 23, 2022 1:48pm Start: 02-15-2019 End: 03-28-2019 Prednisone 10 mg tablet Disc ontinued 0 PO daily 30 February 15, 2019 12:00am March 28, 2019 11:18am 4 tabs for 3 days, then 3 tabs for 3 days, then 2 tabs for 3 days, then 1 tab for 3 days PO QDAY; administer with food or milk Semaglutide (1 source) Start: 08-12-2023 Semaglutide Ac tive 0.25 MG SC EVERY WEEK August 12, 2023 12:00am for 4 weeks Completed/Discontinued Medications Medication Drug Class(es) Dates Sig (Normalized) Sig (Original) acetaminophen 325 mg / oxyCODONE hydrochloride 5 mg oral tablet (12 sources) Opioid Agonist Start: 03-28-2019 End: 04-28-2019 Oxycodone-Acetamino phen 5-325 mg tablet Discontinued 1 {tbl} PO TWICE A DAY as needed for pain March 28, 2019 April 28, 2019 12:21pm Low back pain Start: 03-28-2019 End: 04-28-2019 take 1 tablet by mouth twice daily Oxycodone-Acetaminophen Discontinued 1 TABLET PO TWICE A DAY March 28, 2019 April 28, 2019 11:21am amLODIPine 10 mg oral tablet (20 sources) Dihydropyridine Calcium Channel Johana Start: 09-15-2017 End: 12-25-2024 take 1 tablet by mouth once daily Amlodipine 10 mg tablet Discontinued 10 mg PO daily 90 3 February 14, 2024 5:32pm November 03, 2024 9:46am Comment on above: Take 1 tablet by dilcia th every afternoon. apixaban 5 mg oral tablet (20 sources) Factor Xa Inhibitor Start: 04-26-2024 take 1 tablet by mouth every twelve hours ELIQUIS 5 mg tab(s) Take 1 tablet by mouth every 12 hours. 04/26/2024 Active Start: 02-27-2024 End: 09-11-2024 take 1 tablet by mouth twice daily Apixaban (Eliquis) 5 mg tablet Discontinued 5 mg PO TWICE A DAY 180 April 26, 2024 4:33pm September 11, 2024 4:37pm aspirin 81 mg delayed release oral tablet (16 sources) Nonsteroidal Anti-inflammatory Drug Start: 06-24-2015 End: 04-12-2024 take 1 tablet by mouth once daily Aspirin 81 MG tablet Discontinued 81 mg PO DAILY@0800 June 24, 2015 1:00am April 12, 2024 2:32pm Start: 03-28-2005 ASPIRIN 81 MG TAB Indications: Unspecified sleep apnea Take one (1) tablet daily . 0 03/28/2005 Active Comment on above: Take one (1) tablet daily . cefuroxime 250 mg oral tablet (12 sources) Cephalosporin Antibacterial Start: 10-08-19 End: 10-19-19 take 1 tablet by mouth twice daily Cefuroxime Axetil 250 mg tablet Discontinued 250 mg PO TWICE A DAY 14 October 07, 2018 12:00am October 18, 2018 8:16am cephalexin 500 mg oral capsule (12 sources) Cephalosporin Antibacterial Start: 02-16-20 End: 03-28-20 take 1 capsule by mouth twice daily Cephalexin (Keflex) 500 mg capsule Discontinued 500 mg PO TWICE A DAY 10 February 15, 2019 12:00am March 28, 2019 11:18am ciprofloxacin 500 mg oral tablet (12 sources) Quinolone Antimicrobial Start: 10-07-19 End: 10-08-19 take 1 tablet by mouth twice daily Ciprofloxacin Hcl (Cipro) 500 mg tablet Discontinued 500 mg PO TWICE A DAY 14 October 06, 2018 12:00am October 07, 2018 8:18am compression stocking,knee high,reg length, x-large circ (12 sources) Start: 10-20-19 End: 11-19-19 compression stocking,knee high,reg length, x-large circ Discontinued 0 .ROUTE .MEDSUPPLY 2 October 19, 2018 3:23pm November 18, 2018 9:12am with zipper, wear daily for venous insufficiency Start: 10-19-2018 End: 11-18-2018 compression stocking,knee hi gh,reg length, x-large circ Discontinued 0 .ROUTE .MEDSUPPLY 2 October 19, 2018 4:23pm November 18, 2018 10:12am with zipper, wear daily for venous insufficiency Start: 09-15-2017 End: 10-19-2018 compression stocking,knee hi gh,reg length, x-large circ Discontinued 0 .ROUTE .MEDSUPPLY 2 September 15, 2017 11:14am October 19, 2018 4:24pm wear daily for venous insufficiency Start: 09-15-2017 End: 10-19-2018 compression stocking,knee hi gh,reg length, x-large circ Discontinued 0 .ROUTE .MEDSUPPLY 2 September 14, 2017 11:00pm October 19, 2018 3:24pm wear daily for venous insufficiency Start: 09-15-2017 End: 10-19-2018 compression stocking,knee hi gh,reg length, x-large circ Discontinued 0 .ROUTE .MEDSUPPLY 2 September 15, 2017 12:00am October 19, 2018 4:24pm wear daily for venous insufficiency ELASTIC BANDAGES & SUPPORTS (1 source) Start: 04-16-2017 MEDICAL COMPRESSION STOCKINGS Apply knee high compression stockings to BLLE daily for Venous Insufficiency I87.2 20-30 mmHG ELASTIC BANDAGES & SUPPORTS [id number] Taras Ge TILE DITCHER-C 24 hr felodipine 5 mg extended release oral tablet (16 sources) Dihydropyridine Calcium Channel Johana Start: 06-24-2015 End: 09-15-2017 take 1 tablet by mouth once daily Felodipine 5 MG tablet extended release 24 hr Discontinued 5 mg PO DAILY June 24, 2015 1:00am September 15, 2017 11:14am Comment on above: Take 1 tablet by dilcia once daily. FLUoxetine 20 mg oral capsule (20 sources) Serotonin Reuptake Inhibitor Start: 06-24-2015 End: 11-03-2024 take 1 capsule by mouth once daily Fluoxetine 20 mg capsule Discontinued 0 .ROUTE .COMPLEX 90 3 October 02, 2024 4:45pm November 03, 2024 9:46am TAKE 1 CAPSULE BY MOUTH EVERY DAY Comment on above: Take 1 capsule by mo [facility] once daily. furosemide 20 mg oral tablet (12 sources) Loop Diuretic Start: 06-24-2015 End: 08-12-2017 Furosemide 20 MG tablet Discontinued 20 mg PO NEEDED as needed for Swelling June 24, 2015 1:00am August 12, 2017 6:58pm lisinopril 40 mg oral tablet (20 sources) Angiotensin Converting Enzyme Inhibitor Start: 06-24-2015 End: 03-14-2024 take 1 tablet by mouth once daily Lisinopril 40 mg tablet Discontinued 40 mg PO DAILY 90 3 May 28, 2023 2:05pm March 14, 2024 10:58am Comment on above: Take 1 tablet by dilcia once daily. medroxyPROGESTERone acetate 10 mg oral tablet (20 sources) Progestin Start: 04-28-2019 End: 07-14-2019 take 1 tablet by mouth once daily Medroxyprogesterone 10 mg tablet Discontinued 10 mg PO daily 30 4 June 06, 2019 4:06pm July 14, 2019 11:57am metoprolol tartrate 25 mg oral tablet (20 sources) beta-Adrenergic Johana Start: 03-26-2024 metoprolol tartrate, short acting, (LOPRESSOR) 25 mg tablet TAKE HALF A TAB (1/2 X 25 MG) ORALLY TWICE A DAY 03/26/2024 Active Start: 03-13-2024 End: 12-08-2024 Metoprolol Tartrate 25 mg ta blet Discontinued 12.5 mg PO TWICE A DAY 90 0 September 22, 2024 12:30pm December 08, 2024 8:22am Start: 02-27-2024 End: 03-13-2024 take 1 tablet by mouth twice daily Metoprolol Tartrate 25 mg tablet Discontinued 25 mg PO TWICE A DAY 60 0 February 27, 2024 12:00am March 13, 2024 2:32pm metroNIDAZOLE 500 mg oral tablet (12 sources) Nitroimidazole Antimicrobial Start: 10-06-2018 End: 10-18-2018 take 1 tablet by mouth every eight hours Metronidazole (Flagyl) 500 mg tablet Discontinued 500 mg PO Q8H 21 0 October 06, 2018 12:00am October 18, 2018 8:17am 24 hr oxybutynin chloride 5 mg extended release oral tablet (12 sources) Cholinergic Muscarinic Antagonist Start: 03-13-2024 End: 11-03-2024 take 1 tablet by mouth once daily Oxybutynin Chloride 5 mg tablet extended release 24hr Discontinued 5 mg PO daily 30 2 April 07, 2024 2:29pm November 03, 2024 9:45am oxyCODONE hydrochloride 5 mg oral capsule (20 sources) Opioid Agonist Start: 01-26-2023 End: 02-17-2023 take 1 capsule by mouth every six hours as needed for pain Oxycodone 5 mg capsule Discontinued 5 mg PO EVERY 6 HOURS as needed for pain 5 3 0 January 26, 2023 February 17, 2023 9:48am Status post dilation and curettage Other specified postprocedural states Start: 10-13-2018 End: 10-18-2018 take 1 tablet by mouth every six hours as needed for pain Oxycodone 5 MG tablet Discontinued 5 mg PO EVERY 6 HOURS NEEDED as needed for Severe Pain (6-10/10) 20 6 0 October 13, 2018 12:00am October 18, 2018 12:00am October 18, 2018 8:17am Calculus of gallbladder with acute on chronic cholecystitis without obstruction phenazopyridine hydrochloride 100 mg oral tablet (12 sources) Start: 02-15-2019 End: 03-28-2019 take 1 tablet by mouth three times daily as needed for pain Phenazopyridine (Pyridium) 100 mg tablet Discontinued 100 mg PO THREE TIMES A DAY as needed for pain 6 0 0 February 15, 2019 12:00am March 28, 2019 11:18am progesterone 100 mg oral capsule (20 sources) Progesterone Start: 02-17-2023 End: 08-12-2023 take 1 capsule by mouth once daily at bedtime Progesterone Micronized 100 mg capsule Discontinued 0 .ROUTE .COMPLEX 30 March 15, 2023 8:03am August 12, 2023 2:48pm TAKE 1 CAPSULE BY MOUTH EVERYDAY AT BEDTIME Start: 09-06-2019 End: 02-15-2020 take 1 capsule by mouth at bedtime Progesterone Micronized (Prometrium) 200 mg capsule Discontinued 200 mg PO AT BEDTIME 12 12 September 06, 2019 12:00am February 15, 2020 11:00am first 12 days each month Semaglutide 0.25 mg or 0.5 m g (2 mg/3 mL) pen injector (6 sources) Start: 08-12-2023 End: 01-21-2024 Semaglutide 0.25 mg or 0.5 m g (2 mg/3 mL) pen injector Discontinued 0.25 mg SC EVERY WEEK 3 0 August 12, 2023 1:00am January 21, 2024 1:31pm for 4 weeks Start: 08-12-2023 End: 01-21-2024 Semaglutide 0.25 mg or 0.5 m g (2 mg/3 mL) pen injector Discontinued 0.25 mg SC EVERY WEEK 3 August 12, 2023 1:00am January 21, 2024 1:31pm for 4 weeks spironolactone 25 mg oral tablet (12 sources) Aldosterone Antagonist Start: 11-18-2018 End: 02-15-2019 take 1 tablet by mouth once daily Spironolactone 25 mg tablet Discontinued 25 mg PO DAILY 20 07November 18, 2018 12:00am February 15, 2019 10:32am tiZANidine 2 mg oral tablet (20 sources) Central alpha-2 Adrenergic Agonist Start: 01-28-2023 End: 08-09-2023 take 1 tablet by mouth at bedtime as needed Tizanidine Active 0 .ROUTE .COMPLEX 90 August 09, 2023 8:33am TAKE 1 TABLET BY MOUTH AT BEDTIME NEEDED FOR MUSCLE SPASTICITY Start: 02-15-2020 End: 12-25-2024 take 1 tablet by mouth at bedtime as needed Tizanidine 2 mg tablet Discontinued 0 .ROUTE .COMPLEX 90 July 03, 2024 2:14pm November 03, 2024 9:46am TAKE 1 TABLET BY MOUTH AT BEDTIME NEEDED FOR MUSCLE SPASTICITY Start: 03-10-2019 End: 03-28-2019 take 1 tablet by mouth at bedtime as needed Tizanidine Discontinued 0 .ROUTE .COMPLEX March 10, 2019 10:30am March 28, 2019 10:19am TAKE 1 TABLET BY MOUTH AT BEDTIME NEEDED FOR MUSCLE SPASTICITY Start: 02-15-2019 End: 03-28-2019 take 1 tablet by mouth at bedtime as needed Tizanidine 2 mg tablet Discontinued 0 .ROUTE .COMPLEX 30 0 March 10, 2019 11:30am March 28, 2019 11:19am TAKE 1 TABLET BY MOUTH AT BEDTIME NEEDED FOR MUSCLE SPASTICITY Problems Active Problems Problem Classification Problem Date Documented Da te Episodic/Chronic Abdominal hernia (2 sources) Umbilical hernia; Translations: [Umbilical hernia without obstruction or gangrene] Onset: 3 03-24-2023 Episodic Acute and unspecified renal failure (12 sources) Renal failure syndrome; Translations: [Unspecified kidney failure] 09-01-2022 Chronic Comment on above: history of after gal l bladder surgery, fully recovered Anxiety disorders (20 sources) Mixed anxiety and depressive disorder; Translations: [Anxiety disorder, unspecified] Onset: 7 04-16-2017 Chronic Asthma (15 sources) Asthmatic bronchitis; Translations: [Unspecified asthma with (acute) exacerbation] 10-07-2022 Chronic Biliary tract disease (12 sources) Gallbladder calculus with acute cholecystitis and no obstruction; Translations: [Calculus of gallbladder with acute and chronic cholecystitis without obstruction] 09-01-2022 Episodic Cancer; other and unspecified primary (12 sources) H/O: neoplasm; Translations: [Personal history of other benign neoplasm] 10-12-2018 Episodic Cardiac dysrhythmias (12 sources) Atrial fibrillation; Translations: [Unspecified atrial fibrillation] Onset: 4 11-03-2024 Chronic Conditions associated with dizziness or vertigo (7 sources) Dizziness; Translations: [Dizziness and giddiness] Onset: 4 11-03-2024 Episodic Diabetes mellitus without complication (16 sources) Prediabetes; Translations: [Prediabetes] Onset: 5 01-13-2023 Episodic Diseases of mouth; excluding dental (7 sources) Mucous membrane dryness; Translations: [Dry mouth, unspecified] Onset: 4 11-03-2024 Episodic Disorders of lipid metabolism (5 sources) Hyperlipidemia; Translations: [Hyperlipidemia, unspecified] Onset: 5 03-24-2023 Chronic Esophageal disorders (12 sources) Gastroesophageal reflux disease; Translations: [Gastro-esophageal reflux disease without esophagitis] 04-18-2019 Chronic Essential hypertension (20 sources) Hypertensive disorder; Translations: [Essential (primary) hypertension] Onset: 7 04-16-2017 Chronic Comment on above: CONTROLLED WITH MED Fluid and electrolyte disorders (7 sources) Hyperkalemia; Translations: [Hyperkalemia] Onset: 4 03-02-2024 Episodic Immunizations and screening for infectious disease (2 sources) Needs influenza immunization; Translations: [Encounter for immunization] 05-24-2023 Episodic Menopausal disorders (16 sources) Postmenopausal bleeding; Translations: [Postmenopausal bleeding] 09-01-2022 Chronic Mood disorders (9 sources) Depressive disorder; Translations: [Depression] 04-18-2019 Chronic Other aftercare (4 sources) Long-term current use of anticoagulant; 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] 11-30-2024 Episodic Other diseases of bladder and urethra (6 sources) Overactive bladder; Translations: [Overactive bladder] 11-03-2024 Chronic Comment on above: PREVIOUSLY ON MED Other diseases of veins and lymphatics (12 sources) Vascular insufficiency; Translations: [Venous insufficiency (chronic) (peripheral)] 10-12-2018 Episodic Other ear and sense organ disorders (12 sources) Hearing loss; Translations: [Unspecified hearing loss, unspecified ear] 04-18-2019 Chronic Other ear and sense organ disorders (1 source) Unspecified hearing loss, unspecified ear; Translations: [Unspecified hearing loss] 01-19-2023 Chronic Other ear and sense organ disorders (3 sources) Hearing loss of right ear; Translations: [Unspecified hearing loss, right ear] Onset: 6 08-08-2015 Chronic Other female genital disorders (16 sources) Abnormal uterine and vaginal bleeding, unspecified; Translations: [Abnormal uterine bleeding] Onset: 3 04-16-2017 Chronic Comment on above: needs d and c hyster oscopy Other female genital disorders (12 sources) Simple endometrial hyperplasia; Translations: [Benign endometrial hyperplasia] 04-28-2019 Chronic Comment on above: 02/17/23 prometrium 1 00mg QHS. EMB 1 yr JV Other female genital disorders (4 sources) Benign endometrial hyperplasia; Translations: [Endometrial hyperplasia, unspecified] 01-13-2023 Chronic Other female genital disorders (2 sources) Vaginal bleeding; Translations: [Abnormal uterine and vaginal bleeding, unspecified] 12-25-2024 Chronic Other female genital disorders (11 sources) H/O: premature delivery 01-14-2022 Episodic Comment on above: [birth year], 25w gestation, a nd in 1999 at 29w gestation Other gastrointestinal disorders (7 sources) H/O: abdominal hernia; Translations: [Personal history of other diseases of the digestive system] 02-07-2023 Episodic Other gastrointestinal disorders (4 sources) Occult blood in stools; Translations: [Other fecal abnormalities] 12-06-2024 Episodic Other lower respiratory disease (5 sources) Cough; Translations: [Cough] 10-07-2022 Episodic Other lower respiratory disease (2 sources) Cough; Translations: [Acute cough] 05-22-2024 Episodic Other lower respiratory disease (6 sources) Dyspnea; Translations: [Shortness of breath] 11-03-2024 Episodic Other nervous system disorders (6 sources) Cervical myelopathy; Translations: [Disease of spinal cord, unspecified] 09-07-2024 Chronic Other non-traumatic joint disorders (7 sources) Pain in left knee; Translations: [Left knee pain] Onset: 5 07-05-2024 Episodic Other nutritional; endocrine; and metabolic disorders (17 sources) Morbid obesity; Translations: [Morbid (severe) obesity due to excess calories] Onset: 3 Resolved: 6 10-12-2018 Chronic Other nutritional; endocrine; and metabolic disorders (8 sources) Morbid (severe) obesity due to excess calories; Translations: [Morbid obesity] Onset: 3 10-23-2022 Chronic Other nutritional; endocrine; and metabolic disorders (1 source) Severe obesity; Translations: [Morbid (severe) obesity due to excess calories] 03-24-2023 Chronic Other nutritional; endocrine; and metabolic disorders (3 sources) Body mass index 40+ - severely obese; Translations: [Body mass index (BMI) 70 or greater, adult] Onset: 6 07-12-2015 Chronic Other nutritional; endocrine; and metabolic disorders (1 source) Body mass index (BMI) 70 or greater, adult; Translations: [Class 3 severe obesity with serious comorbidity and body mass index (BMI) greater than or equal to 70 in adult, unspecified obesity type (HCC)] Onset: 3 Chronic Other screening for suspected conditions (not mental disorders or infectious disease) (3 sources) Endometrium thickened; Translations: [Abnormal findings on diagnostic imaging of other specified body structures] Onset: 3 11-23-2012 Chronic Other screening for suspected conditions (not mental disorders or infectious disease) (19 sources) Patient encounter status; Translations: [Encounter for screening for malignant neoplasm of colon] Onset: 4 02-07-2023 Episodic Other upper respiratory disease (12 sources) Seasonal allergic rhinitis; Translations: [Other seasonal allergic rhinitis] 04-18-2019 Chronic Other upper respiratory disease (5 sources) Congestion of nasal sinus; Translations: [Nasal congestion] 10-07-2022 Episodic Other upper respiratory infections (1 source) Acute upper respiratory infection; Translations: [Acute upper respiratory infection, unspecified] 05-22-2024 Episodic Residual codes; unclassified (12 sources) Obstructive sleep apnea syndrome; Translations: [Obstructive sleep apnea (adult) (pediatric)] 08-18-2021 Chronic Residual codes; unclassified (4 sources) Sleep apnea; Translations: [Sleep apnea, unspecified] Onset: 3 10-21-2012 Chronic Residual codes; unclassified (1 source) Obstructive sleep apnea (adult) (pediatric); Translations: [Obstructive sleep apnea (adult)(pediatric)] Chronic Residual codes; unclassified (1 source) Family history of cancer of colon; Translations: [Family history of malignant neoplasm of digestive organs] 03-24-2023 Episodic Residual codes; unclassified (1 source) Family history of malignant neoplasm of digestive organs; Translations: [Family history of colon cancer requiring screening colonoscopy] Onset: 3 Episodic Spondylosis; intervertebral disc disorders; other back problems (1 source) Spondylosis without myelopathy or radiculopathy, cervical region; Translations: [Spondylosis without myelopathy or radiculopathy, cervical region] Onset: 5 Chronic Spondylosis; intervertebral disc disorders; other back problems (20 sources) Chronic low back pain; Translations: [Cervical radiculopathy] Onset: 7 04-16-2017 Episodic Unclassified (1 source) Acute cough; Translations: [Acute cough] Onset: 4 Unclassified (10 sources) M54.12 - Radiculopathy, cervical region,M54.16 - Radiculopathy, lumbar region Unclassified (1 source) Low back pain, unspecified; Translations: [Low back pain, unspecified] Onset: 5 Past or Other Problems Problem Classification Problem Date Documented Da te Episodic/Chronic Gastrointestinal hemorrhage (2 sources) Hematochezia; Translations: [Melena] Onset: 04-27-2007 Resolved: 07-12-2015 07-12-2015 Episodic Intestinal infection (3 sources) Clostridium difficile diarrhea; Translations: [Enterocolitis due to Clostridium difficile, not specified as recurrent] Onset: 08-08-2015 08-08-2015 Episodic Other diseases of veins and lymphatics (1 source) Peripheral venous insufficiency; Translations: [Venous insufficiency (chronic) (peripheral)] Onset: 04-16-2017 04-16-2017 Episodic Other eye disorders (1 source) Dry eye syndrome of bilateral lacrimal glands; Translations: [Dry eye syndrome of bilateral lacrimal glands] Onset: 03-13-2024 Episodic Other lower respiratory disease (1 source) Shortness of breath; Translations: [Shortness of breath] Onset: 04-17-2024 Episodic Other nervous system disorders (1 source) Impairment of balance; Translations: [Unspecified lack of coordination] Onset: 04-16-2017 04-16-2017 Episodic Other nutritional; endocrine; and metabolic disorders (2 sources) Metabolic syndrome X; Translations: [Dysmetabolic syndrome X] Resolved: 07-12-2015 07-12-2015 Chronic Results Test Name Value Interpretation Reference Range Facility Anion gap in Serum or Plasma Ordered By: Bushra Wynne on 12-20-2024 Anion gap [Moles/Vol] 12 mmol/L 11-02 [facility] BUN/creatinine ratioOrdered By: Bushra Wynne on 12-20-2024 Urea nitrogen/Creatinine [Mass ratio] 24.0 mg/mg High 04-09 [facility] Basic Metabolic Profile (BMP )on 12-20-2024 BUN/CRE 24.0 RATIO High 04-09 [facility] Comment on above: Performed By: #### L 500.2500 ####[facility] [address] [place], [address] Calcium [Mass/Vol] 9.3 mg/dL Normal 7.6-11.0 [facility] Comment on above: Performed By: #### L 500.2500 ####[facility] [address] [place], [address] Chloride [Moles/Vol] 102 mmol/L Normal 98-108 [facility] Comment on above: Performed By: #### L 500.2500 ####[facility] [address] [place], [address] CO2 [Moles/Vol] 22.2 mmol/L Normal 21.0-32.0 [facility] Comment on above: Performed By: #### L 500.2500 ####[facility] [address] [place], [address] Creatinine [Mass/Vol] 1.00 mg/dL Normal 0.70-1.20 [facility] Comment on above: Performed By: #### L 500.2500 ####[facility] [address] [place], [address] GAP 12 Normal -15 [facility] Comment on above: Performed By: #### L 500.2500 ####[facility] [address] [place], [address] GFR/1.73 sq M.predicted among non-blacks MDRD (S/P/Bld) [Vol rate/Area] 63 mL/min/{1.73_m2} Normal >60 [facility] Comment on above: Result Comment: mL/m in/1.73m2 CKD-EPI Creatinine Equation (2020) Performed By: #### L 500.2500 ####[facility] [address] [place], [address] Glucose [Mass/Vol] 108 mg/dL High 70-99 [facility] Comment on above: Performed By: #### L 500.2500 ####[facility] [address] [place], [address] Potassium [Moles/Vol] 4.9 mmol/L Normal 3.3-5.1 [facility] Comment on above: Performed By: #### L 500.2500 ####[facility] [address] [place], [address] Sodium [Moles/Vol] 137 mmol/L Normal 133-145 [facility] Comment on above: Performed By: #### L 500.2500 ####[facility] [address] [place], [address] Urea nitrogen [Mass/Vol] 24 mg/dL High 4-19 [facility] Comment on above: Performed By: #### L 500.2500 ####[facility] [address] [place], [address] Carbon dioxide, total [Moles /volume] in Central venous bloodOrdered By: Bushra Wynne on 12-20-2024 CO2 [Moles/Vol] 22.2 mmol/L 21.0-32.0 [facility] Chloride assayOrdered By: Mckayla Wynne on 12-20-2024 Chloride [Moles/Vol] 102 mmol/L 98-108 [facility] Glomerular filtration rate ( GFR) estimation/1.73 sq m using serum, plasma, or whole bOrdered By: Bushra Wynne on 12-20-2024 GFR/1.73 sq M.predicted among non-blacks MDRD (S/P/Bld) [Vol rate/Area] 63 mL/min/{1.73_m2} >60 [facility] Comment on above: mL/min/1.73m2 CKD-EP I Creatinine Equation (2020) Potassium measurement (mass/ volume)Ordered By: Bushra Wynne on 12-20-2024 Potassium (Unsp spec) [Mass/Vol] 4.9 mmol/L 3.3-5.1 [facility] Serum creatinine measurement (mass/volume)Ordered By: jovonnobleborolatoya Wynne on 12-20-2024 Creatinine [Mass/Vol] 1.00 mg/dL 0.70-1.20 [facility] Serum glucose measurement (m ass/volume)Ordered By: Bushra Wynne on 12-20-2024 Glucose [Mass/Vol] 108 mg/dL High 70-99 [facility] Serum or plasma calcium margaret urement (mass/volume)Ordered By: Bushra Wynne on 12-20-2024 Calcium [Mass/Vol] 9.3 mg/dL 7.6-11.0 [facility] Serum or plasma urea nitroge n measurement (mass/volume)Ordered By: Bushra Wynne on 12-20-2024 Urea nitrogen [Mass/Vol] 24 mg/dL High 4-19 [facility] Sodium levelOrdered By: Mc Wynne on 12-20-2024 Sodium [Moles/Vol] 137 mmol/L 133-145 [facility] Gastroenterology Visit Repor ton 12-15-2024 Gastroenterology Visit Report [facility] [address] [place] [address] OFFICE VISIT Date of Service: 12/15/24 MR#: [id number] Acct: [id number] Name: ALESIA CALZADA Rep #: [id number] : 1960 Provider: ADA mills Age/Sex: 64/F Location: [facility] [place] Status: Signed Intake Vital Signs 11/06/24 09:21 Height 5 ft 4 in Intake Visit Reasons: OTHER FECAL ABNORMALITIES Allergies clindamycin Allergy (Severe, Verified 11/29/24 13:07) Hearing loss ciprofloxacin (From Cipro) Allergy (Verified 11/29/24 13:07) Other codeine Allergy (Verified 11/29/24 13:07) Rash hydrochlorothiazide Allergy (Verified 11/29/24 13:07) Other Penicillins (PCN) Allergy (Verified 11/29/24 13:07) Rash tramadol HCl (From Ultram) Allergy (Verified 11/29/24 13:07) Other spironolactone (From Aldactone) Adverse Reaction (Verified 11/29/24 13:07) Causes Potassium to elevate Have you fallen in the past year?: Yes PFSH Medical History 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 Abnormal OKW-iv-dcwkjrbvxt ratio Wears hearing aid Wears glasses Wears partial dentures Wears dentures Anxiety Diabetes Walker as ambulation aid History of renal disease Umbilical hernia Former smoker Shortness of breath on exertion History of pain when walking History of edema History of Holter monitoring History of echocardiogram Cardiology follow-up encounter History of atrial fibrillation Left knee pain Radiculopathy, cervical OAB (overactive bladder) Hyperkalemia Wears hearing aid Restless legs CPAP (continuous positive airway pressure) dependence Asthmatic bronchitis with acute exacerbation Postmenopausal bleeding History of benign breast tumor Venous insufficiency Morbid obesity Hypertension Surgical History History of hysteroscopy H/O dilation and curettage History of tubal ligation History of cholecystectomy History of placement of ear tubes History of D C History of section History of benign breast biopsy Family History Mother CVA (cerebral vascular accident) Hypertension Sister cranial stenosis Father Hypertension Asthma Arthritis Social History household members: spouse Smoking Status: Former smoker how long ago did patient quit smokin alcohol intake: current alcohol intake frequency: holidays/special occasions only Alcohol type: wine substance use type: does not use caffeine: Yes what type of physical activity do you participate in: none seatbelt use: always do you feel safe at home: Yes additional social history: Jclyvsy-Knz-Pni Female Reproductive History Menstrual Ab spontaneous: 3 HPI HPI Details: ALESIA CALZADA, is a 64 F who presents to the office today for establishment with [facility] for colon cancer screening. She had reportedly been scheduled for a colonoscopy last year through [facility] and be came short of breath with palpitations during the bowel preparations. She sough care in the ER and was found to be in atrial fibrillation. She has since then sought cardiology care and has been cleared for future colonoscopy. She remains in Afib, on Eliquis twice daily and metoprolol for rate control. She states that her PCP had her complete routine blood work and was cued to a series of stool OB tests 3 days in a row, testing positive 2 out of the 3. She states that she did eat red meat for several days before and during the stool OB testing. She denies noting any blood, whether dark or bright red. She denies difficulty chewing and swallowing, throat clearing, sinus drainage, heartburn, reflux, abdominal pain, bloating, excess gas, diarrhea, hematochezia, and melena. She will occasionally have bouts of constipation which leads to hemorrhoids. She has a dry cough due to no humidity while using her CPAP at HS. ROS Const Constitutional: No fatigue, fever(s) or weight change ENT ENT: No difficulty swallowing Cardio Cardiology: Positive for leg pain with exertion Gastro GI: No abdominal pain, belching, bloating, change in bowel habits, change in stool character, coffee ground emesis, constipation, cramping, diarrhea, heartburn, difficulty swallowing, feeling full early, excessive flatus, incontinent of stools, Vomiting blood/hematemesis, Blood in stool, loose stools, Black,tarry stools, nausea/dyspepsia, pain with swallowing, vomiting or other Musc Musculoskeletal: Positive for abnormal gait, joint pain, back pain, muscle cramps, numbness, tingling, sciatica, leg pain at night and leg pain with exertion Skin Skin: No yellowing of the eye or itchy eyes Neuro Neuro (more content not included)... Normal [facility] Stool Occult Blood iFOBon STOB Positive Normal [facility] Comment on above: Performed By: #### M 100.8473 ####[facility] [address] [place], [address] Stool gastrointestinal hemog lobin detection by immunologic methodOrdered By: Bushra Wynne on 12-06-2024 Lower GI hemoglobin IA Ql (Stl) [facility] Stool gastrointestinal hemog lobin detection by immunologic methodOrdered By: Efursula Wynne on 12-05-2024 Lower GI hemoglobin IA Ql (Stl) Positive Abnormal [facility] Stool gastrointestinal hemog lobin detection by immunologic methodOrdered By: ursula Wynne on 12-04-2024 Lower GI hemoglobin IA Ql (Stl) Positive Abnormal [facility] Absolute lymphocyte countOrd ered By: Mcnobleborolatoya Wynne on 11-29-2024 Lymphocytes Auto (Unsp spec) [#/Vol] 1.89 10*3/uL 0.83-4.51 [facility] Absolute neutrophil countOrd ered By: Bushra Wynne on 11-29-2024 Neutrophils (Bld) [#/Vol] 5.1 10*3/uL 2.0-7.7 [facility] Anion gap in Serum or Plasma Ordered By: Bushra Wynne on 11-29-2024 Anion gap [Moles/Vol] 12 mmol/L 5-15 [facility] Automated lymphocyte count a s percentage of total leukocytesOrdered By: Bushra Wynne on 11-29-2024 Lymphocytes/100 WBC Auto (Unsp spec) 24.3 % 19-41 [facility] BUN/creatinine ratioOrdered By: Bushra Wynne on 11-29-2024 Urea nitrogen/Creatinine [Mass ratio] 31.6 mg/mg High 10-20 [facility] Basophil percentageOrdered B y: Bushra Wynne on 11-29-2024 Basophils/100 WBC (Bld) 0.4 % 0-1 [facility] Bilirubin, totalOrdered By: Bushra Wynne on 11-29-2024 Bilirubin [Mass/Vol] 0.26 mg/dL 0.00-1.30 [facility] CBC W/Diff, Automatedon 11-19 Absolute Lymph 1.89 X10 3/uL Normal 0.83-4.51 [facility] Comment on above: Performed By: #### L 100.0100, L500.4050, L500.4100 #### [facility] [address] [place], [address] Absolute Neut 5.1 X10 3/uL Normal 2.0-7.7 [facility] Comment on above: Performed By: #### L 100.0100, L500.4050, L500.4100 #### [facility] [address] [place], [address] Basophils/100 WBC (Bld) 0.4 % Normal 0-1 [facility] Comment on above: Performed By: #### L 100.0100, L500.4050, L500.4100 #### [facility] [address] [place], [address] Eosinophils/100 WBC (Bld) 3.1 % Normal 0-5 [facility] Comment on above: Performed By: #### L 100.0100, L500.4050, L500.4100 #### [facility] [address] [place], [address] Erythrocyte distribution width (RBC) [Ratio] 13.4 % Normal 11.6-14.6 [facility] Comment on above: Performed By: #### L 100.0100, L500.4050, L500.4100 #### [facility] [address] [place], [address] Hematocrit (Bld) [Volume fraction] 43.7 % Normal 37-47 [facility] Comment on above: Performed By: #### L 100.0100, L500.4050, L500.4100 #### [facility] [address] [place], [address] Hemoglobin (Bld) [Mass/Vol] 14.4 g/dL Normal 12.0-15.0 [facility] Comment on above: Performed By: #### L 100.0100, L500.4050, L500.4100 #### [facility] [address] [place], [address] IG% 0.400 Normal 0.0-0.9 [facility] Comment on above: Result Comment: IG% - Immature Granulocytes (promyelocytes, myelocytes and metamyelocytes) > 1% indicates that a LEFT SHIFT is Present. Performed By: #### L 100.0100, L500.4050, L500.4100 #### [facility] [address] [place], [address] Lymphocytes/100 WBC (Bld) 24.3 % Normal 19-41 [facility] Comment on above: Performed By: #### L 100.0100, L500.4050, L500.4100 #### [facility] [address] [place], [address] MCH (RBC) [Entitic mass] 30.9 pg Normal 27.0-32.0 [facility] Comment on above: Performed By: #### L 100.0100, L500.4050, L500.4100 #### [facility] [address] [place], [address] MCHC (RBC) [Mass/Vol] 33.0 g/dL Normal 32-36 [facility] Comment on above: Performed By: #### L 100.0100, L500.4050, L500.4100 #### [facility] [address] [place], [address] MCV (RBC) [Entitic vol] 93.8 fL Normal 81-99 [facility] Comment on above: Performed By: #### L 100.0100, L500.4050, L500.4100 #### [facility] [address] [place], [address] Monocytes/100 WBC (Bld) 6.0 % Normal 0-10 [facility] Comment on above: Performed By: #### L 100.0100, L500.4050, L500.4100 #### [facility] [address] [place], [address] Neutrophils/100 WBC (Bld) 65.8 % Normal 47-70 [facility] Comment on above: Performed By: #### L 100.0100, L500.4050, L500.4100 #### [facility] [address] [place], [address] Nucleated RBC (Bld) [#/Vol] 0 10*3/uL Normal 0-5 [facility] Comment on above: Performed By: #### L 100.0100, L500.4050, L500.4100 #### [facility] [address] [place], [address] Platelet mean volume (Bld) [Entitic vol] 10.0 fL Normal 6.2-12.0 [facility] Comment on above: Performed By: #### L 100.0100, L500.4050, L500.4100 #### [facility] [address] [place], [address] Platelets (Bld) [#/Vol] 339 10*3/uL Normal 150-450 [facility] Comment on above: Performed By: #### L 100.0100, L500.4050, L500.4100 #### [facility] [address] [place], [address] RBC (Bld) [#/Vol] 4.66 10*6/uL Normal 4.2-5.4 [facility] Comment on above: Performed By: #### L 100.0100, L500.4050, L500.4100 #### [facility] [address] [place], [address] RDW SD 46.0 fl High 35.1-43.9 [facility] Comment on above: Performed By: #### L 100.0100, L500.4050, L500.4100 #### [facility] [address] [place], [address] WBC (Bld) [#/Vol] 7.8 10*3/uL Normal 4.4-11.0 [facility] Comment on above: Performed By: #### L 100.0100, L500.4050, L500.4100 #### [facility] [address] [place], [address] Calculated very low density lipoprotein (VLDL) cholesterol measurementOrdered By: Bushra Wynne on 11-29-2024 Calculated very low density lipoprotein (VLDL) cholesterol measurement 30 mg/dL 5-40 [facility] Carbon dioxide, total [Moles /volume] in Central venous bloodOrdered By: Bushra Wynne on 11-29-2024 CO2 [Moles/Vol] 19.6 mmol/L Low 21.0-32.0 [facility] Chloride assayOrdered By: Mckayla Wynne on 11-29-2024 Chloride [Moles/Vol] 106 mmol/L 98-108 [facility] Comprehensive Metabolic Prof ilon 11-29-2024 Albumin [Mass/Vol] 4.0 g/dL Normal 3.4-4.8 [facility] Comment on above: Performed By: #### L 100.0100, L500.4050, L500.4100 #### [facility] [address] [place], [address] Albumin/Globulin [Mass ratio] 1.2 {ratio} Normal 0.9-2.4 [facility] Comment on above: Performed By: #### L 100.0100, L500.4050, L500.4100 #### [facility] [address] [place], [address] ALK PHOS 102 U/L Normal 35-104 [facility] Comment on above: Performed By: #### L 100.0100, L500.4050, L500.4100 #### [facility] [address] [place], [address] ALT [Catalytic activity/Vol] 24 U/L Normal <=34 [facility] Comment on above: Performed By: #### L 100.0100, L500.4050, L500.4100 #### [facility] [address] [place], [address] AST [Catalytic activity/Vol] 18 U/L Normal <=31 [facility] Comment on above: Performed By: #### L 100.0100, L500.4050, L500.4100 #### [facility] [address] [place], [address] Bilirubin [Mass/Vol] 0.26 mg/dL Normal 0.00-1.30 [facility] Comment on above: Performed By: #### L 100.0100, L500.4050, L500.4100 #### [facility] [address] [place], [address] BUN/CRE 31.6 RATIO High 10-20 [facility] Comment on above: Performed By: #### L 100.0100, L500.4050, L500.4100 #### [facility] [address] [place], [address] Calcium [Mass/Vol] 9.5 mg/dL Normal 7.6-11.0 [facility] Comment on above: Performed By: #### L 100.0100, L500.4050, L500.4100 #### [facility] [address] [place], [address] Chloride [Moles/Vol] 106 mmol/L Normal 98-108 [facility] Comment on above: Performed By: #### L 100.0100, L500.4050, L500.4100 #### [facility] [address] [place], [address] CO2 [Moles/Vol] 19.6 mmol/L Low 21.0-32.0 [facility] Comment on above: Performed By: #### L 100.0100, L500.4050, L500.4100 #### [facility] [address] [place], [address] Creatinine [Mass/Vol] 1.07 mg/dL Normal 0.70-1.20 [facility] Comment on above: Performed By: #### L 100.0100, L500.4050, L500.4100 #### [facility] [address] [place], [address] GAP 12 Normal 5-15 [facility] Comment on above: Performed By: #### L 100.0100, L500.4050, L500.4100 #### [facility] [address] [place], [address] GFR/1.73 sq M.predicted among non-blacks MDRD (S/P/Bld) [Vol rate/Area] 58 mL/min/{1.73_m2} Low >60 [facility] Comment on above: Result Comment: mL/m in/1.73m2 CKD-EPI Creatinine Equation (2020) Performed By: #### L 100.0100, L500.4050, L500.4100 #### [facility] [address] [place], [address] Globulin (S) [Mass/Vol] 3.2 g/dL Normal 2.2-4.2 [facility] Comment on above: Performed By: #### L 100.0100, L500.4050, L500.4100 #### [facility] [address] [place], [address] Glucose [Mass/Vol] 117 mg/dL High 70-99 [facility] Comment on above: Performed By: #### L 100.0100, L500.4050, L500.4100 #### [facility] [address] [place], [address] Potassium [Moles/Vol] 5.0 mmol/L Normal 3.3-5.1 [facility] Comment on above: Performed By: #### L 100.0100, L500.4050, L500.4100 #### [facility] [address] [place], [address] Sodium [Moles/Vol] 138 mmol/L Normal 133-145 [facility] Comment on above: Performed By: #### L 100.0100, L500.4050, L500.4100 #### [facility] [address] [place], [address] T PROT 7.2 g/dL Normal 5.9-8.4 [facility] Comment on above: Performed By: #### L 100.0100, L500.4050, L500.4100 #### [facility] [address] [place], [address] Urea nitrogen [Mass/Vol] 34 mg/dL High 4-19 [facility] Comment on above: Performed By: #### L 100.0100, L500.4050, L500.4100 #### [facility] [address] [place], [address] Eosinophil percentageOrdered By: Bushra Wynne on 11-29-2024 Eosinophils/100 WBC (Bld) 3.1 % 0-5 [facility] Erythrocyte distribution wid th ratioOrdered By: Bushra Wynne on 11-29-2024 Erythrocyte distribution width (RBC) [Ratio] 13.4 % 11.6-14.6 [facility] Erythrocyte distribution wid th standard deviationOrdered By: Bushra Wynne on 11-29-2024 Erythrocyte distribution width (RBC) [Ratio] 46.0 fl High 35.1-43.9 [facility] Glomerular filtration rate ( GFR) estimation/1.73 sq m using serum, plasma, or whole bOrdered By: Bushra Wynne on 11-29-2024 GFR/1.73 sq M.predicted among non-blacks MDRD (S/P/Bld) [Vol rate/Area] 58 mL/min/{1.73_m2} Low >60 [facility] Comment on above: mL/min/1.73m2 CKD-EP I Creatinine Equation (2020) Hematocrit Auto (Bld) [Volum e fraction]Ordered By: Bushra Wynne on 11-29-2024 Hematocrit (Bld) [Volume fraction] 43.7 % 37-47 [facility] Hemoglobin measurementOrdere d By: Bushra Wynne on 11-29-2024 Hemoglobin (Bld) [Mass/Vol] 14.4 g/dL 12.0-15.0 [facility] Immature granulocytes/100 WB C Auto (Bld)Ordered By: Bushra Wynne on 11-29-2024 Immature granulocytes/100 WBC (Bld) 0.400 % 0.0-0.9 [facility] Comment on above: IG% - Immature Granu locytes (promyelocytes, myelocytes and metamyelocytes) > 1% indicates that a LEFT SHIFT is Present. Internal Medicine Office Vis rosy 11-29-2024 Internal Medicine Office Visit [facility] [address] [place] [address] OFFICE VISIT Date of Service: 11/29/24 MR#: [id number] Acct: [id number] Name: ALESIA CALZADA Rep #: [id number] : 1960 Provider: Dr. 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: No Accompanied by: Self Is patient in pain?: No Allergies clindamycin Allergy (Severe, Verified 11/29/24 13:07) Hearing loss ciprofloxacin (From Cipro) Allergy (Verified 11/29/24 13:07) Other codeine Allergy (Verified 11/29/24 13:07) Rash hydrochlorothiazide Allergy (Verified 11/29/24 13:07) Other Penicillins (PCN) Allergy (Verified 11/29/24 13:07) Rash tramadol HCl (From Ultram) Allergy (Verified 11/29/24 13:07) Other spironolactone (From Aldactone) Adverse Reaction (Verified 11/29/24 13:07) Causes Potassium to elevate Medications ???Medication ???Instructions ???Recorded ???Confirmed ???Type multivitamin with folic acid 400 1 tab PO DAILY 06/24/15 11/29/24 H istory mcg tablet Cpap Supplies #1 ea 08/18/21 11/29/24 Rx Pancreat-Bet OIe-jin-oisi-pap 250 1 cap PO .with meals 10/23/2205/15 History mg-162 mg-65 mg-125 mg capsule (Super Enzyme) anita.gomez,celi e,reg,xlrg #2 ea 10/23/22 11/29/24 Rx Cpap Supplies #1 ea 01/27/23 11/29/24 Rx lisinopril 40 mg tablet 40 mg PO DAILY #90 tabs 03/14/24 0 11/29/24 Rx apixaban 5 mg tablet (Eliquis) 5 mg PO BID #60 tabs 09/11/2411/19 Rx metoprolol tartrate 25 mg tablet 12.5 mg (1/2 x 25 mg) PO BID #90 0 09/22/24 11/29/24 Rx tabs amlodipine 10 mg tablet 10 mg PO QHS 11/03/24 11/29/24 His tory fluoxetine 20 mg capsule 20 mg PO DAILY 11/03/24 11/29/24 H istory tizanidine 2 mg tablet 2 mg PO QHS PRN PRN muscle 5 11/29/24 History spasticity Have you fallen in the past year?: No PFS Medical History Wears hearing aid Wears glasses Wears partial dentures Wears dentures Anxiety Diabetes Walker as ambulation aid History of renal disease Umbilical hernia Former smoker Shortness of breath on exertion History of pain when walking History of edema History of Holter monitoring History of echocardiogram Cardiology follow-up encounter History of atrial fibrillation Left knee pain Radiculopathy, cervical OAB (overactive bladder) Hyperkalemia Wears hearing aid Restless legs CPAP (continuous positive airway pressure) dependence Asthmatic bronchitis with acute exacerbation Postmenopausal bleeding History of benign breast tumor Venous insufficiency Morbid obesity Hypertension Surgical History History of hysteroscopy H/O dilation and curettage History of tubal ligation History of cholecystectomy History of placement of ear tubes History of D C History of section History of benign breast biopsy Family History Mother CVA (cerebral vascular accident) Hypertension Sister cranial stenosis Father Hypertension Asthma Arthritis Social History household members: spouse Smoking Status: Former smoker how long ago did patient quit smokin alcohol intake: current alcohol intake frequency: holidays/special occasions only Alcohol type: wine substance use type: does not use caffeine: Yes what type of physical activity do you participate in: none seatbelt use: always do you feel safe at home: Yes additional social history: Hihxlpl-Pcb-Htt Female Reproductive History Menstrual Ab spontaneous: 3 HPI HPI Chief Complaint: 3m fu Details: ALESIA CALZADA, is a 64 F who presents to the office today for follow-up of her chronic medical conditions. No acute concerns at this time. Currently in therapy for cervical radiculopathy. Therapy sessions said to be going okay. Also follows up with pain management and Ortho. History of hypertension, blood pressure today at 122/78. No chest pain, palpitation or shortness of breath. History of borderline diabetes, A1c today is at 6.2 up from 6. She admits that she has not really made any dietary changes regarding sugars, sweets and carbs. She plans to make changes. Other chronic medical conditions are stable. ROS Const Constitutional: No body ache, excessive sweating, fati (more content not included)... Normal [facility] LDL calc ser/plasOrdered By: Bushra Wynne on 11-29-2024 Cholesterol in LDL [Mass/Vol] 93 mg/dL [facility] Comment on above: Pfwcjmzajh=628-445 m g/dL & Higher Aunx=149 mg/dL or greater Laboratory - Chemistry and C hemistry - challengeOrdered By: Bushra Wynne on 11-29-2024 AST [Catalytic activity/Vol] 18 U/L <32 [facility] - Hematology and Cell countsOrdered By: Bushra Wynne on 11-29-2024 HbA1c (Bld) [Mass fraction] 6.2 % 4.2-6.3 [facility] Lipid Profileon 11-29-2024 CHOL:HDL 3.62 Normal [facility] Comment on above: Performed By: #### L 100.0100, L500.4050, L500.4100 ####[facility] [address] [place], [address] Cholesterol [Mass/Vol] 171 mg/dL Normal <=200 [facility] Comment on above: Result Comment: Chol esterol level, Desirable <200 mg/dL Borderline high cholesterol 200-239 mg/dL High cholesterol >=240 mg/dL Recommendations of the NCEP Adult Treatment Panel for the following risk-cutoff thresholds for the [place] population. Performed By: #### L 100.0100, L500.4050, L500.4100 ####[facility] [address] [place], [address] Cholesterol in HDL [Mass/Vol] 47 mg/dL Normal [facility] Comment on above: Result Comment: Juliann onal Cholesterol Education Program (NCEP) guidelines: <40 mg/dL: Low HDL-cholesterol (major risk factor for CHD) >= 60 mg/dL: High HDL-cholesterol (negative risk factor for CHD) HDL-cholesterol is affected by a number of factors, e.g. smoking, exercise, hormones, sex and age. Performed By: #### L 100.0100, L500.4050, L500.4100 ####[facility] [address] [place], [address] Cholesterol in LDL [Mass/Vol] 93 mg/dL Normal [facility] Comment on above: Result Comment: Bord kpachd=425-836 mg/dL Higher Ltzs=875 mg/dL or greater Performed By: #### L 100.0100, L500.4050, L500.4100 ####[facility] [address] [place], [address] Cholesterol in VLDL [Mass/Vol] 30 mg/dL Normal 5-40 [facility] Comment on above: Performed By: #### L 100.0100, L500.4050, L500.4100 ####[facility] [address] [place], [address] Triglyceride [Mass/Vol] 152 mg/dL Normal [facility] Comment on above: Result Comment: The drugs N-Acetylcysteine and Metamizole may falsely depress this assay. Normal range: <150 mg/dL Borderline High: 150-199 mg/dL High: 200-499 mg/dL Very High: >500 mg/dL Performed By: #### L 100.0100, L500.4050, L500.4100 ####[facility] [address] [place], [address] MCV (mean corpuscular volume ) determinationOrdered By: Bushra Wynne on 11-29-2024 MCV (RBC) [Entitic vol] 93.8 fL 81-99 [facility] Mean corpuscular hemoglobin (MCH) determinationOrdered By: Bushra Wynne on 11-29-2024 MCH (RBC) [Entitic mass] 30.9 pg 27.0-32.0 [facility] Mean corpuscular hemoglobin concentration (MCHC) determinationOrdered By: Bushra Wynne on 11-29-2024 MCHC (RBC) [Mass/Vol] 33.0 g/dL 32-36 [facility] Mean platelet volume determi nationOrdered By: Bushra Wynne on 11-29-2024 Platelet mean volume (Bld) [Entitic vol] 10.0 fL 6.2-12.0 [facility] Monocyte percentageOrdered B y: Bushra Wynne on 11-29-2024 Monocytes/100 WBC (Bld) 6.0 % 0-10 [facility] Neutrophil percentageOrdered By: Bushra Wynne on 11-29-2024 Neutrophils/100 WBC (Bld) 65.8 % 47-70 [facility] Nucleated red blood cell per centageOrdered By: Bushra Wynne on 11-29-2024 Nucleated RBC/100 WBC (Bld) [Ratio] 0 % 0-5 [facility] Platelet countOrdered By: Mckayla Wynne on 11-29-2024 Platelets (Bld) [#/Vol] 339 10*3/uL 150-450 [facility] Potassium measurement (mass/ volume)Ordered By: Bushra Wynne on 11-29-2024 Potassium (Unsp spec) [Mass/Vol] 5.0 mmol/L 3.3-5.1 [facility] RBC Auto (Bld) [#/Vol]Ordere d By: Bushra Wynne on 11-29-2024 RBC (Bld) [#/Vol] 4.66 10*6/uL 4.2-5.4 [facility] Screening total cholesterol/ high density lipoprotein (HDL) cholesterol ratioOrdered By: Bushra Wynne on 11-29-2024 Cholesterol.total/Eva sterol in HDL [Mass ratio] 3.62 {ratio} [facility] Serum creatinine measurement (mass/volume)Ordered By: Bushra Wynne on 11-29-2024 Creatinine [Mass/Vol] 1.07 mg/dL 0.70-1.20 [facility] Serum globulin measurementOr dered By: Bushra Wynne on 11-29-2024 Globulin (S) [Mass/Vol] 3.2 g/dL 2.2-4.2 [facility] Serum glucose measurement (m ass/volume)Ordered By: Bushra Wynne on 11-29-2024 Glucose [Mass/Vol] 117 mg/dL High 70-99 [facility] Serum or plasma alanine cardoza otransferase (ALT) measurementOrdered By: Bushra Wynne on 11-29-2024 ALT [Catalytic activity/Vol] 24 U/L <35 [facility] Serum or plasma albumin margaret urement (mass/volume)Ordered By: Bushra Wynne on 11-29-2024 Albumin [Mass/Vol] 4.0 g/dL 3.4-4.8 [facility] Serum or plasma albumin/glob ulin mass ratioOrdered By: Bushra Wynne on 11-29-2024 Albumin/Globulin [Mass ratio] 1.2 {ratio} 0.9-2.4 [facility] Serum or plasma alkaline familia sphatase measurementOrdered By: Bushra Wynne on 11-29-2024 ALP [Catalytic activity/Vol] 102 U/L 35-104 [facility] Serum or plasma calcium margaret urement (mass/volume)Ordered By: Bushra Wynne on 11-29-2024 Calcium [Mass/Vol] 9.5 mg/dL 7.6-11.0 [facility] Serum or plasma cholesterol in HDL measurement (mass/volume)Ordered By: Bushra Wynne on 11-29-2024 Cholesterol in HDL [Mass/Vol] 47 mg/dL >40 [facility] Comment on above: National Cholesterol Education Program (NCEP) guidelines:<40 mg/dL: Low HDL-cholesterol (major risk factor for CHD)>= 60 mg/dL: High HDL-cholesterol (negative risk factor for CHD)HDL-cholesterol is affected by a number of factors, e.g. smoking, exercise, hormones, sex and age. Serum or plasma cholesterol measurement (mass/volume)Ordered By: Bushra Wynne on 11-29-2024 Cholesterol [Mass/Vol] 171 mg/dL <201 [facility] Comment on above: Cholesterol level, D esirable <200 mg/dLBorderline high cholesterol 200-239 mg/dLHigh cholesterol >=240 mg/dLRecommendations of the NCEP Adult Treatment Panel for the following risk-cutoff thresholds for the [place] population. Serum or plasma urea nitroge n measurement (mass/volume)Ordered By: Bushra Wynne on 11-29-2024 Urea nitrogen [Mass/Vol] 34 mg/dL High - [facility] Sodium levelOrdered By: Mc Wynne on 11-29-2024 Sodium [Moles/Vol] 138 mmol/L 133-145 [facility] Total proteinOrdered By: Emeka Wynne on 11-29-2024 Protein [Mass/Vol] 7.2 g/dL 5.9-8.4 [facility] Triglycerides measurementOrd ered By: Bushra Wynne on 11-29-2024 Triglyceride [Mass/Vol] 152 mg/dL <199 [facility] Comment on above: The drugs N-Acetylcy steine and Metamizole may falsely depress this assay. Normal range: <150 mg/dLBorderline High: 150-199 mg/dLHigh: 200-499 mg/dLVery High: >500 mg/dL White blood cell (WBC) count Ordered By: Bushra Wynne on 11-29-2024 WBC (Bld) [#/Vol] 7.8 10*3/uL 4.4-11.0 [facility] Cerv Spine 4 or 5 Viewson Cerv Spine 4 or 5 Views [facility] Imaging Services [address] [place] [address] Cerv Spine 4 or 5 Views MR#: [id number] Acct: [id number] Name: ALESIA CALZADA Richa Rep #: [id number] : 1960 F 64 From: Rodrigue Smith MD PCP: Dr. Bushra Wynne MD Status: [facility] Study: Cerv Spine 4 or 5 Views Date of Exam: 11/06/24 Exam# [id number] Ordering Dr: Cuong Baptiste MD PROCEDURE: CERV SPINE 4 OR 5 VIEWS 11/06/2024 REASON FOR EXAM: RT MEDIAL BRANCH BLOCK C4 C5 C6 C7 TECHNIQUE: Fluoroscopy with 4 spot images during cervical spine block/injection FINDINGS: Fluoroscopy time 9.9 seconds Cumulative dose 4.45 mGy 4 spot images show unilateral multilevel needle localization. Please see procedural report for further detail. RAD/Cerv Spine 4 or 5 Views IMPRESSION: Fluoroscopy as above. Reading Location: [id number] CC: Dr. Bushra Wynne MD; Dr. Cuong Baptiste MD Physician Credentialing Specialist: Signed [facility] MR/POSTOP.[facility] 11-06-2024 MR/POSTOP.[facility] Medical Records Department [address] [place] [address] Anesthesia Postop Eval I 11/06/24 1005 MR#: [id number] Acct: [id number] Name: ALESIA CALZADA Rep #: [id number] : 1960 64 From: Lana Flores PCP: Dr. Bushra Wynne MD Status:REG SDC Y Race: C Location: [place] [address] Anesthesia: Postop Eval I Current Vital Signs Temperature: 97.5 F Pulse Rate: 67 Blood Pressure: 126/67 Respiratory Rate: 18 Pulse Ox: 96 Assessment Airway patent: Yes Spontaneous unlabored respirations: Yes nausea: No Vomiting: No Anesthesia Complication: No Fluid Hydration Crystalloid volume administer (ml): 100 Total IV fluid infused: 100 Progress Note Anesthesia document: Postop Eval 1 completed: Yes 11/06/24 1047 Date Lana Stearns Signature: Date CC: Signed [facility] MR/[id number] 11-06-2024 MR/POSTOPAN2 [facility] Medical Records Department [address] [place] [address] Anesthesia Postop Eval II 11/06/24 1047 MR#: [id number] Acct: [id number] Name: ALESIA CALZADA Rep #: [id number] : 1960 64 From: Lana Flores PCP: Dr. Bushra Wynne MD Status:REG SDC Y Race: C Location: [place] [address]- Anesthesia Postop Eval I Sum Postop Eval Completion status Anesthesia document: Postop Eval 1 completed: Yes Anesthesia Postop Eval I Summary Anesthesia Postop Eval I Summary: Anesthesia Postop Eval I: Assessment Summary Airway patent Yes 11/06/24 10:46 [employer].CSIR Spontaneous unlabored Yes 11/06/24 10:46 [employer] AND [employer].CSIR respirations Mental status nausea No 11/06/24 10:46 [employer].CSIR Vomiting No 11/06/24 10:46 [employer].CSIR Anesthesia Postop Eval I: Fluid Summary Crystalloid volume administer 100 11/06/24 10:46 [employer].CSIR (ml) Colloids volume administered ( ml) Blood Product volume administered (ml) Total IV fluid infused 100 11/06/24 10:46 [employer] AND [employer].CSIR Anesthesia Postop Eval I: Summary Notes Anesthesia Complication No 11/06/24 10:46 [employer] AND [employer].CSIR Anesthesia Complication Comment: Post-operative progress note Anesthesia: Postop Eval II Evaluation Mental status: Awake Pain Level: 3 nausea: No Vomiting: No 11/06/24 1047 Date Lana Stearns Signature: Date CC: Signed [facility] Operative Reporton Operative Report [facility] Medical Records Department [address] [place] [address] Operative Report 11/06/24 1029 MR#: [id number] Acct: [id number] Name: ALESIA CALZADA Rep #: [id number] : 1960 64 From: Cuong Baptiste MD PCP: Dr. Bushra Wynne MD Status:[place] [facility] [address] Operative Report (Standard) Operative Information Date of Procedure: 11/06/24 Pre-Operative Diagnosis: Cervical spondylosis, cervical degenerative disc disease, cervical facet arthropathy Post-Operative Diagnosis: Cervical spondylosis, cervical degenerative disc disease, cervical facet arthropathy Surgery/Procedure Performed: Right sided cervical medial branch block at C4-5, C5-6, C6-7 pecan mallow dipper: No Type of Anesthesia: Local MAC RN Documented Start/Stop Times: Operation Date: 11/06/24 10:35 Case Time Into Pre-Op 11/06/24 08:49 Anesthesia Start 11/06/24 09:50 Into Room 11/06/24 09:50 Procedure Start 11/06/24 09:56 Procedure End 11/06/24 09:58 Anesthesia End 11/06/24 10:00 Out of Room 11/06/24 10:00 Into Recovery 11/06/24 10:05 Out of Recovery 11/06/24 10:20 Into Phase II Recovery 11/06/24 10:22 Procedure Start Time: 10:30 Procedure Stop Time: 10:30 Select all DRAINS/GRAFTS/IMPLAN TS that apply: None Estimated Blood Loss: 0 Specimen collected: No Description of surgery: ANESTHESIA: MAC. BLOOD LOSS: Minimal. COMPLICATIONS: None. DESCRIPTION OF PROCEDURE: History and physical of today was reviewed. Risks and benefits of the procedure were explained. The patient understood and agreed to proceed. Informed consent was obtained. IV inserted per routine protocol. The patient was taken to the operating room and placed in the prone position with a pillow positioned underneath the chest. The neck area was prepped and draped in a sterile fashion using iodine x3. Under fluoroscopy guidance on an AP view, the C4 through C7 vertebral bodies were visualized at approximately 10-degree angle, starting on the right C4, ending on the right C7, passing through the C5 and C6. Using a 25-gauge 3-1/2-inch spinal needle, the needle was advanced via the skin. The tip of the needle was maneuvered and directed towards the epiphyseal junction of each corresponding vertebra. Once the tip of the needle was at the vicinity of the medial branch, the needle was pulled approximately 2 mm off the bone. After negative aspiration of blood or CSF and confirmation on AP, oblique as well as lateral view, a total of 4 mL of preservative-free 0.25% Marcaine with 80 mg of Depo-Medrol was injected in divided doses between those four levels. The needles were then removed intact. The patient experienced no sign or symptoms of intrathecal or intravascular injection. The patient experienced no paresthesia. The procedure was completed without any apparent difficulty or any complications. The patient appeared to tolerate it well. ASSESSMENT AND PLAN: This is a 64-year-old female with cervical spondylosis, cervical degenerative disc disease, cervical facet arthropathy, status post right-sided cervical medial branch block at C4-C7, patient will continue her current medications, patient will follow-up in approximately 1 to 2 weeks for reevaluation. Surgical Findings: 0 Complications Complications: No Admit VTE Documentation VTE Present on Admission: No VTE Mechan Device Prophylaxis: None VTE Pharm Prophylaxis ordered?: No 11/06/24 1031 Cosigner Signature (if applicable): CC: Dr. Bushra Wynne MD; Dr. Cuong Baptiste MD Signed [facility] MR/PAT.[facility] 11-03-2024 MR/PAT.[facility] Medical Records Department [address] [place] [address] PAT - Anesthesia 11/03/24 1014 MR#: [id number] Acct: [id number] Name: ALESIA CALZADA Rep #: [id number] : 1960 64 From: Daniel Woo MD PCP: Dr. 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 When Was Last Pacemaker Check QUESTION #4 FULL TEXT: You/Your Family Experience fever (hyperthermia) with Anesthesia Last Oral Intake Last Oral intake: Last Oral Intake NPO since Meds taken in AM with sips of water? 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 Female Yes 11/03/24 09:46 HX of Motion Sickness Yes 11/03/24 09:46 HX of N/V After Surgery Yes 11/03/24 09:46 Non-Smoker Yes 11/03/24 09:46 Duration of Surgery greater No 11/03/24 09:46 than 60 minutes Number of Risk Factors 4 11/03/24 09:46 PONV Score Severe Risk 11/03/24 09:46 Height Weight Height Weight: Anesthesia: Height Weight Height 5 ft 4 in 07/21/24 13:06 Respiratory Assessment Respiratory Assessment - salmon troll fisher: Respiratory Tract Infection Hx - salmon troll fisher Hx Respiratory Tract Infection No 11/03/24 09:46 STOP Sleep Apnea STOP Sleep Apnea - salmon troll fisher: STOP Sleep Apnea - salmon troll fisher Hx Hypertension Yes: CONTROLLED WITH MED 11/03/24 09:46 Hx Sleep Apnea Yes 11/03/24 09:46 CPAP Yes 11/03/24 09:46 BIPAP No 11/03/24 09:46 Do you snore loudly (louder than talking or can be heard Do you often feel tired/ fatigued/ sleepy during daytime? Has anyone observed you stop breathing during sleep? STOP Results Positive 11/03/24 09:46 QUESTION #5 FULL TEXT : Do you snore loudly (louder than talking or can be heard through closed doors)? 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 Specify any problems Hx of Preganancy in last 3 No 11/03/24 09:46 Months Nurse Filling Out Transfusion DSCHRIBER 11/03/24 09:46 Questions: Date: 11/03/24 11/03/24 09:46 Time: 09:51 11/03/24 09:46 Patient unable to answer at this time (ie. confused, unrespo /Reproducti on History /Reproducti ve History - salmon troll fisher: /Reproducti ve Hx- salmon troll fisher Hx Now No 11/03/24 09:46 Gestational Age (in weeks): EDC: Hx Hx Para Hx Section SAB No 11/03/24 09:46 PFS Medical History (Updated 11/03/24 @ 09:59 by Latisha Mazariegos) Wears hearing aid Wears glasses Wears partial dentures Wears dentures Anxiety Diabetes Walker as ambulation aid History of renal disease Umbilical hernia Former smoker Shortness of breath on exertion History of pain when walking History of edema History of Holter monitoring History of echocardiogram Cardiology follow-up encounter History of atrial fibrillation Left knee pain Radiculopathy, cervical OAB (overactive bladder) Hyperkalemia Wears hearing aid Restless legs CPAP (continuous positive airway pressure) dependence Asthmatic bronchitis with acute exacerbation Postmenopausal bleeding History of benign breast tumor Venous insufficiency Morbid obesity Hypertension Home Medications ???Medication ???Instructions ???Recorded ? (more content not included)... [facility] Inital Evaluation (1) - PTon 10-27-2024 Inital Evaluation (1) - PT [facility] Physical Therapy [address] [place] [address] / REHABILITATION SERVICES INITIAL EVALUATION MR#: [id number] Acct: [id number] Name: ALESIA CALZADA Rep #: [id number] : 1960 64 From: Maritza Rodriguez PT, Cert. MDT Referring Dr.: OMAR Mccallum Status: REG RCR Insurance: [employer]ARE SELF PAY INSURANCE Patient's Visit Information Visit Information Visit Information: ALESIA CALZADA is a 64 year old F referred to Physical Therapy by OMAR Mccallum with a diagnosis of Cervical and Lumbar Radiculopathy. Date of Evaluation: 10/27/24 Physical Therapist: Maritza Rodriguez, PT, Cert MDT Visit Plan Frequency: 2x /Week Duration: 4-6 Weeks Plan: AQUATIC THERAPY FOR NECK AND BACK PAIN RELIEF, GAIT AND BALANCE TRAINING, POSTURE CORRECTION/STRENGTHE NICOLE, INSTRUCTION IN APPROPRIATE BODY MECHANICS AND ACTIVITY MODIFICATIONS. DLS STARTING WITH A NEUTRAL SPINE PROGRESSING ROM TOLERATED. SALO UE AND LE ROM, STRETCHING AND STRENGTHENING. HEP INSTRUCTION. 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 Present symptoms: NECK PAIN, SALO SHLD PAIN, SALO HAND TINGLING R > L. SALO LOW BACK PAIN, SALO THIGH PAIN, AND SALO LE WEAKNESS. SALO LE STINGING THAT PATIENT RELATES TO LE EDEMA. DENIES LE NUMBNESS. Present since: CHRONIC LOW BACK FOR 10+ YEARS. NECK PAIN X APPROX 1 YEAR. Getting Better, Getting Worse or Staying the Same: LOW BACK PAIN IS STAYING THE SAME, AND NECK PAIN IS GETTING A LITTLE BETTER. Pain Scale: Worst - 8/10 Least - 3/10 Currently: 3/10 Commenced as a result of: NO APPARENT REASON Worse: STANDING, TRANSFERING DAUGHTER, WALKING (CAN NOT WALK WITHOUT ROLLATOR), CAREGIVING DUTIES Better: SITTING DOWN, TYLONOL HELPS A LITTLE BIT, MASSAGE THERAPY. Disturbed sleep: YES - ESPECIALLY HANDS GOING TO SLEEP. Previous history/Previous treatment: [facility] PHYSICAL THERAPY AQUATIC THERAPY WITH BENEFIT, MASSAGE THERAPY WITH BENEFIT. CHIROPRACTIC WITHOUT BENEFIT. This episode: MASSAGE THERAPY, PAIN MGMT CERVICAL JAKOB PENDING 11/06/24 Dizziness: YES Tinnitus: YES Nausea: NO Shortness of Breath: YES Difficulty Swallowing: NO Bowel or Bladder Dysfunction: Bladder Dysfunction at night Gait: ROLLATOR AT ALL TIMES. RAMP IN/OUT OF HOUSE. CAN GO UP/DOWN STEPS WITH ONE RAIL ONE STEP AT A TIME ([facility] A MONTH AGO). FELL ON ICE IN WINTER - NO FX'S. Accidents: NO Unexplained weight loss: NO Imaging: PROCEDURE: SPINE CERVICAL (ROUTINE) 10/17/2024 REASON FOR EXAM: PAIN TECHNIQUE: Multiplanar and multisequence images were obtained without IV contrast administration. COMPARISON: X-ray 08/2024 FINDINGS: Vertebrae: Cervical vertebral body heights are preserved. Bone marrow signal is unremarkable. Alignment: Normal. No spondylolisthesis. Straightening of the normal lordotic curvature. Spinal Cord: Cervical spinal cord is of normal size and signal intensities. Structures at the foramen magnum are unremarkable. C2-3: Unremarkable C3-4: Mild broad disc osteophyte complex produces mild spinal stenosis and mild bilateral neural foraminal stenosis. C4-5: Moderate broad disc osteophyte complex produces moderate spinal stenosis with abutment of the central spinal cord and mild bilateral neural foraminal stenosis. C5-6: Moderate broad disc osteophyte complex produces moderate spinal stenosis with abutment of the central spinal cord and mild bilateral neural foraminal stenosis. C6-7: Moderate broad disc osteophyte complex produces moderate spinal stenosis with abutment of the central spinal cord and mild bilateral neural foraminal stenosis. C7-T1: Unremarkable MRI/Spine Cervical (Routine) IMPRESSION: Degenerative disc disease as described above. PMH/Recent major surgery: Left knee pain Radiculopathy, cervical OAB (overactive bladder) Dry mouth and eyes Atrial fibrillation Shortness of breath Dizziness Hyperkalemia Wears hearing aid Restless legs History of umbilical hernia CPAP (continuous positive airway pressure) dependence Leg cramps Borderline type 2 diabetes mellitus Asthmatic bronchitis with acute exacerbation Obstructive sleep apnea Postmenopausal bleeding Kidney failure Anxiety and depression GERD (gastroesophageal reflux disease) History of benign breast tumor Seasonal allergies Venous insufficiency Hearing impairment Morbid obesity Hypertension History of hysteroscopy H/O dilation and curettage History of tubal ligation History of cholecystectomy History of placement of ear tubes History of D C History of section History of benign breast biopsy Objective Objective: THIS PATIENT AMBULATES INDEP INTO PT X > 300 FEET FROM LOBBY TO TREATMENT ROOM BY POOL WITHOUT REST BREAK (more content not included)... Normal [facility] Spine Cervical (Routine)on 0 10-17-2024 Spine Cervical (Routine) [facility] Imaging Services [address] [place] [id number] Spine Cervical (Routine) MR#: [id number] Acct: [id number] Name: ALESIA CALZADA Rep #: [id number] : 1960 F 64 From: Claudio Waggoner MD PCP: Dr. Bushra Wynne MD Status: REG CLI Study: Spine Cervical (Routine) Date of Exam: Exam# [id number] Ordering Dr: Sonal Aguilar PROCEDURE: SPINE CERVICAL (ROUTINE) 10/17/2024 REASON FOR EXAM: PAIN TECHNIQUE: Multiplanar and multisequence images were obtained without IV contrast administration. COMPARISON: X-ray 08/2024 FINDINGS: Vertebrae: Cervical vertebral body heights are preserved. Bone marrow signal is unremarkable. Alignment: Normal. No spondylolisthesis. Straightening of the normal lordotic curvature. Spinal Cord: Cervical spinal cord is of normal size and signal intensities. Structures at the foramen magnum are unremarkable. C2-3: Unremarkable C3-4: Mild broad disc osteophyte complex produces mild spinal stenosis and mild bilateral neural foraminal stenosis. C4-5: Moderate broad disc osteophyte complex produces moderate spinal stenosis with abutment of the central spinal cord and mild bilateral neural foraminal stenosis. C5-6: Moderate broad disc osteophyte complex produces moderate spinal stenosis with abutment of the central spinal cord and mild bilateral neural foraminal stenosis. C6-7: Moderate broad disc osteophyte complex produces moderate spinal stenosis with abutment of the central spinal cord and mild bilateral neural foraminal stenosis. C7-T1: Unremarkable MRI/Spine Cervical (Routine) IMPRESSION: Degenerative disc disease as described above. Reading Location: [facility] CC: OMAR Mccallum; Dr. Bushra Wynne MD Physician Credentialing Specialist: Signed [facility] Cerv Spine 2 or 3 Viewson Cerv Spine 2 or 3 Views [facility] Imaging Services [address] [place] [id number] Cerv Spine 2 or 3 Views MR#: [id number] Acct: [id number] Name: ALESIA CALZADA Rep #: [id number] : 1960 F 63 From: Taras Ayala MD PCP: Dr. Bushra Wynne MD Status: DEP AMB Study: Cerv Spine 2 or 3 Views Date of Exam: 09/07/24 Exam# [id number] Ordering Dr: Sonal Aguilar PROCEDURE: CERV SPINE 2 OR 3 VIEWS (RADSPCL), 09/07/2024 REASON FOR EXAM: PAIN TECHNIQUE: Lateral views of the cervical spine were obtained in flexion and extension COMPARISON: 07/21/2024 FINDINGS: Evaluation limited at/below the level of the C5-C6 disc space due to superimposition of the shoulders. Fracture/dislocation : None visible. Vertebral body heights: Preserved. Alignment: Limited evaluation in the absence of an AP view. Mild grade 1 anterolisthesis at C2-C3 with flexion, resolving on extension Disc spaces: Variable disc height loss, up to moderate/severe from C3-C6 with prominent anterior disc/osteophyte complexes. Facets: Grossly unremarkable. Soft tissues: Unremarkable. Foreign bodies: None visible. Bone mineralization: Grossly unremarkable. RAD/Cerv Spine 2 or 3 Views IMPRESSION: 1. No acute displaced fracture evident on single projection. 2. Multilevel spondylosis and additional description as above. Reading Location: [facility] CC: OMAR Mccallum; Dr. Bushra Wynne MD Physician Credentialing Specialist: Signed [facility] L/S Spine Min 4 Views08-20 L/S Spine Min 4 Views [facility] Imaging Services [address] [place] [id number] L/S Spine Min 4 Views MR#: [id number] Acct: [id number] Name: ALESIA CALZADA Rep #: [id number] : 1960 F 63 From: Taras Marin MD PCP: Dr. Bushra Wynne MD Status: DEP AMB Study: L/S Spine Min 4 Views Date of Exam: 09/07/24 Exam# [id number] Ordering Dr: Sonal Aguilar EXAM: XR Lumbosacral Spine, 4 or 5 Views CLINICAL INDICATION: CHRONIC PAIN TECHNIQUE: Frontal, lateral and bilateral oblique views of the lumbar spine. COMPARISON: No relevant prior studies available. FINDINGS: VERTEBRAE: Grade 1 anterior spondylolisthesis of L4-L5 without significant change during flexion or extension. Multilevel endplate degenerative change and disc disease of the visualized spine. No acute fracture. SACRUM/COCCYX: Unremarkable as visualized. No acute fracture. DISC SPACES: See above. SOFT TISSUES: Unremarkable. RAD/L/S Spine Min 4 Views IMPRESSION: Grade 1 anterior spondylolisthesis of L4-L5 without significant change during flexion or extension. Reading [facility] CC: OMAR Mccallum; Dr. Bushra Wynne MD Physician Credentialing Specialist: Signed [facility] Orthopedic Visit Reporton Orthopedic Visit Report [facility] [address] [place] [address] OFFICE VISIT Date of Service: 09/07/24 MR#: [id number] Acct: [id number] Name: ALESIA CALZADA Rep #: [id number] : 1960 Provider: OMAR Mccallmu Age/Sex: 63/F Location: [facility] Status: Signed Intake Vital Signs 07/21/24 13:06 Height 5 ft 4 in Weight: 413 lb BMI 70.9 BP 128/75 H Blood Pressure Location Lt brachial Position Sitting Respiration 18 Pulse 80 Pulse Source Monitor Pulse Oximetry (%) 97 Intake Visit Reasons: CERVICAL SPINE Accompanied by: Self Is patient in pain?: Yes Allergies clindamycin Allergy (Severe, Verified 09/07/24 11:00) Hearing loss ciprofloxacin (From Cipro) Allergy (Verified 09/07/24 11:00) Other codeine Allergy (Verified 09/07/24 11:00) Rash hydrochlorothiazide Allergy (Verified 09/07/24 11:00) Other Penicillins (PCN) Allergy (Verified 09/07/24 11:00) Rash tramadol HCl (From Ultram) Allergy (Verified 09/07/24 11:00) Other spironolactone (From Aldactone) Adverse Reaction (Verified 09/07/24 11:00) Causes Potassium to elevate Medications ???Medication ???Instructions ???Recorded ???Confirmed ???Type multivitamin with folic acid 400 1 tab PO DAILY 06/24/15 09/07/24 H istory mcg tablet Cpap Supplies #1 ea 08/18/21 09/07/24 Rx Pancreat-Bet OMo-rep-ryyw-pap 250 1 cap PO .with meals 10/23/22 History mg-162 mg-65 mg-125 mg capsule (Super Enzyme) anita.gomez,celi e,reg,xlrg #2 ea 10/23/22 09/07/24 Rx Cpap Supplies #1 ea 01/27/23 09/07/24 Rx fluoxetine 20 mg capsule See Rx Instructions .Route 4 09/07/24 Rx .COMPLEX #90 caps amlodipine 10 mg tablet 10 mg PO QDAY #90 tabs 02/14/24 Rx metoprolol tartrate 25 mg tablet 12.5 mg (1/2 x 25 mg) PO BID #120 03/13/24 09/07/24 Rx tabs lisinopril 40 mg tablet 40 mg PO DAILY #90 tabs 03/14/24 0 09/07/24 Rx oxybutynin chloride 5 mg 5 mg PO QDAY #30 tabs 04/07/24 Rx tablet,extended release 24 hr apixaban 5 mg tablet (Eliquis) 5 mg PO BID #180 tabs 04/26/24 Rx tizanidine 2 mg tablet See Rx Instructions .Route 5 09/07/24 Rx .COMPLEX #[address] [facility] Medical History Left knee pain Radiculopathy, cervical OAB (overactive bladder) Dry mouth and eyes Atrial fibrillation Shortness of breath Dizziness Hyperkalemia Wears hearing aid Restless legs History of umbilical hernia CPAP (continuous positive airway pressure) dependence Leg cramps Borderline type 2 diabetes mellitus Asthmatic bronchitis with acute exacerbation Obstructive sleep apnea Postmenopausal bleeding Kidney failure Anxiety and depression GERD (gastroesophageal reflux disease) History of benign breast tumor Seasonal allergies Venous insufficiency Hearing impairment Morbid obesity Hypertension Surgical History History of hysteroscopy H/O dilation and curettage History of tubal ligation History of cholecystectomy History of placement of ear tubes History of D C History of section History of benign breast biopsy Family History Mother CVA (cerebral vascular accident) Hypertension Sister cranial stenosis Father Hypertension Asthma Arthritis Social History household members: spouse Smoking Status: Former smoker how long ago did patient quit smokin alcohol intake: current alcohol intake frequency: holidays/special occasions only Alcohol type: wine substance use type: does not use caffeine: Yes what type of physical activity do you participate in: none seatbelt use: always do you feel safe at home: Yes additional social history: Okvsyta-Jjn-Kmr SWETA CERVICAL SPINE Details: This documentation accurately reflects the service provided and the decisions made by me, OMAR Mccallum 09/07/24 1057. Part of today???s visit was documented by Nohemi ALANIS, acting as scribe. ALESIA CALZADA is a 63 year old F NEW patient here today for her cervical spine. She states that she has numbness in both of her hands bilaterally and they feel like they are asleep. She wakes up multiple times during the night due to the tingling. Says that it feels like the entire hand is numb and does not specify any particular part of the hand or fingers. She does sometime get the numbness and tingling in the lower part of her arm below the elbow. The right side is worse than the left. She does note that she has severe pain in her lower back as well. She does have pain in her neck that radiates into her bilateral should blades, she also has been with ROM of h (more content not included)... Normal [facility] Cardiology Visit Reporton Cardiology Visit Report [facility] [address] [place] [address] OFFICE VISIT Date of Service: 07/21/24 MR#: [id number] Acct: [id number] Name: ALESIA CALZADA Rep #: [id number] : 1960 Provider: ADA keller Age/Sex: 63/F Location[place] [facility] [place] Status: Signed HPI HPI History of Present Illness Details: 63-year-old lady with no previous cardiac history but a history of hypertension who was apparently getting ready for a colonoscopy. As she was doing her prep she noticed that she was getting short of breath and having some palpitations. She was also noticing mild dizziness. She went to the emergency room was evaluated and was noted to be in atrial fibrillation with a rapid ventricular response rate. After discussion with us as an outpatient she was placed on Eliquis and metoprolol and has done well. She did have some fatigue and so the dose of the metoprolol was reduced. She did have a CTA of her chest ordered which was unremarkable. She has a longstanding history of obstructive sleep apnea for which she has been on CPAP management. She does not feel these palpitations she has had no other symptomatology. She did have a lipid profile demonstrating a total cholesterol 191 HDL of 53 LDL of 122. Holter monitor in April 2024 showed atrial fibrillation at a controlled rate. She denies chest, arm, jaw, or neck discomfort. She denies palpitations. She denies bilateral lower extremity edema. She denies claudication. She denies shortness of breath with activity, shortness of breath at rest, orthopnea, or PND. She denies chronic cough. She denies significant, sudden weight gain. She denies lightheadedness, dizziness, near-syncope, or syncope. She denies blood in urine, blood in stool, or epistaxis. He denies fever with chills. She denies myalgia. She denies fatigue. She states msucle weakness. Her exercise level has remained stable. Intake Vital Signs 04/12/24 14:28 07/21/24 13:06 Height 5 ft 4 in 5 ft 4 in Weight: 413 lb BMI 70.9 BP 128/75 H Blood Pressure Location Lt brachial Position Sitting Respiration 18 Pulse 80 Pulse Source Monitor Pulse Oximetry (%) 97 Intake Visit Reasons: 3 M FU Recorder Gravity Prospecting Required: No Is patient in pain?: No Allergies clindamycin Allergy (Severe, Verified 07/21/24 13:06) Hearing loss ciprofloxacin (From Cipro) Allergy (Verified 07/21/24 13:06) Other codeine Allergy (Verified 07/21/24 13:06) Rash hydrochlorothiazide Allergy (Verified 07/21/24 13:06) Other Penicillins (PCN) Allergy (Verified 07/21/24 13:06) Rash tramadol HCl (From Ultram) Allergy (Verified 07/21/24 13:06) Other spironolactone (From Aldactone) Adverse Reaction (Verified 07/21/24 13:06) Causes Potassium to elevate Medications ???Medication ???Instructions ???Recorded ???Confirmed ???Type multivitamin with folic acid 400 1 tab PO DAILY 06/24/15 07/21/24 H istory mcg tablet Cpap Supplies #1 ea 08/18/21 07/05/24 Rx Pancreat-Bet AWm-qjv-octz-pap 250 1 cap PO .with meals 10/23/22 History mg-162 mg-65 mg-125 mg capsule (Super Enzyme) anita.celi dyer e,reg,xlrg #2 ea 10/23/22 07/05/24 Rx Cpap Supplies #1 ea 01/27/23 07/05/24 Rx fluoxetine 20 mg capsule See Rx Instructions .Route 4 07/21/24 Rx .COMPLEX #90 caps amlodipine 10 mg tablet 10 mg PO QDAY #90 tabs 02/14/24 Rx metoprolol tartrate 25 mg tablet 12.5 mg (1/2 x 25 mg) PO BID #120 03/13/24 07/21/24 Rx tabs lisinopril 40 mg tablet 40 mg PO DAILY #90 tabs 03/14/24 0 07/21/24 Rx oxybutynin chloride 5 mg 5 mg PO QDAY #30 tabs 04/07/24 Rx tablet,extended release 24 hr apixaban 5 mg tablet (Eliquis) 5 mg PO BID #180 tabs 04/26/24 Rx tizanidine 2 mg tablet See Rx Instructions .Route 5 07/21/24 [facility] .COM[facility]X #90 [facility] History Left knee pain Radiculopathy, cervical OAB (overactive bladder) Dry mouth and eyes Atrial fibrillation Shortness of breath Dizziness Hyperkalemia Wears hearing aid Restless legs History of umbilical hernia CPAP (continuous positive airway pressure) dependence Leg cramps Borderline type 2 diabetes mellitus Asthmatic bronchitis with acute exacerbation Obstructive sleep apnea Postmenopausal bleeding Kidney failure Anxiety and depression GERD (gastroesophageal reflux disease) History of benign breast tumor Seasonal allergies Venous insufficiency Hearing impairment Morbid obesity Hypertension Surgical History History of hysteroscopy H/O dilation and curettage History of tubal ligation History of cholecystectomy History of placement of ear tubes History of D C History of (more content not included)... Normal [facility] Cerv Spine 2 or 3 Viewson Cerv Spine 2 or 3 Views [facility] Imaging Services [address] [place] [address] Cerv Spine 2 or 3 Views MR#: [id number] Acct: [id number] Name: ALESIA CALZADA Rep #: [id number] : 1960 F 63 From: Lori Nguyen PCP: Dr. Bushra Wynne MD Status: REG CLI Study: Cerv Spine 2 or 3 Views Date of Exam: 07/21/24 Exam# [id number] Ordering Dr: Bushra Wynne MD PROCEDURE: CERV SPINE 2 OR 3 VIEWS REASON FOR EXAM: Radiculopathy. TECHNIQUE: 3 views of the cervical spine. COMPARISON: None. RAD/Cerv Spine 2 or 3 Views IMPRESSION: The cervical thoracic junction is obscured due to overlying tissues. Prominent degenerative changes throughout the mid to lower cervical spine are seen are seen, with at least moderate disc narrowing at C6-C7 and C5-C6, moderately severe at C4-C5 and C3-C4 levels. Prominent anterior syndesmophytes are seen. No fracture, subluxation, or prevertebral soft tissue swelling is noted. Reading Location: [address] CC: Dr. Bushra Wynne MD Physician Credentialing Specialist: Signed Normal [facility] Knee 3 Viewson 07-21-2024 Knee 3 Views [facility] Imaging Services [address] [place] [address] Knee 3 Views MR#: [id number] Acct: [id number] Name: ALESIA CALZADA Rep #: [id number] : 1960 F 63 From: Yoel Goodrich MD PCP: Dr. Bushra Wynne MD Status: REG CLI Study: Knee 3 Views Date of Exam: 07/21/24 Exam# [id number] Ordering Dr: Bushra Wynne MD PROCEDURE: KNEE 3 VIEWS REASON FOR EXAM: Pain TECHNIQUE: Three views left knee COMPARISON: None. FINDINGS: Osseous structures intact. Prominent degenerative changes primarily in the medial tricompartment. No dislocations. No suprapatellar joint effusion. RAD/Knee 3 Views IMPRESSION: As above. Reading Location: [facility] CC: Dr. Bushra Wynne MD Physician Credentialing Specialist: Signed Normal [facility] Basic Metabolic Profile (BMP )on 07-05-2024 BUN/CRE 15.5 RATIO Normal 10-20 [facility] Comment on above: Performed By: #### L 500.2500, L501.9985 ####[facility] [address] [place], [address] CA,Total 9.4 mg/dL Normal 8.5-10.1 [facility] Comment on above: Performed By: #### L 500.2500, L501.9985 ####[facility] [address] [place], [address] Chloride [Moles/Vol] 106 mmol/L Normal 98-107 [facility] Comment on above: Performed By: #### L 500.2500, L501.9985 ####[facility] [address] [facility] [address] CO2 [Moles/Vol] 28.0 mmol/L Normal 21.0-32.0 [facility] Comment on above: Performed By: #### L 500.2500, L501.9985 ####[facility] [address] [place], [address] Creatinine [Mass/Vol] 1.16 mg/dL High 0.55-1.02 [facility] Comment on above: Result Comment: The validity of the calculated GFR GFRAA in patients over 70 years has not been determined. Clinical correlation is essential. Performed By: #### L 500.2500, L501.9985 ####[facility] [address] [place], [address] EST GFR - AA 60 mL/min Normal >60 [facility] Comment on above: Result Comment: Afri can Armenian GFR Calc Performed By: #### L 500.2500, L501.9985 ####[facility] [address] [place], [address] GAP 9 Normal 5-15 [facility] Comment on above: Performed By: #### L 500.2500, L501.9985 ####[facility] [address] [place], [address] GFR/1.73 sq M.predicted among non-blacks MDRD (S/P/Bld) [Vol rate/Area] 50 mL/min/{1.73_m2} Low >60 [facility] Comment on above: Result Comment: Non- GFR Calc Performed By: #### L 500.2500, L501.9985 ####[facility] [address] [place], [address] Glucose [Mass/Vol] 114 mg/dL High 74-106 [facility] Comment on above: Result Comment: Fast ing Glucose result from 100 to 125 mg/dL suggests IMPAIRED HOMEOSTASIS per A.D.A. criteria. Performed By: #### L 500.2500, L501.9985 ####[facility] [address] [place], [address] Potassium [Moles/Vol] 4.5 mmol/L Normal 3.5-5.1 [facility] Comment on above: Performed By: #### L 500.2500, L501.9985 ####[facility] [address] [place], [address] Sodium [Moles/Vol] 142 mmol/L Normal 136-145 [facility] Comment on above: Performed By: #### L 500.2500, L501.9985 ####[facility] [address] [place], [address] Urea nitrogen [Mass/Vol] 18 mg/dL Normal 7-18 [facility] Comment on above: Performed By: #### L 500.2500, L501.9985 ####[facility] [address] [place], [address] Hemoglobin A1con 07-05-2024 HbA1c (Bld) [Mass fraction] 6.0 % High 3.8-5.6 [facility] Comment on above: Result Comment: Norm al < 5.7 % Prediabetic 5.7 - 6.4 % Diabetic >or= 6.5 % Please note range changes. Performed By: #### L 500.2500, L501.9985 ####[facility] [address] [place], [address] Internal Medicine Office Vis iton 07-05-2024 Internal Medicine Office Visit [facility] [address] [place] [address] OFFICE VISIT Date of Service: 07/05/24 MR#: [id number] Acct: [id number] Name: ALESIA CALZADA Rep #: [id number] : 1960 Provider: Dr. Bushra wolf MD Age/Sex: 63/F Location: [facility] Status: Signed Intake Vital Signs 03/13/24 14:01 04/12/24 14:28 07/05/24 13:20 Height 5 ft 4 in 5 ft 4 in BP 128/84 H Blood Pressure Location Lt brachial Position Sitting Respiration 16 Pulse 98 Pulse Source Monitor Temp 97.6 F L Temp Source Temporal Pulse Oximetry (%) 99 Oxygen Delivery Method room air Comment PT REFUSED WEIGHT Intake Visit Reasons: 3 M FU Chief Complaint: 3m fu Recorder Gravity Prospecting Required: No Accompanied by: Self Is patient in pain?: No Allergies clindamycin Allergy (Severe, Verified 07/05/24 13:11) Hearing loss ciprofloxacin (From Cipro) Allergy (Verified 07/05/24 13:11) Other codeine Allergy (Verified 07/05/24 13:11) Rash hydrochlorothiazide Allergy (Verified 07/05/24 13:11) Other Penicillins (PCN) Allergy (Verified 07/05/24 13:11) Rash tramadol HCl (From Ultram) Allergy (Verified 07/05/24 13:11) Other spironolactone (From Aldactone) Adverse Reaction (Verified 07/05/24 13:11) Causes Potassium to elevate Medications ???Medication ???Instructions ???Recorded ???Confirmed ???Type multivitamin with folic acid 400 1 tab PO DAILY 06/24/15 07/05/24 History mcg tablet Cpap Supplies #1 ea 08/18/21 07/05/24 Rx Pancreat-Bet KQf-tcv-olyy-pap 250 1 cap PO .with meals 10/23/22 07/05/24 History mg-162 mg-65 mg-125 mg capsule (Super Enzyme) anita.celi dyer e,reg,xlrg #2 ea 10/23/22 07/05/24 Rx Cpap Supplies #1 ea 01/27/23 07/05/24 Rx fluoxetine 20 mg capsule See Rx Instructions .Route 10/08/23 07/05/24 Rx .COMPLEX #90 caps amlodipine 10 mg tablet 10 mg PO QDAY #90 tabs 02/14/24 07/05/24 Rx metoprolol tartrate 25 mg tablet 12.5 mg (1/2 x 25 mg) PO BID #120 03/13/24 07/05/24 Rx tabs lisinopril 40 mg tablet 40 mg PO DAILY #90 tabs 03/14/24 07/05/24 Rx oxybutynin chloride 5 mg 5 mg PO QDAY #30 tabs 04/07/24 07/05/24 Rx tablet,extended release 24 hr apixaban 5 mg tablet (Eliquis) 5 mg PO BID #180 tabs 04/26/24 07/05/24 Rx tizanidine 2 mg tablet See Rx Instructions .Route 07/03/24 07/05/24 Rx .COMPLEX #90 tabs [facility] Medical History (Updated 07/05/24 @ 19:[address] Bushra Wynne MD) Left knee pain Radiculopathy, cervical OAB (overactive bladder) Dry mouth and eyes Atrial fibrillation Shortness of breath Dizziness Hyperkalemia Wears hearing aid Restless legs History of umbilical hernia CPAP (continuous positive airway pressure) dependence Leg cramps Borderline type 2 diabetes mellitus Asthmatic bronchitis with acute exacerbation Obstructive sleep apnea Postmenopausal bleeding Kidney failure Anxiety and depression GERD (gastroesophageal reflux disease) History of benign breast tumor Seasonal allergies Venous insufficiency Hearing impairment Morbid obesity Hypertension Surgical History History of hysteroscopy H/O dilation and curettage History of tubal ligation History of cholecystectomy History of placement of ear tubes History of D C History of section History of benign breast biopsy Family History Mother CVA (cerebral vascular accident) Hypertension Sister cranial stenosis Father Hypertension Asthma Arthritis Social History household members: spouse Smoking Status: Former smoker how long ago did patient quit smokin alcohol intake: current alcohol intake frequency: holidays/special occasions only Alcohol type: wine substance use type: does not use caffeine: Yes what type of physical activity do you participate in: none seatbelt use: always do you feel safe at home: Yes additional social history: Fbigumk-Uzk-Qff Female Reproductive History Menstrual Ab spontaneous: 3 HPI HPI Chief Complaint: 3m fu Details: ALESIA CALZADA, is a 63 F who presents to the office today for follow-up of her chronic conditions. Also has some concerns. Next She states that over the last couple of weeks, she has noted intermittent episodes of numbness and tingling in her hand and at the back of her head. Worse when she lays down at night. No change in bowel or bladder habit. She also reports left knee pain, she states that it is chronic but has been progressively worsening. Fell yesterday, slipped on ice. No significant swelling reported. She would like imaging. History of hypertension, blood pressure today at 128/84 mmHg. No chest pain, palpitation or shortness of breath. Also (more content not included)... [facility] Office Visit (UCTR) ALESIA CALZADA ([id number]) 1960 F Date Time Provider Department 05/22/24 6:15 PM ZUNILDA BECERRIL [facility] During your visit today, we recorded the following information about you: Temperature Pulse Respiration Blood pressure 99.1 degrees 107/minute 20/minute 148/84 Weight 189.4 kg Zunilda Becerril APRN.CNP 05/22/2024 7:13 PM Signed This note was created using NoteWriter. Subjective [...] history is provided by the patient. No language specialist was used. Cough This is a new [...] NONOBSTETRIC 12/07/[address] Young [facility] ESOPHAGOGASTRODUODEN OSCOPY TRANSORAL DIAGNOSTIC 12/26/2012 EGD HYSTEROSCOPY BX ENDOMETRIUMAND/POLYP C W/WO DANDC 12/06/2012 LUMPECTOMY/RADIOTHER APY DIAG MAMM/A10 left breast ALLERGIES Penicillins, Ciprocinonide, Clindamycin, Codeine, Hctz [Hydrochlorothiazide ], and Ultram [Tramadol Hcl] MEDICATIONS ELIQUIS 5 [...] afternoon. progesterone micronized (PROMETRIUM) 100 mg capsule pancreat/betaine/pep sin/bromel (SUPER ENZYME ORAL) Take by mouth once [...] color change, pallor, rash and wound. Neurological: (more content not included)... Normal [facility] XR CHEST 2V FRONTAL/LATon XR CHEST 2V FRONTAL/LAT * * *Final Repor t* * * DATE OF EXAM: May 22 [...] is noted. IMPRESSION: No acute radiographic abnormality. Physician Credentialing Specialist: MARCELINA Transcribe Date/Time: May 22 2024 7:40P Dictated by : LORI JONES MD This examination was interpreted and the report reviewed and electronically signed by: LORI JONES MD on May 22 2024 7:43PM EST [id number] Normal [facility] XR Chest PA and Lateralon IMPRESSION: No acute radiographic abnormality. Physician Credentialing Specialist: PSCMaycol Transcribe Date/Time: May 22 2024 7:40P Dictated by : LORI JONES MD This examination was interpreted and the report reviewed and electronically signed by: LORI JONES MD on May 22 2024 7:43PM EST DIVISION OF RADIOLOGY * * *Final Report* * * DATE OF EXAM: May 22 2024 6:53PM WOX [id number] - XR CHEST 2V FRONTAL/LAT / PROCEDURE REASON: Acute cough * * * * Physician Interpretation * * * * EXAMINATION: CHEST RADIOGRAPH (2 VIEW FRONTAL & LATERAL) CLINICAL HISTORY: Acute cough MQ: XC2_6 EXAM DATE/TIME: 05/22/2024 6:53 PM COMPARISON: No relevant prior studies available. RESULT: Lines, tubes, and devices: None. Lungs and pleura: No consolidation. No lung mass. No pleural effusion. No pneumothorax. Cardiomediastinal silhouette: The cardiac silhouette appears prominent. Bones and soft tissues: Degenerative changes are present within the thoracic spine. DISH is noted. DIVISION OF RADIOLOGY Provider, [facility] [place] - 05/22/2024 * * *Final Report* * * DATE OF EXAM: May 22 2024 6:53PM WOX [id number] - XR CHEST 2V FRONTAL/LAT / PROCEDURE REASON: Acute cough * * * * Physician Interpretation * * * * EXAMINATION: CHEST RADIOGRAPH (2 VIEW FRONTAL & LATERAL) CLINICAL HISTORY: Acute cough MQ: XC2_6 EXAM DATE/TIME: 05/22/2024 6:53 PM COMPARISON: No relevant prior studies available. RESULT: Lines, tubes, and devices: None. Lungs and pleura: No consolidation. No lung mass. No pleural effusion. No pneumothorax. Cardiomediastinal silhouette: The cardiac silhouette appears prominent. Bones and soft tissues: Degenerative changes are present within the thoracic spine. DISH is noted. IMPRESSION IMPRESSION: No acute radiographic abnormality. Physician Credentialing Specialist: PSCB Transcribe Date/Time: May 22 2024 7:40P Dictated by : LORI JONES MD This examination was interpreted and the report reviewed and electronically signed by: LORI JONES MD on May 22 2024 7:43PM [facility] Radiology Study observation (narrative) Megan nguyen [facility] XR Chest PA and LateralOrder ed By: Ccf Provider on 05-22-2024 [facility] 12 Lead EKG performed by [facility] on 04-12-2024 12 Lead EKG performed by [facility] [address] [place] [address] 12 Lead EKG performed by [facility] 04/12/24 1429 MR#: [id number] Acct: [id number] Name: ALESIA CALZADA Rep #: [id number] : 1960 63 From: Bright Ann MD Attending Dr: Dr. Bright Ann MD Status: DEP A MB Ordering Dr: Bright Ann MD Date: 04/12/24 Location: [facility] Sex: F C Admitted: BMS/12 Lead EKG performed by [facility] ECG Report Interpretation ------ atrial fibrillation Low voltage in precordial leads. -RSR(V1) -nondiagnostic. - Nonspecific T-abnormality. ABNORMAL Electronically signed on 04/13/2024 at 08:40 by Bright Ann [employer] Version [id number] 04/13/2442 Date Bright Ann MD CC: Dr. Bushra Wynne MD Date Dictated: 04/12/241428 Date Transcribed: 04/12/241428 Physician Credentialing Specialist: [place] Signed Normal [facility] Cardiology Visit Reporton Cardiology Visit Report [facility] [address] [place], [place] [address] OFFICE VISIT Date of Service: 04/12/24 MR#: [id number] Acct: [id number] Name: ALESIA CALZADA Rep #: [id number] : 1960 Provider: Dr. Bright Ann MD Age/Sex: 63/F Location: [facility] Status: Signed HPI [facility] History of Present Illness Details: 63-year-old lady with no previous cardiac history but a history of hypertension who was apparently getting ready for a colonoscopy. As she was doing her prep she noticed that she was getting short of breath and having some palpitations. She was also noticing mild dizziness. She went to the emergency room was evaluated and was noted to be in atrial fibrillation with a rapid ventricular response rate. After discussion with me as an outpatient she was placed on Eliquis and metoprolol and has done well. She did have some fatigue and so the dose of the metoprolol was reduced. She did have a CTA of her chest ordered which was unremarkable. She has had no dizziness or diaphoresis no near-syncope or syncope she has a longstanding history of obstructive sleep apnea for which she has been on CPAP management. She does not feel these palpitations she has had no other symptomatology. She did have a lipid profile demonstrating a total cholesterol 191 HDL of 53 LDL of 122. Her physical exam here is unremarkable her electrocardiogram demonstrates atrial fibrillation with a rate of 67 bpm. She did have an echocardiogram performed which demonstrated an ejection fraction of 50% at the lower limits of normal, moderately enlarged left atrium and no other significant valvular abnormalities present. Intake Vital Signs 02/27/24 11:32 03/13/24 14:01 04/12/24 14:28 Height 5 ft 4 in 5 ft 4 in 5 ft 4 in Weight: 424 lb 420 lb BMI 72.8 72.1 BP 128/82 H 136/82 H Blood Pressure Location Lt brachial Lt radial Position Sitting Sitting Respiration 14 18 Pulse 82 67 Pulse Source Monitor Monitor Temp 97.4 F L Pulse Oximetry (%) 98 Oxygen Delivery Method room air Intake Visit Reasons: NEW ONSET AFIB ([facility]) Recorder Gravity Prospecting Required: No Accompanied by: Self Is patient in pain?: No Allergies clindamycin Allergy (Severe, Verified 04/12/24 14:32) Hearing loss ciprofloxacin (From Cipro) Allergy (Verified 04/12/24 14:32) Other codeine Allergy (Verified 04/12/24 14:32) Rash hydrochlorothiazide Allergy (Verified 04/12/24 14:32) Other Penicillins (PCN) Allergy (Verified 04/12/24 14:32) Rash tramadol HCl (From Ultram) Allergy (Verified 04/12/24 14:32) Other spironolactone (From Aldactone) Adverse Reaction (Verified 04/12/24 14:32) Causes Potassium to elevate Medications ???Medication ???Instructions ???Recorded ???Confirmed ???Type multivitamin with folic acid 400 1 tab PO DAILY 06/24/15 04/12/24 History mcg tablet Cpap Supplies #1 ea 08/18/21 03/13/24 Rx Pancreat-Bet VRj-cuy-hyli-pap 250 1 cap PO .with meals 10/23/22 04/12/24 History mg-162 mg-65 mg-125 mg capsule (Super Enzyme) anita.celi dyer e,reg,xlrg #2 ea 10/23/22 03/13/24 Rx Cpap Supplies #1 ea 01/27/23 03/13/24 Rx fluoxetine 20 mg capsule See Rx Instructions .Route 10/08/23 04/12/24 Rx .COMPLEX #90 caps amlodipine 10 mg tablet 10 mg PO QDAY #90 tabs 02/14/24 04/12/24 Rx tizanidine 2 mg tablet See Rx Instructions .Route 02/14/24 04/12/24 Rx .COMPLEX #90 tabs metoprolol tartrate 25 mg tablet 12.5 mg (1/2 x 25 mg) PO BID #120 03/13/24 04/12/24 Rx tabs lisinopril 40 mg tablet 40 mg PO DAILY #90 tabs 03/14/24 04/12/24 Rx apixaban 5 mg tablet (Eliquis) 5 mg PO BID #60 tabs 03/23/24 04/12/24 Rx oxybutynin chloride 5 mg 5 mg PO QDAY #30 tabs 04/07/24 04/12/24 Rx tablet,extended release 24 hr Have you fallen in the past year?: Yes PFSH Medical History OAB (overactive bladder) Dry mouth and eyes Atrial fibrillation Shortness of breath Dizziness Hyperkalemia Wears hearing aid Restless legs History of umbilical hernia CPAP (continuous positive airway pressure) dependence Leg cramps Borderline type 2 diabetes mellitus Asthmatic bronchitis with acute exacerbation Obstructive sleep apnea Postmenopausal bleeding Kidney failure Anxiety and depression GERD (gastroesophageal reflux disease) History of benign breast tumor Seasonal allergies Venous insufficiency Hearing impairment Morbid obesity Hypertension Surgical History History of hysteroscopy H/O dilation and curettage History of tubal ligation History of cholecystectomy History of placement of ear tubes History of D C History of section History of benign breast biopsy Family History ... Normal [facility] Echo Complete W/ Contraston 03-27-2024 Echo Complete W/ Contrast [facility] [address] [place] [address] Echo Complete W/ Contrast 03/27/24 1258 MR#: [id number] Acct: [id number] Name: ALESIA CALZADA Rep #: [id number] : 1960 63 From: Bright Ann MD Attending Dr: Dr. Bushra Wynne MD Status: REG CLI Ordering Dr: Bushra Wynne MD Date: 03/27/24 Location: [facility] Sex: F C Admitted: Reason For Study: SOB Procedure This was a 2D Doppler, Color Flow transthoracic echocardiogram. The study was technically difficult. Contrast injection was performed. Exam performed in department. Left Ventricle Normal LV size. Left ventricular systolic function is lower limits of normal. The left ventricular ejection fraction is 50 %. No regional wall motion abnormalities noted. Right Ventricle Normal RV size. Normal systolic function. Atria The left atrium is moderately enlarged. Normal right atrium. Mitral Valve Normal mitral valve. Tricuspid Valve Normal tricuspid valve. Aortic Valve The aortic valve is not well visualized. Pulmonic Valve The pulmonic valve is not well visualized. Great Vessels Normal aortic root. The pulmonary is not well visualized. Normal inferior vena cava. Pericardium/Pleural No pericardial effusion. Medication 22 gauge I.V. with prn adaptor inserted into left arm. Diluted definity 1ml given slow IV push to enhance endocardial definition. Performed a rapid injection of agitated mix of 9 cc saline and 1cc air to assess for atrial septal defect. MMode/2D Measurements Calculations LVIDd: 5.0 cm IVSd: 1.1 cm LAV(MOD-bp): 84.4 ml LVIDs: 3.6 cm LVPWd: 1.6 cm FS: 28.1 % LAV(MOD-bp) Indexed: 31.7 ml/m2 LAV(MOD-sp2): 61.1 ml LAV(MOD-sp4): 91.9 ml _ SV(MOD-sp4): 65.1 ml SV(sp4-el): 66.2 ml LVAd ap4: 35.6 cm2 LVLd ap4: 8.9 cm EDV(MOD-sp4): 119.2 ml EDV(sp4-el): 120.7 ml LVAs ap4: 22.1 cm2 LVLs ap4: 7.6 cm ESV(MOD-sp4): 54.1 ml ESV(sp4-el): 54.6 ml EF(MOD-sp4): 54.6 % EF(sp4-el): 54.8 % _ LA dimension(2D): 4.5 cm LA A4 area: 27.1 cm2 RA A4 area: 17.9 cm2 Doppler Measurements Calculations MV E max maría: 101.7 cm/sec Ao V2 max: 167.4 cm/sec LV V1 max: 138.0 cm/sec Ao max P.3 mmHg LV V1 max P.6 mmHg Ao V2 mean: 114.1 cm/sec LV V1 mean P.3 mmHg Ao mean P.1 mmHg LV V1 mean: 98.9 cm/sec Ao V2 VTI: 36.8 cm LV V1 VTI: 33.0 cm AV (velocity ratio): 0.90 ECHO/Echo Complete W/ Contrast Interpretation Summary Normal LV size. Left ventricular systolic function is lower limits of normal. The left ventricular ejection fraction is 50 %. Contrast injection was performed. Ordering Physician: Bushra Wynne Referring Physician: Bushra Wynne Performed By: Julia Salazar RCS 03/27/24 1600 Date Bright Ann MD CC: Dr. Bushra Wynne MD Date Dictated: 03/27/241257 Date Transcribed: 03/27/241599 Physician Credentialing Specialist: Signed Normal [facility] KELBY w/ Reflex Mult Confirmon 03-15-2024 KELBY,DIRECT Negative Normal Negative [facility] Comment on above: Result Comment: Perf ormed at: - [facility] [id number] Production Shift Supervisor: Archie Ruby PhD, Phone: [phone] Performed By: #### L 596.3274, R1602.8858, B849.8548, M394.9128 ####[facility] [address] [place], [address] BNP,B-Type NATRIURETIC PEPTI Thao 03-13-2024 Natriuretic peptide B (Bld) [Mass/Vol] 170.3 pg/mL High 0-100 [facility] Comment on above: Performed By: #### L 500.2500, L3100.5450, L100.0100, L503.6620 ####[facility] [address] [place], [address] Basic Metabolic Profile (BMP )on 03-13-2024 BUN/CRE 20.2 RATIO High 10-20 [facility] Comment on above: Performed By: #### L 500.2500, L3100.5450, L100.0100, L503.6620 ####[facility] [address] [place], [address] CA,Total 9.7 mg/dL Normal 8.5-10.1 [facility] Comment on above: Performed By: #### L 500.2500, L3100.5450, L100.0100, L503.6620 ####[facility] [address] [place], [address] Chloride [Moles/Vol] 107 mmol/L Normal 98-107 [facility] Comment on above: Performed By: #### L 500.2500, L3100.5450, L100.0100, L503.6620 ####[facility] [address] [place], [address] CO2 [Moles/Vol] 27.0 mmol/L Normal 21.0-32.0 [facility] Comment on above: Performed By: #### L 500.2500, L3100.5450, L100.0100, L503.6620 ####[facility] [address] [place], [address] Creatinine [Mass/Vol] 1.09 mg/dL High 0.55-1.02 [facility] Comment on above: Result Comment: The validity of the calculated GFR GFRAA in patients over 70 years has not been determined. Clinical correlation is essential. Performed By: #### L 500.2500, L3100.5450, L100.0100, L503.6620 ####[facility] [address] [place], [address] EST GFR - AA 65 mL/min Normal >60 [facility] Comment on above: Result Comment: Afri can Armenian GFR Calc Performed By: #### L 500.2500, L3100.5450, L100.0100, L503.6620 ####[facility] [address] [place], [address] GAP 3 Low 5-15 [facility] Comment on above: Performed By: #### L 500.2500, L3100.5450, L100.0100, L503.6620 ####[facility] [address] [place], [address] GFR/1.73 sq M.predicted among non-blacks MDRD (S/P/Bld) [Vol rate/Area] 54 mL/min/{1.73_m2} Low >60 [facility] Comment on above: Result Comment: Non- GFR Calc Performed By: #### L 500.2500, L3100.5450, L100.0100, L503.6620 ####[facility] [address] [place], [address] Glucose [Mass/Vol] 115 mg/dL High 74-106 [facility] Comment on above: Result Comment: Fast ing Glucose result from 100 to 125 mg/dL suggests IMPAIRED HOMEOSTASIS per A.D.A. criteria. Performed By: #### L 500.2500, L3100.5450, L100.0100, L503.6620 ####[facility] [address] [place], [address] Potassium [Moles/Vol] 4.8 mmol/L Normal 3.5-5.1 [facility] Comment on above: Performed By: #### L 500.2500, L3100.5450, L100.0100, L503.6620 ####[facility] [address] [place], [address] Sodium [Moles/Vol] 137 mmol/L Normal 136-145 [facility] Comment on above: Performed By: #### L 500.2500, L3100.5450, L100.0100, L503.6620 ####[facility] [address] [place], [address] Urea nitrogen [Mass/Vol] 22 mg/dL High 7-18 [facility] Comment on above: Performed By: #### L 500.2500, L3100.5450, L100.0100, L503.6620 ####[facility] [address] [place], [address] CBC W/Diff, Automatedon -07 24-2023 Absolute Lymph 1.74 X10 3/uL Normal 0.83-4.51 [facility] Comment on above: Performed By: #### L 500.2500, L3100.5450, L100.0100, L503.6620 ####[facility] [address] [place], [address] Absolute Neut 5.1 X10 3/uL Normal 2.0-7.7 [facility] Comment on above: Performed By: #### L 500.2500, L3100.5450, L100.0100, L503.6620 ####[facility] [address] [place], [address] Basophils/100 WBC (Bld) 0.4 % Normal 0-1 [facility] Comment on above: Performed By: #### L 500.2500, L3100.5450, L100.0100, L503.6620 ####[facility] [address] [place], [address] Eosinophils/100 WBC (Bld) 3.9 % Normal 0-5 [facility] Comment on above: Performed By: #### L 500.2500, L3100.5450, L100.0100, L503.6620 ####[facility] [address] [place], [address] Erythrocyte distribution width (RBC) [Ratio] 14.0 % Normal 11.6-14.6 [facility] Comment on above: Performed By: #### L 500.2500, L3100.5450, L100.0100, L503.6620 ####[facility] [address] [place], [address] Hematocrit (Bld) [Volume fraction] 42.6 % Normal 37-47 [facility] Comment on above: Performed By: #### L 500.2500, L3100.5450, L100.0100, L5.6620 ####[facility] [address] [place], [address] Hemoglobin (Bld) [Mass/Vol] 13.6 g/dL Normal 12.0-15.0 [facility] Comment on above: Performed By: #### L 500.2500, L3100.5450, L100.0100, L5.6620 ####[facility] [address] [place], [address] IG% 0.800 Normal 0.0-0.9 [facility] Comment on above: Result Comment: IG% - Immature Granulocytes (promyelocytes, myelocytes and metamyelocytes) > 1% indicates that a LEFT SHIFT is Present. Performed By: #### L 500.2500, L3100.5450, L100.0100, L503.6620 ####[facility] [address] [place], [address] Lymphocytes/100 WBC (Bld) 22.5 % Normal 19-41 [facility] Comment on above: Performed By: #### L 500.2500, L3100.5450, L100.0100, L503.6620 ####[facility] [address] [place], [address] MCH (RBC) [Entitic mass] 29.8 pg Normal 27.0-32.0 [facility] Comment on above: Performed By: #### L 500.2500, L3100.5450, L100.0100, L503.6620 ####[facility] [address] [place], [address] MCHC (RBC) [Mass/Vol] 31.9 g/dL Low 32-36 [facility] Comment on above: Performed By: #### L 500.2500, L3100.5450, L100.0100, L503.6620 ####[facility] [address] [place], [address] MCV (RBC) [Entitic vol] 93.4 fL Normal 81-99 [facility] Comment on above: Performed By: #### L 500.2500, L3100.5450, L100.0100, L503.6620 ####[facility] [address] [place], [address] Monocytes/100 WBC (Bld) 7.2 % Normal 0-10 [facility] Comment on above: Performed By: #### L 500.2500, L3100.5450, L100.0100, L503.6620 ####[facility] [address] [place], [address] Neutrophils/100 WBC (Bld) 65.2 % Normal 47-70 [facility] Comment on above: Performed By: #### L 500.2500, L3100.5450, L100.0100, L503.6620 ####[facility] [address] [place], [address] Nucleated RBC (Bld) [#/Vol] 0 10*3/uL Normal 0-5 [facility] Comment on above: Performed By: #### L 500.2500, L3100.5450, L100.0100, L503.6620 ####[facility] [address] [place], [address] Platelet mean volume (Bld) [Entitic vol] 10.0 fL Normal 6.2-12.0 [facility] Comment on above: Performed By: #### L 500.2500, L3100.5450, L100.0100, L503.6620 ####[facility] [address] [place], [address] Platelets (Bld) [#/Vol] 357 10*3/uL Normal 150-450 [facility] Comment on above: Performed By: #### L 500.2500, L3100.5450, L100.0100, L503.6620 ####[facility] [address] [place], [address] RBC (Bld) [#/Vol] 4.56 10*6/uL Normal 4.2-5.4 [facility] Comment on above: Performed By: #### L 500.2500, L3100.5450, L100.0100, L503.6620 ####[facility] [address] [place], [address] RDW SD 47.2 fl High 35.1-43.9 [facility] Comment on above: Performed By: #### L 500.2500, L3100.5450, L100.0100, L503.6620 ####[facility] [address] [place], [address] WBC (Bld) [#/Vol] 7.7 10*3/uL Normal 4.4-11.0 [facility] Comment on above: Performed By: #### L 500.2500, L3100.5450, L100.0100, L503.6620 ####[facility] [address] [place], [address] Internal Medicine Office Vis rosy 03-13-2024 Internal Medicine Office Visit [facility] [address] [place] [address] [address] [place] [address] OFFICE VISIT Date of Service: 03/13/24 MR#: [id number] Acct: [id number] Name: ALESIA CALZADA Rep #: [id number] : 1960 Provider: Dr. Bushra wolf MD Age/Sex: 63/F Location: [facility] Status: Signed Intake Vital Signs 02/27/24 11:32 03/13/24 14:01 Height 5 ft 4 in 5 ft 4 in Weight: 424 lb BMI 72.8 BP 128/82 H Blood Pressure Location Lt brachial Position Sitting Respiration 14 Pulse 82 Pulse Source Monitor Temp 97.4 F L Temp Source Temporal Pulse Oximetry (%) 98 Oxygen Delivery Method room air Intake Visit Reasons: wch er fu Chief Complaint: Follow-up. Several concerns. Recorder [employer] Required: No Is patient in pain?: No Allergies clindamycin Allergy (Severe, Verified 03/13/24 13:55) Hearing loss ciprofloxacin (From Cipro) Allergy (Verified 03/13/24 13:55) Other codeine Allergy (Verified 03/13/24 13:55) Rash hydrochlorothiazide Allergy (Verified 03/13/24 13:55) Other Penicillins (PCN) Allergy (Verified 03/13/24 13:55) Rash tramadol HCl (From Ultram) Allergy (Verified 03/13/24 13:55) Other spironolactone (From Aldactone) Adverse Reaction (Verified 03/13/24 13:55) Causes Potassium to elevate Medications ???Medication ???Instructions ???Recorded ???Confirmed ???Type aspirin 81 mg tablet,delayed 81 mg PO DAILY@0800 06/24/15 03/13/24 History release multivitamin with folic acid 400 1 tab PO DAILY 06/24/15 03/13/24 History mcg tablet Cpap Supplies #1 ea 08/18/21 03/13/24 Rx Pancreat-Bet OQg-pcz-tolq-pap 250 1 cap PO .with meals 10/23/22 03/13/24 History mg-162 mg-65 mg-125 mg capsule (Super Enzyme) anita.stocking,kne e,reg,xlrg #2 ea 10/23/22 03/13/24 Rx Cpap Supplies #1 ea 01/27/23 03/13/24 Rx lisinopril 40 mg tablet 40 mg PO DAILY #90 tabs 05/28/23 03/13/24 Rx fluoxetine 20 mg capsule See Rx Instructions .Route 10/08/23 03/13/24 Rx .COMPLEX #90 caps amlodipine 10 mg tablet 10 mg PO QDAY #90 tabs 02/14/24 03/13/24 Rx tizanidine 2 mg tablet See Rx Instructions .Route 02/14/24 03/13/24 Rx .COMPLEX #90 tabs apixaban 5 mg tablet (Eliquis) 5 mg PO BID #60 tabs 02/27/24 03/13/24 Rx metoprolol tartrate 25 mg tablet 12.5 mg (1/2 x 25 mg) PO BID #120 03/13/24 03/13/24 Rx tabs oxybutynin chloride 5 mg 5 mg PO QDAY #30 tabs 03/13/24 03/13/24 Rx tablet,extended release [address] [facility] Medical History (Updated 03/13/24 @ 16:[address] Bushra Wynne MD) OAB (overactive bladder) Dry mouth and eyes Atrial fibrillation Shortness of breath Dizziness Hyperkalemia Wears hearing aid Restless legs History of umbilical hernia CPAP (continuous positive airway pressure) dependence Leg cramps Borderline type 2 diabetes mellitus Asthmatic bronchitis with acute exacerbation Obstructive sleep apnea Postmenopausal bleeding Kidney failure Anxiety and depression GERD (gastroesophageal reflux disease) History of benign breast tumor Seasonal allergies Venous insufficiency Hearing impairment Morbid obesity Hypertension Surgical History History of hysteroscopy H/O dilation and curettage History of tubal ligation History of cholecystectomy History of placement of ear tubes History of D C History of section History of benign breast biopsy Family History Mother CVA (cerebral vascular accident) Hypertension Sister cranial stenosis Father Hypertension Asthma Arthritis Social History household members: spouse Smoking Status: Former smoker how long ago did patient quit smokin alcohol intake: current alcohol intake frequency: holidays/special occasions only Alcohol type: wine substance use type: does not use caffeine: Yes what type of physical activity do you participate in: none seatbelt use: always do you feel safe at home: Yes additional social history: Jpsebsr-Rgx-Ovg Female Reproductive History Menstrual Ab spontaneous: 3 HPI HPI Chief Complaint: Follow-up. Several concerns. Details: ALESIA CALZADA, is a 63 F who presents to the office today for follow-up. Also has several concerns. Recently seen at the emergency room and diagnosed with atrial fibrillation. Currently on apixaban and metoprolol. Tolerating apixaban well but believes that metoprolol has made her quite tired. She states that she quit taking it for a few days and felt a lot better but restarted today because she felt unwell. Also reports increased shortness of breath with activity. Has an appointment with cardiology in a month. She reports a chronic history of increased urinary frequ (more content not included)... Normal [facility] 12 Lead EKGon 02-27-2024 12 Lead EKG [facility] Cardiovascular Services [address] [place] [address] 12 Lead EKG 02/27/24 1357 MR#: [id number] Acct: [id number] Name: ALESIA CALZADA Rep #: [id number] : 1960 63 From: Bright Ann MD Attending Dr: Status: DEP ER Ordering Dr: Zita Kim DO Date: 02/27/24 Location: ED Sex: F C Admitted: Test Reason : REPEAT Blood Pressure : / mmHG Vent. Rate : 105 BPM Atrial Rate : 000 BPM P-R Int : 000 ms QRS Dur : 102 ms QT Int : 300 ms P-R-T Axes : 000 -10 057 degrees QTc Int : 396 ms Atrial fibrillation with rapid ventricular response Low voltage QRS Nonspecific ST abnormality Abnormal ECG Confirmed by BRIGHT ANN MD ([id number]), food editor SILVIA MILLER ([id number]) on 02/28/2024 2:48:23 PM Referred By: Confirmed By:BRIGHT ANN MD 02/28/24 1448 Date Bright Ann MD CC: Dr. Zita Kim DO; Dr. Bushra Wynne MD Signed Normal [facility] 12 Lead EKG [facility] Cardiovascular Services [address] [facility] [place] [address] 12 Lead EKG 02/27/24 1148 MR#: [id number] Acct: [id number] Name: ALESIA CALZADA Rep #: [id number] : 1960 63 From: Bright Ann MD Attending Dr: Status: DEP ER Ordering Dr: Zita Kim DO Date: 02/27/24 Location: ED Sex: F C Admitted: Test Reason : GI Blood Pressure : / mmHG Vent. Rate : 082 BPM Atrial Rate : 000 BPM P-R Int : 000 ms QRS Dur : 098 ms QT Int : 368 ms P-R-T Axes : 000 -12 006 degrees QTc Int : 429 ms Atrial fibrillation Low voltage QRS Abnormal ECG Confirmed by MARISSA JOHN, BRIGHT ([id number]), food editor SILVIA MILLER ([id number]) on 02/28/2024 2:48:12 PM Referred By: Confirmed By:BRIGHT ANN MD 02/28/24 1448 Date Bright Ann MD CC: Dr. Zita Kim DO; Dr. Bushra Wynne MD Signed Normal [facility] CBC W/Diff, Automatedon Absolute Lymph 1.37 X10 3/uL Normal 0.83-4.51 [facility] Comment on above: Performed By: #### L 503.6005, L500.4050, L100.0100, L501.5200, L501.4020 #### [facility] [address] [place], [address] Absolute Neut 4.8 X10 3/uL Normal 2.0-7.7 [facility] Comment on above: Performed By: #### L 503.6005, L500.4050, L100.0100, L501.5200, L501.4020 #### [facility] [address] [place], [address] Basophils/100 WBC (Bld) 0.6 % Normal 0-1 [facility] Comment on above: Performed By: #### L 503.6005, L500.4050, L100.0100, L501.5200, L501.4020 #### [facility] [address] [place], [address] Eosinophils/100 WBC (Bld) 3.2 % Normal 0-5 [facility] Comment on above: Performed By: #### L 503.6005, L500.4050, L100.0100, L501.5200, L501.4020 #### [facility] [address] [place], [address] Erythrocyte distribution width (RBC) [Ratio] 13.5 % Normal 11.6-14.6 [facility] Comment on above: Performed By: #### L 503.6005, L500.4050, L100.0100, L501.5200, L501.4020 #### [facility] [address] [place], [address] Hematocrit (Bld) [Volume fraction] 40.7 % Normal 37-47 [facility] Comment on above: Performed By: #### L 503.6005, L500.4050, L100.0100, L501.5200, L501.4020 #### [facility] [address] [place], [address] Hemoglobin (Bld) [Mass/Vol] 13.1 g/dL Normal 12.0-15.0 [facility] Comment on above: Performed By: #### L 503.6005, L500.4050, L100.0100, L501.5200, L501.4020 #### [facility] [address] [place], [address] IG% 0.600 Normal 0.0-0.9 [facility] Comment on above: Result Comment: IG% - Immature Granulocytes (promyelocytes, myelocytes and metamyelocytes) > 1% indicates that a LEFT SHIFT is Present. Performed By: #### L 503.6005, L500.4050, L100.0100, L501.5200, L501.4020 #### [facility] [address] [place], [address] Lymphocytes/100 WBC (Bld) 19.7 % Normal 19-41 [facility] Comment on above: Performed By: #### L 503.6005, L500.4050, L100.0100, L501.5200, L501.4020 #### [facility] [address] [facility] [place], [address] MCH (RBC) [Entitic mass] 29.8 pg Normal 27.0-32.0 [facility] Comment on above: Performed By: #### L 503.6005, L500.4050, L100.0100, L501.5200, L501.4020 #### [facility] [address] [place], [address] MCHC (RBC) [Mass/Vol] 32.2 g/dL Normal 32-36 [facility] Comment on above: Performed By: #### L 503.6005, L500.4050, L100.0100, L501.5200, L501.4020 #### [facility] [address] [place], [address] MCV (RBC) [Entitic vol] 92.7 fL Normal 81-99 [facility] Comment on above: Performed By: #### L 503.6005, L500.4050, L100.0100, L501.5200, L501.4020 #### [facility] [address] [place], [address] Monocytes/100 WBC (Bld) 6.3 % Normal 0-10 [facility] Comment on above: Performed By: #### L 503.6005, L500.4050, L100.0100, L501.5200, L501.4020 #### [facility] [address] [place], [address] Neutrophils/100 WBC (Bld) 69.6 % Normal 47-70 [facility] Comment on above: Performed By: #### L 503.6005, L500.4050, L100.0100, L501.5200, L501.4020 #### [facility] [address] [place], [address] Nucleated RBC (Bld) [#/Vol] 0 10*3/uL Normal 0-5 [facility] Comment on above: Performed By: #### L 503.6005, L500.4050, L100.0100, L501.5200, L501.4020 #### [facility] [address] [place], [address] Platelet mean volume (Bld) [Entitic vol] 9.2 fL Normal 6.2-12.0 [facility] Comment on above: Performed By: #### L 503.6005, L500.4050, L100.0100, L501.5200, L501.4020 #### [facility] [address] [place], [address] Platelets (Bld) [#/Vol] 353 10*3/uL Normal 150-450 [facility] Comment on above: Performed By: #### L 503.6005, L500.4050, L100.0100, L501.5200, L501.4020 #### [facility] [address] [place], [address] RBC (Bld) [#/Vol] 4.39 10*6/uL Normal 4.2-5.4 [facility] Comment on above: Performed By: #### L 503.6005, L500.4050, L100.0100, L501.5200, L501.4020 #### [facility] [address] [place], [address] RDW SD 45.9 fl High 35.1-43.9 [facility] Comment on above: Performed By: #### L 503.6005, L500.4050, L100.0100, L501.5200, L501.4020 #### [facility] [address] [place], [address] WBC (Bld) [#/Vol] 7.0 10*3/uL Normal 4.4-11.0 [facility] Comment on above: Performed By: #### L 503.6005, L500.4050, L100.0100, L501.5200, L501.4020 #### [facility] [address] [place], [address] CTA Chest W/WO Contraston CTA Chest W/WO Contrast [facility] Imaging Services [address] [place] [address] CTA Chest W/WO Contrast MR#: [id number] Acct: [id number] Name: ELSIALESIA M Rep #: [id number] : 1960 F 63 From: Randell Rodriguez MD PCP: Dr. Bushra Wynne MD Status: [facility] ER Study: CTA Chest W/WO Contrast Date of Exam: 02/27/24 Exam# [id number] Ordering Dr: Zita Kim DO [id number] EXAM: CT ANGIOGRAPHY CHEST WITHOUT AND WITH INTRAVENOUS CONTRAST CLINICAL INDICATION: SOB. Elevated d-dimer. TECHNIQUE: Helically acquired angiography images were obtained of the chest without and with intravenous contrast. This CT exam was performed using one or more of the following dose reduction techniques: automated exposure control, adjustment of the mA and/or kV according to patient size, and/or use of iterative reconstruction technique. MIP reconstructed images were created and reviewed. CONTRAST: IV 100mL [id number] RADIATION DOSE: CTDIvol = 30.07 mGy, DLP = 706.88 mGy-cm COMPARISON: CT abdomen and pelvis with contrast 03/05/2020. No prior CT chest or CTA chest comparison. FINDINGS: PULMONARY ARTERIES: Unremarkable. Normal in caliber. Normal central pulmonary arteries. Suboptimal contrast enhancement of the peripheral pulmonary arteries. AORTA: Mild dilatation of the ascending aorta with a diameter of 3.6 cm versus 2.4 cm for the descending thoracic aorta. No aortic dissection. GREAT VESSELS OF AORTIC ARCH: Unremarkable. Normal in caliber. No evidence of dissection. LUNGS AND PLEURAL SPACES: Breathing motion artifacts. No suspicious pulmonary nodules, infiltrates, consolidation or edema. No pneumothorax. Minimal subsegmental atelectasis in left posterior lung base. No pleural effusion or thickening. HEART: Cardiomegaly. No pericardial effusion. No significant coronary artery calcifications. MEDIASTINUM: Unremarkable. No mediastinal or hilar adenopathy. Esophagus is unremarkable. No hiatal hernia. THYROID: Unremarkable. No thyroid lesions. BONES/JOINTS: Bridging anterior marginal spurs and bridging ossification of the anterior longitudinal ligament in the lower thoracic spine. No lytic or blastic lesions. CT/CTA Chest W/WO Contrast IMPRESSION: 1. No CTA evidence of central pulmonary thromboembolism but peripheral pulmonary embolism cannot be evaluated or determined due to suboptimal contrast enhancement of the peripheral pulmonary arteries. 2. Cardiomegaly without visible coronary calcifications are plaques. 3. Breathing motion degradation artifacts but no suspicious pneumonia. Minimal subsegmental atelectases in the left lung base. 4. Mild dilatation of the ascending aorta with a diameter of 3.6 cm versus 2.4 cm for the descending thoracic aorta. No aortic dissection. Electronically Signed: Randell Rodriguez MD at 14:01 EDT , CC: Dr. Zita Kim DO; Dr. Bushra Wynne MD Physician Credentialing Specialist: Signed Normal [facility] Chest 1 View (Portable)on Chest 1 View (Portable) [facility] Imaging Services [address] [place], [place] [address] Chest 1 View (Portable) MR#: [id number] Acct: [id number] Name: ALESIA CALZADA Rep #: [id number] : 1960 F 63 From: Randell Rodriguez MD PCP: Dr. Bushra Wynne MD Status: REG ER Study: Chest 1 View (Portable) Date of Exam: 02/27/24 Exam# [id number] Ordering Dr: Zita Kim DO [id number] EXAM: XR CHEST, 1 VIEW CLINICAL INDICATION: SOB TECHNIQUE: Frontal view of the chest. COMPARISON: No relevant prior studies available. FINDINGS: LUNGS AND PLEURAL SPACES: Unremarkable. No consolidation or edema. No pneumothorax. No effusion. HEART: Cardiomegaly. MEDIASTINUM: Central airways and mediastinal contour are unremarkable. BONES/JOINTS: Unremarkable. No acute fracture. SOFT TISSUES: Unremarkable. RAD/Chest 1 View (Portable) IMPRESSION: Cardiomegaly but no suspicious acute cardiopulmonary pathology. Electronically Signed: Randell Rodriguez MD at 12:48 EDT , CC: Dr. Zita Kim DO; Dr. Bushra Wynne MD Physician Credentialing Specialist: Signed Normal [facility] Comprehensive Metabolic Prof ilon 02-27-2024 Albumin [Mass/Vol] 3.4 g/dL Normal 3.2-5.0 [facility] Comment on above: Order Comment: 'TROP ' Serial specimen #1, #2 or #3: 1 Performed By: #### L 503.6005, L500.4050, L100.0100, L501.5200, L501.4020 #### [facility] [address] [place], [address] Albumin/Globulin [Mass ratio] 0.8 {ratio} Low 0.9-2.4 [facility] Comment on above: Order Comment: 'TROP ' Serial specimen #1, #2 or #3: 1 Performed By: #### L 503.6005, L500.4050, L100.0100, L501.5200, L501.4020 #### [facility] [address] [place], [address] ALK P 108 U/L Normal 45-117 [facility] Comment on above: Order Comment: 'TROP ' Serial specimen #1, #2 or #3: 1 Performed By: #### L 503.6005, L500.4050, L100.0100, L501.5200, L501.4020 #### [facility] [address] [place], [address] ALT [Catalytic activity/Vol] 45 U/L Normal 13-56 [facility] Comment on above: Order Comment: 'TROP ' Serial specimen #1, #2 or #3: 1 Performed By: #### L 503.6005, L500.4050, L100.0100, L501.5200, L501.4020 #### [facility] [address] [place], [address] AST [Catalytic activity/Vol] 44 U/L High 15-37 [facility] Comment on above: Order Comment: 'TROP ' Serial specimen #1, #2 or #3: 1 Result Comment: Mode rate Hemolysis, Result may be falsely increased. Performed By: #### L 503.6005, L500.4050, L100.0100, L501.5200, L501.4020 #### [facility] [address] [place], [address] Bilirubin [Mass/Vol] 0.60 mg/dL Normal 0.20-1.00 [facility] Comment on above: Order Comment: 'TROP ' Serial specimen #1, #2 or #3: 1 Result Comment: For patients on eltrombopag therapy, use of Dimension [place] TBIL is not recommended. Performed By: #### L 503.6005, L500.4050, L100.0100, L501.5200, L501.4020 #### [facility] [address] [place], [address] BUN/CRE 13.0 RATIO Normal 10-20 [facility] Comment on above: Order Comment: 'TROP ' Serial specimen #1, #2 or #3: 1 Performed By: #### L 503.6005, L500.4050, L100.0100, L501.5200, L501.4020 #### [facility] [address] [place], [address] CA,Total 9.5 mg/dL Normal 8.5-10.1 [facility] Comment on above: Order Comment: 'TROP ' Serial specimen #1, #2 or #3: 1 Performed By: #### L 503.6005, L500.4050, L100.0100, L501.5200, L501.4020 #### [facility] [address] [place], [address] Chloride [Moles/Vol] 106 mmol/L Normal 98-107 [facility] Comment on above: Order Comment: 'TROP ' Serial specimen #1, #2 or #3: 1 Performed By: #### L 503.6005, L500.4050, L100.0100, L501.5200, L501.4020 #### [facility] [address] [place], [address] CO2 [Moles/Vol] 28.0 mmol/L Normal 21.0-32.0 [facility] Comment on above: Order Comment: 'TROP ' Serial specimen #1, #2 or #3: 1 Performed By: #### L 503.6005, L500.4050, L100.0100, L501.5200, L501.4020 #### [facility] [address] [place], [address] Creatinine [Mass/Vol] 1.08 mg/dL High 0.55-1.02 [facility] Comment on above: Order Comment: 'TROP ' Serial specimen #1, #2 or #3: 1 Result Comment: The validity of the calculated GFR GFRAA in patients over 70 years has not been determined. Clinical correlation is essential. Performed By: #### L 503.6005, L500.4050, L100.0100, L501.5200, L501.4020 #### [facility] [address] [place], [address] ECRCL 89.23 ml/min Normal [facility] Comment on above: Order Comment: 'TROP ' Serial specimen #1, #2 or #3: 1 Performed By: #### L 503.6005, L500.4050, L100.0100, L501.5200, L501.4020 #### [facility] [address] [place], [address] EST GFR - AA 66 mL/min Normal >60 [facility] Comment on above: Order Comment: 'TROP ' Serial specimen #1, #2 or #3: 1 Result Comment: Afri can Armenian GFR Calc Performed By: #### L 503.6005, L500.4050, L100.0100, L501.5200, L501.4020 #### [facility] [address] [place], [address] GAP 1 Low 5-15 [facility] Comment on above: Order Comment: 'TROP ' Serial specimen #1, #2 or #3: 1 Performed By: #### L 503.6005, L500.4050, L100.0100, L501.5200, L501.4020 #### [facility] [address] [place], [address] GFR/1.73 sq M.predicted among non-blacks MDRD (S/P/Bld) [Vol rate/Area] 54 mL/min/{1.73_m2} Low >60 [facility] Comment on above: Order Comment: 'TROP ' Serial specimen #1, #2 or #3: 1 Result Comment: Non- GFR Calc Performed By: #### L 503.6005, L500.4050, L100.0100, L501.5200, L501.4020 #### [facility] [address] [place], [address] Globulin (S) [Mass/Vol] 4.3 g/dL High 2.2-4.2 [facility] Comment on above: Order Comment: 'TROP ' Serial specimen #1, #2 or #3: 1 Performed By: #### L 503.6005, L500.4050, L100.0100, L501.5200, L501.4020 #### [facility] [address] [place], [address] Glucose [Mass/Vol] 116 mg/dL High 74-106 [facility] Comment on above: Order Comment: 'TROP ' Serial specimen #1, #2 or #3: 1 Result Comment: Fast ing Glucose result from 100 to 125 mg/dL suggests IMPAIRED HOMEOSTASIS per A.D.A. criteria. Performed By: #### L 503.6005, L500.4050, L100.0100, L501.5200, L501.4020 #### [facility] [address] [place], [address] Potassium [Moles/Vol] 5.9 mmol/L High 3.5-5.1 [facility] Comment on above: Order Comment: 'TROP ' Serial specimen #1, #2 or #3: 1 Result Comment: Mode rate Hemolysis, Result may be falsely increased. Performed By: #### L 503.6005, L500.4050, L100.0100, L501.5200, L501.4020 #### [facility] [address] [place], [address] Sodium [Moles/Vol] 135 mmol/L Low 136-145 [facility] Comment on above: Order Comment: 'TROP ' Serial specimen #1, #2 or #3: 1 Performed By: #### L 503.6005, L500.4050, L100.0100, L501.5200, L501.4020 #### [facility] [address] [place], [address] T PROT 7.7 g/dL Normal 6.4-8.2 [facility] Comment on above: Order Comment: 'TROP ' Serial specimen #1, #2 or #3: 1 Performed By: #### L 503.6005, L500.4050, L100.0100, L501.5200, L501.4020 #### [facility] [address] [place], [address] Urea nitrogen [Mass/Vol] 14 mg/dL Normal 7-18 [facility] Comment on above: Order Comment: 'TROP ' Serial specimen #1, #2 or #3: 1 Performed By: #### L 503.6005, L500.4050, L100.0100, L501.5200, L501.4020 #### [facility] [address] [place], [address] D-Dimer Quantitative (DVT/PE )on 02-27-2024 D-DIMER QUANT 1.33 FEU/ug/m Invalid Interpretation Code 0.27-0.49 [facility] Comment on above: Result Comment: D-Di saran ELEVATED (>0.49): Additional studies and clinical assessments are indicated to conclude diagnosis of: Deep Vein Thrombosis (DVT) or Pulmonary Embolism (PE) CRITICAL VALUE VERIFIED. CALLED TO MASOUD 02/27/24 Malini Sanchez. RESULTS READ BACK BY SAME . Performed By: #### L 300.8000 ####[facility] [address] [place], [address] Emergency Department Summary on 02-27-2024 Emergency Department Summary [facility] Medical Records Department [address] [place] [address] Emergency Department Summary 02/27/24 MR#: [id number] Acct: [id number] Name: ALESIA CALZADA Rep #: [id number] : 1960 63 From: Zita Kim DO PCP: Dr. Bushra Wynne MD Status:DEP ER Location: ED HPI History of Present Illness Chief Complaint: Dizziness Informant: patient Narrative Narrative: Patient is a 63-year-old female with history of GERD, venous insufficiency, hypertension, chronic leg swelling and borderline type 2 diabetes mellitus presenting with shortness of breath and dizziness. Patient states that she scheduled for colonoscopy tomorrow with Dr. Wdadell. She ate late 2 days ago and started a clear liquid diet yesterday. She is about to start her prep at 2 PM today. She notes that today she is not having lightheadedness and dizziness and feels like she almost might pass out. She feels a little short of breath. She has some associated nausea. Denies any abdominal pain and change in her bowel movements. Denies any fever or URI symptoms. Denies any chest pain. States that she has had a lot of urinary frequency but is not sure if that is because she has been drinking liquids the last 24 hours. Came in to be evaluated before she starts her prep. No other complaints or concerns reported at this time. Reports that she has chronic lymphedema but states this actually bit better today. [facility] Medical History Hypertension Flu vaccine need Colon cancer screening PONV (postoperative nausea and vomiting) Wears glasses Wears hearing aid Wears partial dentures Wears dentures Anxiety Walker as ambulation aid Restless legs History of umbilical hernia Former smoker CPAP (continuous positive airway pressure) dependence Leg cramps History of stress test Borderline type 2 diabetes mellitus Preoperative evaluation to rule out surgical contraindication Health care maintenance Asthmatic bronchitis with acute exacerbation Obstructive sleep apnea Kidney failure history of premature delivery Abnormal uterine bleeding GERD (gastroesophageal reflux disease) History of benign breast tumor Seasonal allergies Depression Venous insufficiency Hearing impairment Morbid obesity Hypertension Home Medications ???Medication ???Instructions ???Recorded ???Last Taken ???Type aspirin 81 mg tablet,delayed 81 mg PO DAILY@0800 06/24/15 Unknown History release multivitamin with folic acid 400 1 tab PO DAILY 06/24/15 Unknown History mcg tablet Cpap Supplies #1 ea 08/18/21 Unknown Rx Pancreat-Bet SAc-ffx-yjxn-pap 250 1 cap PO .with meals 10/23/22 Unknown History mg-162 mg-65 mg-125 mg capsule (Super Enzyme) anita.stocking,kne e,reg,xlrg #2 ea 10/23/22 Unknown Rx Cpap Supplies #1 ea 01/27/23 Unknown Rx lisinopril 40 mg tablet 40 mg PO DAILY #90 tabs 05/28/23 Unknown Rx fluoxetine 20 mg capsule See Rx Instructions .Route 10/08/23 Unknown Rx .COMPLEX #90 caps amlodipine 10 mg tablet 10 mg PO QDAY #90 tabs 02/14/24 Unknown Rx tizanidine 2 mg tablet See Rx Instructions .Route 02/14/24 Unknown Rx .COMPLEX #90 tabs apixaban 5 mg tablet (Eliquis) 5 mg PO BID #60 tabs 02/27/24 Unknown Rx metoprolol tartrate 25 mg tablet 25 mg PO BID #60 tabs 02/27/24 Unknown Rx Allergy/AdvReac Type Severity Reaction Status Date / Time clindamycin Allergy Severe Hearing Verified 02/23/24 12:47 loss ciprofloxacin (From Cipro) Allergy Other Verified 02/23/24 12:47 codeine Allergy Rash Verified 02/23/24 12:47 hydrochlorothiazide Allergy Other Verified 02/23/24 12:47 Penicillins (PCN) Allergy Rash Verified 02/23/24 12:47 tramadol HCl (From Ultram) Allergy Other Verified 02/23/24 12:47 spironolactone (From AdvReac Causes Verified 02/23/24 12:47 Aldactone) Potassium to elevate Family History Mother CVA (cerebral vascular accident) Hypertension Sister cranial stenosis Father Hypertension Asthma Arthritis Surgical History History of hysteroscopy H/O dilation and curettage History of tubal ligation History of cholecystectomy History of placement of ear tubes History of D C History of section History of benign breast biopsy Social History household members: spouse Smoking Status: Former smoker how long ago did patient quit smokin alcohol intake: current alcohol intake frequency: holidays/special occasions only Alcohol type: wine substance use type: does not use caffeine: Yes what type of physical activity do you participate in: none seatbelt use: always do you feel safe at home: Yes additional (more content not included)... Normal [facility] L501.4020on 02-27-2024 TROPONIN-I HS 5 pg/mL Normal 3.0-54.0 [facility] Comment on above: Order Comment: 'TROP ' Serial specimen #1, #2 or #3: 1 Result Comment: Alexi leahy Note: New Test Units and Gender Specific Reference Ranges. For more information see Policy Stat Procedure [place] High Sensitivity Troponin (TNIH) and attachments. Performed By: #### L 503.6005, L500.4050, L100.0100, L501.5200, L501.4020 #### [facility] [address] [place], [address] Lactic Acidon 02-27-2024 Lactate [Moles/Vol] 1.3 mmol/L Normal 0.4-1.9 [facility] Comment on above: Order Comment: Y Performed By: #### L 503.6005, L500.4050, L100.0100, L501.5200, L501.4020 #### [facility] [address] [place], [address] Magnesiumon 02-27-2024 Magnesium [Mass/Vol] 1.9 mg/dL Normal 1.6-2.6 [facility] Comment on above: Order Comment: 'TROP ' Serial specimen #1, #2 or #3: 1 Result Comment: Mode rate Hemolysis, Result may be falsely increased. Performed By: #### L 503.6005, L500.4050, L100.0100, L501.5200, L501.4020 #### [facility] [address] [place], [address] Thyroid Stim Hormone (TSH)on 02-27-2024 TSH 2.180 uIU/mL Normal 0.358-3.740 [facility] Comment on above: Performed By: #### L 501.9549 #### [facility] [address] [place], [address] Urinalysis, Completeon 02-26 BACTERIA 1+ /hpf Normal None Seen [facility] Comment on above: Order Comment: 'TROP ' Serial specimen #1, #2 or #3: 1 Performed By: #### L 503.6005, L500.4050, L100.0100, L501.5200, L501.4020 #### [facility] [address] [place], [address] EPI,SQUAMOUS 0-5 SEEN Normal 5-10 [facility] Comment on above: Order Comment: 'TROP ' Serial specimen #1, #2 or #3: 1 Performed By: #### L 503.6005, L500.4050, L100.0100, L501.5200, L501.4020 #### [facility] [address] [place], [address] Mucus Ql (Urine sed) 0 SEEN Normal [facility] Comment on above: Order Comment: 'TROP ' Serial specimen #1, #2 or #3: 1 Performed By: #### L 503.6005, L500.4050, L100.0100, L501.5200, L501.4020 #### [facility] [address] [place], [address] RBC 0 SEEN Normal 0-5 [facility] Comment on above: Order Comment: 'TROP ' Serial specimen #1, #2 or #3: 1 Performed By: #### L 503.6005, L500.4050, L100.0100, L501.5200, L501.4020 #### [facility] [address] [place], [address] WBC 0 SEEN Normal 0-5 [facility] Comment on above: Order Comment: 'TROP ' Serial specimen #1, #2 or #3: 1 Performed By: #### L 503.6005, L500.4050, L100.0100, L501.5200, L501.4020 #### [facility] [address] [place], [address] Basic Metabolic Profile (BMP )on 02-03-2024 BUN/CRE 18.8 RATIO Normal 10-20 [facility] Comment on above: Performed By: #### L 500.2500 ####[facility] [address] [place], [address] CA,Total 9.7 mg/dL Normal 8.5-10.1 [facility] Comment on above: Performed By: #### L 500.2500 ####[facility] [address] [place], [address] Chloride [Moles/Vol] 104 mmol/L Normal 98-107 [facility] Comment on above: Performed By: #### L 500.2500 ####[facility] [address] [place], [address] CO2 [Moles/Vol] 24.0 mmol/L Normal 21.0-32.0 [facility] Comment on above: Performed By: #### L 500.2500 ####[facility] [address] [place], [address] Creatinine [Mass/Vol] 1.12 mg/dL High 0.55-1.02 [facility] Comment on above: Result Comment: The validity of the calculated GFR GFRAA in patients over 70 years has not been determined. Clinical correlation is essential. Performed By: #### L 500.2500 ####[facility] [address] [place], [address] EST GFR - AA 63 mL/min Normal >60 [facility] Comment on above: Result Comment: Afri can Armenian GFR Calc Performed By: #### L 500.2500 ####[facility] [address] [place], [address] GAP 8 Normal 5-15 [facility] Comment on above: Performed By: #### L 500.2500 ####[facility] [address] [place], [address] GFR/1.73 sq M.predicted among non-blacks MDRD (S/P/Bld) [Vol rate/Area] 52 mL/min/{1.73_m2} Low >60 [facility] Comment on above: Result Comment: Non- GFR Calc Performed By: #### L 500.2500 ####[facility] [address] [place], [address] Glucose [Mass/Vol] 123 mg/dL High 74-106 [facility] Comment on above: Result Comment: Fast ing Glucose result from 100 to 125 mg/dL suggests IMPAIRED HOMEOSTASIS per A.D.A. criteria. Performed By: #### L 500.2500 ####[facility] [address] [place], [address] Potassium [Moles/Vol] 4.7 mmol/L Normal 3.5-5.1 [facility] Comment on above: Performed By: #### L 500.2500 ####[facility] [address] [place], [address] Sodium [Moles/Vol] 136 mmol/L Normal 136-145 [facility] Comment on above: Performed By: #### L 500.2500 ####[facility] [address] [place], [address] Urea nitrogen [Mass/Vol] 21 mg/dL High 7-18 [facility] Comment on above: Performed By: #### L 500.2500 ####[facility] [address] [place], [address] Internal Medicine Office Vis rosy 02-03-2024 Internal Medicine Office Visit [facility] [address] [place], [place] [address] OFFICE VISIT Date of Service: 02/03/24 MR#: [id number] Acct: [id number] Name: ALESIA CALZADA Rep #: [id number] : 1960 Provider: Dr. 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 Accompanied by: Self Is patient in pain?: No Allergies clindamycin Allergy (Severe, Verified 02/03/24 13:41) Hearing loss ciprofloxacin (From Cipro) Allergy (Verified 02/03/24 13:41) Other codeine Allergy (Verified 02/03/24 13:41) Rash hydrochlorothiazide Allergy (Verified 02/03/24 13:41) Other Penicillins (PCN) Allergy (Verified 02/03/24 13:41) Rash tramadol HCl (From Ultram) Allergy (Verified 02/03/24 13:41) Other spironolactone (From Aldactone) Adverse Reaction (Verified 02/03/24 13:41) Causes Potassium to elevate Medications ???Medication ???Instructions ???Recorded ???Confirmed ???Type aspirin 81 mg tablet,delayed 81 mg PO DAILY@0800 06/24/15 02/03/24 History release multivitamin with folic acid 400 1 tab PO DAILY 06/24/15 02/03/24 History mcg tablet Cpap Supplies #1 ea 08/18/21 02/03/24 Rx Pancreat-Bet ORo-dyu-ekrr-pap 250 1 cap PO .with meals 10/23/22 02/03/24 History mg-162 mg-65 mg-125 mg capsule (Super Enzyme) anita.stocking,kne e,reg,xlrg #2 ea 10/23/22 02/03/24 Rx Cpap Supplies #1 ea 01/27/23 02/03/24 Rx amlodipine 10 mg tablet 10 mg PO QDAY #90 tabs 03/03/23 02/03/24 Rx lisinopril 40 mg tablet 40 mg PO DAILY #90 tabs 05/28/23 02/03/24 Rx tizanidine 2 mg tablet See Rx Instructions .Route 08/09/23 02/03/24 Rx .COMPLEX #90 tabs fluoxetine 20 mg capsule See Rx Instructions .Route 10/08/23 02/03/24 Rx .COMPLEX #90 caps PFSH Medical History Flu vaccine need Colon cancer screening PONV (postoperative nausea and vomiting) Wears glasses Wears hearing aid Wears partial dentures Wears dentures Anxiety Walker as ambulation aid Restless legs History of umbilical hernia Former smoker CPAP (continuous positive airway pressure) dependence Leg cramps History of stress test Borderline type 2 diabetes mellitus Preoperative evaluation to rule out surgical contraindication Health care maintenance Asthmatic bronchitis with acute exacerbation Obstructive sleep apnea Kidney failure history of premature delivery Abnormal uterine bleeding GERD (gastroesophageal reflux disease) History of benign breast tumor Seasonal allergies Depression Venous insufficiency Hearing impairment Morbid obesity Hypertension Surgical History H/O dilation and curettage History of tubal ligation History of cholecystectomy History of placement of ear tubes History of D C History of section History of benign breast biopsy Family History Mother CVA (cerebral vascular accident) Hypertension Sister cranial stenosis Father Hypertension Asthma Arthritis Social History household members: spouse Smoking Status: Former smoker how long ago did patient quit smokin alcohol intake: current alcohol intake frequency: holidays/special occasions only Alcohol type: wine substance use type: does not use caffeine: Yes what type of physical activity do you participate in: none seatbelt use: always do you feel safe at home: Yes additional social history: [employer]wqw[employer]sk[employer] Female Reproductive History Menstrual Ab spontaneous: 3 HPI HPI Chief Complaint: suagr concerns Details: ALESIA CALZADA, is a 63 F who presents to the office today for concerns about having a dry mouth. Originally her appointment was for left lower quadrant pain but that was because she was constipated and she is taken Dulcolax and that is solve the problem and the pain. Now her concern is she is waking up with a dry mouth and having been told she is prediabetic she is concerned about her blood sugars. However she brings in a list of blood sugars and yesterday they were 84,95 and 101 and today they were 82 at 93. So obviously sugar is not an issue ROS Const Constitutional: No body ache, chills, excessive sweating, fatigue, fever(s), frequent falls, headache(s), snoring, weakness o (more content not included)... Normal [facility] SCRN MAMM (CAD)W/ELEANOR BILATo n 01-25-2024 SCRN MAMM (CAD)W/ELEANOR BILAT [facility] Imaging Services [address] [place] [address] [id number] SCRN MAMM (CAD)W/ELEANOR BILAT MR#: [id number] Acct: [id number] Name: ALESIA CALZADA Rep #: [id number] : 1960 F 63 From: Gutierrez mcfarlane MD PCP: Dr. Bushra Wynne MD Status: REG [facility] Study: SCRN MAMM (CAD)W/ELEANOR BILAT Date of Exam: 12/12 Exam# [id number] Ordering Dr: Roger Araujo [place] [id number] MAMMOGRAPHY - BILATERAL SCREENING REASON FOR EXAM: Female, 63 years old. Routine annual screening examination. PERTINENT HISTORY: Non-contributory. Remote left excisional breast biopsy. TECHNIQUE: Digital bilateral breast eleanor (3D mammographic acquisition) in the CC and MLO projections. 2-D mediolateral oblique (MLO) and craniocaudad (CC) views of both breasts were obtained. CAD: Full Field Digital Mammography with Computer Added Detection was performed. COMPARISON: Comparison is made with prior study dated November 19, 2022 and November 04, 2021. FINDINGS: Breast Composition: The breasts are almost entirely fatty. There are no dominant masses or suspicious calcifications. Stable fat-containing axillary lymph nodes. No other significant abnormalities are identified. There has been no significant change since the prior study. BI/SCRN MAMM (CAD)W/ELEANOR BILAT IMPRESSION: Stable bilateral screening mammogram. Yearly follow-up mammogram recommended. (A) ASSESSMENT CATEGORY: BIRADS Category 2: Benign. A letter regarding these results will be sent to the patient by the facility within 30 days. Approximately 10% of breast cancers are not detected by mammography. A normal mammogram should not delay biopsy of a clinically suspicious abnormality. [id number] Electronically Signed: Gutierrez Pichardo MD at 11:24 EDT , CC: Dr. Bushra Wynne MD; OMAR Thapa Physician Credentialing Specialist: Signed Normal [facility] Basic Metabolic Profile (BMP )on 01-20-2024 BUN/CRE 22.8 RATIO High 10-20 [facility] Comment on above: Performed By: #### L 500.2500 ####[facility] [address] [place], [place], [id number] CA,Total 9.1 mg/dL Normal 8.5-10.1 [facility] Comment on above: Performed By: #### L 500.2500 ####[facility] [address] [place], [address] Chloride [Moles/Vol] 107 mmol/L Normal 98-107 [facility] Comment on above: Performed By: #### L 500.2500 ####[facility] [address] [place], [address] CO2 [Moles/Vol] 23.0 mmol/L Normal 21.0-32.0 [facility] Comment on above: Performed By: #### L 500.2500 ####[facility] [address] [place], [address] Creatinine [Mass/Vol] 1.14 mg/dL High 0.55-1.02 [facility] Comment on above: Result Comment: The validity of the calculated GFR GFRAA in patients over 70 years has not been determined. Clinical correlation is essential. Performed By: #### L 500.2500 ####[facility] [address] [place], [address] EST GFR - AA 62 mL/min Normal >60 [facility] Comment on above: Result Comment: Afri can Armenian GFR Calc Performed By: #### L 500.2500 ####[facility] [address] [place], [address] GAP 6 Normal 5-15 [facility] Comment on above: Performed By: #### L 500.2500 ####[facility] [address] [place], [address] GFR/1.73 sq M.predicted among non-blacks MDRD (S/P/Bld) [Vol rate/Area] 51 mL/min/{1.73_m2} Low >60 [facility] Comment on above: Result Comment: Non- GFR Calc Performed By: #### L 500.2500 ####[facility] [address] [place], [address] Glucose [Mass/Vol] 107 mg/dL High 74-106 [facility] Comment on above: Result Comment: Fast ing Glucose result from 100 to 125 mg/dL suggests IMPAIRED HOMEOSTASIS per A.D.A. criteria. Performed By: #### L 500.2500 ####[facility] [address] [place], [address] Potassium [Moles/Vol] 5.4 mmol/L High 3.5-5.1 [facility] Comment on above: Performed By: #### L 500.2500 ####[facility] [address] [place], [place], [id number] Sodium [Moles/Vol] 136 mmol/L Normal 136-145 [facility] Comment on above: Performed By: #### L 500.2500 ####[facility] [address] [place], [place], [address] Urea nitrogen [Mass/Vol] 26 mg/dL High 7-18 [facility] Comment on above: Performed By: #### L 500.2500 ####[facility] [address] [place], [place], [address] Internal Medicine Office Vis ito 01-20-2024 Internal Medicine Office Visit [facility] [address] [place], [place] [id number] OFFICE VISIT Date of Service: 01/20/24 MR#: [id number] Acct: [id number] Name: ALESIA CALZADA Rep #: [id number] : 1960 Provider: Dr. Bushra wolf MD Age/Sex: 63/F Location: [facility] Status: Signed Intake Vital Signs 08/12/23 13:49 01/20/24 15:01 Height 5 ft 4 in 5 ft 4 in BP 130/76 H Blood Pressure Location Lt brachial Position Sitting Respiration 17 Pulse 74 Pulse Source Monitor Temp 98.0 F Temp Source Temporal Pulse Oximetry (%) 97 Oxygen Delivery Method room air Comment pt declined weight Intake Visit Reasons: FU Chief Complaint: FU Is patient in pain?: No Allergies clindamycin Allergy (Severe, Verified 01/20/24 15:07) Hearing loss ciprofloxacin (From Cipro) Allergy (Verified 01/20/24 15:07) Other codeine Allergy (Verified 01/20/24 15:07) Rash hydrochlorothiazide Allergy (Verified 01/20/24 15:07) Other Penicillins (PCN) Allergy (Verified 01/20/24 15:07) Rash tramadol HCl (From Ultram) Allergy (Verified 01/20/24 15:07) Other spironolactone (From Aldactone) Adverse Reaction (Verified 01/20/24 15:07) Causes Potassium to elevate Medications ???Medication ???Instructions ???Recorded ???Confirmed ???Type aspirin 81 mg tablet,delayed 81 mg PO DAILY@0800 06/24/15 01/20/24 History release multivitamin with folic acid 400 1 tab PO DAILY 06/24/15 01/20/24 History mcg tablet Cpap Supplies #1 ea 08/18/21 08/12/23 Rx Pancreat-Bet SUd-mwq-dzay-pap 250 1 cap PO .with meals 10/23/22 01/20/24 History mg-162 mg-65 mg-125 mg capsule (Super Enzyme) anita.celi dyer e,reg,xlrg #2 ea 10/23/22 08/12/23 Rx Cpap Supplies #1 ea 01/27/23 08/12/23 Rx amlodipine 10 mg tablet 10 mg PO QDAY #90 tabs 03/03/23 01/20/24 Rx lisinopril 40 mg tablet 40 mg PO DAILY #90 tabs 05/28/23 01/20/24 Rx tizanidine 2 mg tablet See Rx Instructions .Route 08/09/23 01/20/24 Rx .COMPLEX #90 tabs semaglutide 0.25 mg or 0.5 mg (2 0.25 mg (0.368 mL) subcut QWEEK #3 08/12/23 08/12/23 Rx mg/3 mL) subcutaneous pen injector mL fluoxetine 20 mg capsule See Rx Instructions .Route 10/08/23 01/20/24 Rx .COMPLEX #90 caps Have you fallen in the past year?: No PFSH Medical History (Updated 01/20/24 @ 16:[address] Bushra Wynne MD) Flu vaccine need Colon cancer screening PONV (postoperative nausea and vomiting) Wears glasses Wears hearing aid Wears partial dentures Wears dentures Anxiety Walker as ambulation aid Restless legs History of umbilical hernia Former smoker CPAP (continuous positive airway pressure) dependence Leg cramps History of stress test Borderline type 2 diabetes mellitus Preoperative evaluation to rule out surgical contraindication Health care maintenance Asthmatic bronchitis with acute exacerbation Obstructive sleep apnea Kidney failure history of premature delivery Abnormal uterine bleeding GERD (gastroesophageal reflux disease) History of benign breast tumor Seasonal allergies Depression Venous insufficiency Hearing impairment Morbid obesity Hypertension Surgical History H/O dilation and curettage History of tubal ligation History of cholecystectomy History of placement of ear tubes History of D C History of section History of benign breast biopsy Family History Mother CVA (cerebral vascular accident) Hypertension Sister cranial stenosis Father Hypertension Asthma Arthritis Social History Smoking Status: Former smoker how long ago did patient quit smokin alcohol intake: current alcohol intake frequency: holidays/special occasions only Alcohol type: wine substance use type: does not use caffeine: Yes what type of physical activity do you participate in: none seatbelt use: always do you feel safe at home: Yes additional social history: Ldbwhgw-Ngp-Abv Female Reproductive History Menstrual Ab spontaneous: 3 HPI HPI Chief Complaint: FU Details: ALESIA CALZADA, is a 63 F who presents to the office today for follow-up of her chronic medical conditions. No acute concerns at this time. Blood pressure today at 130/76 mmHg. Did, with a log which shows readings ranging from level of 136/76 to a high of 155/87. Most readings in the 130s to 140s. She reports compliance with her medication. She feels well. Denies chest pain, palpitation or shortness of breath. History of borderline diabetes and morbid obesity. At her last visit, prescription for semaglutide was sent however, this was not covered by her insurance and at this time she states that she would like to stick with di (more content not included)... Normal [facility] Absolute lymphocyte countOrd ered By: Bushra Wynne on 08-12-2023 Lymphocytes Auto (Unsp spec) [#/Vol] 1.98 10*3/uL 0.83-4.51 [facility] Automated lymphocyte count a s percentage of total leukocytesOrdered By: Bushra Wynne on 08-12-2023 Lymphocytes/100 WBC Auto (Unsp spec) 24.9 % 19-41 [facility] Basophil percentageOrdered B y: Bushra Wynne on 08-12-2023 Basophils/100 WBC (Bld) 0.4 % 0-1 [facility] Bilirubin [Mass/Vol] 0.40 mg/dL 0.20-1.00 [facility] Comment on above: For patients on eltr ombopag therapy, use of Dimension [place] TBIL is not recommended. Chloride [Moles/Vol] 106 mmol/L 98-107 [facility] Cholesterol [Mass/Vol] 191 mg/dL <200 [facility] Comment on above: <200 mg/dL Desirable 200-240 mg/dL Borderline >240 mg/dL High Risk Eosinophils/100 WBC (Bld) 3.3 % 0-5 [facility] Glucose [Mass/Vol] 106 mg/dL 74-106 [facility] Comment on above: Fasting Glucose resu lt from 100 to 125 mg/dL suggests IMPAIRED HOMEOSTASIS per A.D.A. criteria. Hemoglobin (Bld) [Mass/Vol] 14.1 g/dL 12.0-15.0 [facility] Monocytes/100 WBC (Bld) 6.0 % 0-10 [facility] Neutrophils (Bld) [#/Vol] 5.2 10*3/uL 2.0-7.7 [facility] Neutrophils/100 WBC (Bld) 65.0 % 47-70 [facility] Potassium [Moles/Vol] 4.8 mmol/L 3.5-5.1 [facility] Protein [Mass/Vol] 7.7 g/dL 6.4-8.2 [facility] Sodium [Moles/Vol] 137 mmol/L 136-145 [facility] Triglyceride [Mass/Vol] 80 mg/dL <199 [facility] Comment on above: The drugs N-Acetylcy steine and Metamizole may falsely depress this assay.Serum Triglycerides Reference Interval Normal <150 mg/dL Borderline high 150 - 199 mg/dL High 200 - 499 mg/dL Very High > or = 500 mg/dL WBC (Bld) [#/Vol] 7.9 10*3/uL 4.4-11.0 [facility] Determination of erythrocyte mean corpuscular volume (MCV)Ordered By: Bushra Wynne on 08-12-2023 MCV (RBC) [Entitic vol] 93.0 fL 81-99 [facility] Erythrocyte distribution wid th ratioOrdered By: [facility] Gerardodouglas on 08-12-2023 Erythrocyte distribution width (RBC) [Ratio] 13.3 % 11.6-14.6 [facility] Erythrocyte distribution wid th standard deviationOrdered By: [facility] Gerardodouglas on 08-12-2023 Erythrocyte distribution width (RBC) [Entitic vol] 45.5 fL 35.1-43.9 [facility] Hematocrit Auto (Bld) [Volum e fraction]Or[facility] By: [facility]od[facility] on 08-12-2023 Hematocrit (Bld) [Volume fraction] 43.9 % 37-47 [facility] Immature granulocytes/100 WB C Auto (Bld)Ordered By: [facility] Carrillodouglas on 08-12-2023 Immature granulocytes/100 WBC (Bld) 0.400 % 0.0-0.9 [facility] Comment on above: IG% - Immature Granu locytes (promyelocytes, myelocytes and metamyelocytes) > 1% indicates that a LEFT SHIFT is Present. Laboratory - Chemistry and C hemistry - challengeOrdered By: [facility] Gerardodouglas on 08-12-2023 Albumin/Globulin [Mass ratio] 0.9 {ratio} 0.9-2.4 [facility] ALP [Catalytic activity/Vol] 96 U/L 45-117 [facility] ALT [Catalytic activity/Vol] 31 U/L 13-56 [facility] Cholesterol in HDL [Mass/Vol] 53 mg/dL >40 [facility] Comment on above: The drugs N-Acetylcy steine and Metamizole may falsely depress this assay. Reference Range HDL <40 mg/dL Low HDL Cholesterol HDL >or= 60 mg/dL High HDL Cholesterol Cholesterol in LDL [Mass/Vol] 122 mg/dL 0-130 [facility] CO2 [Moles/Vol] 26.0 mmol/L 21.0-32.0 [facility] Globulin (S) [Mass/Vol] 4.0 g/dL 2.2-4.2 [facility] Urea nitrogen/Creatinine [Mass ratio] 26.5 mg/mg 10-20 [facility] Laboratory - Hematology and Cell countsOrdered By: Bushra Wynne on 08-12-2023 MCH (RBC) [Entitic mass] 29.9 pg 27.0-32.0 [facility] MCHC (RBC) [Mass/Vol] 32.1 g/dL 32-36 [facility] Nucleated RBC/100 WBC (Bld) [Ratio] 0 % 0-5 [facility] Platelet mean volume (Bld) [Entitic vol] 10.1 fL 6.2-12.0 [facility] Platelets (Bld) [#/Vol] 360 10*3/uL 150-450 [facility] Laboratory - Hematology and Cell countson 08-12-2023 HbA1c (Bld) [Mass fraction] 5.9 % 4.2-6.3 [facility] No Panel InformationOrdered By: Bushra Wynne on 08-12-2023 Estimated GFR (MDRD) Amer 74 mL/min >60 [facility] Comment on above: GFR Calc Estimated GFR (MDRD) Non-Af Amer 61 mL/min >60 [facility] Comment on above: Non- GFR Calc VLDL Cholesterol 16 mg/dL 5-40 [facility] RBC Auto (Bld) [#/Vol]Ordere d By: Bushra Wynne on 08-12-2023 RBC (Bld) [#/Vol] 4.72 10*6/uL 4.2-5.4 [facility] Serum or plasma calcium margaret urement (mass/volume)Ordered By: Bushra Wynne on 08-12-2023 Calcium [Mass/Vol] 9.6 mg/dL 8.5-10.1 [facility] Serum or plasma creatinine m easurement (mass/volume)Ordered By: Bushra Wynne on 08-12-2023 Creatinine [Mass/Vol] 0.98 mg/dL 0.55-1.02 [facility] Comment on above: The validity of the calculated GFR & GFRAA in patients over 70 years has not been determined. Clinical correlation is essential. Serum or plasma urea nitroge n measurement (mass/volume)Ordered By: Bushra Wynne on 08-12-2023 Urea nitrogen [Mass/Vol] 26 mg/dL 7-18 [facility] Thin prep Papanicolaou smear with manual screeningOrdered By: Bushra Wynne on 08-12-2023 Thin prep Papanicolaou smear with manual screening 3.7 g/dL 3.2-5.0 [facility] Thin prep Papanicolaou smear with manual screening 17 U/L 15-37 [facility] Thin prep Papanicolaou smear with manual screening 5 5-15 [facility] CNOVon 03-24-2023 CNOV Office Visit (AGGENS4) ALESIA CALZADA ([id number]) 1960 F Date Time Provider Department 03/24/23 1:30 PM ESTELLA SANDOVAL AGGENS4 During your visit today, we recorded the following information about you: Pulse Blood pressure Weight Height 67/minute 130/80 190 kg 1.626 m Estella Sandoval MD 03/24/2023 2:02 PM Signed SURGICAL SERVICES HISTORY AND PHYSICAL EXAMINATION SERVICE DATE: 03/24/2023 SERVICE TIME: 1:38 PM PRIMARY CARE PHYSICIAN: Bushra Wynne MD SUBJECTIVE CHIEF COMPLAINT: hernia and need for colonoscopy HISTORY OF PRESENT ILLNESS: Ms. Calzada is a 62 year old female with [...] would like to more about it. 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 progesterone micronized (PROMETRIUM) 100 mg capsule pancreat/betaine/pep sin/bromel (SUPER ENZYME ORAL) Take by mouth once [...] not taking: Reported on 03/24/2023) No current facility-administere d medications for this visit. ALLERGIES: AMANDA (more content not included)... Normal [facility] Absolute lymphocyte countOrd ered By: Bushra Wynne on 01-13-2023 Lymphocytes Auto (Unsp spec) [#/Vol] 1.96 10*3/uL 0.83-4.51 [facility] Basophil percentageOrdered B y: Mcmakaylalatoya Wynne on 01-13-2023 Basophils/100 WBC (Bld) 0.4 % 0-1 [facility] Bilirubin [Mass/Vol] 0.20 mg/dL 0.20-1.00 [facility] Comment on above: For patients on eltr ombopag therapy, use of Dimension [place] TBIL is not recommended. Chloride [Moles/Vol] 108 mmol/L 98-107 [facility] Eosinophils/100 WBC (Bld) 5.5 % 0-5 [facility] Glucose [Mass/Vol] 125 mg/dL 74-106 [facility] Comment on above: Fasting Glucose resu lt from 100 to 125 mg/dL suggests IMPAIRED HOMEOSTASIS per A.D.A. criteria. Neutrophils (Bld) [#/Vol] 4.2 10*3/uL 2.0-7.7 [facility] Neutrophils/100 WBC (Bld) 59.2 % 47-70 [facility] Potassium [Moles/Vol] 4.7 mmol/L 3.5-5.1 [facility] Protein [Mass/Vol] 7.4 g/dL 6.4-8.2 [facility] Sodium [Moles/Vol] 138 mmol/L 136-145 [facility] WBC (Bld) [#/Vol] 7.1 10*3/uL 4.4-11.0 [facility] Blood erythrocytes count (nu mber/volume)Ordered By: Bushra Wynne on 01-13-2023 RBC (Bld) [#/Vol] 4.52 10*6/uL 4.2-5.4 [facility] Blood hemoglobin measurement (mass/volume)Ordered By: Bushra Wynne on 01-13-2023 Hemoglobin (Bld) [Mass/Vol] 13.7 g/dL 12.0-15.0 [facility] Blood lymphocytes/100 leukoc ytesOrdered By: Bushra Wynne on 01-13-2023 Lymphocytes/100 WBC (Bld) 27.8 % 19-41 [facility] Blood monocytes/100 leukocyt esOrdered By: Bushra Wynne on 01-13-2023 Monocytes/100 WBC (Bld) 6.8 % 0-10 [facility] Blood platelet mean volumeOr dered By: Bushra Wynne on 01-13-2023 Platelet mean volume (Bld) [Entitic vol] 10.0 fL 6.2-12.0 [facility] Determination of erythrocyte mean corpuscular volume (MCV)Ordered By: Bushra Wynne on 01-13-2023 MCV (RBC) [Entitic vol] 94.2 fL 81-99 [facility] Hematocrit Auto (Bld) [Volum e fraction]Ordered By: jovonnobleborolatoya Wynne on 01-13-2023 Hematocrit (Bld) [Volume fraction] 42.6 % 37-47 [facility] Laboratory - Chemistry and C hemistry - challengeOrdered By: [facility] Carrillodouglas on 01-13-2023 ALP [Catalytic activity/Vol] 105 U/L 45-117 [facility] ALT [Catalytic activity/Vol] 27 U/L 13-56 [facility] CO2 [Moles/Vol] 26.0 mmol/L 21.0-32.0 [facility] Globulin (S) [Mass/Vol] 4.0 g/dL 2.2-4.2 [facility] Urea nitrogen/Creatinine [Mass ratio] 20.8 mg/mg 10-20 [facility] Laboratory - Hematology and Cell countsOrdered By: Mcnobleborolatoya Wynne on 01-13-2023 Erythrocyte distribution width (RBC) [Entitic vol] 45.7 fL 35.1-43.9 [facility] Erythrocyte distribution width (RBC) [Ratio] 13.2 % 11.6-14.6 [facility] Immature granulocytes/100 WBC (Bld) 0.300 % 0.0-0.9 [facility] Comment on above: IG% - Immature Granu locytes (promyelocytes, myelocytes and metamyelocytes) > 1% indicates that a LEFT SHIFT is Present. MCH (RBC) [Entitic mass] 30.3 pg 27.0-32.0 [facility] Nucleated RBC/100 WBC (Bld) [Ratio] 0 % 0-5 [facility] MCHC Auto (RBC) [Mass/Vol]Or dered By: Bushra Wynne on 01-13-2023 MCHC (RBC) [Mass/Vol] 32.2 g/dL 32-36 [facility] No Panel InformationOrdered By: jovonnobleborolatoya Wynne on 01-13-2023 Estimated GFR (MDRD) Amer 71 mL/min >60 [facility] Comment on above: GFR Calc Estimated GFR (MDRD) Non-Af Amer 59 mL/min >60 [facility] Comment on above: Non- GFR Calc Platelets bldOrdered By: Emeka Wynne on 01-13-2023 Platelets (Bld) [#/Vol] 353 10*3/uL 150-450 [facility] Serum or plasma albumin margaret urement (mass/volume)Ordered By: Bushra Wynne on 01-13-2023 Albumin [Mass/Vol] 3.4 g/dL 3.2-5.0 [facility] Serum or plasma albumin/glob ulin mass ratioOrdered By: Bushra Wynne on 01-13-2023 Albumin/Globulin [Mass ratio] 0.8 {ratio} 0.9-2.4 [facility] Serum or plasma calcium margaret urement (mass/volume)Ordered By: Bushra Wynne on 01-13-2023 Calcium [Mass/Vol] 8.8 mg/dL 8.5-10.1 [facility] Serum or plasma creatinine m easurement (mass/volume)Ordered By: Bushra Wynne on 01-13-2023 Creatinine [Mass/Vol] 1.01 mg/dL 0.55-1.02 [facility] Comment on above: The validity of the calculated GFR & GFRAA in patients over 70 years has not been determined. Clinical correlation is essential. Serum or plasma urea nitroge n measurement (mass/volume)Ordered By: Bushra Wynne on 01-13-2023 Urea nitrogen [Mass/Vol] 21 mg/dL 7-18 [facility] Thin prep Papanicolaou smear with manual screeningOrdered By: Bushra Wynne on 01-13-2023 Thin prep Papanicolaou smear with manual screening 15 U/L 15-37 [facility] Thin prep Papanicolaou smear with manual screening 4 5-15 [facility] Whole blood hemoglobin A1c/t otal hemoglobin ratio (mass fraction)Ordered By: Bushra Wynne on 01-13-2023 HbA1c (Bld) [Mass fraction] 5.9 % 3.8-5.6 [facility] Comment on above: Normal < 5.7 % Predi abetic 5.7 - 6.4 % Diabetic >or= 6.5 % Please note range changes. Absolute lymphocyte countOrd ered By: Dr. Wynne on 10-23-2022 Lymphocytes Auto (Unsp spec) [#/Vol] 1.75 10*3/uL 0.83-4.51 [facility] Basophil percentageOrdered B y: Dr. Wynne on 10-23-2022 Basophils/100 WBC (Bld) 0.4 % 0-1 [facility] Bilirubin [Mass/Vol] 0.20 mg/dL 0.20-1.00 [facility] Comment on above: For patients on eltr ombopag therapy, use of Dimension [place] TBIL is not recommended. Chloride [Moles/Vol] 107 mmol/L 98-107 [facility] Cholesterol [Mass/Vol] 194 mg/dL <200 [facility] Comment on above: <200 mg/dL Desirable 200-240 mg/dL Borderline >240 mg/dL High Risk Eosinophils/100 WBC (Bld) 2.3 % 0-5 [facility] Glucose [Mass/Vol] 127 mg/dL 74-106 [facility] Comment on above: Fasting Glucose resu lt greater than or equal to 126 mg/dL suggests DIABETES MELLITUS per A.D.A. criteria. Neutrophils (Bld) [#/Vol] 4.6 10*3/uL 2.0-7.7 [facility] Neutrophils/100 WBC (Bld) 65.4 % 47-70 [facility] Potassium [Moles/Vol] 4.7 mmol/L 3.5-5.1 [facility] Protein [Mass/Vol] 7.6 g/dL 6.4-8.2 [facility] Sodium [Moles/Vol] 138 mmol/L 136-145 [facility] Triglyceride [Mass/Vol] 121 mg/dL <199 [facility] Comment on above: The drugs N-Acetylcy steine and Metamizole may falsely depress this assay.Serum Triglycerides Reference Interval Normal <150 mg/dL Borderline high 150 - 199 mg/dL High 200 - 499 mg/dL Very High > or = 500 mg/dL WBC (Bld) [#/Vol] 7.0 10*3/uL 4.4-11.0 [facility] Blood erythrocytes count (nu mber/volume)Ordered By: Dr. Wynne on 10-23-2022 RBC (Bld) [#/Vol] 4.76 10*6/uL 4.2-5.4 [facility] Blood hemoglobin measurement (mass/volume)Ordered By: Dr. Wynne on 10-23-2022 Hemoglobin (Bld) [Mass/Vol] 14.2 g/dL 12.0-15.0 [facility] Blood lymphocytes/100 leukoc ytesOrdered By: Dr. Wynne on 10-23-2022 Lymphocytes/100 WBC (Bld) 25.0 % 19-41 [facility] Blood monocytes/100 leukocyt esOrdered By: Dr. Wynne on 10-23-2022 Monocytes/100 WBC (Bld) 6.3 % 0-10 [facility] Blood platelet mean volumeOr dered By: Dr. Wynne on 10-23-2022 Platelet mean volume (Bld) [Entitic vol] 10.2 fL 6.2-12.0 [facility] Determination of erythrocyte mean corpuscular volume (MCV)Ordered By: Dr. Wynne on 10-23-2022 MCV (RBC) [Entitic vol] 93.7 fL 81-99 [facility] Hematocrit Auto (Bld) [Volum e fraction]Ordered By: Dr. Wynne on 10-23-2022 Hematocrit (Bld) [Volume fraction] 44.6 % 37-47 [facility] Laboratory - Chemistry and C hemistry - challengeOrdered By: Dr. Wynne on 10-23-2022 ALP [Catalytic activity/Vol] 109 U/L 45-117 [facility] ALT [Catalytic activity/Vol] 30 U/L 13-56 [facility] CO2 [Moles/Vol] 24.0 mmol/L 21.0-32.0 [facility] Globulin (S) [Mass/Vol] 4.1 g/dL 2.2-4.2 [facility] Urea nitrogen/Creatinine [Mass ratio] 21.2 mg/mg 10-20 [facility] Laboratory - Hematology and Cell countsOrdered By: Dr. Wynne on 10-23-2022 Erythrocyte distribution width (RBC) [Entitic vol] 45.1 fL 35.1-43.9 [facility] Erythrocyte distribution width (RBC) [Ratio] 13.1 % 11.6-14.6 [facility] Immature granulocytes/100 WBC (Bld) 0.600 % 0.0-0.9 [facility] Comment on above: IG% - Immature Granu locytes (promyelocytes, myelocytes and metamyelocytes) > 1% indicates that a LEFT SHIFT is Present. MCH (RBC) [Entitic mass] 29.8 pg 27.0-32.0 [facility] Nucleated RBC/100 WBC (Bld) [Ratio] 0 % 0-5 [facility] MCHC Auto (RBC) [Mass/Vol]Or dered By: Dr. Wynne on 10-23-2022 MCHC (RBC) [Mass/Vol] 31.8 g/dL 32-36 [facility] No Panel InformationOrdered By: Dr. Wynne on 10-23-2022 Estimated GFR (MDRD) Amer 69 mL/min >60 [facility] Comment on above: GFR Calc Estimated GFR (MDRD) Non-Af Amer 57 mL/min >60 [facility] Comment on above: Non- GFR Calc Platelets bldOrdered By: Dr. Wynne on 10-23-2022 Platelets (Bld) [#/Vol] 366 10*3/uL 150-450 [facility] Serum or plasma albumin margaret urement (mass/volume)Ordered By: Dr. Wynne on 10-23-2022 Albumin [Mass/Vol] 3.5 g/dL 3.2-5.0 [facility] Serum or plasma albumin/glob ulin mass ratioOrdered By: Dr. Wynne on 10-23-2022 Albumin/Globulin [Mass ratio] 0.9 {ratio} 0.9-2.4 [facility] Serum or plasma calcium margaret urement (mass/volume)Ordered By: Dr. Wynne on 10-23-2022 Calcium [Mass/Vol] 9.2 mg/dL 8.5-10.1 [facility] Serum or plasma cholesterol in HDL measurement (mass/volume)Ordered By: Dr. Wynne on 10-23-2022 Cholesterol in HDL [Mass/Vol] 48 mg/dL >40 [facility] Comment on above: The drugs N-Acetylcy steine and Metamizole may falsely depress this assay. Reference Range HDL <40 mg/dL Low HDL Cholesterol HDL >or= 60 mg/dL High HDL Cholesterol Serum or plasma cholesterol in VLDL measurement (mass/volume)Ordered By: Dr. Wynne on 10-23-2022 Cholesterol in VLDL [Mass/Vol] 24 mg/dL 5-40 [facility] Serum or plasma creatinine m easurement (mass/volume)Ordered By: Dr. Wynne on 10-23-2022 Creatinine [Mass/Vol] 1.04 mg/dL 0.55-1.02 [facility] Comment on above: The validity of the calculated GFR & GFRAA in patients over 70 years has not been determined. Clinical correlation is essential. Serum or plasma low density lipoprotein (LDL) cholesterol measurement (mass/volume)Ordered By: Dr. Wynne on 10-23-2022 Cholesterol in LDL [Mass/Vol] 122 mg/dL 0-130 [facility] Serum or plasma urea nitroge n measurement (mass/volume)Ordered By: Dr. Wynne on 10-23-2022 Urea nitrogen [Mass/Vol] 22 mg/dL 7-18 [facility] Thin prep Papanicolaou smear with manual screeningOrdered By: Dr. Wynne on 10-23-2022 Thin prep Papanicolaou smear with manual screening 16 U/L 15-37 [facility] Thin prep Papanicolaou smear with manual screening 7 5-15 [facility] Absolute lymphocyte counton 08-18-2021 Lymphocytes Auto (Unsp spec) [#/Vol] 1.91 10*3/uL 0.83-4.51 [facility] Work Phone: Basophil percentageon 2021 Basophils/100 WBC (Bld) 0.4 % 0-1 [facility] Work Phone: Bilirubin [Mass/Vol] 0.30 mg/dL 0.20-1.00 [facility] Work Phone: Comment on above: For patients on eltr ombopag therapy, use of Dimension [place] TBIL is not recommended. Chloride [Moles/Vol] 106 mmol/L 98-107 [facility]: Cholesterol [Mass/Vol] 192 mg/dL <200 [facility] Work Phone: [phone] Comment on above: <200 mg/dL Desirable 200-240 mg/dL Borderline >240 mg/dL High Risk Eosinophils/100 WBC (Bld) 3.1 % 0-5 [facility] Work Phone: [phone] Glucose [Mass/Vol] 114 mg/dL 74-106 [facility] Work Phone: Comment on above: Fasting Glucose resu lt from 100 to 125 mg/dL suggests IMPAIRED HOMEOSTASIS per A.D.A. criteria. Neutrophils (Bld) [#/Vol] 4.3 10*3/uL 2.0-7.7 [facility] Work Phone: Neutrophils/100 WBC (Bld) 62.2 % 47-70 [facility] Work Phone: Potassium [Moles/Vol] 4.6 mmol/L 3.5-5.1 [facility]: Protein [Mass/Vol] 7.7 g/dL 6.4-8.2 [facility] Work Phone: [phone] Sodium [Moles/Vol] 138 mmol/L 136-145 [facility] Work Phone: Triglyceride [Mass/Vol] 168 mg/dL [facility] Work Phone: [phone] Comment on above: The drugs N-Acetylcy steine and Metamizole may falsely depress this assay.Serum Triglycerides Reference Interval Normal <150 mg/dL Borderline high 150 - 199 mg/dL High 200 - 499 mg/dL Very High > or = 500 mg/dL WBC (Bld) [#/Vol] 6.9 10*3/uL 4.4-11.0 [facility] Work Phone: Blood erythrocytes count (nu mber/volume)on 08-18-2021 RBC (Bld) [#/Vol] 4.63 10*6/uL 4.2-5.4 [facility] Blood hemoglobin measurement (mass/volume)on 08-18-2021 Hemoglobin (Bld) [Mass/Vol] 13.6 g/dL 12.0-15.0 [facility] Work Phone: Blood lymphocytes/100 leukoc yteson 08-18-2021 Lymphocytes/100 WBC (Bld) 27.9 % 19-41 [facility] Work Phone: Blood monocytes/100 leukocyt eson 08-18-2021 Monocytes/100 WBC (Bld) 5.7 % 0-10 [facility] Work Phone: Blood platelet mean volumeon 08-18-2021 Platelet mean volume (Bld) [Entitic vol] 10.0 fL 6.2-12.0 [facility] Work Phone: Determination of erythrocyte mean corpuscular volume (MCV)on 08-18-2021 MCV (RBC) [Entitic vol] 92.7 fL 81-99 [facility] Work Phone: Hematocrit Auto (Bld) [Volum e fraction]on 08-18-2021 Hematocrit (Bld) [Volume fraction] 42.9 % 37-47 [facility] Work Phone: Laboratory - Chemistry and C hemistry - challengeon 08-18-2021 ALP [Catalytic activity/Vol] 109 U/L 45-117 [facility] Work Phone: ALT [Catalytic activity/Vol] 27 U/L 13-56 [facility] Work Phone: CO2 [Moles/Vol] 25.0 mmol/L 21.0-32.0 [facility] Work Phone: Globulin (S) [Mass/Vol] 4.2 g/dL 2.2-4.2 [facility] Work Phone: Urea nitrogen/Creatinine [Mass ratio] 16.9 mg/mg 10-20 [facility] Work Phone: Laboratory - Hematology and Cell countson 08-18-2021 Erythrocyte distribution width (RBC) [Entitic vol] 45.6 fL 35.1-43.9 [facility] Work Phone: Erythrocyte distribution width (RBC) [Ratio] 13.5 % 11.6-14.6 [facility] Work Phone: Immature granulocytes/100 WBC (Bld) 0.700 % 0.0-0.9 [facility] Work Phone: Comment on above: IG% - Immature Granu locytes (promyelocytes, myelocytes and metamyelocytes) > 1% indicates that a LEFT SHIFT is Present. MCH (RBC) [Entitic mass] 29.4 pg 27.0-32.0 [facility] Work Phone: Nucleated RBC/100 WBC (Bld) [Ratio] 0 % 0-5 [facility] Work Phone: MCHC Auto (RBC) [Mass/Vol]on 08-18-2021 MCHC (RBC) [Mass/Vol] 31.7 g/dL 32-36 [facility] Work Phone: No Panel Informationon 08-18 Estimated GFR (MDRD) Amer 77 mL/min >60 [facility] Work Phone: Comment on above: GFR Calc Estimated GFR (MDRD) Non-Af Amer 64 mL/min >60 [facility] Work Phone: Comment on above: Non- GFR Calc Platelets bldon 08-18-2021 Platelets (Bld) [#/Vol] 357 10*3/uL 150-450 [facility] Work Phone: Serum or plasma albumin margaret urement (mass/volume)on 08-18-2021 Albumin [Mass/Vol] 3.5 g/dL 3.2-5.0 [facility] Work Phone: Serum or plasma albumin/glob ulin mass ratioon 08-18-2021 Albumin/Globulin [Mass ratio] 0.8 {ratio} 0.9-2.4 [facility] Work Phone: Serum or plasma calcium margaret urement (mass/volume)on 08-18-2021 Calcium [Mass/Vol] 8.9 mg/dL 8.5-10.1 [facility] Work Phone: Serum or plasma cholesterol in HDL measurement (mass/volume)on 08-18-2021 Cholesterol in HDL [Mass/Vol] 48 mg/dL [facility] Work Phone: Comment on above: The drugs N-Acetylcy steine and Metamizole may falsely depress this assay. Reference Range HDL <40 mg/dL Low HDL Cholesterol HDL >or= 60 mg/dL High HDL Cholesterol Serum or plasma cholesterol in VLDL measurement (mass/volume)on 08-18-2021 Cholesterol in VLDL [Mass/Vol] 34 mg/dL 5-40 [facility] Work Phone: Serum or plasma creatinine m easurement (mass/volume)on 08-18-2021 Creatinine [Mass/Vol] 0.94 mg/dL 0.55-1.02 [facility] Work Phone: Comment on above: The validity of the calculated GFR & GFRAA in patients over 70 years has not been determined. Clinical correlation is essential. Serum or plasma low density lipoprotein (LDL) cholesterol measurement (mass/volume)on 08-18-2021 Cholesterol in LDL [Mass/Vol] 110 mg/dL 0-130 [facility] Work Phone: Serum or plasma urea nitroge n measurement (mass/volume)on 08-18-2021 Urea nitrogen [Mass/Vol] 16 mg/dL 7-18 [facility] Work Phone: Thin prep Papanicolaou smear with manual screeningon 08-18-2021 Thin prep Papanicolaou smear with manual screening 15 U/L 15-37 [facility] Work Phone: Thin prep Papanicolaou smear with manual screening 7 5-15 [facility] Work Phone: Office Visit: New Pt. Visito n 04-16-2017 Documentation of current medications (procedure) Done Invalid Interpretation Code [facility] Work Phone: Fall risk assessment No Invalid Interpretation Code [facility] Work Phone: Tobacco use [facility]PH[facility] Former smoker Invalid Interpretation Code [facility] Work Phone: [phone] Vital Signs Date Time Vital Sign Value Performing Clinician Facility 12-28-2024 11:23-0400 Body height 162.[address] Bushra Wynne MD Work Phone: [facility] 12-28-2024 11:23-0400 Body mass index (BMI) [Ratio] 70.8 kg/m2 Dr. Bushra Wynne MD Work Phone: [facility] 12-28-2024 11:23-0400 Body weight 187.[address] Bushra Wynne MD Work Phone: [facility] 12-28-2024 11:23-0400 Diastolic blood pressure 94 mm[Hg] Dr. Bushra Wynne MD Work Phone: [facility] 12-28-2024 11:23-0400 Systolic blood pressure 136 mm[Hg] Dr. Bushra Wynne MD Work Phone: [facility] 11-29-2024 13:09-0400 Body temperature 96.5 [degF] Dr. Bushra Wynne MD Work Phone: [facility] 11-29-2024 13:09-0400 Diastolic blood pressure 78 mm[Hg] Dr. Bushra Wynne MD Work Phone: [facility] 11-29-2024 13:09-0400 Heart rate 96 /min Dr. Bushra Wynne MD Work Phone: [facility] 11-29-2024 13:09-0400 Respiratory rate 22 /min Dr. Bushra Wynne MD Work Phone: [facility] 11-29-2024 13:09-0400 SaO2% (BldA) [Mass fraction] 96 % Dr. Bushra Wynne MD Work Phone: [facility] 11-29-2024 13:09-0400 Systolic blood pressure 122 mm[Hg] Dr. Bushra Wynne MD Work Phone: [facility] 11-06-2024 10:46-0400 Body temperature 97.5 [degF] Dr. Bushra Wynne MD Work Phone: [facility] 11-06-2024 10:46-0400 Diastolic blood pressure 67 mm[Hg] Dr. Bushra Wynne MD Work Phone: [facility] 11-06-2024 10:46-0400 Heart rate 67 /min Dr. Bushra Wynne MD Work Phone: [facility] 11-06-2024 10:46-0400 Respiratory rate 18 /min Dr. Bushra Wynne MD Work Phone: [facility] 11-06-2024 10:46-0400 SaO2% (BldA) [Mass fraction] 96 % Dr. Bushra Wynne MD Work Phone: [facility] 11-06-2024 10:46-0400 Systolic blood pressure 126 mm[Hg] Dr. Bushra Wynne MD Work Phone: [facility] 11-06-2024 09:21-0400 Body height 162.[address] Bushra Wynne MD Work Phone: [facility] 07-21-2024 13:06-0500 Body mass index (BMI) [Ratio] 70.9 kg/m2 Dr. Bushra Wynne MD Work Phone: [facility] 07-21-2024 13:06-0500 Body weight 187.[address] Bushra Wynne MD Work Phone: [facility] 07-21-2024 13:06-0500 Diastolic blood pressure 75 mm[Hg] Dr. Bushra Wynne MD Work Phone: [facility] 07-21-2024 13:06-0500 Heart rate 80 /min Dr. Bushra Wynne MD Work Phone: [facility] 07-21-2024 13:06-0500 Respiratory rate 18 /min Dr. Bushra Wynne MD Work Phone: [facility] 07-21-2024 13:06-0500 SaO2% (BldA) [Mass fraction] 97 % Dr. Bushra Wynne MD Work Phone: [facility] 07-21-2024 13:06-0500 Systolic blood pressure 128 mm[Hg] Dr. Bushra Wynne MD Work Phone: [facility] 05-22-2024 18:12-0500 Body mass index (BMI) [Ratio] 71.65 kg/m2 Zunilda Becerril [employer] Work Phone: [facility] 05-22-2024 18:12-0500 Body temperature 99.1 [degF] Zunilda Becerril [employer]TR[employer] REPA[employer]NAGER[employer] Work Phone: [facility] 05-22-2024 18:12-0500 Body weight 189.35 kg Zunilda Becerril [employer]TR[employer] REPAIR MANAGER.[employer] Work Phone: [facility] 05-22-2024 18:12-0500 Diastolic blood pressure 84 mm[Hg] Zunilda Becerril [employer]TR[employer] REPAIR MANAGER.[employer] Work Phone: [facility] 05-22-2024 18:12-0500 Heart rate 107 /min Zunilda Becerril [employer]TR[employer] REPAIR MANAGER.[employer] Work Phone: [facility] 05-22-2024 18:12-0500 Respiratory rate 20 /min Zunilda Becerril [employer]TR[employer] REPAIR MANAGER.[employer] Work Phone: [facility] 05-22-2024 18:12-0500 SaO2% (BldA) [Mass fraction] 96 % Zunilda Celestegs [employer] REPAIR MANAGER.[employer] Work Phone: [facility] 05-22-2024 18:12-0500 Systolic blood pressure 148 mm[Hg] Zunilda Becerril [employer]TR[employer] REPAIR MA[employer]GER.[employer] Work Phone: [facility] 08-12-2023 13:49-0500 Body height 162.[address] Bushra Wynne Work Phone: [facility] 08-12-2023 13:49-0500 Body mass index (BMI) [Ratio] 69.1 kg/m2 Dr. Bushra Wynne Work Phone: [facility] 08-12-2023 13:49-0500 Body temperature 97.5 [degF] Dr. Bushra Wynne Work Phone: [facility] 08-12-2023 13:49-0500 Body weight 182.[address] Bushra Wynne Work Phone: [facility] 08-12-2023 13:49-0500 Diastolic blood pressure 82 mm[Hg] Dr. Bushra Wynne Work Phone: [facility] 08-12-2023 13:49-0500 Heart rate 70 /min Dr. Bushra Wynne Work Phone: [facility] 08-12-2023 13:49-0500 Respiratory rate 18 /min Dr. Bushra Wynne Work Phone: [facility] 08-12-2023 13:49-0500 SaO2% (BldA) [Mass fraction] 98 % Dr. Bushra Wynne Work Phone: [facility] 08-12-2023 13:49-0500 Systolic blood pressure 124 mm[Hg] Dr. Bushra Wynne Work Phone: [facility] 03-24-2023 13:15-0400 Body height 162.6 cm Estella Sandoval MD Work Phone: [facility] 03-24-2023 13:15-0400 Body weight 189.97 kg Estella Sandoval MD Work Phone: [facility] 03-24-2023 13:15-0400 Diastolic blood pressure 80 mm[Hg] Estella Sandoval MD Work Phone: [facility] 03-24-2023 13:15-0400 Heart rate 67 /min Estella Sandoval MD Work Phone: [facility] 03-24-2023 13:15-0400 Systolic blood pressure 130 mm[Hg] Estella Sandoval MD Work Phone: [facility] 01-26-2023 16:08-0400 Body temperature 98.2 [degF] Dr. Bushra Wynne Work Phone: [facility] 01-26-2023 16:08-0400 Diastolic blood pressure 69 mm[Hg] Dr. Bushra Wynne Work Phone: [facility] 01-26-2023 16:08-0400 Heart rate 63 /min Dr. Bushra Wynne Work Phone: [facility] 01-26-2023 16:08-0400 Respiratory rate 16 /min Dr. Bushra Wynne Work Phone: [facility] 01-26-2023 16:08-0400 SaO2% (BldA) [Mass fraction] 98 % Dr. Bushra Wynne Work Phone: [facility] 01-26-2023 16:08-0400 Systolic blood pressure 148 mm[Hg] Dr. Bushra Wynne Work Phone: [facility] 01-26-2023 12:35-0400 Body height 162.[address] Bushra Wynne Work Phone: [facility] 01-26-2023 12:35-0400 Body mass index (BMI) [Ratio] 72.1 kg/m2 Dr. Bushra Wynne Work Phone: [facility] 01-26-2023 12:35-0400 Body weight 190.[address] Bushra Wynne Work Phone: [facility] 01-19-2023 10:36-0400 Diastolic blood pressure 82 mm[Hg] Dr. Bushra Wynne Work Phone: [facility] 01-19-2023 10:36-0400 Systolic blood pressure 150 mm[Hg] Dr. Bushra Wynne Work Phone: [facility] 01-13-2023 13:12-0400 Body height 162.[address] Bushra Wynne Work Phone: [facility] 01-13-2023 13:12-0400 Body mass index (BMI) [Ratio] 71.1 kg/m2 Dr. Bushra Wynne Work Phone: [facility] 01-13-2023 13:12-0400 Body temperature 96 [degF] Dr. Bushra Wynne Work Phone: [facility] 01-13-2023 13:12-0400 Body weight 188.[address] Bushra Wynne Work Phone: [facility] 01-13-2023 13:12-0400 Diastolic blood pressure 68 mm[Hg] Dr. Bushra Wynne Work Phone: [facility] 01-13-2023 13:12-0400 Heart rate 68 /min Dr. Bushra Wynne Work Phone: [facility] 01-13-2023 13:12-0400 Respiratory rate 18 /min Dr. Bushra Wynne Work Phone: [facility] 01-13-2023 13:12-0400 SaO2% (BldA) [Mass fraction] 97 % Dr. Bushra Wynne Work Phone: [facility] 01-13-2023 13:12-0400 Systolic blood pressure 134 mm[Hg] Dr. Bushra Wynne Work Phone: [facility] 11-19-2022 12:20-0400 Body height 162.[address] Bushra Wynne Work Phone: [facility] 11-06-2022 14:38-0400 Body mass index (BMI) [Ratio] 70.2 kg/m2 Dr. Bushra Wynne Work Phone: [facility] 11-06-2022 14:38-0400 Body weight 185.[address] Bushra Wynne Work Phone: [facility] 11-06-2022 14:38-0400 Diastolic blood pressure 72 mm[Hg] Dr. Bushra Wynne Work Phone: [facility] 11-06-2022 14:38-0400 Systolic blood pressure 134 mm[Hg] Dr. Bushra Wynne Work Phone: [facility] 10-23-2022 13:46-0400 Body height 162.[address] Bushra Wynne Work Phone: [facility] 10-23-2022 13:46-0400 Body mass index (BMI) [Ratio] 71.6 kg/m2 Dr. uBshra Wynne Work Phone: [facility] 10-23-2022 13:46-0400 Body temperature 97.5 [degF] Dr. Bushra Wynne Work Phone: [facility] 10-23-2022 13:46-0400 Body weight 189.[address] Bushra Wynne Work Phone: [facility] 10-23-2022 13:46-0400 Diastolic blood pressure 76 mm[Hg] Dr. Bushra Wynne Work Phone: [facility] 10-23-2022 13:46-0400 Heart rate 74 /min Dr. Bushra Wynne Work Phone: [facility] 10-23-2022 13:46-0400 Respiratory rate 18 /min Dr. Bushra Wynne Work Phone: [facility] 10-23-2022 13:46-0400 SaO2% (BldA) [Mass fraction] 97 % Dr. Bushra Wynne Work Phone: [facility] 10-23-2022 13:46-0400 Systolic blood pressure 130 mm[Hg] Dr. Bushra Wynne Work Phone: [facility] 10-07-2022 11:11-0400 Body temperature 98 [degF] Dr. Bushra Wynne Work Phone: [facility] 10-07-2022 11:11-0400 Diastolic blood pressure 82 mm[Hg] Dr. Bushra Wynne Work Phone: [facility] 10-07-2022 11:11-0400 Heart rate 73 /min Dr. Bushra Wynne Work Phone: [facility] 10-07-2022 11:11-0400 Respiratory rate 20 /min Dr. Bushra Wynne Work Phone: [facility] 10-07-2022 11:11-0400 SaO2% (BldA) [Mass fraction] 97 % Dr. Bushra Wynne Work Phone: [facility] 10-07-2022 11:11-0400 Systolic blood pressure 140 mm[Hg] Dr. Bushra Wynne Work Phone: [facility] 08-18-2021 12:04-0500 Body temperature 96.7 [degF] Dr. Bushra Wynne Work Phone: [facility] Work Phone: 08-18-2021 12:04-0500 Diastolic blood pressure 78 mm[Hg] Dr. Bushra Wynne Work Phone: [facility] Work Phone: 08-18-2021 12:04-0500 Heart rate 62 /min Dr. Bushra Wynne Work Phone: [facility] Work Phone: 08-18-2021 12:04-0500 Respiratory rate 16 /min Dr. Bushra Wynne Work Phone: [facility] Work Phone: 08-18-2021 12:04-0500 SaO2% (BldA) [Mass fraction] 98 % Dr. Bushra Wnyne Work Phone: [facility] Work Phone: 08-18-2021 12:04-0500 Systolic blood pressure 138 mm[Hg] Dr. Bushra Wynne Work Phone: [facility] Work Phone: 12-10-2020 10:03-0400 Body mass index (BMI) [Ratio] 71.8 kg/m2 Dr. Bushra Wynne Work Phone: [facility] Work Phone: 04-16-2017 11:05-0400 BMI (Body Mass Index) 71.06 kg/m2 [facility] Work Phone: 04-16-2017 11:05-0400 Body Temperature 96.8 [degF] [facility] Work Phone: 04-16-2017 11:05-0400 BP Diastolic 90 mm[Hg] [facility] Work Phone: 04-16-2017 11:05-0400 BP Systolic 140 mm[Hg] [facility] Work Phone: 04-16-2017 11:05-0400 [facility] 162.56 [facility] Work Phone: 04-16-2017 11:05-0400 Pulse (Heart Rate) 58 /min [facility] Work Phone: 04-16-2017 11:05-0400 Respiratory Rate 16 /min [facility] Work Phone: 04-16-2017 11:05-0400 Weight 187.79 [facility] Work Phone: Encounters Encounter Date Encounter Type Care Provider Facility Start: 12-28-2024 End: 12-28-[address] Bushra Wynne MD Work Phone: -[facility] Start: 12-28-2024 End: 12-28-2024 Patient encounter procedure Tammi CABALLERO -[facility] Work Phone: Start: 12-26-2024 End: 12-26-[address] Bushra Wynne MD Work Phone: -Physical Therapy Start: 12-26-2024 End: 12-26-2024 Discharged Recurring Sonal Aguilar PA -Physical Therapy Work Phone: Start: 12-21-2024 ambulatory Bushra Wynne Facili ty:[facility] Start: 12-21-2024 Registered Recurring Sonal Aguilar PA -Physical Therapy Work Phone: Start: 12-20-2024 End: 12-20-[address] Bushra Wynne MD -[facility] Work Phone: Start: 12-20-2024 End: 12-20-2024 ambulatory Bushra Wynne Facility:[facility] Start: 12-15-2024 End: 12-15-2024 Patient encounter procedure Sheila CABALLERO -[facility] Work Phone: Start: 12-15-2024 End: 12-15-[address] Bushra Wynne MD Work Phone: -[facility] Start: 12-14-2024 Registered Recurring Sonal NELSON -Physical Therapy Work Phone: Start: 12-06-[address] Bushra Wynne MD -Laboratory [facility] Work Phone: Start: 12-06-2024 ambulatory Bushra Wynne [facility] ty:[facility] Start: 11-29-2024 End: 11-29-[address] Bushra Wynne MD Work Phone: [facility] Work Phone: Start: 11-29-2024 End: 11-29-[address] Bushra Wynne MD -[facility] Work Phone: Start: 11-29-2024 End: 11-29-2024 ambulatory Mcmakaylalatoya Wynne Facility:[facility] Start: 11-28-2024 Registered Recurring Sonal NELSON -Physical Therapy Work Phone: Start: 11-06-2024 End: 11-06-2024 Admission to same day surgery center Dr. Cuong Baptiste MD -Surgical Day Care Start: 11-06-2024 End: 11-06-[address] Bushra Wynne MD Work Phone: [facility] Work Phone: Start: 10-27-2024 Registered Recurring Sonal NELSON -Physical Therapy Work Phone: Start: 10-17-2024 End: 10-17-2024 Patient encounter procedure Sonal NELSON -MRI - [facility] Work Phone: Start: 10-17-2024 End: 10-17-2024 ambulatory [facility] Sherrell Facility:[facility] Start: 09-07-2024 End: 09-07-2024 Patient encounter procedure Sonal NELSON -[facility] Work Phone: Start: 09-07-2024 End: 09-07-2024 ambulatory Bushra Wynne Facility:[facility] Start: 07-21-2024 End: 07-21-2024 Patient encounter procedure Melvin Bear NP-Jorge -[facility] Work Phone: Start: 07-21-2024 End: 07-21-2024 Patient encounter status Melvin Bear TRADING SPECIALIST-C [facility] Start: 07-21-2024 End: 07-21-2024 ambulatory Bushra Wynne Facility:[facility] Start: 07-21-2024 End: 07-21-[address] Bushra Wynne MD -Radiology [facility] Work Phone: Start: 07-21-2024 End: 07-21-2024 ambulatory [facility] Facility:[facility] Start: 07-05-2024 End: 07-05-2024 ambulatory [facility] Facility:[facility] Start: 07-05-2024 End: 07-05-2024 ambulatory [facility] Facility:[facility] Start: 05-22-2024 End: 05-22-2024 Subsequent hospital visit by physician Xr [facility] Work Phone: Radiology Comment on above: Acute cough [R05.1] Start: 05-22-2024 End: 05-22-2024 [facility] Start: 05-22-2024 End: 05-22-2024 Patient encounter procedure Zunilda Becerril EXTRUSION DIE REPAIR MANAGER.CASING PULLER Work Phone: [facility] Care Comment on above: Acute cough (Primary Dx); URI, acute Start: 05-02-2024 ambulatory Hugoton Marissa Facility:[facility] Start: 05-02-2024 End: 05-02-2024 ambulatory [facility] Facility:[facility] Start: 04-12-2024 End: 04-12-2024 ambulatory [facility] by [facility] Facility:[facility] Start: 03-27-2024 ambulatory Hugoton Marissa Facility:[facility] Start: 03-27-2024 End: 03-27-2024 ambulatory Bushra Wynne Facility:[facility] Start: 03-14-2024 ambulatory Bushra Wynne Facili ty:[facility] Start: 03-13-2024 End: 03-13-2024 ambulatory Bushra Wynne Facility:[facility] Start: 03-13-2024 End: 03-13-2024 ambulatory Mcnobleborolatoya Gerardocobydouglas Facility:[facility] Start: 02-28-2024 ambulatory Girish Waddell Facility :[facility] Start: 02-27-2024 End: 02-27-2024 Emergency department patient visit Zita Kim Facility:[facility] Start: 02-03-2024 End: 02-03-2024 ambulatory Mode Syed Facility:[facility] Start: 02-03-2024 End: 02-03-2024 ambulatory Mode Syed Facility:[facility] Start: 01-28-2024 ambulatory Reyna Brooks Facility:[facility] Start: 01-25-2024 End: 01-25-2024 ambulatory Roger NELSON Facility:[facility] Start: 01-20-2024 Encounter for genera l adult medical examination without abnormal findings Bushra Wynne [facility] Start: 01-20-2024 End: 01-20-2024 ambulatory Bushra Wynne Facility:[facility] Start: 01-20-2024 End: 01-20-2024 ambulatory Mcnobleborolatoya Wynne Facility:[facility] Start: 08-12-2023 End: 08-12-[address] Bushra Wynne Work Phone: [facility] Work Phone: Start: 08-12-2023 End: 08-12-2023 Encounter for general adult medical examination without abnormal findings Dr. Bushra Wynne Work Phone: [facility] Start: 08-12-2023 End: 08-12-[address] Bushra Wynne Work Phone: [facility] Work Phone: Start: 05-24-2023 End: 05-24-[address] Bushra Wynne Work Phone: [facility] Work Phone: Start: 03-24-2023 End: 03-24-2023 ambulatory BUSHRA WYNNE Facility:[facility] Start: 03-24-2023 End: 03-24-2023 Patient encounter procedure Estella Sandoval MD Work Phone: [facility] BARI[facility]RIC [facility]PARTMENT Comment on above: Umbilical hernia wit hout obstruction and without gangrene (Primary Dx); Class 3 severe obesity with serious comorbidity and body mass index (BMI) greater than or equal to 70 in adult, unspecified obesity type (HCC); Hypertension, unspecified type; Hyperlipidemia, unspecified hyperlipidemia type; Family history of colon cancer requiring screening colonoscopy Start: 01-26-2023 End: 01-26-2023 Admission to same day surgery center Dr. Bushra Wynne Work Phone: [facility]-Surgical Day Care Start: 01-26-2023 End: 01-26-[address] Bushra Wynne Work Phone: [facility] Work Phone: Start: 01-26-2023 Non-patient / Non-visit Dr. Mckayla Wynne Work Phone: [facility] Start: 01-19-2023 End: 01-19-[address] Bushra Wynne Work Phone: [facility] Work Phone: Start: 01-13-[address] Douglas Wynne Work Phone: [facility] Start: 01-13-2023 End: 01-13-[address] Bushra Wynne Work Phone: [facility] Work Phone: Start: 01-13-2023 End: 01-13-2023 Emergency department patient visit Dr. Bushra Wynne Work Phone: [facility] Start: 01-13-2023 End: 01-13-[address] Bushra Wynne Work Phone: [facility] Work Phone: Start: 11-19-2022 End: 11-19-[address] Bushra Wynne Work Phone: [facility] Work Phone: Start: 11-19-2022 End: 11-19-[address] Bushra Wynne Work Phone: [facility]-Outpatient Bone Densitometry Start: 11-06-2022 End: 11-06-[address] Bushra Wynne Work Phone: [facility] Start: 10-23-[address] Douglas Wnyne Work Phone: [facility] Start: 10-23-2022 End: 10-23-[address] Bushra Wynne Work Phone: [facility] Work Phone: Start: 10-23-2022 End: 10-23-2022 Encounter for general adult medical examination without abnormal findings Dr. Bushra Wynne Work Phone: [facility] Start: 10-23-2022 End: 10-23-[address] Bushra Wynne Work Phone: [facility] Internal Medicine Start: 10-07-2022 End: 10-07-[address] Bushra Wynne Work Phone: [facility] Start: 11-04-2021 End: 11-04-[address] Bushra Wynne Work Phone: [facility]-Outpatient Breast Imaging Start: 08-18-[address] Douglas Wynne Work Phone: [facility] Work Phone: Start: 08-18-2021 End: 08-18-2021 Encounter for general adult medical examination without abnormal findings Dr. Bushra Wynne Work Phone: [facility] Internal Medicine Start: 08-18-2021 End: 08-18-[address] Bushra Wynne Work Phone: [facility]-Laboratory, BIM Procedures Date Procedure Procedure Detail Performing Clinician Start: 12-06-2024 Measurement of occul t blood in stool specimen using immunoassay Dr. Bushra Wynne MD Work Phone: Start: 12-05-2024 Measurement of occul t blood in stool specimen using immunoassay Dr. Bushra Wynne MD Work Phone: Start: 12-04-2024 Measurement of occul t blood in stool specimen using immunoassay Dr. Bushra Wynne MD Work Phone: Start: 11-06-2024 Local anesthetic lum bar epidural block Dr. Bushra Wynne MD Work Phone: Start: 11-06-2024 Fluoroscopy guided injection of cervical spinal nerve root Dr. Bushra Wynne MD Work Phone: Start: 11-06-2024 Injection of facet joint Dr. Bushra Wynne MD Work Phone: Start: 11-06-2024 X-ray of cervical spine Dr. Bushra Wynne MD Work Phone: Start: 10-17-2024 MRI of cervical spine Wendy Wynne MD Work Phone: Start: 09-07-2024 X-ray of cervical spine Dr. Bushra Wynne MD Work Phone: Start: 09-07-2024 X-ray of lumbosacral spine Dr. Bushra Wynne MD Work Phone: Start: 07-21-2024 X-ray of cervical spine Dr. Bushra Wynne MD Work Phone: Start: 07-21-2024 XR knee, [address] Mckayla Wynne MD Work Phone: Start: 05-22-2024 Radiologic exam ches t 2 views Zunilda Becerril EXTRUSION DIE REPAIR MANAGER.CASING P[employer]ER Work Phone: Start: 01-26-[address] Sabina Wynne Work Phone: Start: 11-19-2022 Dual energy X-ray absorptiometry Dr. Bushra Wynne Work Phone: Start: 11-19-2022 Screening mammography D marley Wynne Work Phone: Start: 11-04-2021 Screening mammography D rNaz Wynne Work Phone: Start: 07-11-2015 Lipid 1996 panel - S rudolph or Plasma Estella Sandoval MD Work Phone: Start: 12-26-2012 Colonoscopy Estella obrien MD Work Phone: H/O: surgery Status post D&C Dr. Zuleyka Wynne Work Phone: Plan of Treatment Date Care Activity Detail Author Start: 11-29-2024 CBC W Auto Differential panel - Blood [facility] Start: 11-29-2024 Comprehensive metabolic 1999 panel - Serum or Plasma [facility] Start: 11-29-2024 Lipid 1996 panel - Serum or Plasma [facility] Start: 11-06-2024 Anes dx/ther nerve block/injection prone pos ANESTH N BLOCK/INJ PRONE [facility] Start: 11-06-2024 Njx dx/ther agt pvrt facet jt crv/thrc 1 level INJ PARAVERT F JNT C/T 1 [facility] Start: 11-06-2024 Njx dx/ther agt pvrt facet jt crv/thrc 2nd level INJ PARAVERT F JNT C/T 2 [facility] Start: 11-06-2024 Fluoroscopy guided injection of cervical spinal nerve root [facility] Start: 11-06-2024 Injection of facet joint [facility] Start: 11-06-2024 X-ray of cervical spine Cerv Spine 4 or 5 Views [facility] Start: 11-06-2024 Patient discharge [facility] Start: 09-07-2024 Patient referral [facility] Work Phone: Start: 02-20-2024 Covid-19 Vaccine ( season) Covid-19 Vaccine ( season) [facility] Start: 02-20-2024 Influenza vaccination Influenza Vaccine (#1) [facility] Start: 08-12-2023 Patient referral [facility] Work Phone: Start: 02-19-2023 Influenza vaccination Influenza Vaccine (#1) [facility] Start: 01-26-2023 Ambulation without limitation [facility] Start: 01-26-2023 Medical regimen orders management [facility] Start: 01-26-2023 Medication education [facility] Start: 01-26-2023 Patient discharge [facility] Start: 01-26-2023 Taking patient vital signs [facility] Start: 01-26-2023 Vital signs measurements [facility] Start: 01-26-2023 [facility] Start: 01-26-2023 Admission procedure [facility] Start: 01-26-2023 Electrocardiographic procedure [facility] Start: 12-26-2022 Colonoscopy Colonoscopy [facility] Start: 12-26-2022 Colorectal Cancer Screening Colorectal Cancer Screening [facility] Start: 12-26-2022 Screening for malignant neoplasm of colon [facility] Start: 10-14-2021 Pap Testing Pap Testing [facility] Start: 08-18-2021 Patient referral [facility] Work Phone: Start: 06-04-2021 Urine microalbumin profile DTaP,Tdap,Td Vaccine (2 - Td or Tdap) [facility] Start: 07-11-2020 Lipid 1996 panel - Serum or Plasma Lipid Screening [facility] Start: 07-11-2020 Lipid panel Lipid Screening [facility] Start: 10-15-2019 Screening for malignant neoplasm of cervix Cervical Cancer Screening [facility] Start: 2019 RSV Vaccine (1 - Risk 60-74 years 1-dose series) RSV Vaccine (1 - Risk 60-74 years 1-dose series) [facility] Start: 08-01-2018 Diabetes Screening Diabetes Screening [facility] Start: 10-14-2017 Mammography Mammogram Screening [facility] Start: 10-14-2017 Screening for malignant neoplasm of breast Mammogram Screening [facility] Start: 07-16-2017 End: 07-16-2017 Appointment Appointment [facility] Work Phone: Start: 04-16-2017 End: 04-16-2017 Gynecology & Obstetrics Gynecology & Obstetrics Ayde Sahni, [facility], [address] [place] [address], [address], [place], [address] [facility] Work Phone: Start: 04-16-2017 End: 04-16-2017 Physical Therapy General Physical Therapy [facility], [address] [place], [address] [facility] Work Phone: Start: 07-13-2016 Fecal Occult Blood Fecal Occult Blood [facility] Start: 07-13-2016 Screening for malignant neoplasm of colon Fecal Occult Blood [facility] Start: 09-16-2009 Shingrix Vaccine (1 of 2) Shingrix Vaccine (1 of 2) [facility] Start: 09-16-2004 Cologuard (FIT-DNA) Cologuard (FIT-DNA) [facility] Start: 09-16-[address] COLONOGRAPHY [facility] Start: 09-16-2004 Screening for malignant neoplasm of colon [facility] Start: 09-16-2004 SIGMOIDOSCOPY SIGMOIDOSCOPY [facility] Start: 09-16-1989 HPV Testing HPV Testing [facility] Start: 09-16-1977 Annual PCP Team Chronic Disease Visit Annual PCP Team Chronic Disease Visit [facility] Start: 09-16-1977 Anxiety Screening Anxiety Screening [facility] Start: 09-16-1977 BP Controlled (<130/80) BP Controlled (<130/80) [facility] Start: 09-16-1977 Hepatitis C Screening Hepatitis C Screening [facility] Start: 09-16-1977 Hepatitis C screening Hepatitis C Screening [facility] Start: 09-16-1977 HIV Screening HIV Screening [facility] Start: 09-16-1977 HIV screening HIV Screening [facility] Alanine aminotransfe rase [Enzymatic activity/volume] in Serum or Plasma [facility] Albumin [Mass/volume ] in Serum or Plasma [facility] Alkaline phosphatase [Enzymatic activity/volume] in Serum or Plasma [facility] Anion gap in Serum or Plasma [facility] Bilirubin, total measurement [facility] BUN/Creatinine ratio [facility] Calcium [Mass/volume ] in Serum or Plasma [facility] Carbon dioxide, tota l [Moles/volume] in Central venous blood [facility] Cholesterol [Mass/vo lume] in Serum or Plasma [facility] Cholesterol in HDL [Mass/volume] in Serum or Plasma [facility] COVID & INFLUENZA A/ B & RSV PCR, ROUTINE COVID & INFLUENZA A/B & RSV PCR, ROUTINE Microbiology Routine Acute cough URI, acute Ordered: 05/22/2024 [facility] Work Phone: Comment on above: Ordered: 05/22/2024 Creatinine [Mass/vol ume] in Serum or Plasma [facility] DXA Bone [Mass/Area] Bone density [facility] Erythrocyte mean cor puscular volume determination [facility] Glucose [Mass/volume ] in Serum or Plasma [facility] Hematocrit [Volume F raction] of Blood [facility] Hemoglobin [Mass/vol ume] in Blood [facility] Leukocytes [#/volume ] in Blood [facility] Low density lipoprot ein cholesterol measurement [facility] Mean corpuscular hem oglobin concentration determination [facility] Mean corpuscular hem oglobin determination [facility] Measurement of renal function [facility] MG Breast - bilatera l Screening [facility] Neutrophil count [facility] Neutrophil percent differential count [facility] Patient referral [facility] Work Phone: Platelets [#/volume] in Blood [facility] Potassium measurement [facility] Red blood cell count [facility] Red cell distributio n width determination [facility] Serum chloride measurement [facility] Sodium measurement [facility] Total cholesterol:HD L ratio measurement [facility] Total protein measurement [facility] Triglycerides measurement [facility] Urea nitrogen [Mass/ volume] in Serum or Plasma [facility] VLDL cholesterol measurement [facility] Immunizations Immunization Date Immunization Notes Care Provider Fa cili 05-24-2023 influenza, injectabl e, quadrivalent, preservative free Dr. Bushra Wynne Work Phone: [facility] 05-24-2023 influenza virus vaccine, unspecified formulation Zunilda Becerril APRN.CASING PULLER Work Phone: [facility] 06-04-2011 tetanus toxoid, redu alonzo diphtheria toxoid, and acellular pertussis vaccine, adsorbed Estella Sandoval MD Work Phone: [facility] Work Phone: Payers Date Payer Category Payer Medicare [id number] 2024 Medicare [id number] 2024 Self-pay [id number] 2021 Unknown LUCIA BUSBY [facility] [id number] 2021-Present [phone] [address] [place] [address] Indemnity [id number] 2021 Unknown [id number] 2012 Unknown [id number] Unknown [id number] [id number] Unknown [id number] 2.16.840.1.394671.3.579.2.462 Unknown [id number] 2.16840.1.743933.3.579.2.462 Unknown [id number] 2.840.1.888987.3.579.2.462 Unknown [id number] 2.840.1.797176.3.579.2.462 Unknown [id number] 2.840.1.568840.3.579.2.462 Unknown [id number] 2.840.1.006946.3.579.2.462 Unknown [id number] 2.840.1.764788.3.579.2.462 Unknown [id number] 2.840.1.395282.3.579.2.462 Unknown [id number] 2.840.1.477685.3.579.2.462 Unknown [id number] 2.840.1.703597.3.579.2.462 Unknown [id number] 2.840.1.188464.3.579.2.462 Unknown [id number] 2.840.1.427162.3.579.2.462 Unknown [id number] .840.1.089415.3.579.2.462 Unknown [id number] 2.840.1.560316.3.579.2.462 Unknown [id number] .840.1.622954.3.579.2.462 Unknown [id number] 2.840.1.477509.3.579.2.462 Unknown [id number] 2.840.1.724851.3.579.2.462 Unknown [id number] 2.840.1.200602.3.579.2.462 Unknown [id number] 2.16.840.1.277261.3.579.2.462 Unknown [id number] 2.16.840.1.255349.3.579.2.462 Unknown [id number] 2.16.840.1.528722.3.579.2.462 Unknown [id number] 2.16.840.1.221798.3.579.2.462 Unknown [id number] 2.16.840.1.455324.3.579.2.462 Unknown [id number] 2.16.840.1.979368.3.579.2.462 Unknown [id number] 2.16.840.1.984663.3.579.2.462 Unknown [id number] 2.16.840.1.310459.3.579.2.462 Unknown [id number] 2.16840.1.939611.3.579.2.462 Unknown [id number] 2.16840.1.907942.3.579.2.462 Unknown [id number] [id number]2 Social History Date Type Detail Facility Start: 08-18-2021 End: 08-12-2023 Tobacco smoking status [facility] Unknown if ever smoked [facility] Start: 1960 Sex Assigned At Female W [facility] Start: 03-24-2023 End: 12-15-2024 Tobacco smoking status NHIS Ex-smoker [facility] Start: 06-21-1989 End: 06-21-1999 History of tobacco use Current smoker [facility] Start: 06-21-1989 End: 06-21-1999 History of tobacco use Cigarette Smoker [facility] Start: 03-24-2023 End: 05-22-2024 Cigarettes smoked current (pack per day) - Reported 1 [facility] Start: 03-24-2023 End: 05-22-2024 Tobacco use and exposure Smokeless tobacco non-user [facility] Start: 03-24-2023 End: 05-22-2024 Alcohol intake Current drinker of alcohol (finding) [facility] Start: 03-24-2023 End: 05-22-2024 Tobacco use panel [facility] National Score (1-100), lower number is lower risk 57 [facility] Start: 03-24-2023 Tobacco Comment quit 5 years ago [facility] Start: 1960 Sex Assigned At Not on file C [facility] NEGATED: Highlighted row Not [facility] Medical Equipment Procedure Code Equipment Code Equipment Origin al Text Equipment Identifier Dates Cholecystocolostomy SWATHI 3GRM HEMOSTAT ABS FDA Start: 10-10-2018 Cholecystocolostomy CLIP,HEMOLOC K MED WECK FDA Start: 10-10-2018 Cholecystocolostomy CLIP,HEMOLOC K MED WECK FDA Start: 10-10-2018 Cholecystocolostomy SWATHI 3GRM HEMOSTAT ABS FDA Start: 10-10-2018 Cholecystocolostomy CLIP,HEMOLOC K MED WECK FDA Start: 10-10-2018 Cholecystocolostomy CLIP,HEMOLOC K MED WECK FDA Start: 10-10-2018 Cholecystocolostomy SWATHI 3GRM HEMOSTAT ABS FDA Start: 10-10-2018 Cholecystocolostomy CLIP,HEMOLOC K MED WECK FDA Start: 10-10-2018 Cholecystocolostomy CLIP,HEMOLOC K MED WECK FDA Start: 10-10-2018 Cholecystocolostomy SWATHI 3GRM HEMOSTAT ABS FDA Start: 10-10-2018 Cholecystocolostomy CLIP,HEMOLOC K MED WECK FDA Start: 10-10-2018 Cholecystocolostomy CLIP,HEMOLOC K MED WECK FDA Start: 10-10-2018 Cholecystocolostomy SWATHI 3GRM HEMOSTAT ABS FDA Start: 10-10-2018 Cholecystocolostomy CLIP,HEMOLOC K MED WECK FDA Start: 10-10-2018 Cholecystocolostomy CLIP,HEMOLOC K MED WECK FDA Start: 10-10-2018 Cholecystocolostomy SWATHI 3GRM HEMOSTAT ABS FDA Start: 10-10-2018 Cholecystocolostomy CLIP,HEMOLOC K MED WECK FDA Start: 10-10-2018 Cholecystocolostomy CLIP,HEMOLOC K MED WECK FDA Start: 10-10-2018 Cholecystocolostomy SWATHI 3GRM HEMOSTAT ABS FDA Start: 10-10-2018 Cholecystocolostomy CLIP,HEMOLOC K MED WECK FDA Start: 10-10-2018 Cholecystocolostomy CLIP,HEMOLOC K MED WECK FDA Start: 10-10-2018 Cholecystocolostomy SWATHI 3GRM HEMOSTAT ABS FDA Start: 10-10-2018 Cholecystocolostomy CLIP,HEMOLOC K MED WECK FDA Start: 10-10-2018 Cholecystocolostomy CLIP,HEMOLOC K MED WECK FDA Start: 10-10-2018 Cholecystocolostomy SWATHI 3GRM HEMOSTAT ABS FDA Start: 10-10-2018 Cholecystocolostomy CLIP,HEMOLOC K MED WECK FDA Start: 10-10-2018 Cholecystocolostomy CLIP,HEMOLOC K MED WECK FDA Start: 10-10-2018 Cholecystocolostomy SWATHI 3GRM HEMOSTAT ABS FDA Start: 10-10-2018 Cholecystocolostomy CLIP,HEMOLOC K MED WECK FDA Start: 10-10-2018 Cholecystocolostomy CLIP,HEMOLOC K MED WECK FDA Start: 10-10-2018 Cholecystocolostomy SWATHI 3GRM HEMOSTAT ABS FDA Start: 10-10-2018 Cholecystocolostomy CLIP,HEMOLOC K MED WECK FDA Start: 10-10-2018 Cholecystocolostomy CLIP,HEMOLOC K MED WECK FDA Start: 10-10-2018 Cholecystocolostomy SWATHI 3GRM HEMOSTAT ABS FDA Start: 10-10-2018 Cholecystocolostomy CLIP,HEMOLOC K MED WECK FDA Start: 10-10-2018 Cholecystocolostomy CLIP,HEMOLOC K MED WECK FDA Start: 10-10-2018 Goals Date Patient Goal Desired Activity /State Mental Status Date Assessment Result Facility 11-06-2024 Cognitive function Voice/Name [facility] Work Phone: 01-26-2023 Cognitive function Voice/Name [facility] Work Phone: Clinical Notes 11-23-2012 to 12-26-2024 Note Date & Type Note Facility 12-26-2024 Discharge summary Note Date/Time December 26, 2024 7:00p [facility] Physical Therapy [address] [place] [address] / REHABILITATION SERVICES DISCHARGE SUMMARY MR#: [id number] Acct: [id number] Name: ALESIA CALZADA Rep #: [id number] : 1960 64 From: Maritza Rodriguez PT, Cert. MDT Referring Dr.: OMAR Mccallum Status: REG RCR Insurance: [employer] SELF PAY INSURANCE Discharge Summary D/C summary: It has been my pleasure to treat ALESIA CALZADA referred by OMAR cMcallum, with the diagnosis of Cervical and Lumbar Radiculopathy for a total of 8 visit(s). Discharge Date: 12/26/24 Please see the following information for a summary of their discharge status. Subjective Subjective: PATIENT REPORTS SHE REALLY ENJOYED THE WATER THERAPY. PATIENT SHE CAN STAND A LITTLE BIT LONGER TO COOK AND DO DISHES SINCE STARTING THERAPY. I DON'T HAVE THE REALLY SHARP PAIN IN MY LOW BACK LIKE I DID BEFORE I STARTED PT. PATIENT ALSO REPORTS HER BALANCE IS A LITTLE BETTER. SHE STATES THAT HER NECK AND ARMS ARE FEELING BETTER TOO SINCE SHE HAS STARTED THE WATER AND HOME EX'S. PATIENT REPORTS SHE HAS SOME OTHER HEALTH CONCERNS GOING ON AND SHE IS GOING TO BE SEEING HER OBGYN WEDNESDAY AND HAVING A PELVIC US WEDNESDAY. SHE IS ALSO HAVING ACOLONOSCOPY IN JAN. THEREFORE SHE WANTS TO HOLD FURTHER PT FOR NOW. SHE STATES SHE WILL FOLLOW UP WITH [facility] ABOUT THE MRI FOR HER BACK TOO. Pain LBP: Pain Intensity (Out of 10): 2 Cervical pain: Pain Intensity (Out of 10): 2 L knee: Pain Intensity (Out of 10): 7 TAILBONE: Pain Intensity (Out of 10): 3 Overall Improvement % Improvement: 50 Objective Objective/Function: PATIENT WAS SEEN TODAY FOR RE-ASSESSMENT OF PROGRESS TOWARD THE SET PT GOALS AND THE NEED FOR FURTHER PHYSICAL THERAPY VS READINESS FOR DISCHARGE. THIS PATIENT HAS MADE SOME MINIMAL PROGRESS TOWARD THE SET PT GOALS SO FAR. SHE DID HAVE A FALL DURING THIS EPISODE OF CARE AND HAS ONLY ATTENDED 6POOL SESSION SINCE HER INITIAL EVAL 10/27/24. AT THIS TIME SHE WANTS TO STOP PT AND FIND OUT WHAT IS GOING ON WITH HER OTHER HEALTH ISSUES. UPON EXAM TODAY: OM deficit: 116 DEG ELEVATION R UE, 90 DEG L UE. -45 DEG ELBOW EXT R AND -50 DEGELBOW EXT LEFT. LIMITED SALO FOREARM PRONATION BUT SALO HAND ROM WFL. ~ 90 DEG KNEE FLEX SALO. GENERALIZED JOINT STIFFNESS THROUGHOUT. Motor deficit: R SHLD 3-/5, ELBOW 3-/5, APARTMENT LOCATOR 35 LBS. L SHLD 2/5, ELBOW 3-/5, APARTMENT LOCATOR 37 LBS. SALO LE'S GROSSLY 4-/5 WITH MMT'ING IN MID-RANGE. R HIP 4/5, KNEE 4/5, ANKLE 5/5. L HIP 4-/5, KNEE 4-/5, ANKLE 5/5. Lumbar mvmt loss: flex - MIN ext - RAMIREZ Cervical Mvmt Loss: Flex: NIL Pro: NIL Ext: MOD Ret: RAMIREZ RSB: MOD LSB: MOD R Rot: MOD L Rot: MOD PATIENT C/O INCREASED NECK PAIN WITH CERVICAL ROM TESTING ALL PLANES BUT NW ARESULT. DENIES INCREASED SALO UE SX'S WITH NECK ROM TESTING. Postural strength: POOR Core Strength: POOR Palpation: SALO LE PITTING EDEMA. NOT HYPERSENSATIVE WITH SALO UE AND LE LIGHT TOUCH SENSATION TESTING. NOT WEARING COMPRESSION STOCKINGS. TUG TIME: 30.85 WITH ROLLATOR 30 STS TEST: 4 WITH SALO UE ASSIST. Goals Goal 1:: DECREASE C/O NECK PAIN AND UE SX'S BY AT LEAST 50% TO EASE ADL'S Goal Progress: Goal Met Goal 2:: DECREASE C/O LOW BACK PAIN AND LE SX'S BY AT LEAST 50% TO EASE ADL'S Goal Progress: Goal Met Goal 3:: IMPROVE STANDING, WALKING, PERSONAL CARE, CARE GIVING, LIFTING, SLEEP, AND HOUSEWORK FUNCTION WITH AT LEAST 5 POINT IMPROVEMENT IN NECK AND BACK OSWESTY QUESTIONNAIRE SCORES. Goal Progress: Progressing Goal 4:: PATIENT WILL COMPLETE 6 STANDS IN 30 SECS WITH ONE UE ASSIST TO DEMONSTRATE IMPROVED FUNCTIONAL STRENGTH Goal Progress: Not Progressing Goal 5:: PATIENT WILL COMPLETE TUG IN < 25 SECS WITH ROLLATOR TO DEMONSTRATE IMPROVED GAIT STABILITY Goal Progress: Not Progressing Goal 6:: [facility] POOL EX PROGRAM Goal Progress: Progressing Plan Plan: D/C AT PATIENTS REQUEST DUE TO OTHER HEALTH CONCERNS. D/C Information d/c sentence: If there are questions or concerns regarding this patient's physical therapy, please feel free to call me at [phone]. Thank you for the referral of thispatient. Sincerely, Maritza Rodriguez, PT, Cert MDT Balance/Gait/Functional tests Balance/Special Test Scores Oswestry Low Back Score: 22 Oswestry Neck Score: 16 Improvement % Improvement: 50 <Electronically signed by MaritzaCert. KAYLA Garcia PT> 12/26/24 4370 CC: OMAR Mccallum; Dr. Bushra Wynne MD ~ LILLIANA Signed [facility] Work Phone: [phone]) 561-699407-08-2025 Discharge summary [facility] Physical Therapy [facility] [address] [place] [address] / REHABILITATION SERVICES DISCHARGE SUMMARY MR#: [id number] Acct: [id number] Name: ALESIA CALZADA Rep #: [id number] : 1960 64 From: Cert. KAYLA Noyola PT Referring Dr.: OMAR Mccallum Status: REG RCR Insurance: [employer] SELF PAY INSURANCE Discharge Summary D/C summary: It has been my pleasure to treat ALESIA CALZADA referred by OMAR Mccallum, with the diagnosis of Cervical and Lumbar Radiculopathy for a total of 8 visit(s). Discharge Date: 12/26/24 Please see the following information for a summary of their discharge status. Subjective Subjective: PATIENT REPORTS SHE REALLY ENJOYED THE WATER THERAPY. PATIENT SHE CAN STAND A LITTLE BIT LONGER TO COOK AND DO DISHES SINCE STARTING THERAPY. I DON'T HAVE THE REALLY SHARP PAIN IN MY LOWBACK LIKE I DID BEFORE I STARTED PT. PATIENT ALSO REPORTS HER BALANCE IS A LITTLE BETTER. SHE STATES THAT HER NECK AND ARMS ARE FEELING BETTER TOO SINCE SHE HAS STARTED THE WATER AND HOME EX'S. PATIENT REPORTS SHE HAS SOME OTHER HEALTH CONCERNS GOING ON AND SHE IS GOING TO BE SEEING HER OBGYN WEDNESDAY AND HAVING A PELVIC US WEDNESDAY. SHE IS ALSO HAVING ACOLONOSCOPY IN JAN. THEREFORE SHE WANTS TO HOLD FURTHER PT FOR NOW. SHE STATES SHE WILL FOLLOW UP WITH [facility] ABOUT THE MRI FOR HER BACKTOO. Pain LBP: Pain Intensity (Out of 10): 2 Cervical pain: Pain Intensity (Out of 10): 2 L knee: Pain Intensity (Out of 10): 7 TAILBONE: Pain Intensity (Out of 10): 3 Overall Improvement % Improvement: 50 Objective Objective/Function: PATIENT WAS SEEN TODAY FOR RE-ASSESSMENT OF PROGRESS TOWARD THE SET PT GOALS AND THE NEED FOR FURTHER PHYSICAL THERAPY VS READINESS FOR DISCHARGE. THIS PATIENT HAS MADE SOME MINIMAL PROGRESS TOWARD THE SET PT GOALS SO FAR. SHE DID HAVE A FALL DURING THIS EPISODE OF CARE AND HAS ONLY ATTENDED 6POOL SESSION SINCE HER INITIAL EVAL 10/27/24. AT THIS TIME SHE WANTS TO STOP PT AND FIND OUT WHAT IS GOING ON WITH HER OTHER HEALTH ISSUES. UPON EXAM TODAY: OM deficit: 116 DEG ELEVATION R UE, 90 DEG L UE. -45 DEG ELBOW EXT R AND -50 DEGELBOW EXT LEFT. LIMITED SALO FOREARM PRONATION BUT SALO HAND ROM WFL. ~ 90 DEG KNEE FLEX SALO. GENERALIZED JOINT STIFFNESSTHROUGHOUT. Motor deficit: R SHLD 3-/5, ELBOW 3-/5, APARTMENT LOCATOR 35 LBS. L SHLD 2/5, ELBOW 3-/5, APARTMENT LOCATOR 37 LBS. SALO LE'S GROSSLY 4-/5 WITH MMT'ING IN MID-RANGE. R HIP 4/5, KNEE 4/5, ANKLE 5/5. L HIP 4-/5, KNEE 4-/5, ANKLE5/5. Lumbar mvmt loss: flex - MIN ext - RAMIREZ Cervical Mvmt Loss: Flex: NIL Pro: NIL Ext: MOD Ret: RAMIREZ RSB: MOD LSB: MOD R Rot: MOD L Rot: MOD PATIENT C/O INCREASED NECK PAIN WITH CERVICAL ROM TESTING ALL PLANES BUT NW ARESULT. DENIES INCREASED SALO UE SX'S WITH NECK ROM TESTING. Postural strength: POOR Core Strength: POOR Palpation: SALO LE PITTING EDEMA. NOT HYPERSENSATIVE WITH SALO UE AND LE LIGHT TOUCH SENSATION TESTING. NOT WEARING COMPRESSION STOCKINGS. TUG TIME: 30.85 WITH ROLLATOR 30 STS TEST: 4 WITH SALO UE ASSIST. Goals Goal 1:: DECREASE C/O NECK PAIN AND UE SX'S BY AT LEAST 50% TO EASE ADL'S Goal Progress: Goal Met Goal 2:: DECREASE C/O LOW BACK PAIN AND LE SX'S BY AT LEAST 50% TO EASE ADL'S Goal Progress: Goal Met Goal 3:: IMPROVE STANDING, WALKING, PERSONAL CARE, CARE GIVING, LIFTING, SLEEP, AND HOUSEWORK FUNCTION WITH AT LEAST 5 POINT IMPROVEMENT IN NECK AND BACK OSWESTY QUESTIONNAIRE SCORES. Goal Progress: Progressing Goal 4:: PATIENT WILL COMPLETE 6 STANDS IN 30 SECS WITH ONE UE ASSIST TO DEMONSTRATE IMPROVED FUNCTIONAL STRENGTH Goal Progress: Not Progressing Goal 5:: PATIENT WILL COMPLETE TUG IN < 25 SECS WITH ROLLATOR TO DEMONSTRATE IMPROVED GAIT STABILITY Goal Progress: Not Progressing Goal 6:: INDEP POOL EX PROGRAM Goal Progress: Progressing Plan Plan: D/C AT PATIENTS REQUEST DUE TO OTHER HEALTH CONCERNS. D/C Information d/c sentence: If there are questions or concerns regarding this patient's physical therapy, please feel free to call me at [phone]. Thank you for the referral of thispatient. Sincerely, Maritza Rodriguez, PT, Cert MDT Balance/Gait/Functional tests Balance/Special Test Scores Oswestry Low Back Score: 22 Oswestry Neck Score: 16 Improvement % Improvement: 50 12/26/24 1304 CC: OMAR Mccallum; Dr. Bushra Wynne MD ~ LILLIANA Signed [facility]05-19-2025 Consult note [facility] Medical Records Department [address] [place] [address] Anesthesia Postop Eval II 11/06/24 1047 MR#: [id number] Acct: [id number] Name: ALESIA CALZADA Rep #:[id number] : 1960 64 From: Lana Flores PCP: Dr. Bushra Wynne MD Status:R [place] [facility] C Location: [place] [address] Anesthesia Postop Eval I Sum Postop Eval Completion status Anesthesia document: Postop Eval 1 completed: Yes Anesthesia Postop Eval I Summary Anesthesia Postop Eval I Summary: Anesthesia Postop Eval I: Assessment Summary Airway patent Yes 11/06/24 10:46 TRANSFER AND PUMPHOUSE OPERATOR.CSIR Spontaneous unlabored Yes 11/06/24 10:46 TRANSFER AND PUMPHOUSE OPERATOR.CSIR respirations Mental status nausea No 11/06/24 10:46 TRANSFER AND PUMPHOUSE OPERATOR.CSIR Vomiting No 11/06/24 10:46 TRANSFER AND PUMPHOUSE OPERATOR.CSIR Anesthesia Postop Eval I: Fluid Summary Crystalloid volume administer 100 11/06/24 10:46 TRANSFER AND PUMPHOUSE OPERATOR.CSIR (ml) Colloids volume administered ( ml) Blood Product volume administered (ml) Total IV fluid infused 100 11/06/24 10:46 TRANSFER AND PUMPHOUSE OPERATOR.CSIR Anesthesia Postop Eval I: Summary Notes Anesthesia Complication No 11/06/24 10:46 TRANSFER AND PUMPHOUSE OPERATOR.CSIR Anesthesia Complication Comment: Post-operative progress note Anesthesia: Postop Eval II Evaluation Mental status: Awake Pain Level: 3 nausea: No Vomiting: No 11/06/24 1047 a> Date _ Lana Stearns Signature: Date CC: ~ Signed [facility]05-19-2025 Consult note Author Sher Brady [facility] Note Date/Time November 06, 2024 9:08a [facility] Medical Records Department [address] [place] [address] Pre-Anesthesia Evaluation 11/06/24 0907 MR#: [id number] Acct: [id number] Name: ALESIA CALZADA Rep #:[id number] : 1960 64 From: Sher Brady MD PCP: Dr. Bushra Wynne MD Status:R [facility] Y Race: C Location: [place] [address] ASA Classification* ASA Classification ASA Classification: 3 Assessment & Plan Anesthesia* Anesthesia Assessment Anesthesia Assessment: Discussed sedation and/or anesthesia options, risks, benefits, and alternatives with patient/parents/legal guardian/POA. Questions invited. The patient/parents/legal guardian/POA seems to understand and agrees to proceedwith anesthesia plan. Reviewed the physical assessment, medical history, allergy history and patient home medications list prior to surgery/procedure/anesthetic and documented any changes. Performed airway and anesthesia risk assessments. Anesthesia Type Anesthesia Type: MAC Anesthesia Focused Assessment* Airway Assessment Mouth opens: >3 cm Mallampati Score: II Focused Labs Anesthesia Preop lab: CBC WBC 7.7 K/mm3 (4.4-11.0) 03/13/24 14:50 03/13/24 RBC 4.56 M/mm3 (4.2-5.4) 03/13/24 14:50 03/13/24 Hgb 13.6 g/dL (12.0-15.0) 03/13/24 14:50 03/13/24 Hct 42.6 % (37-47) 03/13/24 14:50 03/13/24 Plt Count 357 K/mm3 (150-450) 03/13/24 14:50 03/13/24 CHEMISTRY Potassium 4.5 mmol/L (3.5-5.1) 07/05/24 13:53 07/05/24 Sodium 142 mmol/L (136-145) 07/05/24 13:53 07/05/24 Magnesium 1.9 mg/dL (1.6-2.6) 02/27/24 11:55 02/27/24 BUN 18 mg/dL (7-18) 07/05/24 13:53 07/05/24 Creatinine 1.16 mg/dL (0.55-1.02) H 07/05/24 13:53 Glucose 114 mg/dL (74-106) H 07/05/24 13:53 07/05/24 TSH 2.180 uIU/mL (0.358-3.740) 02/27/24 11:55 09/0 02/11 COAG Pre-Assessment Diagnosis/Proposed Procedure Planned Operative Procedure(s): RIGHT MEDIAL BRANCH BLOCK C4,5,6,7 UNDER FLUOROSCOPY Anesthesia History 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 When Was Last Pacemaker Check QUESTION #4 FULL TEXT: You/Your Family Experience fever (hyperthermia) with Anesthesia Last Oral Intake Last Oral intake: Last Oral Intake NPO since Meds taken in AM with sips of water? 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 Has anyone observed you stop breathing during sleep? STOP Results Positive 11/03/24 09:46 QUESTION #5 FULL TEXT : Do you snore loudly (louder than talking or can be heard through closed doors)? 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 Specify any problems Hx of Preganancy in last 3 No 11/03/24 09:46 Months Nurse Filling Out Transfusion DSCHRIBER 11/03/24 09:46 & Questions: Date: 11/03/24 11/03/24 09:46 Time: 09:51 11/03/24 09:46 Patient unable to answer at this time (ie. confused, unrespo /Reproduction History /Reproductive History - salmon troll fisher: /Reproductive Hx- salmon troll fisher Hx Now No 11/03/24 09:46 Gestational Age (in weeks): EDC: Hx Hx Para Hx Section SAB No 11/03/24 09:46 Active Medications Active Medications: Current Medications Generic Name Dose Route Start Last Admin Trade Name Freq PRN Reason Stop Dose Admin Lactated Ringer's 1,000 mls @ 15 mls/hr 11/06/24 09:00 IV .Q48H ENMANUEL PFSH Medical History Wears hearing aid Wears glasses Wears partial dentures Wears dentures Anxiety Diabetes Walker as ambulation aid History of renal disease Umbilical hernia Former smoker Shortness of breath on exertion History of pain when walking History of edema History of Holter monitoring History of echocardiogram Cardiology follow-up encounter History of atrial fibrillation Left knee pain Radiculopathy, cervical OAB (overactive bladder) Hyperkalemia Wears hearing aid Restless legs CPAP (continuous positive airway pressure) dependence Asthmatic bronchitis with acute exacerbation Postmenopausal bleeding History of benign breast tumor Venous insufficiency Morbid obesity Hypertension Home Medications ?Medication ?Instructions ?Recorded ?Last Taken ?Type multivitamin with folic acid 400 1 tab PO DAILY Unknown History mcg tablet Cpap Supplies #1 ea 08/18/21 Unknown Rx Pancreat-Bet ELy-oop-tfiw-pap 250 1 cap PO .with meals 10/23/22 Unknown History mg-162 mg-65 mg-125 mg capsule (Super Enzyme) anita.stocking,knee,reg,xlrg #2 ea 10/23/22 Unknown Rx Cpap Supplies #1 ea 01/27/23 Unknown Rx lisinopril 40 mg tablet 40 mg PO DAILY #90 tabs 02/20 10/12 Unknown Rx apixaban 5 mg tablet (Eliquis) 5 mg PO BID #60 tabs 11/03/24 Rx metoprolol tartrate 25 mg tablet 12.5 mg (1/2 x 25 mg) PO BID #90 09/22/24 Unknown Rx tabs amlodipine 10 mg tablet 10 mg PO QHS 11/03/24 Unknow n History fluoxetine 20 mg capsule 20 mg PO DAILY 11/03/24 Unkn own History tizanidine 2 mg tablet 2 mg PO QHS PRN PRN muscle 0 11/03/24 Unknown History spasticity Allergy/AdvReac Type Severity Reaction Status Date / Time clindamycin Allergy Severe Hearing Verified 11/03/24 09:43 loss ciprofloxacin (From Cipro) Allergy Other Verified 11/03/24 09:43 codeine Allergy Rash Verified 11/03/24 09:43 hydrochlorothiazide Allergy Other Verified 11/03/24 09:43 Penicillins (PCN) Allergy Rash Verified 11/03/24 09:43 tramadol HCl (From Ultram) Allergy Other Verified 11/03/24 09:43 spironolactone (From AdvReac Causes Verified 11/03/24 09:43 Aldactone) Potassium to elevate Family History Mother CVA (cerebral vascular accident) Hypertension Sister cranial stenosis Father Hypertension Asthma Arthritis Surgical History History of hysteroscopy H/O dilation and curettage History of tubal ligation History of cholecystectomy History of placement of ear tubes History of D&C History of section History of benign breast biopsy Social History household members: spouse Smoking Status: Former smoker how long ago did patient quit smokin alcohol intake: current alcohol intake frequency: holidays/special occasions only Alcohol type: wine substance use type: does not use caffeine: Yes what type of physical activity do you participate in: none seatbelt use: always do you feel safe at home: Yes additional social history: Cisuxoy-Htg-Gzc Review of Systems (Anesthesia) ROS Narrative System reviewed and no additional complaints, except as documented. 11/06/24907 <Electronically signed by Sher Brady MD > Date _ Sher Brady MD Cosigner Signature: Date CC: ~ Signed [facility] Work Phone: 1(677) 468-590105-19-2025 Consult note [facility] Medical Records Department [address] [place] [address] Anesthesia Postop Eval I 11/06/24 1005 MR#: [id number] Acct: [id number] Name: ALESIA CALZADA Rep #:[id number] : 1960 64 From: Lana Flores PCP: Dr. Bushra Wynne MD Status:Karthikeyan SHETTY Y Race: C Location: [place] [address] Anesthesia: Postop Eval I Current Vital Signs Temperature: 97.5 F Pulse Rate: 67 Blood Pressure: 126/67 Respiratory Rate: 18 Pulse Ox: 96 Assessment Airway patent: Yes Spontaneous unlabored respirations: Yes nausea: No Vomiting: No Anesthesia Complication: No Fluid Hydration Crystalloid volume administer (ml): 100 Total IV fluid infused: 100 Progress Note Anesthesia document: Postop Eval 1 completed: Yes 11/06/24 1047 a> Date _ Lana Flores Deejojo Signature: Date CC: ~ Signed [facility]05-19-2025 Procedure note [facility] Medical Records Department [address] [place] [address] Operative Report 11/06/24 1029 MR#: [id number] Acct: [id number] Name: ALESIA CALZADA Rep #:[id number] : 1960 64 From: Cuong Baptiste MD PCP: Dr. Bushra Wynne MD Status:Karthikeyan SHETTY Location: AC AC10-1 Operative Report (Standard) Operative Information Date of Procedure: 11/06/24 Pre-Operative Diagnosis: Cervical spondylosis, cervical degenerative disc disease, cervical facet arthropathy Post-Operative Diagnosis: Cervical spondylosis, cervical degenerative disc disease, cervical facet arthropathy Surgery/Procedure Performed: Right sided cervical medial branch block at C4-5, C5-6, C6-7 pecan mallow dipper: No Type of Anesthesia: Local MAC RN Documented Start/Stop Times: Operation Date: 11/06/24 10:35 Case Time Into Pre-Op 11/06/24 08:49 Anesthesia Start 11/06/24 09:50 Into Room 11/06/24 09:50 Procedure Start 11/06/24 09:56 Procedure End 11/06/24 09:58 Anesthesia End 11/06/24 10:00 Out of Room 11/06/24 10:00 Into Recovery 11/06/24 10:05 Out of Recovery 11/06/24 10:20 Into Phase II Recovery 11/06/24 10:22 Procedure Start Time: 10:30 Procedure Stop Time: 10:30 Select all DRAINS/GRAFTS/IMPLANTS that apply: None Estimated Blood Loss: 0 Specimen collected: No Description of surgery: ANESTHESIA: MAC. BLOOD LOSS: Minimal. COMPLICATIONS: None. DESCRIPTION OF PROCEDURE: History and physical of today was reviewed. Risks and benefits of the procedure were explained. The patient understood and agreedto proceed. Informed consent was obtained. IV inserted per routine protocol. The patient was taken to the operating room and placed in the proneposition with a pillow positioned underneath the chest. The neck area was prepped and draped in a sterile fashion using iodine x3. Under fluoroscopy guidance on an AP view, the C4 through C7 vertebral bodies were visualized at approximately 10-degree angle, starting on the right C4, ending on the right C7, passing through the C5 and C6. Using a 25-gauge 3-1/2-inch spinal needle, the needle was advanced via the skin. The tip of the needle was maneuvered and directed towards the epiphyseal junction of each corresponding vertebra. Once the tip ofthe needle was at the vicinity of the medial branch, the needle was pulled approximately 2 mm off the bone. After negative aspiration of blood or CSF and confirmation on AP, oblique as well as lateral view, a total of 4 mL of preservative-free 0.25% Marcaine with 80 mg of Depo-Medrol was injected in divided doses between those four levels. The needles were then removed intact. The patient experienced no sign or symptoms of intrathecal or intravascular injection. The patient experienced no paresthesia. The procedure was completedwithout any apparent difficulty or any complications. The patient appeared to tolerate it well. ASSESSMENT AND PLAN: This is a 64-year-old female with cervical spondylosis, cervical degenerative disc disease, cervical facet arthropathy, status post right-sided cervical medial branch block at C4-C7, patient will continue her current medications, patient will follow-up in approximately 1 to 2 weeks for reevaluation. Surgical Findings: 0 Complications Complications: No Admit VTE Documentation VTE Present on Admission: No VTE Mechan Device Prophylaxis: None VTE Pharm Prophylaxis ordered?: No 11/06/24 1031 Cosigner Signature (if applicable): CC: Dr. Bushra Wynne MD; Dr. Cuong Baptiste MD~ Signed [facility]05-19-2025 Consult note [facility] Medical Records Department [address] [place] [address] Pre-Anesthesia Evaluation 11/06/2407 MR#: [id number] Acct: [id number] Name: ALESIA CALZADA Rep #:[id number] : 1960 64 From: Sher Brady MD PCP: Dr. Bushra Wynne MD Status:R [facility] Y Race: C Location: [place] [address] ASA Classification* ASA Classification ASA Classification: 3 Assessment & Plan Anesthesia* Anesthesia Assessment Anesthesia Assessment: Discussed sedation and/or anesthesia options, risks, benefits, and alternatives with patient/parents/legal guardian/POA. Questions invited. The patient/parents/legal guardian/POA seems to understand and agrees to proceedwith anesthesia plan. Reviewed the physical assessment, medical history, allergy history and patient home medications list prior to surgery/procedure/anesthetic and documented any changes. Performed airway and anesthesia risk assessments. Anesthesia Type Anesthesia Type: MAC Anesthesia Focused Assessment* Airway Assessment Mouth opens: >3 cm Mallampati Score: II Focused Labs Anesthesia Preop lab: CBC WBC 7.7 K/mm3 (4.4-11.0) 03/13/24 14:50 03/13/24 RBC 4.56 M/mm3 (4.2-5.4) 03/13/24 14:50 03/13/24 Hgb 13.6 g/dL (12.0-15.0) 03/13/24 14:50 03/13/24 Hct 42.6 % (37-47) 03/13/24 14:50 03/13/24 Plt Count 357 K/mm3 (150-450) 03/13/24 14:50 03/13/24 CHEMISTRY Potassium 4.5 mmol/L (3.5-5.1) 07/05/24 13:53 07/05/24 Sodium 142 mmol/L (136-145) 07/05/24 13:53 07/05/24 Magnesium 1.9 mg/dL (1.6-2.6) 02/27/24 11:55 02/27/24 BUN 18 mg/dL (7-18) 07/05/24 13:53 07/05/24 Creatinine 1.16 mg/dL (0.55-1.02) H 07/05/24 13:53 Glucose 114 mg/dL (74-106) H 07/05/24 13:53 07/05/24 TSH 2.180 uIU/mL (0.358-3.740) 02/27/24 11:55 09/0 02/11 COAG Pre-Assessment Diagnosis/Proposed Procedure Planned Operative Procedure(s): RIGHT MEDIAL BRANCH BLOCK C4,5,6,7 UNDER FLUOROSCOPY Anesthesia History 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 When Was Last Pacemaker Check QUESTION #4 FULL TEXT: You/Your Family Experience fever (hyperthermia) with Anesthesia Last Oral Intake Last Oral intake: Last Oral Intake NPO since Meds taken in AM with sips of water? 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 Has anyone observed you stop breathing during sleep? STOP Results Positive 11/03/24 09:46 QUESTION #5 FULL TEXT : Do you snore loudly (louder than talking or can be heard through closeddoors)? 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 Specify any problems Hx of Preganancy in last 3 No 11/03/24 09:46 Months Nurse Filling Out Transfusion DSCHRIBER 11/03/24 09:46 & Questions: Date: 11/03/24 11/03/24 09:46 Time: 09:51 11/03/24 09:46 Patient unable to answer at this time (ie. confused, unrespo /Reproduction History /Reproductive History - salmon troll fisher: /Reproductive Hx- salmon troll fisher Hx Now No 11/03/24 09:46 Gestational Age (in weeks): EDC: Hx Hx Para Hx Section SAB No 11/03/24 09:46 Active Medications Active Medications: Current Medications Generic Name Dose Route Start Last Admin Trade Name Freq PRN Reason Stop Dose Admin Lactated Ringer's 1,000 mls @ 15 mls/hr 11/06/24 09:00 IV .Q48H ENMANUEL PFSH Medical History Wears hearing aid Wears glasses Wears partial dentures Wears dentures Anxiety Diabetes Walker as ambulation aid History of renal disease Umbilical hernia Former smoker Shortness of breath on exertion History of pain when walking History of edema History of Holter monitoring History of echocardiogram Cardiology follow-up encounter History of atrial fibrillation Left knee pain Radiculopathy, cervical OAB (overactive bladder) Hyperkalemia Wears hearing aid Restless legs CPAP (continuous positive airway pressure) dependence Asthmatic bronchitis with acute exacerbation Postmenopausal bleeding History of benign breast tumor Venous insufficiency Morbid obesity Hypertension Home Medications ?Medication ?Instructions ?Recorded ?Last Taken ?Type multivitamin with folic acid 400 1 tab PO DAILY Unknown History mcg tablet Cpap Supplies #1 ea 08/18/21 Unknown Rx Pancreat-Bet ZNo-wpt-eyui-pap 250 1 cap PO .with meals 10/23/22 Unknown History mg-162 mg-65 mg-125 mg capsule (Super Enzyme) anita.stocking,knee,reg,xlrg #2 ea 10/23/22 Unknown Rx Cpap Supplies #1 ea 01/27/23 Unknown Rx lisinopril 40 mg tablet 40 mg PO DAILY #90 tabs 02/20 10/12 Unknown Rx apixaban 5 mg tablet (Eliquis) 5 mg PO BID #60 tabs 11/03/24 Rx metoprolol tartrate 25 mg tablet 12.5 mg (1/2 x 25 mg) PO BID #90 09/22/24 Unknown Rx tabs amlodipine 10 mg tablet 10 mg PO QHS 11/03/24 Unknow n History fluoxetine 20 mg capsule 20 mg PO DAILY 11/03/24 Unkn own History tizanidine 2 mg tablet 2 mg PO QHS PRN PRN muscle 0 11/03/24 Unknown History spasticity Allergy/AdvReac Type Severity Reaction Status Date / Time clindamycin Allergy Severe Hearing Verified 11/03/24 09:43 loss ciprofloxacin (From Cipro) Allergy Other Verified 11/03/24 09:43 codeine Allergy Rash Verified 11/03/24 09:43 hydrochlorothiazide Allergy Other Verified 11/03/24 09:43 Penicillins (PCN) Allergy Rash Verified 11/03/24 09:43 tramadol HCl (From Ultram) Allergy Other Verified 11/03/24 09:43 spironolactone (From AdvReac Causes Verified 11/03/24 09:43 Aldactone) Potassium to elevate Family History Mother CVA (cerebral vascular accident) Hypertension Sister cranial stenosis Father Hypertension Asthma Arthritis Surgical History History of hysteroscopy H/O dilation and curettage History of tubal ligation History of cholecystectomy History of placement of ear tubes History of D&C History of section History of benign breast biopsy Social History household members: spouse Smoking Status: Former smoker how long ago did patient quit smokin alcohol intake: current alcohol intake frequency: holidays/special occasions only Alcohol type: wine substance use type: does not use caffeine: Yes what type of physical activity do you participate in: none seatbelt use: always do you feel safe at home: Yes additional social history: [id number]-Xmv-[id number] Review of Systems (Anesthesia) ROS Narrative System reviewed and no additional complaints, except as documented. 11/06/24907 > Date _ Sher Stearns Signature: Date CC: ~ Signed [facility]03-29-2025 Consult note Author Lana Flores [facility] Note Date/Time November 06, 2024 10:47 am [facility] Medical Records Department [address] [place], [place] [address] [address] Anesthesia Postop Eval I 11/06/24 1005 MR#: [id number] Acct: [id number] Name: ALESIA CALZADA Rep #:[id number] : 1960 64 From: Lana Flores PCP: Dr. Bushra Wynne MD Status:R [facility] Y Race: C Location: [place] [address] Anesthesia: Postop Eval I Current Vital Signs Temperature: 97.5 F Pulse Rate: 67 Blood Pressure: 126/67 Respiratory Rate: 18 Pulse Ox: 96 Assessment Airway patent: Yes Spontaneous unlabored respirations: Yes nausea: No Vomiting: No Anesthesia Complication: No Fluid Hydration Crystalloid volume administer (ml): 100 Total IV fluid infused: 100 Progress Note Anesthesia document: Postop Eval 1 completed: Yes 11/06/24 1047 <Electronically signed by Lana weiss> Date _ Lana Stearns Signature: Date CC: ~ Signed [facility] Work Phone: 1(467) 481-757603-20-2025 Evaluation note* Diagnosis Onset Date Resolution Status Admit Date Cervical myelopathy noneactive September 07, 2024 10:45am [facility] Work Phone: 1(218) 482-556703-20-2025 Evaluation note* Diagnosis Onset Date Resolution Status Admit Date Cervical myelopathy noneactive September 07, 2024 10:45am Anxiety and depression chronic Ju ne 2024 1:03pm Atrial fibrillation chronic November 29, 2024 1:03pm Borderline type 2 diabetes mellitus chronic November 29, 2024 1:03pm Hypertension chronic November 29, 2 025 1:03pm Radiculopathy, cervical chronic J une 2024 1:03pm [facility] Work Phone: 1(123) 330-401703-20-2025 Evaluation note* Diagnosis Onset Date Resolution Status Admit Date Cervical myelopathy noneactive September 07, 2024 10:45am Anxiety and depression chronic Ju ne 2024 1:03pm Atrial fibrillation chronic November 29, 2024 1:03pm Borderline type 2 diabetes mellitus chronic November 29, 2024 1:03pm Hypertension chronic November 29 025 1:03pm Radiculopathy, cervical chronic J une 2024 1:03pm Encounter for screening colonoscopy acute December 15, 2024 1:18pm [facility] Work Phone: 1(565) 887-357703-02-2025 Consult note Author [facility] Note Date/Time November 06, 2024 11:11 am [facility] Medical Records Department [address] [place] [address] Anesthesia Postop Eval II 11/06/24 1047 MR#: [id number] Acct: [id number] Name: ALESIA CALZADA Rep #:[id number] : 1960 64 From: Lana Flores PCP: Dr. Bushra Wynne MD Status:R [facility] [place]: C Location: [place] [address] Anesthesia Postop Eval I Sum Postop Eval Completion status Anesthesia document: Postop Eval 1 completed: Yes Anesthesia Postop Eval I Summary Anesthesia Postop Eval I Summary: Anesthesia Postop Eval I: Assessment Summary Airway patent Yes 11/06/24 10:46 TRANSFER AND PUMPHOUSE OPERATOR.CSIR Spontaneous unlabored Yes 11/06/24 10:46 TRANSFER AND PUMPHOUSE OPERATOR.CSIR respirations Mental status nausea No 11/06/24 10:46 TRANSFER AND PUMPHOUSE OPERATOR.CSIR Vomiting No 11/06/24 10:46 TRANSFER AND PUMPHOUSE OPERATOR.CSIR Anesthesia Postop Eval I: Fluid Summary Crystalloid volume administer 100 11/06/24 10:46 TRANSFER AND PUMPHOUSE OPERATOR.CSIR (ml) Colloids volume administered ( ml) Blood Product volume administered (ml) Total IV fluid infused 100 11/06/24 10:46 TRANSFER AND PUMPHOUSE OPERATOR.CSIR Anesthesia Postop Eval I: Summary Notes Anesthesia Complication No 11/06/24 10:46 TRANSFER AND PUMPHOUSE OPERATOR.CSIR Anesthesia Complication Comment: Post-operative progress note Anesthesia: Postop Eval II Evaluation Mental status: Awake Pain Level: 3 nausea: No Vomiting: No 11/06/24 1047 <Electronically signed by Lana weiss> Date _ Lana Stearns Signature: Date CC: ~ Signed [facility] Work Phone: 1(292) 915-137001-31-2025 Evaluation note* Diagnosis Onset Date Resolution Status Admit Date Preoperative cardiovascular examination acute July 21 1:00pm Atrial fibrillation chronic 2024 1:00pm Cervical myelopathy noneactive September 07, 2024 10:45am [facility] Work Phone: 1(982) 115-295012-02-2024 History of Present illness Narrative* Estephania Mcdonald, RT(R) - 05/22/2024 6:30 PM EST Radiology Service Progress Note PATIENT NAME: Alesia Calzada DATE OF SERVICE: May 22, 2024 TIME: 6:42 PM PATIENT IDENTITY VERIFICATION COMPLETED USING TWO (2) IDENTIFIERS: Name and Date of confirmedby patient verbally. FALL SCREENING: Has the patient had 2 falls in the last year or 1 fall with injury or currently using an Ambulatory Assistive Device (Walker, Cane, Wheelchair, Crutches, etc.)? Yes, Patient High Riskfor Falls What interventions were put in place to prevent falls during this visit? Offered Assistance with Transfers/Clothing and Instructed Patient to Remain Seated (Not on Exam Table) Until Exam PATIENT GENDER DATA: Female. status: : No status: NO. PATIENT RELEVANT IMPLANT DATA REVIEWED: Not Applicable PATIENT PRESENTS WITH AN IMPLANTABLE OR ATTACHED RUBBER GOODS SUPERVISOR: No RADIOLOGY DEPARTMENT: General X-ray: Exam(s) Completed: Chest X-Ray PERIPHERAL IV DATA: Not applicable SIGNED BY: RT Michelle(R) May 22, 2024 6:42 PM documented in [facility]Day[facility]24 NoteHNO ID: [id number] Author: ESTEPHANIA MCDONALD RT(Karthikeyan) Service: Radiology Author Type: Technologist Type: Progress [...] PATIENT PRESENTS WITH AN IMPLANTABLE OR ATTACHED RUBBER GOODS SUPERVISOR: No RADIOLOGY DEPARTMENT: General X-ray: Exam(s) Completed: Chest X-Ray PERIPHERAL IV DATA: Not applicable SIGNED BY: RT Michelle(R) May 22, 2024 6:42 [facility]12-02-2024 NoteHNO ID: [id number] Author: ZUNILDA BECERRIL APRN.CASING PULLER Service: ? Author Type: Nurse Practitioner Type: [...] history is provided by the patient. No language specialist was used. Cough This is a new [...] NONOBSTETRIC 12/07/[address] [facility]ST[facility] 12/26/2012 EGD HYSTEROSCOPY BX [...] (!) 189.4 kg (417 lb 7.1 oz) L (more content not included)...[facility]12-02-2024 History of Present illness Narrative* Zunilda Becerril APRN.[facility] - 05/22/2024 6:21 PM EST This note was created using [employer]haker[employer]. Subjective Alesia Calzada is a 63 year [...] history is provided by the patient. No language specialist was used. Cough This is a new [...] NONOBSTETRIC 12/07/2012 Dilation & curettage Dr Young [facility] TRANSORAL DIAGNOSTIC 12/26/2012 EGD HYSTEROSCOPY BX ENDOMETRIUM&/POLYPC W/WO D&C 12/06/2012 LUMPECTOMY/RADIOTHERAPY DIAG MAMM/A10 left breast ALLERGIES [...] Objective BP 148/84 Pulse 107 Temp 37.3 C (99.1 F) (Tympanic) Resp 20 Wt (!) 189.4 kg (417 lb 7.1 oz) LMP 11/30/2012 SpO2 96% BMI 71.65 kg/m Physical Exam Vitals and nursing note reviewed. Constitutional: General: She is not in acute distress. Appearance: Normal appearance. She is obese. She is not ill-appearing, toxic- appearing or diaphoretic. HENT: Head: Normocephalic and atraumatic. [...] persist or sooner if worsening of symptoms Zunilda Becerril APRN.CASING PULLER documented in this encounterDayton [facility]10-04-2023 NoteHNO ID: [id number] Author: Estella Sandoval MD Service: ? Author Type: Physician Type: Progress Notes Filed: 03/24/2023 2:02 PM Note Text: SURGICAL SERVICES HISTORY AND PHYSICAL EXAMINATION SERVICE DATE: 03/24/2023 SERVICE TIME: 1:38 PM PRIMARY CARE PHYSICIAN: Bushra Wynne MD SUBJECTIVE CHIEF COMPLAINT: hernia and need for colonoscopy HISTORY OF PRESENT ILLNESS: Ms. Calzada is a 62 year old female with [...] would like to more about it. 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 Calzada is a 62 year old female with [...] 435 pounds. She has struggled with weight herentire life. She states she is so tired of carrying the extra weight as it is negatively impacting her mobility. She is somewhat interested in bariatric surgery and would like to more about it. 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 [...] NONOBSTETRIC 12/07/2012 Dilation & curettage Dr Young [facility] TRANSORAL DIAGNOSTIC 12/26/2012 EGD HYSTEROSCOPY BX [...] EMR reviewed Plan ASSESSMENT AND PLAN Alesia Calzada is a 62 year old female with [...] Decision Making Level: 4 - Moderate SIGNATURE: Estella Sandoval MD PATIENT NAME: Alesia Calzada DATE: March 24, 2023 TIME: 1:38 PM PAGER/CONTACT #: [id number] documented in this encounterDayton Children'[facility]08-08-2023 Discharge summary Author Deepti Hickey [facility] January 26, 2023 12:45pm Note Date/Time January 26, 2023 12: 43pm [facility] Medical Records Department [address] [place] [address] Instructions for Home/Discharge Instructions 01/26/23 1242 MR#: [id number] Acct: [id number] Name: ALESIA CALZADA Rep #:[id number] : 1960 62 From: Deepti Tran DO PCP: Dr. Bushra Wynne MD Status:R [facility] Discharge Instructions Diet Discharge Diet: No restrictions Activity Discharge Activity: Return to Normal Activity, May Shower and May Take a Tub Bath (after 1 week) May resume sexual activity in: 1-2 weeks Weight Bearing Status: Weight bearing as tolerated Lifting Restrictions: none Dressing / Incision Call your doctor if you observe: Fever of 101 or Higher, Using more than 1 pad per hour, Shortness of breath and Uncontrolled pain Follow Up Care Please Follow Up With: Deepti Tran DO When: Call [phone] to schedule appointment. Test Results: Test results from this visit will be discussed in further detail at your follow- up appointment, if applicable. Discharge Plan Admission Primary Reason for Your Visit: dilation and curettage Attending Provider: Deepti Tran Primary Care Provider: Bushra Wynne Discharge Orders/Prescriptions Prescriptions: New oxycodone 5 mg capsule 5 mg PO Q6H PRN (Reason: pain) 3 Days Qty: 5 0RF Continued (DME) Cpap Supplies See Rx Instructions .Route .MEDSUPPLY Qty: 1 0RF Rx Instructions: As directed Super Enzyme [id number] mg capsule 1 cap PO .with meals (DME) anita.stocking,knee,reg,xlrg Misc See Rx Instructions .ROUTE .MEDSUPPLY Qty: 2 3RF Rx Instructions: As directed for venous inusfficiency 30-40 mmhg aspirin 81 MG tablet 81 mg PO DAILY@0800 multivitamin with folic acid 1 TABLET tablet 1 tab PO DAILY amlodipine 10 mg tablet 10 mg PO QDAY Qty: 90 3RF lisinopril 40 mg tablet 40 mg PO DAILY Qty: 90 3RF tizanidine 2 mg tablet 2 mg PO QHS PRN (Reason: muscle spasticity) Qty: 90 1RF fluoxetine 20 mg capsule See Rx Instructions .ROUTE .COMPLEX Qty: 90 3RF Dose Instruction: TAKE 1 CAPSULE BY MOUTH EVERY DAY Rx Instructions: TAKE 1 CAPSULE BY MOUTH EVERY DAY Referrals / Follow Up: Bushra Wynne MD [Primary Care Provider] - Disposition Disposition (needs filled in before D/C Order can be placed): Home, Self Care 01/26/23 1245<Electronically signed by Deepti Tran DO>Deepti Tran DO CC: Dr. Bushra Wynne MD ~ Signed [facility] Work Phone: 1(810) 503-845408-08-2023 History and physical note Author Deepti [facility] January 26, 2023 12:42pm Note Date/Time January 26, 2023 10: 15am [facility] Medical Records Department [address] [place] [address] History & Physical Exam 01/26/23 1015 MR#: [id number] Acct: [id number] Name: ALESIA CALZADA Rep #:[id number] : 1960 62 From: Deepti Tran DO PCP: Dr. 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 [employer]ing Required: No Is patient in pain?: No Allergies clindamycin Allergy (Severe, Verified 01/19/23 10:37) Hearing lossciprofloxacin [From Cipro] Allergy (Verified 01/19/23 10:37) Othercodeine Allergy (Verified 01/19/23 10:37) Rashhydrochlorothiazide Allergy (Verified 01/19/23 10:37) OtherPenicillins [PCN] Allergy (Verified 01/19/23 10:37) Rashtramadol HCl [From Ultram] Allergy (Verified 01/19/23 10:37) Otherspironolactone [From Aldactone] Adverse Reaction (Verified 01/19/23 10:37) Causes Potassium to elevate Medications aspirin 81 mg tablet,delayed release 81 mg PO DAILY@0800 06/24/15 [History Confirmed 01/19/23] multivitamin with folic acid 400 mcg tablet 1 tab PO DAILY 06/24/15 [History Confirmed 01/19/23] Cpap Supplies #1 ea 08/18/21 [Rx Confirmed 01/19/23] amlodipine 10 mg tablet 10 mg PO QDAY #90 tabs 03/10/22 [Rx Confirmed 01/19/23] lisinopril 40 mg tablet 40 mg PO DAILY #90 tabs 06/04/22 [Rx Confirmed 01/19/23] tizanidine 2 mg tablet 2 mg PO QHS PRN muscle spasticity #90 tabs 08/03/22 [Rx Confirmed 01/19/23] fluoxetine 20 mg capsule See Rx Instructions .Route .COMPLEX #90 caps 08/31/22 [Rx Confirmed 01/19/23] Pancreat-Bet MYp-peb-daiw-pap 250 mg-162 mg-65 mg-125 mg capsule (Super Enzyme) 1 cap PO .with meals 10/23/22 [History Confirmed 01/19/23] anita.stocking,knee,reg,xlrg #2 ea 10/23/22 [Rx Confirmed 01/19/23] Post menopausal: No Patient : No : No [facility] Medical History Abnormal uterine bleeding Asthmatic bronchitis with acute exacerbation Borderline type 2 diabetes mellitus Depression GERD (gastroesophageal reflux disease) Health care maintenance Hearing impairment History of benign breast tumor history of premature delivery Hypertension Kidney failure Morbid obesity Obstructive sleep apnea Preoperative evaluation to rule out surgical contraindication Seasonal allergies Venous insufficiency Surgical History History of benign breast biopsy History of section History of cholecystectomy History of D&C History of placement of ear tubes Family History Mother CVA (cerebral vascular accident) HypertensionSister cranial stenosisFather Hypertension Asthma Arthritis Social History Smoking Status: Former smoker how long ago did patient quit smokin alcohol intake: current alcohol intake frequency: holidays/special occasions only Alcohol type: wine substance use type: does not use caffeine: Yes what type of physical activity do you participate in: none seatbelt use: always do you feel safe at home: Yes additional social history: [id number] HPI hysteroscopy D&C Details: ALESIA CALZADA is a 62 year old who presents for preoperative examination. She is scheduled for a hysteroscopy Dilation and curettage for has h/o endometrial hyperplasia declines IUD and does not like how she feels on provera. History 5 Elective abortions Hx Para 2 Spontaneous abortions 3 Hx # Term Pregnancies Ectopic pregnancies Hx # Pregnancies Multiple births # of living children Past Pregnancies Del. Date Name GA/Weeks Outcome Route Bth Weight Infant Gen Labor Lgth Anesthesia Del [facility] Provider FOB Unknown James-1997 Unknown Patricia-1999 ROS Const ROS Unobtainable: All systems reviewed & are unremarkable except as noted in H Resp Resp: Reports system reviewed and no additional complaints, except as documented; Denies cough GI GI: Reports as per HPI Psych Psych: Reports system reviewed and no additional complaints, except as documented Exam Const General: cooperative, healthy appearing, comfortable and no acute distress Resp Effort & Inspection: normal respiratory effort Skin General: no rashes or lesions noted Psych Appearance: grossly normal Speech and Movement: speech and movement normal Coding Level of Care Code Off vis,est,level 3 Diagnoses Borderline type 2 diabetes mellitus R73.03 Simple endometrial hyperplasia N85.01 Morbid obesity E66.01 Hearing impairment H91.90 Primary hypertension I10 Hypertension type: primary hypertension Postmenopausal bleeding N95.0 Assessment and Plan Assessment and Plan (1) Borderline type 2 diabetes mellitus: Status: Acute (2) Simple endometrial hyperplasia: Status: Chronic Plan: After discussing the patient's diagnosis and treatment plan options, patient wishes to proceed with surgical management. I have discussed with the patient the risks, benefits, and alternatives of the procedure which include but are notlimited to risks of anesthesia, bleeding, infection, possible damage to bowel, bladder, or surrounding vasculature which could lead to additional surgery to evaluate any complications. Patient agrees to procedure and wishes to proceed. ACOG/uptodate references given for additional information regarding procedure. plan is for a hysteroscopy dilation and curettage. (3) Morbid obesity: Status: Chronic (4) Hearing impairment: Status: Chronic (5) Hypertension: Status: Chronic Qualifiers: Hypertension type: primary hypertension Qualified Code(s): I10 - Essential (primary) hypertension (6) Postmenopausal bleeding: Status: Resolved 01/26/23 1242 <Electronically signed by Deepti Tran DO> Cosigner Signature (if applicable): CC: Dr. Bushra Wynne MD; Dr. Deepti Tran DO~ Signed [facility] Work Phone: [phone]) 493-568608-08-2023 Procedure [facility] 11-23-2012 History of Past illness Narrative* Problem Noted Date Diagnosed Date Resolved Date Obesity, morbid (more than 1 00 lbs over ideal weight or BMI > 40) 11/23/2012 07/12/2015 Blood in stool 04/27/2007 07/12/2015 Dysmetabolic syndrome X 06/22 documented as of this encounter (statuses as of 03/26/2023) [facility] Diagnosis Onset Date Resolution Status Health care maintenance acut e Obstructive sleep apnea acut e Anxiety and depression chron ic Hypertension [facility] Work Phone: Evaluation note* Diagnosis Onset Date Resolution Status Asthmatic bronchitis with acute exacerbation acute Health care maintenance acut e Anxiety and depression chron ic Hypertension chronic Morbid obesity [facility] Work Phone: Evaluation note* Diagnosis Onset Date Resolution Status Asthmatic bronchitis with acute exacerbation acute Health care maintenance acut e Anxiety and depression chron ic Hypertension chronic Morbid obesity chronic Encounter for routine gynecological examination noneactive [facility] Work Phone: Evaluation note* Diagnosis Onset Date Resolution Status Asthmatic bronchitis with acute exacerbation acute Health care maintenance acut e Anxiety and depression chron ic Hypertension chronic Morbid obesity chronic Encounter for routine gynecological examination noneactive Preoperative evaluation to r ule out surgical contraindication acute Hypertension chronic Simple endometrial hyperplasia chronic Postmenopausal bleeding reso ed [facility] Work Phone: Evaluation note* Diagnosis Onset Date Resolution Status Asthmatic bronchitis with acute exacerbation acute Health care maintenance acut e Anxiety and depression chron ic Hypertension chronic Morbid obesity chronic Encounter for routine gynecological examination noneactive Preoperative evaluation to r ule out surgical contraindication acute Hypertension chronic Simple endometrial hyperplasia chronic Postmenopausal bleeding reso lved Borderline type 2 diabetes mellitus acute Hearing impairment chronic Hypertension chronic Morbid obesity chronic Simple endometrial hyperplasia chronic Postmenopausal bleeding reso lved Morbid obesity chronic Simple endometrial hyperplasia chronic Postmenopausal bleeding reso [facility] Work Phone: Evaluation note* Diagnosis Umbilical hernia without obstruction and without gangrene- Primary Class 3 severe obesity with serious comorbidity and body mass index (BMI) greater than or equal to 70 in adult, unspecified obesity type (HCC) Hypertension, unspecified type Hyperlipidemia, unspecified hyperlipidemia type Family history of colon cancer requiring screening colonoscopy Family history of malignant neoplasm of gastrointestinal tract documented [facility] this encounter [facility] Diagnosis Onset Date Resolution Status Flu vaccine need acute Borderline type 2 diabetes mellitus acute Health care maintenance acut e Hypertension chronic Morbid obesity [facility] Work Phone: Evaluation note* Diagnosis Acute cough- Primary URI, acute Acute upper respiratory infections of unspecified site Acute cough [facility] Acute cough [facility] Work Phone: Chief Complaint and Reason for Visit Chief Complaint 6 M FU SCREENING Reason for Visit Health care maintena nce Obstructive sleep apnea Anxiety and depression Hypertension Chief Complaint COUGH/CONGESTION FU Reason for Visit Asthmatic bronchitis with acute exacerbation Health care maintenance Anxiety and depression Hypertension Morbid obesity Chief Complaint COUGH/CONGESTION FU Annual ([facility]) SCREENING Reason for Visit Asthmatic bronchitis with acute exacerbation Health care maintenance Anxiety and depression Hypertension Morbid obesity Encounter for routine gynecological examination Chief Complaint COUGH/CONGESTION FU Annual ([facility]) SCREENING [facility] 01/26 Reason for Visit Asthmatic bronchitis with acute exacerbation Health care maintenance Anxiety and depression Hypertension Morbid obesity Encounter for routine gynecological examination Preoperative evaluation to rule out surgical contraindication Hypertension Simple endometrial hyperplasia Postmenopausal bleeding Chief Complaint COUGH/CONGESTION FU Annual ([facility]) SCREENING [facility] 01/26 hysteroscopy D&C HYSTER D&C HYSTER D&C Reason for Visit Asthmatic bronchitis with acute exacerbation Health care maintenance Anxiety and depression Hypertension Morbid obesity Encounter for routine gynecological examination Preoperative evaluation to rule out surgical contraindication Hypertension Simple endometrial hyperplasia Postmenopausal bleeding Borderline type 2 diabetes mellitus Hearing impairment Hypertension Morbid obesity Simple endometrial hyperplasia Postmenopausal bleeding Morbid obesity Simple endometrial hyperplasia Postmenopausal bleeding Chief Complaint FLU SHOT 3 m fu Reason for Visit Flu vaccine need Borderline type 2 diabetes mellitus Health care maintenance Hypertension Morbid obesity Chief Complaint Admit Date E-ORDER July 21, 2024 1 1:59am 3 M FU July 21, 2024 1 :00pm CERVICAL SPINE September 07, 2024 10: 45am RM 4 September 07, 2024 11: 19am Pain October 17, 2024 10: 39am CERVICAL. RX HERE October 27, 2024 12:02p m Reason for Visit Admit Date Preoperative cardiovascular examination July 21, 2024 1:00pm Atrial fibrillation July 21, 2024 1 :00pm Cervical myelopathy September 07, 2024 10: 45am Chief Complaint Admit Date CERVICAL SPINE September 07, 2024 10: 45am RM 4 September 07, 2024 11: 19am Pain October 17, 2024 10: 39am CERVICAL. RX HERE November 28, 2024 12:0 0pm 3 M FU November 29, 2024 1:03 pm Reason for Visit Admit Date Cervical myelopathy September 07, 2024 10: 45am Chief Complaint Admit Date CERVICAL SPINE September 07, 2024 10: 45am RM 4 September 07, 2024 11: 19am Pain October 17, 2024 10: 39am 3 M FU November 29, 2024 1:03 pm CERVICAL. RX HERE December 14, 2024 11:0 0am OTHER FECAL ABNORMALITIES December 15 1:18pm Reason for Visit Admit Date Cervical myelopathy September 07, 2024 10: 45am Anxiety and depression November 29, 2024 1 :03pm Atrial fibrillation November 29, 2024 1:03 pm Borderline type 2 diabetes mellitus November 29, 2024 1:03pm Hypertension November 29, 2024 1:03 pm Radiculopathy, cervical November 29, 2024 1:03pm Chief Complaint Admit Date CERVICAL SPINE September 07, 2024 10: 45am RM 4 September 07, 2024 11: 19am Pain October 17, 2024 10: 39am 3 M FU November 29, 2024 1:03 pm OTHER FECAL ABNORMALITIES December 15 1:18pm EORDER December 20, 2024 11:25 am CERVICAL. RX HERE December 21, 2024 12:00 pm Reason for Visit Admit Date Cervical myelopathy September 07, 2024 10: 45am Anxiety and depression November 29, 2024 1 :03pm Atrial fibrillation November 29, 2024 1:03 pm Borderline type 2 diabetes mellitus November 29, 2024 1:03pm Hypertension November 29, 2024 1:03 pm Radiculopathy, cervical November 29, 2024 1:03pm Encounter for screening colonoscopy December 15, 2024 1:18pm Chief Complaint Admit Date CERVICAL SPINE September 07, 2024 10: 45am RM 4 September 07, 2024 11: 19am Pain October 17, 2024 10: 39am 3 M FU November 29, 2024 1:03 pm OTHER FECAL ABNORMALITIES December 15 1:18pm EORDER December 20, 2024 11:25 am CERVICAL. RX HERE December 26, 2024 12:00 pm Chief Complaint Admit Date CERVICAL SPINE September 07, 2024 10: 45am RM 4 September 07, 2024 11: 19am Pain October 17, 2024 10: 39am 3 M FU November 29, 2024 1:03 pm OTHER FECAL ABNORMALITIES December 15 1:18pm EORDER December 20, 2024 11:25 am CERVICAL. RX HERE December 26, 2024 12:00 pm vaginal bleeding December 28, 2024 11:1 3am Family History Relationship Condition Age at Onset Recorded Date/T charly mother Cerebrovascular accident (CVA) Unknown Hypertension Unknown sister Unknown father Hypertension Unknown Asthma Unknown Arthritis Unknown Advance Directives Advance Directive Response Recorded Date/ Time Advance Directives No October 17 019 10:23am Living Will No April 11 11:01am Power of Rv Servicer No April 11, 2019 11:01am Advance Directive Response Recorded Date/ Time Advance Directives No October 07 023 8:05am Living Will No October 07, 2022 8:05am Power of Rv Servicer No October 07 8:05am Advance Directive Response Recorded Date/ Time Advance Directives No October 07 023 8:05am Living Will No January 20, 2023 1:36pm Power of Rv Servicer No January 20 1:36pm Advance Directive Response Recorded Date/ Time Advance Directives No October 07 023 7:05am Living Will No January 20, 2023 12:36pm Power of Rv Servicer No January 20 12:36pm Advance Directive Response Recorded Date/ Time Living Will No February 26 12:04pm Do you have a Healthcare Power of Rv Servicer? No February 27, 2024 12:04pm Do you have a Healthcare Power of Rv Servicer? No November 03, 2024 9:46am Advance Directives No October 07 023 8:05am Advance Directive Response Recorded Date/ Time Do you have a Healthcare Power of Rv Servicer? No November 03, 2024 9:46am Advance Directives No October 07 023 8:05am Reason for Referral Specialty Diagnoses / Procedures Referred By Kaylen cartwright Referred To Contact Gastroenterology Diagnoses Family history of colon cancer requiring screening colonoscopy Procedures CONSULT TO GASTROENTEROLOGY OFFICE/OUTPATIENT NEW HIGH MDM 60-74 MINUTES Estella Sandoval MD [address] [place] [id number] Referral ID Status Reason Start Date Expiration Date Visits Requested Visits Authorized [id number] Pending Review PCP Requested Referral 03/24/2023 03/23/2024 1 1 Summary Purpose Additional Source Comments Goals (unrecognized section and content) Goals may be documented in a n alternate sectionGoals may be documented in an alternate sectionGoals may be documented in an alternate sectionGoals may be documented in an alternate sectionGoals may be documented in an alternate section Care Teams (unrecognized sec tion and content) Team Status: Active Member Role Status Dates Dr. Bushra Wynne MD Family Provider Active Dr. Bushra Wynne MD Primary Care Provider Active Team Status: Inactive Member Role Status Dates Dr. Bushra Wynne MD Primary Care P rovider, Attending Provider, Referring Provider Active Team Status: Inactive Member Role Status Dates Dr. Bushra Wynne MD Primary Care Provider, Refer ring Provider Active Humberto Wu PA, PA Attending Provider Active Team Status: Inactive Member Role Status Dates Dr. Bushra Wynne MD Primary Care Provider, Refer ring Provider Active Dr. Deepti Tran DO Attending Provider Activ e Team Status: Active Member Role Status Dates Dr. Bushra Wynne MD Primary Care Provider Active Dr. Deepti Tran DO Attending Provider, Referring Provider, Other Provider Active Team Status: Inactive Member Role Status Dates Dr. Bushra Wynne MD Primary Care Provider Active Dr. Deepti Tran DO Attending Provider, Refe rring Provider Active [employer] Relationship Specialty Start Date End Date Bushra Wynne MD [address] [facility] [address] [place] [phone] PCP - General Internal Medicine 08/19/21 Team Status: Inactive Member Role Status Dates Dr. Bushra Wynne MD Primary Care Provider, Atten ding Provider Active [employer] Relationship Specialty Start Date End Date Bushra Wynne MD [address] [place] [phone] PCP - General Internal Medicine 08/19/21 [employer] Relationship Specialty Start Date End Date Bushra Wynne MD [address] [facility] [address] [place] [phone] PCP - General Internal Medicine 08/19/21 Team Status: Active Member Role Status Dates Dr. Bushra Wynne MD Primary Care Provider Active Team Status: Inactive Member Role Status Dates Dr. Bushra Wynne MD Primary Care Provider Active Start: July 21, 2024 End: July 21, 2024 Dr. Bushra Wynne MD Attending Provider Active Start: July 21, 2024 End: July 21, 2024 Dr. Bushra Wynne MD Referring Provider Active Start: July 21, 2024 End: July 21, 2024 Team Status: Inactive Member Role Status Dates Dr. Bushra Wynne MD Primary Care Provider Active Start: July 21, 2024 End: July 21, 2024 Dr. Bushra Wynne MD Referring Provider Active Start: July 21, 2024 End: July 21, 2024 Melvin Bear NP TRADING SPECIALIST-C Attending Provider Active S tart: July 21, 2024 End: July 21, 2024 Team Status: Inactive Member Role Status Dates Dr. Bushra Wynne MD Primary Care Provider Active Start: September 07, 2024 End: September 07, 2024 Dr. Bushra Wynne MD Referring Provider Active Start: September 07, 2024 End: September 07, 2024 OMAR Mccallum Attending Provider Active Star t: September 07, 2024 End: September 07, 2024 Team Status: Inactive Member Role Status Dates Dr. Bushra Wynne MD Primary Care Provider Active Start: September 07, 2024 End: September 07, 2024 Dr. Bright Ann MD Attending Provider Active S tart: September 07, 2024 End: September 07, 2024 Team Status: Inactive Member Role Status Dates Dr. Bushra Wynne MD Primary Care Provider Active Start: October 17, 2024 End: October 17, 2024 OMAR Mccallum Attending Provider Active Star t: October 17, 2024 End: October 17, 2024 OMAR Mccallum Referring Provider Active Star t: October 17, 2024 End: October 17, 2024 Team Status: Active Member Role Status Dates Dr. Bushra Wynne MD Primary Care Provider Active Start: October 27, 2024 OMAR Mccallum Attending Provider Active Star t: October 27, 2024 OMAR Mccallum Referring Provider Active Star t: October 27, 2024 Team Status: Inactive Member Role Status Dates Dr. Bushra Wynne MD Primary Care Provider Active Start: November 06, 2024 End: November 06, 2024 Dr. Cuong Baptiste MD Attending Provider Active Start: November 06, 2024 End: November 06, 2024 Dr. Cuong Baptiste MD Referring Provider Active Start: November 06, 2024 End: November 06, 2024 Team Status: Active Member Role Status Dates Dr. Bushra Wynne MD Primary Care Provider Active Start: November 28, 2024 OMAR Mccallum Attending Provider Active Star t: November 28, 2024 OMAR Mccallum Referring Provider Active Star t: November 28, 2024 Team Status: Inactive Member Role Status Dates Dr. Bushra Wynne MD Primary Care Provider Active Start: November 29, 2024 End: November 29, 2024 Dr. Bushra Wynne MD Attending Provider Active Start: November 29, 2024 End: November 29, 2024 Dr. Bushra Wynne MD Referring Provider Active Start: November 29, 2024 End: November 29, 2024 Team Status: Active Member Role Status Dates Dr. Bushra Wynne MD Primary Care Provider Active Start: November 29, 2024 Dr. Bushra Wynne MD Attending Provider Active Start: November 29, 2024 Dr. Bushra Wynne MD Referring Provider Active Start: November 29, 2024 Team Status: Active Member Role/Relationship Status Dates Dr. Bushra Wynne MD Primary Care Provider Active Team Status: Inactive Member Role/Relationship Status Dates Dr. Busrha Wynne MD Primary Care Provider Active Start: September 07, 2024 End: September 07, 2024 Dr. Bushra Wynne MD Referring Provider Active Start: September 07, 2024 End: September 07, 2024 OMAR Mccallum Attending Provider Active Star t: September 07, 2024 End: September 07, 2024 Team Status: Inactive Member Role/Relationship Status Dates Dr. Bushra Wynne MD Primary Care Provider Active Start: September 07, 2024 End: September 07, 2024 Dr. Bright Ann MD Attending Provider Active S tart: September 07, 2024 End: September 07, 2024 Team Status: Inactive Member Role/Relationship Status Dates Dr. Bushra Wynne MD Primary Care Provider Active Start: October 17, 2024 End: October 17, 2024 OMAR Mccallum Attending Provider Active Star t: October 17, 2024 End: October 17, 2024 OMAR Mccallum Referring Provider Active Star t: October 17, 2024 End: October 17, 2024 Team Status: Inactive Member Role/Relationship Status Dates Dr. Bushra Wynne MD Primary Care Provider Active Start: November 06, 2024 End: November 06, 2024 Dr. Cuong Baptiste MD Attending Provider Active Start: November 06, 2024 End: November 06, 2024 Dr. Cuong Baptiste MD Referring Provider Active Start: November 06, 2024 End: November 06, 2024 Team Status: Inactive Member Role/Relationship Status Dates Dr. Bushra Wynne MD Primary Care Provider Active Start: November 29, 2024 End: November 29, 2024 Dr. Busrha Wynne MD Attending Provider Active Start: November 29, 2024 End: November 29, 2024 Dr. Bushra Wynne MD Referring Provider Active Start: November 29, 2024 End: November 29, 2024 Team Status: Inactive Member Role/Relationship Status Dates Dr. Bushra Wynne MD Primary Care Provider Active Start: November 29, 2024 End: November 29, 2024 Dr. Bushra Wynne MD Attending Provider Active Start: November 29, 2024 End: November 29, 2024 Dr. Bushra Wynne MD Referring Provider Active Start: November 29, 2024 End: November 29, 2024 Team Status: Active Member Role/Relationship Status Dates Dr. Bushra Wynne MD Primary Care Provider Active Start: December 06, 2024 Dr. Bushra Wynne MD Attending Provider Active Start: December 06, 2024 Dr. Bushra Wynne MD Referring Provider Active Start: December 06, 2024 Team Status: Active Member Role/Relationship Status Dates Dr. Bushra yWnne MD Primary Care Provider Active Start: December 14, 2024 OMAR Mccallum Attending Provider Active Star t: December 14, 2024 OMAR Mccallum Referring Provider Active Star t: December 14, 2024 Team Status: Inactive Member Role/Relationship Status Dates Dr. Bushra Wynne MD Primary Care Provider Active Start: December 15, 2024 End: December 15, 2024 Dr. Bushra Wynne MD Referring Provider Active Start: December 15, 2024 End: December 15, 2024 ADA Gerber Attending Provider Active S tart: December 15, 2024 End: December 15, 2024 Team Status: Inactive Member Role/Relationship Status Dates Dr. Bushra Wynne MD Primary Care Provider Active Start: December 15, 2024 End: December 15, 2024 Dr. Bushra Wynne MD Referring Provider Active Start: December 15, 2024 End: December 15, 2024 ADA Gerber Attending Provider Active S tart: December 15, 2024 End: December 15, 2024 Team Status: Inactive Member Role/Relationship Status Dates Dr. Bushra Wynne MD Primary Care Provider Active Start: December 20, 2024 End: December 20, 2024 Dr. Bushra Wynne MD Attending Provider Active Start: December 20, 2024 End: December 20, 2024 Dr. Bushra Wynne MD Referring Provider Active Start: December 20, 2024 End: December 20, 2024 Team Status: Active Member Role/Relationship Status Dates Dr. Bushra Wynne MD Primary Care Provider Active Start: December 21, 2024 OMAR Mccallum Attending Provider Active Star t: December 21, 2024 OMAR Mccallum Referring Provider Active Star t: December 21, 2024 Team Status: Inactive Member Role/Relationship Status Dates Dr. Bushra Wynne MD Primary Care Provider Active Start: December 26, 2024 End: December 26, 2024 OMAR Mccallum Attending Provider Active Star t: December 26, 2024 End: December 26, 2024 OMAR Mccallum Referring Provider Active Star t: December 26, 2024 End: December 26, 2024 Team Status: Inactive Member Role/Relationship Status Dates Dr. Bushra Wynne MD Primary Care Provider Active Start: December 28, 2024 End: December 28, 2024 Dr. Bushra Wynne MD Referring Provider Active Start: December 28, 2024 End: December 28, 2024 Tammi Cortes NP, TRADING SPECIALIST-C Attending Provider Active Start: December 28, 2024 End: December 28, 2024 Source Comments (unrecognize d section and content) In the event this informatio n is protected by the Federal Confidentiality of Alcohol and Drug Abuse Patient Records regulations: The Federal rules restrict any use of the information to criminally investigate or prosecute any alcohol or drug abuse patient.[facility] the event this information is protected by the Federal Confidentiality of Alcohol and Drug Abuse Patient Records regulations: The Federal rules restrict any use of the information to criminally investigate or prosecute any alcohol or drug abuse patient.[facility] the event this information is protected by the Federal Confidentiality of Alcohol and Drug Abuse Patient Records regulations: The Federal rules restrict any use of the information to criminally investigate or prosecute any alcohol or drug abuse patient.[facility] Reason for Visit (unrecogniz ed section and content) Reason Comments New Patient Reason Comments Cough Cough, chest congest ion and SOB x 4 days INFORMATION SOURCE (unrecogn ized section and content) DATE CREATED AUTHOR 03/28/2023 [facility] DATE CREATED AUTHOR AUTHOR'S ORGANIZ ATION 05/24/2024 [facility] DATE CREATED AUTHOR AUTHOR'S ORGANIZ ATION 12/22/2024 [facility] FOR RECORDS PERTAINING TO PATIENTS WHO ARE [...] BE BASED ON THE PRIMARY CLINICAL RECORDS. [employer] provides no warranty or guarantee of the accuracy or completeness of information in this document.
== END | disposition home or self-care (01) ==
LOC: LABSPEC 15:37
PROVIDERS: PCP Internal Medicine; Visit Provider Nurse Practitioner Women's Health
DX: N95.0 Postmenopausal bleeding (principal)
CPT/HCPCS: 88305

== ENCOUNTER → 2024-12-29 | Outpatient (CLI) | payer MEDICARE, SELFPAY ==
--- NOTE | 2024-12-29 16:03 | US_ITS ---
PROCEDURE: TRANSVAGINAL NON- 12/29/2024 REASON FOR EXAM: VAGINAL BLEEDING TECHNIQUE: TRANSVAGINAL NON- COMPARISON: 04/03/2019 FINDINGS: The uterus is anteverted and measures 9 x 5.5 x 4.6 cm. Uterus is heterogenous. Right ovary measures 2.1 x 1.8 x 1.6 cm. Normal blood flow is noted. Normal right adnexa. Left ovary is not visualized. Endometrium measures 9.2 mm. Endometrium is hyperechoic and heterogenous. Endometrium is thickened for the age. Multiple cervical nabothian cysts are seen. Limited exam due to patient body habitus. Endometrial cystic structure measuring 4 x 4 x 2 mm is noted.. US/Transvaginal Non- IMPRESSION: Heterogenous uterus parenchyma with prominent uterus for the age. Thickened heterogenous endometrium. Multiple cervical nabothian cysts. Endometrial cystic structure noted. Previously noted uterine fibroids could not be appreciated on the current study however current study is limited due to patient body habitus which could limit proper evaluation. Advice further evaluation by MRI if needed. [facility]
== END | disposition home or self-care (01) ==
PROVIDERS: PCP Internal Medicine; Referring Provider Nurse Practitioner Women's Health; Visit Provider Nurse Practitioner Women's Health
DX: N93.9 Abnormal uterine and vaginal bleeding, unspecified (principal)
CPT/HCPCS: 76830

== ENCOUNTER 2025-02-07 08:36 | Day surgery (SDC) | payer MEDICARE, SELFPAY ==
--- NOTE | 2025-02-06 05:53 | PAT.ANESEVAL ---
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 When Was Last Pacemaker Check QUESTION #4 FULL TEXT: You/Your Family Experience fever (hyperthermia) with Anesthesia Last Oral Intake Last Oral intake: Last Oral Intake NPO since Meds taken in AM with sips of water? Meds patient instructed to take am of surgery PONV PONV - chain link fence installer: PONV - chain link fence installer Female Yes 02/05/25 16:56 HX of Motion Sickness Yes 02/05/25 16:56 HX of N/V After Surgery Yes 02/05/25 16:56 Non-Smoker Yes 02/05/25 16:56 Duration of Surgery greater No 02/05/25 16:56 than 60 minutes Number of Risk Factors 4 02/05/25 16:56 PONV Score Severe Risk 02/05/25 16:56 Height & Weight Height & Weight: Anesthesia: Height & Weight Height 5 ft 4 in 02/05/25 08:09 Respiratory Assessment Respiratory Assessment - chain link fence installer: Respiratory Tract Infection Hx - chain link fence installer Hx Respiratory Tract Infection No 02/05/25 16:56 STOP Sleep Apnea STOP Sleep Apnea - chain link fence installer: STOP Sleep Apnea - chain link fence installer Hx Hypertension Yes: PER PT, CONTROLLED ON 02/05/25 16:56 MEDS Hx Sleep Apnea Yes 02/05/25 16:56 CPAP Yes 02/05/25 16:56 BIPAP No 02/05/25 16:56 Do you snore loudly (louder than talking or can be heard Do you often feel tired/ fatigued/ sleepy during daytime? Has anyone observed you stop breathing during sleep? STOP Results Positive 02/05/25 16:56 QUESTION #5 FULL TEXT : Do you snore loudly (louder than talking or can be heard through closed doors)? 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 Specify any problems Hx of Preganancy in last 3 No 02/05/25 16:56 Months Nurse Filling Out Transfusion MGRITARAS 02/05/25 16:56 & Questions: Date: 02/05/25 02/05/25 16:56 Time: 16:59 02/05/25 16:56 Patient unable to answer at this time (ie. 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 Abnormal CWB-ci-pzryghauln ratio Wears glasses Wears partial dentures Wears dentures Anxiety Walker as ambulation aid History of renal disease Umbilical hernia Former smoker Shortness of breath on exertion History of pain when walking History of edema History of Holter monitoring History of echocardiogram Cardiology follow-up encounter History of atrial fibrillation Left knee pain Radiculopathy, cervical OAB (overactive bladder) Hyperkalemia Wears hearing aid Restless legs CPAP (continuous positive airway pressure) dependence Asthmatic bronchitis with acute exacerbation Postmenopausal bleeding History of benign breast tumor Venous insufficiency Morbid obesity Hypertension Home Medications ?Medication ?Instructions ?Recorded ?Last Taken ?Type multivitamin with folic acid 400 1 tab PO DAILY 06/24/15 Unknown History mcg tablet Cpap Supplies #1 ea 08/18/21 Unknown Rx Pancreat-Bet ROf-eih-ptfg-pap 250 1 cap PO .with meals 10/23/22 Unknown History mg-162 mg-65 mg-125 mg capsule (Super Enzyme) anita.stocking,knee,reg,xlrg #2 ea 10/23/22 Unknown Rx Cpap Supplies #1 ea 01/27/23 Unknown Rx lisinopril 40 mg tablet 40 mg PO DAILY #90 tabs 03/14/24 11/05/24 Rx fluoxetine 20 mg capsule 20 mg PO DAILY 11/03/24 Unknown History metoprolol tartrate 25 mg tablet 12.5 mg (1/2 x 25 mg) PO BID #90 12/08/24 Unknown Rx tabs tizanidine 2 mg tablet 2 mg PO HS PRN for muscle spasm 12/25/24 Unknown Rx #90 TABLETS apixaban 5 mg tablet (Eliquis) 5 mg PO BID #60 tabs 01/16/25 Unknown Rx amlodipine 10 mg tablet 10 mg PO QHS 02/05/25 Unknown History Allergy/AdvReac Type Severity Reaction Status Date / Time clindamycin Allergy Severe Hearing Verified 02/05/25 16:53 loss ciprofloxacin (From Cipro) Allergy Other Verified 02/05/25 16:53 codeine Allergy Rash Verified 02/05/25 16:53 hydrochlorothiazide Allergy Other Verified 02/05/25 16:53 Penicillins (PCN) Allergy Rash Verified 02/05/25 16:53 tramadol HCl (From Ultram) Allergy Other Verified 02/05/25 16:53 spironolactone (From AdvReac Causes Verified 02/05/25 16:53 Aldactone) Potassium to elevate Family History Mother CVA (cerebral vascular accident) Hypertension Sister cranial stenosis Father Hypertension Asthma Arthritis Surgical History (Updated 02/05/25 @ 16:56 by Addie Kuo) History of epidural steroid injection into cervical spine History of hysteroscopy H/O dilation and curettage History of tubal ligation History of cholecystectomy History of placement of ear tubes History of D&C History of section History of benign breast biopsy Social History household members: spouse Smoking Status: Former smoker how long ago did patient quit smokin alcohol intake: current alcohol intake frequency: holidays/special occasions only Alcohol type: wine substance use type: does not use caffeine: Yes what type of physical activity do you participate in: none seatbelt use: always do you feel safe at home: Yes additional social history: Etxqgfc-Ruq-Wjd Audit: Pertinent Findings Pertinent Findings EKG Perinent findings: 04/12/2024. Atrial fibrillation. RSR in V1. Nonspecific T wave abnormality. Echo (EF%) pertinent findings: 03/27/2024. EF of 50%. No aortic stenosis noted. Moderately enlarged left atrium. Consult pertinent findings: July 21, 2024. Chema CABALLERO. 1. Atrial [id number] score is 2. Presumably long standing. Currently on metoprolol for rate control and Eliquis for anticoagulation. 2. Preop cardiovascular exam-she may proceed with colonoscopy. She should hold Eliquis for 2 days prior. Additional pertinent findings: Holter monitor. 05/02/2024. Average heart rate of 70 bpm. Atrial fibrillation. Recommendation Anesthesia Recommendation Anesthesia recommendation: OPTIMIZED for anesthesia
[2025-02-07] VITALS (8 sets, daily range): BP systolic 105–119; BP diastolic 60–83; PULSE 72–85; RESP 16–18; TEMP 36.2–36.7; O2SAT 95–98; BMI 71.1
[2025-02-07] MEDS: Lactated Ringers 1,000 ML 15 ML IV (09:01)
--- NOTE | 2025-02-07 09:27 | PRE.ANES_ITS ---
ASA Classification* ASA Classification ASA Classification: 3 Assessment & Plan Anesthesia* Anesthesia Assessment Anesthesia Assessment: Discussed sedation and/or anesthesia options, risks, benefits, and alternatives with patient/parents/legal guardian/POA. Questions invited. The patient/parents/legal guardian/POA seems to understand and agrees to proceed with anesthesia plan. Reviewed the physical assessment, medical history, allergy history and patient home medications list prior to surgery/procedure/anesthetic and documented any changes. Performed airway and anesthesia risk assessments. Anesthesia Type Anesthesia Type: MAC History Source History Obtained from:: Patient and Chart Anesthesia Focused Assessment* Temperature: 97.4 F Pulse Rate: 85 Blood Pressure: 116/83 Respiratory Rate: 18 Pulse Ox: 98 Oxygen Delivery Method: Room Air Airway Assessment Mouth opens: >3 cm Mallampati Score: III Teeth Condition: Dentures (upper- removed) and Partial (lower, removed) Neck Range of motion (ROM): Full ROM Labs Anesthesia Preop lab: CBC WBC 7.8 K/mm3 (4.4-11.0) 11/29/24 13:38 11/29/24 RBC 4.66 M/mm3 (4.2-5.4) 11/29/24 13:38 11/29/24 Hgb 14.4 g/dL (12.0-15.0) 11/29/24 13:38 11/29/24 Hct 43.7 % (37-47) 11/29/24 13:38 11/29/24 Plt Count 339 K/mm3 (150-450) 11/29/24 13:38 11/29/24 CHEMISTRY Potassium 4.9 mmol/L (3.3-5.1) 12/20/24 11:39 12/20/24 Sodium 137 mmol/L (133-145) 12/20/24 11:39 12/20/24 Magnesium 1.9 mg/dL (1.6-2.6) 02/27/24 11:55 02/27/24 BUN 24 mg/dL (4-19) H 12/20/24 11:39 12/20/24 Creatinine 1.00 mg/dL (0.70-1.20) 12/20/24 11:39 12/20/24 Glucose 108 mg/dL (70-99) H 12/20/24 11:39 12/20/24 TSH 2.180 uIU/mL (0.358-3.740) 02/27/24 11:55 02/11 COAG Pre-Assessment Diagnosis/Proposed Procedure Planned Operative Procedure(s): COLONOSCOPY Anesthesia History 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 When Was Last Pacemaker Check QUESTION #4 FULL TEXT: You/Your Family Experience fever (hyperthermia) with Anesthesia Last Oral Intake Last Oral intake: Last Oral Intake NPO since 06:30 02/07/25 09:03 Meds taken in AM with sips of Yes 02/07/25 09:03 water? 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 serviceman Female Yes 02/05/25 16:56 HX of Motion Sickness Yes 02/05/25 16:56 HX of N/V After Surgery Yes 02/05/25 16:56 Non-Smoker Yes 02/05/25 16:56 Duration of Surgery greater No 02/05/25 16:56 than 60 minutes Number of Risk Factors 4 02/05/25 16:56 PONV Score Severe Risk 02/05/25 16:56 Height & Weight Height & Weight: Anesthesia: Height & Weight Height 5 ft 4 in 02/07/25 09:03 Weight: 188 kg 02/07/25 09:03 Body Mass Index (BMI) 71.1 02/07/25 09:03 Respiratory Assessment Respiratory Assessment - elevator serviceman: Respiratory Tract Infection Hx - elevator serviceman Hx Respiratory Tract Infection No 02/05/25 16:56 STOP Sleep Apnea STOP Sleep Apnea - elevator serviceman: STOP Sleep Apnea - elevator serviceman Hx Hypertension Yes: PER PT, CONTROLLED ON 02/05/25 16:56 MEDS Hx Sleep Apnea Yes 02/05/25 16:56 CPAP Yes 02/05/25 16:56 BIPAP No 02/05/25 16:56 Do you snore loudly (louder than talking or can be heard Do you often feel tired/ fatigued/ sleepy during daytime? Has anyone observed you stop breathing during sleep? STOP Results Positive 02/05/25 16:56 QUESTION #5 FULL TEXT : Do you snore loudly (louder than talking or can be heard through closed doors)? 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 Specify any problems Hx of Preganancy in last 3 No 02/05/25 16:56 Months Nurse Filling Out Transfusion MGRIFFITH 02/05/25 16:56 & Questions: Date: 02/05/25 02/05/25 16:56 Time: 16:59 02/05/25 16:56 Patient unable to answer at this time (ie. 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 Abnormal FZO-tl-mauaznkrih ratio Wears glasses Wears partial dentures Wears dentures Anxiety Walker as ambulation aid History of renal disease Umbilical hernia Former smoker Shortness of breath on exertion History of pain when walking History of edema History of Holter monitoring History of echocardiogram Cardiology follow-up encounter History of atrial fibrillation Left knee pain Radiculopathy, cervical OAB (overactive bladder) Hyperkalemia Wears hearing aid Restless legs CPAP (continuous positive airway pressure) dependence Asthmatic bronchitis with acute exacerbation Postmenopausal bleeding History of benign breast tumor Venous insufficiency Morbid obesity Hypertension Home Medications ?Medication ?Instructions ?Recorded ?Last Taken ?Type multivitamin with folic acid 400 1 tab PO DAILY Unknown History mcg tablet Cpap Supplies #1 ea 08/18/21 Unknown Rx Pancreat-Bet NIh-frm-lnpt-pap 250 1 cap PO .with meals 10/23/22 Unknown History mg-162 mg-65 mg-125 mg capsule (Super Enzyme) anita.stocking,knee,reg,xlrg #2 ea 10/23/22 Unknown Rx Cpap Supplies #1 ea 01/27/23 Unknown Rx lisinopril 40 mg tablet 40 mg PO DAILY #90 tabs 02/2011/05/24 Rx fluoxetine 20 mg capsule 20 mg PO DAILY 11/03/24 Unkn own History metoprolol tartrate 25 mg tablet 12.5 mg (1/2 x 25 mg) PO BID #90 12/08/24 02/07/25 06:30 Rx tabs tizanidine 2 mg tablet 2 mg PO HS PRN for muscle sp asm 12/25/24 Unknown Rx #90 TABLETS apixaban 5 mg tablet (Eliquis) 5 mg PO BID #60 tabs 02/03/25 Rx amlodipine 10 mg tablet 10 mg PO QHS 02/05/25 Unknow n History Allergy/AdvReac Type Severity Reaction Status Date / Time clindamycin Allergy Severe Hearing Verified 02/07/25 09:00 loss ciprofloxacin (From Cipro) Allergy Other Verified 02/07/25 09:00 codeine Allergy Rash Verified 02/07/25 09:00 hydrochlorothiazide Allergy Other Verified 02/07/25 09:00 Penicillins (PCN) Allergy Rash Verified 02/07/25 09:00 tramadol HCl (From Ultram) Allergy Other Verified 02/07/25 09:00 spironolactone (From AdvReac Causes Verified 02/07/25 09:00 Aldactone) Potassium to elevate Family History Mother CVA (cerebral vascular accident) Hypertension Sister cranial stenosis Father Hypertension Asthma Arthritis Surgical History History of epidural steroid injection into cervical spine History of hysteroscopy H/O dilation and curettage History of tubal ligation History of cholecystectomy History of placement of ear tubes History of D&C History of section History of benign breast biopsy Social History household members: spouse Smoking Status: Former smoker how long ago did patient quit smokin alcohol intake: current alcohol intake frequency: holidays/special occasions only Alcohol type: wine substance use type: does not use caffeine: Yes what type of physical activity do you participate in: none seatbelt use: always do you feel safe at home: Yes additional social history: Xuppuea-Nus-Brn Review of Systems (Anesthesia) ROS Narrative System reviewed and no additional complaints, except as documented.
--- NOTE | 2025-02-07 09:28 | PCM.HP.STD ---
[facility] General Date of Service: 02/07/25 Chief Complaint: Screening colonoscopy [facility] Narrative ANGELINA CALZADA, is a 64 F who presentsESTHER ELSI, is a 64 F who presents for colon cancer screening. She had reportedly been scheduled for a colonoscopy last year through [facility] and became short of breath with palpitations during the bowel preparations. She sough care in the ER and was found to be in atrial fibrillation. She has since then sought cardiology care and has been cleared for future colonoscopy. She remains in Afib, on Eliquis twice daily and metoprolol for rate control. She states that her PCP had her complete routine blood work and was cued to a series of stool OB tests 3 days in a row, testing positive 2 out of the 3. She states that she did eat red meat for several days before and during the stool OB testing. She denies noting any blood, whether dark or bright red. She denies difficulty chewing and swallowing, throat clearing, sinus drainage, heartburn, reflux, abdominal pain, bloating, excess gas, diarrhea, hematochezia, and melena. She will occasionally have bouts of constipation which leads to hemorrhoids. She has a dry cough due to no humidity while using her CPAP at . 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 Abnormal POI-lg-fdswabqjrx ratio Wears glasses Wears partial dentures Wears dentures Anxiety Walker as ambulation aid History of renal disease Umbilical hernia Former smoker Shortness of breath on exertion History of pain when walking History of edema History of Holter monitoring History of echocardiogram Cardiology follow-up encounter History of atrial fibrillation Left knee pain Radiculopathy, cervical OAB (overactive bladder) Hyperkalemia Wears hearing aid Restless legs CPAP (continuous positive airway pressure) dependence Asthmatic bronchitis with acute exacerbation Postmenopausal bleeding History of benign breast tumor Venous insufficiency Morbid obesity Hypertension Home Medications ?Medication ?Instructions ?Recorded ?Last Taken ?Type multivitamin with folic acid 400 1 tab PO DAILY 06/24/15 Unknown History mcg tablet Cpap Supplies #1 ea 08/18/21 Unknown Rx Pancreat-Bet DDh-uzo-aten-pap 250 1 cap PO .with meals 10/23/22 Unknown History mg-162 mg-65 mg-125 mg capsule (Super Enzyme) anita.stocking,knee,reg,xlrg #2 ea 10/23/22 Unknown Rx Cpap Supplies #1 ea 01/27/23 Unknown Rx lisinopril 40 mg tablet 40 mg PO DAILY #90 tabs 03/14/24 11/05/24 Rx fluoxetine 20 mg capsule 20 mg PO DAILY 11/03/24 Unknown History metoprolol tartrate 25 mg tablet 12.5 mg (1/2 x 25 mg) PO BID #90 12/08/24 02/07/25 06:30 Rx tabs tizanidine 2 mg tablet 2 mg PO HS PRN for muscle spasm 12/25/24 Unknown Rx #90 TABLETS apixaban 5 mg tablet (Eliquis) 5 mg PO BID #60 tabs 01/16/25 02/03/25 Rx amlodipine 10 mg tablet 10 mg PO QHS 02/05/25 Unknown History Allergy/AdvReac Type Severity Reaction Status Date / Time clindamycin Allergy Severe Hearing Verified 02/07/25 09:00 loss ciprofloxacin (From Cipro) Allergy Other Verified 02/07/25 09:00 codeine Allergy Rash Verified 02/07/25 09:00 hydrochlorothiazide Allergy Other Verified 02/07/25 09:00 Penicillins (PCN) Allergy Rash Verified 02/07/25 09:00 tramadol HCl (From Ultram) Allergy Other Verified 02/07/25 09:00 spironolactone (From AdvReac Causes Verified 02/07/25 09:00 Aldactone) Potassium to elevate Family History Mother CVA (cerebral vascular accident) Hypertension Sister cranial stenosis Father Hypertension Asthma Arthritis Surgical History History of epidural steroid injection into cervical spine History of hysteroscopy H/O dilation and curettage History of tubal ligation History of cholecystectomy History of placement of ear tubes History of D&C History of section History of benign breast biopsy Social History household members: spouse Smoking Status: Former smoker how long ago did patient quit smokin alcohol intake: current alcohol intake frequency: holidays/special occasions only Alcohol type: wine substance use type: does not use caffeine: Yes what type of physical activity do you participate in: none seatbelt use: always do you feel safe at home: Yes additional social history: Wfuwtpz-Evt-Dxn JUAN CARLOS Constitutional Constitutional: Denies fatigue, fever(s), poor appetite, weight gain or weight loss Gastrointestinal Gastrointestinal: Denies belching, bloating, change in bowel habits, change in stool character, chewing difficulty, coffee ground emesis, constipation, cramping, diarrhea, dyspepsia, dysphagia, early satiety, excessive flatus, fecal incontinence, heartburn, hematemesis, hematochezia, hemorrhoids, loose stools, melena, nausea, odynophagia, rectal bleeding, tenesmus, vomiting or weight changes Vital Signs Vital Signs Vital Signs: 02/07/25 09:03 02/07/25 09:03 Temperature 97.4 F L Temperature Source Temporal Pulse Rate 85 Respiratory Rate 18 Respiratory Pattern Normal Blood Pressure Source Monitor Blood Pressure Position Semi-Fowlers Blood Pressure Location Left Arm Pulse Ox 98 Oxygen Delivery Method Room Air Weight Weight: 414 lb 7.504 oz Body Mass Index (BMI) 71.1 Physical Exam Const alert, oriented x3, no apparent distress and healthy appearing General Appearance: cooperative GI normal to inspection, nondistended, normoactive bowel sounds, soft to palpation, non-tender and non-distended Percussion: normal to percussion Rectal Exam: deferred Assessment & Plan Assessment/Plan (1) Encounter for screening colonoscopy: PLAN: Assessment and Plan Assessment and Plan (1) Encounter for screening colonoscopy: Status: Acute Plan ANGELINA CALZADA, is a 64 F who presents to the office today for establishment with [facility] for colon cancer screening. Reviewed her medications, she is to take her metoprolol the day of procedure and hold her anti-hypertensives. Se will be holding her Eliquis as well. schedule colonoscopy for cancer screening office FU with results
--- NOTE | 2025-02-07 09:45 | COLBX_PTH ---
PATIENT: ANGELINA CALZADA LOC: EN U#:[id number] AGE/SX: 64/F ROOM: RE02/07/[address]: Dr. Girish Waddell DO : 1960 BED: DIS: 02/07/2025 SPEC #: [id number] RECD: 02/07/25 10:35 STATUS: YOEL SAVANNAH #: [id number] FELIPE: 02/07/25 09:[address]: Girish Waddell DEPT: SURGICAL PATHOLOGY RECD BY: Leoncio Cooper ENTERED: 02/07/25 10:59 SP TYPE: COLON BX OT DR: Dr. Esthela Wynne MD Tissues: A - Ascending colon B - Rectum, NOS Procedures: Surgery Specimen Level IV HEADER OPERATION: Colonoscopy and polypectomy PRE-OP DIAGNOSIS: Screening TISSUE SUBMITTED: A- Ascending colon polyp, B- Rectal polyp biopsy x2 MICROSCOPIC DIAGNOSIS A. Ascending colon, polyp, biopsy: Tubular adenoma. B. Rectum, polyp, biopsy: Hyperplastic polyp MICROSCOPIC DESCRIPTION Slides are reviewed. GROSS DESCRIPTION A. Received in fixative is one container labeled with the patient's name and designated Ascending colon polyp biopsy. The specimen consists of one irregular fragment of light peng soft tissue that measures 0.3 cm. The specimen is totally submitted in one cassette. B. Received in fixative is one container labeled with the patient's name and designated Rectal polyp biopsy x2. The specimen consists of two irregular fragments of light peng soft tissue, each measuring 0.3 cm. The specimen is totally submitted in one cassette. CA 02/07/2025 CPT:82538m4
--- NOTE | 2025-02-07 10:17 | OP.COLON_ITS ---
Patient Name: Alesia Patton Procedure Date: 02/07/2025 9:38 AM Date of : 1960 Age: 64 Procedure: Colonoscopy Indications: Screening for colorectal malignant neoplasm Providers: Girish Waddell DO Referring MD: Esthela Wynne MD Medicines: Monitored Anesthesia Care Patient Profile: This is a 64 year old female. Refer to note in patient chart for documentation of history and physical. Last Colonoscopy: several years ago. Complications: No immediate complications. Procedure: Pre-Anesthesia Assessment: - Prior to the procedure, a History and Physical was performed, and patient medications and allergies were reviewed. The patient is competent. The risks and benefits of the procedure and the sedation options and risks were discussed with the patient. All questions were answered and informed consent was obtained. Patient identification and proposed procedure were verified by the physician in the pre-procedure area. Mental Status Examination: alert and oriented. Respiratory Examination: clear to auscultation. CV Examination: normal. Prophylactic Antibiotics: The patient does not require prophylactic antibiotics. Prior Anticoagulants: The patient has taken no anticoagulant or antiplatelet agents. ASA Grade Assessment: III - A patient with severe systemic disease. After reviewing the risks and benefits, the patient was deemed in satisfactory condition to undergo the procedure. The anesthesia plan was to use monitored anesthesia care (MAC). Immediately prior to administration of medications, the patient was re-assessed for adequacy to receive sedatives. The heart rate, respiratory rate, oxygen saturations, blood pressure, adequacy of pulmonary ventilation, and response to care were monitored throughout the procedure. The physical status of the patient was re-assessed after the procedure. After I obtained informed consent, the scope was passed under direct vision. Throughout the procedure, the patient's blood pressure, pulse, and oxygen saturations were monitored continuously. The Colonoscope was introduced through the anus and advanced to the cecum, identified by appendiceal orifice and ileocecal valve. The colonoscopy was performed without difficulty. The patient tolerated the procedure well. The quality of the bowel preparation was adequate. The ileocecal valve, appendiceal orifice, and rectum were photographed. Scope In: 9:49:54 AM Scope Withdrawal Time 0 hours 11 minutes 20 seconds Scope Out: 10:06:17 AM Total Procedure Duration Time 0 hours 16 minutes 23 seconds Findings: The perianal and digital rectal examinations were normal. Multiple small-mouthed diverticula were found in the recto-sigmoid colon, sigmoid colon and descending colon. Two sessile polyps were found in the rectum and ascending colon. The polyps were 5 mm in size. These polyps were removed with a cold biopsy forceps. Resection and retrieval were complete. Verification of patient identification for the specimen was done. Estimated blood loss was minimal. Internal hemorrhoids were found during retroflexion. The hemorrhoids were Grade III (internal hemorrhoids that prolapse but require manual reduction). Impression: - Diverticulosis in the recto-sigmoid colon, in the sigmoid colon and in the descending colon. - Two 5 mm polyps in the rectum and in the ascending colon, removed with a cold biopsy forceps. Resected and retrieved. - Internal hemorrhoids. Recommendation: - Repeat colonoscopy in 5 years for surveillance. - Continue present medications. Procedure Code(s): --- Professional --- 54620, Colonoscopy, flexible; with biopsy, single or multiple CPT copyright 2021 [employer]. All rights reserved. The codes documented in this report are preliminary and upon assistant professor of archaeology review may be revised to meet current compliance requirements. Girish Waddell DO 02/07/2025 10:17:00 AM This report has been signed electronically. Number of Addenda: 0 Note Initiated On: 02/07/2025 9:38 AM
--- NOTE | 2025-02-07 10:17 | OP.PROVAT_ITS ---
02/07/2025 Esthela Wynne MD [address] [place] [address] [place] [address] Re : Colonoscopy procedure for Alesia Patton Dear Dr. Wynne This procedure was performed on Friday, February 07, 2025. My impressions and recommendations are as follows: Impressions : - Diverticulosis in the recto-sigmoid colon, in the sigmoid colon and in the descending colon. - Two 5 mm polyps in the rectum and in the ascending colon, removed with a cold biopsy forceps. Resected and retrieved. - Internal hemorrhoids. Recommendations : - Repeat colonoscopy in 5 years for surveillance. - Continue present medications. My findings are described in the full procedure note, which is enclosed. If I can be of further assistance, please feel free to contact me at . Sincerely, Girish Waddell, 02/07/2025 10:17:00 AM This report has been signed electronically.
--- NOTE | 2025-02-07 10:18 | PCM.POST.ANE ---
Anesthesia: Postop Eval I Current Vital Signs Temperature: 97.3 F Pulse Rate: 72 Blood Pressure: 113/67 Respiratory Rate: 16 Pulse Ox: 96 Oxygen Delivery Method: Room Air Assessment Airway patent: Yes Spontaneous unlabored respirations: Yes Mental status: Awake and Calm nausea: No Vomiting: No Anesthesia Complication: No Fluid Hydration Crystalloid volume administer (ml): 400 Total IV fluid infused: 400 Progress Note Anesthesia document: Postop Eval 1 completed: Yes
--- NOTE | 2025-02-07 15:58 | PCM.POSTANE2 ---
Anesthesia Postop Eval I Sum Postop Eval Completion status Anesthesia document: Postop Eval 1 completed: Yes Anesthesia Postop Eval I Summary Anesthesia Postop Eval I Summary: Anesthesia Postop Eval I: Assessment Summary Airway patent Yes 02/07/25 10:19 [email or web address] Spontaneous unlabored Yes 02/07/25 10:19 [email or web address] respirations Mental status Awake,Calm 02/07/25 10:19 [email or web address] nausea No 02/07/25 10:19 [email or web address] Vomiting No 02/07/25 10:19 [email or web address] Anesthesia Postop Eval I: Fluid Summary Crystalloid volume administer 400 02/07/25 10:19 [email or web address] (ml) Colloids volume administered ( ml) Blood Product volume administered (ml) Total IV fluid infused 400 02/07/25 10:19 [email or web address] Anesthesia Postop Eval I: Summary Notes Anesthesia Complication No 02/07/25 10:19 [email or web address] Anesthesia Complication Comment: Post-operative progress note Anesthesia: Postop Eval II Evaluation Mental status: Awake and Calm Pain Level: 0 nausea: No Vomiting: No Complications Anesthesia Complication: No
== END 2025-02-07 11:17 | disposition home or self-care (01) ==
LOC: EN 08:36 → AC 08:37
PROVIDERS: PCP Internal Medicine; Referring Provider Internal Medicine; Visit Provider Internal Medicine Gastroenterology
PROC: 0DJD8ZZ Inspection of Lower Intestinal Tract, Via Natural or Artificial Opening Endoscopic (ICD-10-PCS; CPT 45378; principal; 2025-02-07 09:40)
DX: Z12.11 Encounter for screening for malignant neoplasm of colon (principal); I48.91 Unspecified atrial fibrillation; I10 Essential (primary) hypertension; Z87.891 Personal history of nicotine dependence; K64.2 Third degree hemorrhoids; K62.1 Rectal polyp; Z79.899 Other long term (current) drug therapy; Z79.01 Long term (current) use of anticoagulants; K57.30 Diverticulosis of large intestine without perforation or abscess without bleeding; K64.8 Other hemorrhoids; F41.9 Anxiety disorder, unspecified; Z90.49 Acquired absence of other specified parts of digestive tract; K63.5 Polyp of colon
CPT/HCPCS: 45380; 88305; J2405

== ENCOUNTER 2025-03-20 09:08 | Day surgery (SDC) | payer MEDICARE, SELFPAY ==
--- OUTSIDE RECORDS SUMMARY | 2024-05-22 19:30 | XMS RPT_ITS ---
Author Name Auto Generated Organization OH[facility] Care Team Providers Care Territory Account Manager Name Role Phone BECERRIL HUA Referring Unavailable BUSHRA THOMSON Primary Care Unavailable BUSHRA THOMSON Primary Care Unavailable PROBLEMS DATE TYPE CONDITION / CODE ATTENDING STATUS JACINTO RCE 05/22/2024 Active Acute cough / R05.1(ICD-10) NA Active [facility] PROCEDURES No Procedure Records Found RESULTS XR CHEST 2V FRONTAL/LAT Observed: 2023 6:53 PM Status: F Source: [facility] * * *Final Report* * * DATE OF EXAM: May 22 2024 6:53PM WOX [id number] - XR CHEST 2V FRONTAL/LAT / PROCEDURE REASON: Acute cough * * * * Physician Interpretation * * * * EXAMINATION: CHEST RADIOGRAPH (2 VIEW FRONTAL and LATERAL) CLINICAL HISTORY: Acute cough MQ: [id number] EXAM DATE/TIME: 05/22/2024 6:53 PM COMPARISON: No relevant prior studies available. RESULT: Lines, tubes, and devices: None. Lungs and pleura: No consolidation. No lung mass. No pleural effusion. No pneumothorax. Cardiomediastinal silhouette: The cardiac silhouette appears prominent. Bones and soft tissues: Degenerative changes are present within the thoracic spine. DISH is noted. IMPRESSION: No acute radiographic abnormality. Cotton Agent: PSCB Transcribe Date/Time: May 22 2024 7:40P Dictated by : LORI JONES MD This examination was interpreted and the report reviewed and electronically signed by: LORI JONES MD on May 22 2024 7:43PM EST [id number] PROGRESS Observed: 05/22/2024 6:30 PM Status: COMPLETED Source: [facility] HNO ID: [id number] Author: HARRY, ESTEPHANIA, RT(R) Service: Radiology Author Type: Technologist Type: Progress Notes Filed: 05/22/2024 18:53 Note Text: Radiology Service Progress Note PATIENT NAME: Alesia Calzada DATE OF SERVICE: May 22, 2024 TIME: 6:42 PM PATIENT IDENTITY VERIFICATION COMPLETED USING TWO (2) IDENTIFIERS: Name and Date of confirmed by patient verbally. FALL SCREENING: Has the patient had 2 falls in the last year or 1 fall with injury or currently using an Ambulatory Assistive Device (Walker, Cane, Wheelchair, Crutches, etc.)? Yes, Patient High Risk for Falls What interventions were put in place to prevent falls during this visit? Offered Assistance with Transfers/Clothing and Instructed Patient to Remain Seated (Not on Exam Table) Until Exam PATIENT GENDER DATA: Female. status: : No status: NO. PATIENT RELEVANT IMPLANT DATA REVIEWED: Not Applicable PATIENT PRESENTS WITH AN IMPLANTABLE OR ATTACHED OBSTETRICS SPECIALIST: No RADIOLOGY DEPARTMENT: General X-ray: Exam(s) Completed: Chest X-Ray PERIPHERAL IV DATA: Not applicable SIGNED BY: RT Michelle(R) May 22, 2024 6:42 PM PROGRESS Observed: 05/22/2024 6:21 PM Status: COMPLETED Source: [facility] HNO ID: [id number] Author: HUA BECERRIL APRN.AUTOMATIC LUMP MAKING MACHINE TENDER Service: ? Author Type: Nurse Practitioner Type: Progress Notes Filed: 05/22/2024 19:13 Note Text: This note was created using NoteWriter. Subjective Alesia Calzada is a 63 year old female. 63 year old female with PMH HTN, hyperlipidemia, afib, and sleep apnea presents for illness. Acute onset 4 days ago + sore throat +chest congestion + cough +chest tightness Shortness of breath with activity and winded with activity Has used Vicks Hot shower Denies tobacco usage Denies history of COPD and or asthma The history is provided by the patient. No foreign language stenographer was used. Cough This is a new problem. The current episode started more than 2 days ago. The problem occurs constantly. The problem has been gradually worsening. The cough is Productive of sputum. There has been no fever. Associated symptoms include ear congestion, headaches, rhinorrhea, shortness of breath and wheezing. Pertinent negatives include no chest pain, no chills, no sweats, no weight loss, no ear pain, no sore throat, no myalgias and no eye redness. Treatments tried: Vicks/hot shower. The treatment provided no relief. She is not a smoker. Her past medical history does not include bronchitis, pneumonia, bronchiectasis, COPD, emphysema or asthma. PAST MEDICAL HISTORY Diagnosis Date Benign neoplasm of colon hyperplastic Dysmetabolic syndrome X Dysthymic disorder Depression (non-psychotic) Essential hypertension Other and unspecified hyperlipidemia Other diseases of pharynx, not elsewhere classified(478.29) c pap Umbilical hernia Unspecified essential hypertension PAST SURGICAL HISTORY Procedure Laterality Date DELIVERY ONLY 06/21/1999 , low cervical CHOLECYSTECTOMY HX N/A 2019 COLONOSCOPY FLX DX W/COLLJ SPEC WHEN PFRMD 12/26/2012 Colonoscopy COLSC FLX W/RMVL OF TUMOR POLYP LESION SNARE TQ 05/05/2007 Polyp at 28cm-hyperplastic DILATION AND CURETTAGE DXAND/THER NONOBSTETRIC 12/07/[address] Young [facility] ESOPHAGOGASTRODUODENOSCOPY TRANSORAL DIAGNOSTIC 12/26/2012 EGD HYSTEROSCOPY BX ENDOMETRIUMAND/POLYPC W/WO DANDC 12/06/2012 LUMPECTOMY/RADIOTHERAPY DIAG MAMM/A10 left breast ALLERGIES Penicillins, Ciprocinonide, Clindamycin, Codeine, Hctz [Hydrochlorothiazide], and Ultram [Tramadol Hcl] MEDICATIONS ELIQUIS 5 mg tab(s) Take 1 tablet by mouth every 12 hours. metoprolol tartrate, short acting, (LOPRESSOR) 25 mg tablet TAKE HALF A TAB (1/2 X 25 MG) ORALLY TWICE A DAY tiZANidine (ZANAFLEX) 2 mg tablet TAKE 1 TABLET BY MOUTH AT BEDTIME NEEDED FOR MUSCLE SPASTICITY amLODIPine (NORVASC) 10 mg tablet Take 1 [...] as instructed every 4 hours as needed. LORazepam (ATIVAN) 0.5 mg tab Take 1 tablet by mouth twice daily as needed. albuterol 90 mcg/actuation Aero Inhale [...] daily. (Patient not taking: Reported on 03/24/2023) FAMILY HISTORY Problem Relation Age of Onset Hypertension Mother Hypertension Father Heart Father Social History Tobacco Use Smoking status: Former Current packs/day: 0.00 Average packs/day: 1 pack/day for 10.0 years (10.0 ttl pk-yrs) Types: Cigarettes Start date: 06/21/1989 Quit date: 06/21/1999 Years since quittin.9 Smokeless tobacco: Never Tobacco comments: quit 5 years ago Substance Use Topics Alcohol use: Yes Drug use: No Review of Systems Constitutional: Positive for fatigue. Negative for chills, fever and weight loss. HENT: Positive for congestion and rhinorrhea. Negative for ear pain and sore throat. Eyes: Negative for discharge, redness and itching. Respiratory: Positive for cough, chest tightness, shortness of breath and wheezing. Cardiovascular: Negative for chest pain. Gastrointestinal: Negative for abdominal pain, diarrhea, nausea and vomiting. Musculoskeletal: Negative for arthralgias, back pain and myalgias. Skin: Negative for color change, pallor, rash and wound. Neurological: Positive for headaches. Hematological: Negative for adenopathy. Does not bruise/bleed easily. Psychiatric/Behavioral: Negative for agitation and behavioral problems. Objective BP 148/84 Pulse 107 Temp 37.3 ?C (99.1 ?F) (Tympanic) Resp 20 Wt (!) 189.4 kg (417 lb 7.1 oz) LMP 11/30/2012 SpO2 96% BMI 71.65 kg/m? Physical Exam Vitals and nursing note reviewed. Constitutional: General: She is not in acute distress. Appearance: Normal appearance. She is obese. She is not ill-appearing, toxic-appearing or diaphoretic. HENT: Head: Normocephalic and atraumatic. Right Ear: Ear canal and external ear normal. Left Ear: Ear canal and external ear normal. Nose: Congestion present. No rhinorrhea. Mouth/Throat: Mouth: Mucous membranes are moist. Pharynx: Posterior oropharyngeal erythema present. No oropharyngeal exudate. Eyes: General: Right eye: No discharge. Left eye: No discharge. Conjunctiva/sclera: Conjunctivae normal. Comments: Bilateral cross eyed Cardiovascular: Rate and Rhythm: Normal rate and regular rhythm. Pulses: Normal pulses. Heart sounds: Normal heart sounds. No murmur heard. No friction rub. Pulmonary: Effort: Pulmonary effort is normal. No respiratory distress. Breath sounds: No stridor. Wheezing and rhonchi present. No rales. Chest: Chest wall: No tenderness. Abdominal: General: Abdomen is flat. There is no distension. Palpations: Abdomen is soft. There is no mass. Tenderness: There is no abdominal tenderness. There is no right CVA tenderness, left CVA tenderness, guarding or rebound. Hernia: No hernia is present. Musculoskeletal: General: No swelling, tenderness, deformity or signs of injury. Normal range of motion. Cervical back: Normal range of motion and neck supple. No rigidity. Right lower leg: No edema. Left lower leg: No edema. Lymphadenopathy: Cervical: No cervical adenopathy. Skin: General: Skin is warm and dry. Coloration: Skin is not jaundiced or pale. Findings: No bruising, erythema, lesion or rash. Neurological: General: No focal deficit present. Mental Status: She is alert and oriented to person, place, and time. Cranial Nerves: No cranial nerve deficit. Sensory: No sensory deficit. Motor: No weakness. Coordination: Coordination normal. Gait: Gait normal. Psychiatric: Mood and Affect: Mood normal. Behavior: Behavior normal. Thought Content: Thought content normal. Judgment: Judgment normal. Assessment and Plan ASSESSMENT/PLAN: 1. Acute cough - ICD9: 786.2, ICD10: R05.1 (primary diagnosis) X 4 days Exp wheeze otherwise, No red flags - XR CHEST 2V FRONTAL/LAT-obtained and will call with results 2. URI, acute - ICD9: 465.9, ICD10: J06.9 - Symptomatic treatment with prn analgesia - Supportive care with fluids and rest - The patient may also use OTC cough and cold meds as needed, warm salt water gargles, throat lozenges and/or OTC throat spray as needed, and nasal saline gtts and suction prn. RX Albuterol RX Prednisone taper - Follow up in 3-5 days if symptoms persist or sooner if worsening of symptoms Hua Becerril APRN.CNP CNOV Observed: 05/22/2024 6:15 PM Status: COMPLETED Source: [facility] Office Visit (WSTR) ALESIA CALZADA ([id number]) 1960 F Date Time Provider Department 05/22/24 6:15 PM [facility]IL [facility] During your visit today, we recorded the following information about you: Temperature Pulse Respiration Blood pressure 99.1 degrees 107/minute 20/minute 148/84 Weight 189.4 kg Hua Becerril APRN.CNP 05/22/2024 7:13 PM Signed This note was created using MILIriter. Subjective Alesia Calzada is a 63 year old female. 63 year old female with PMH HTN, hyperlipidemia, afib, and sleep apnea presents for illness. Acute onset 4 days ago + sore throat +chest congestion + cough +chest tightness Shortness of breath with activity and winded with activity Has used Vicks Hot shower Denies tobacco usage Denies history of COPD and or asthma The history is provided by the patient. No foreign language stenographer was used. Cough This is a new problem. The current episode started more than 2 days ago. The problem occurs constantly. The problem has been gradually worsening. The cough is Productive of sputum. There has been no fever. Associated symptoms include ear congestion, headaches, rhinorrhea, shortness of breath and wheezing. Pertinent negatives include no chest pain, no chills, no sweats, no weight loss, no ear pain, no sore throat, no myalgias and no eye redness. Treatments tried: Vicks/hot shower. The treatment provided no relief. She is not a smoker. Her past medical history does not include bronchitis, pneumonia, bronchiectasis, COPD, emphysema or asthma. PAST MEDICAL HISTORY Diagnosis Date Benign neoplasm of colon hyperplastic Dysmetabolic syndrome X Dysthymic disorder Depression (non-psychotic) Essential hypertension Other and unspecified hyperlipidemia Other diseases of pharynx, not elsewhere classified(478.29) c pap Umbilical hernia Unspecified essential hypertension PAST SURGICAL HISTORY Procedure Laterality Date DELIVERY ONLY 06/21/1999 , low cervical CHOLECYSTECTOMY HX N/A 2019 COLONOSCOPY FLX DX W/COLLJ SPEC WHEN PFRMD 12/26/2012 Colonoscopy COLSC FLX W/RMVL OF TUMOR POLYP LESION SNARE TQ 05/05/2007 Polyp at 28cm-hyperplastic DILATION AND CURETTAGE DXAND/THER NONOBSTETRIC 12/07/[address] Young [facility] ESOPHAGOGASTRODUODENOSCOPY TRANSORAL DIAGNOSTIC 12/26/2012 EGD HYSTEROSCOPY BX ENDOMETRIUMAND/POLYPC W/WO DANDC 12/06/2012 LUMPECTOMY/RADIOTHERAPY DIAG MAMM/A10 left breast ALLERGIES Penicillins, Ciprocinonide, Clindamycin, Codeine, Hctz [Hydrochlorothiazide], and Ultram [Tramadol Hcl] MEDICATIONS ELIQUIS 5 mg tab(s) Take 1 tablet by mouth every 12 hours. metoprolol tartrate, short acting, (LOPRESSOR) 25 mg tablet TAKE HALF A TAB (1/2 X 25 MG) ORALLY TWICE A DAY tiZANidine (ZANAFLEX) 2 mg tablet TAKE 1 TABLET BY MOUTH AT BEDTIME NEEDED FOR MUSCLE SPASTICITY amLODIPine (NORVASC) 10 mg tablet Take 1 [...] as instructed every 4 hours as needed. LORazepam (ATIVAN) 0.5 mg tab Take 1 tablet by mouth twice daily as needed. albuterol 90 mcg/actuation Aero Inhale [...] daily. (Patient not taking: Reported on 03/24/2023) FAMILY HISTORY Problem Relation Age of Onset Hypertension Mother Hypertension Father Heart Father Social History Tobacco Use Smoking status: Former Current packs/day: 0.00 Average packs/day: 1 pack/day for 10.0 years (10.0 ttl pk-yrs) Types: Cigarettes Start date: 06/21/1989 Quit date: 06/21/1999 Years since quittin.9 Smokeless tobacco: Never Tobacco comments: quit 5 years ago Substance Use Topics Alcohol use: Yes Drug use: No Review of Systems Constitutional: Positive for fatigue. Negative for chills, fever and weight loss. HENT: Positive for congestion and rhinorrhea. Negative for ear pain and sore throat. Eyes: Negative for discharge, redness and itching. Respiratory: Positive for cough, chest tightness, shortness of breath and wheezing. Cardiovascular: Negative for chest pain. Gastrointestinal: Negative for abdominal pain, diarrhea, nausea and vomiting. Musculoskeletal: Negative for arthralgias, back pain and myalgias. Skin: Negative for color change, pallor, rash and wound. Neurological: Positive for headaches. Hematological: Negative for adenopathy. Does not bruise/bleed easily. Psychiatric/Behavioral: Negative for agitation and behavioral problems. Objective BP 148/84 Pulse 107 Temp 37.3 ?C (99.1 ?F) (Tympanic) Resp 20 Wt (!) 189.4 kg (417 lb 7.1 oz) LMP 11/30/2012 SpO2 96% BMI 71.65 kg/m? Physical Exam Vitals and nursing note reviewed. Constitutional: General: She is not in acute distress. Appearance: Normal appearance. She is obese. She is not ill-appearing, toxic-appearing or diaphoretic. HENT: Head: Normocephalic and atraumatic. Right Ear: Ear canal and external ear normal. Left Ear: Ear canal and external ear normal. Nose: Congestion present. No rhinorrhea. Mouth/Throat: Mouth: Mucous membranes are moist. Pharynx: Posterior oropharyngeal erythema present. No oropharyngeal exudate. Eyes: General: Right eye: No discharge. Left eye: No discharge. Conjunctiva/sclera: Conjunctivae normal. Comments: Bilateral cross eyed Cardiovascular: Rate and Rhythm: Normal rate and regular rhythm. Pulses: Normal pulses. Heart sounds: Normal heart sounds. No murmur heard. No friction rub. Pulmonary: Effort: Pulmonary effort is normal. No respiratory distress. Breath sounds: No stridor. Wheezing and rhonchi present. No rales. Chest: Chest wall: No tenderness. Abdominal: General: Abdomen is flat. There is no distension. Palpations: Abdomen is soft. There is no mass. Tenderness: There is no abdominal tenderness. There is no right CVA tenderness, left CVA tenderness, guarding or rebound. Hernia: No hernia is present. Musculoskeletal: General: No swelling, tenderness, deformity or signs of injury. Normal range of motion. Cervical back: Normal range of motion and neck supple. No rigidity. Right lower leg: No edema. Left lower leg: No edema. Lymphadenopathy: Cervical: No cervical adenopathy. Skin: General: Skin is warm and dry. Coloration: Skin is not jaundiced or pale. Findings: No bruising, erythema, lesion or rash. Neurological: General: No focal deficit present. Mental Status: She is alert and oriented to person, place, and time. Cranial Nerves: No cranial nerve deficit. Sensory: No sensory deficit. Motor: No weakness. Coordination: Coordination normal. Gait: Gait normal. Psychiatric: Mood and Affect: Mood normal. Behavior: Behavior normal. Thought Content: Thought content normal. Judgment: Judgment normal. Assessment and Plan ASSESSMENT/PLAN: 1. Acute cough - ICD9: 786.2, ICD10: R05.1 (primary diagnosis) X 4 days Exp wheeze otherwise, No red flags - XR CHEST 2V FRONTAL/LAT-obtained and will call with results 2. URI, acute - ICD9: 465.9, ICD10: J06.9 - Symptomatic treatment with prn analgesia - Supportive care with fluids and rest - The patient may also use OTC cough and cold meds as needed, warm salt water gargles, throat lozenges and/or OTC throat spray as needed, and nasal saline gtts and suction prn. RX Albuterol RX Prednisone taper - Follow up in 3-5 days if symptoms persist or sooner if worsening of symptoms Hua Becerril APRN.AUTOMATIC LUMP MAKING MACHINE TENDER Allergies As of Date: 05/22/2024 Noted Allergy Reaction PENICILLINS 02/16/2005 4 - Hives CIPROCINONIDE 04/24/2016 6 - Diarrhea CLINDAMYCIN 03/24/2023 14 - Other: See Comments CODEINE 02/16/2005 5 - Intolerance HCTZ (HYDROCHLOROTHIAZIDE) 08/23/2008 5 - Intolerance Comments: muscle soreness ULTRAM (TRAMADOL HCL) 07/12/2015 5 - Intolerance Comments: Heart racing Date Reviewed: 05/22/2024 Reviewed by: Emelyn Hull LPN - Fully Assessed Reason for Visit: Cough [28] Cmt: Cough, chest congestion and SOB x 4 days Primary Visit Diagnosis:Acute cough [R05.1] Other Visit Diagnosis:URI, acute [J06.9] Order(s):XR CHEST 2V FRONTAL/LAT [[id number]] Order #: [id number] FUTURE albuterol HFA (PROVENTIL HFA, VENTOLIN HFA) 90 mcg/actuation inhalerInhale 2 Puffs as instructed every 4 hours as needed for wheezing/shortness of breath.Disp: 8 gRfl: 0 Inhalational Spacing Device1 Device one time only for 1 dose.Disp: 1 EachRfl: 0 predniSONE (DELTASONE) 10 mg tabletTake 4 tabs daily for 3 days, then 2 tabs daily for 3 days, then 1 tab daily for 3 days with food.Disp: 21 tabletRfl: 0 COVID AND INFLUENZA A/B AND RSV PCR, ROUTINE [SQCVFLRS] Order #: [id number] Prescriptions as of 05/22/2024 - ELIQUIS 5 mg tab(s) Take 1 tablet by mouth every 12 hours. - metoprolol tartrate, short acting, (LOPRESSOR) 25 mg tablet TAKE HALF A TAB (1/2 X 25 MG) ORALLY TWICE A DAY - tiZANidine (ZANAFLEX) 2 mg tablet TAKE 1 TABLET BY MOUTH AT BEDTIME NEEDED FOR MUSCLE SPASTICITY - albuterol HFA (PROVENTIL HFA, VENTOLIN HFA) 90 mcg/actuation inhaler Inhale 2 Puffs as instructed every 4 hours as needed for wheezing/shortness of breath. - Inhalational Spacing Device 1 Device one time only for 1 dose. - predniSONE (DELTASONE) 10 mg tablet Take 4 tabs daily for 3 days, then 2 tabs daily for 3 days, then 1 tab daily for 3 days with food. - amLODIPine (NORVASC) 10 mg tablet Take 1 tablet by mouth every afternoon. - progesterone micronized (PROMETRIUM) 100 mg capsule - pancreat/betaine/pepsin/bromel (SUPER ENZYME ORAL) Take by mouth once daily. - FLUoxetine (PROZAC) 20 mg capsule Take 1 capsule by mouth once daily. - felodipine ER (PLENDIL) 5 mg 24 hr tablet Take 1 tablet by mouth once daily. - lisinopril (ZESTRIL, PRINIVIL) 40 mg tablet Take 1 tablet by mouth once daily. - albuterol HFA (PROAIR HFA) 90 mcg/actuation inhaler Inhale 2 Puffs as instructed every 4 hours as needed. - LORazepam (ATIVAN) 0.5 mg tab Take 1 tablet by mouth twice daily as needed. - albuterol 90 mcg/actuation Aero Inhale 2 Puffs as instructed every 4 hours as needed (shortness of breath, cough, wheeze. ). With spacer, please. - multivitamin (DAILY VITAMIN) ORAL Tab Take one(1) tablet daily. - ASPIRIN 81 MG TAB Take one (1) tablet daily . Meds Comments as of 07/31/2010: Problem List As Of Date 05/22/2024 Noted Resolved Essential hypertension [I10] Dysmetabolic syndrome X [E88.810] 07/12/2015 Hyperlipidemia [E78.5] DYSTHYMIC DISORDER [F34.1] Blood in stool [K92.1] 04/27/2007 07/12/2015 Sleep apnea [G47.30] 10/21/2012 Abnormal uterine bleeding [N93.9] 11/15/2012 Thickened endometrium [R93.89] 11/23/2012 Obesity, morbid (more than 100 lbs over ideal w*11/23/2012 07/12/2015 BMI 70 and over, adult ([facility]) [Z68.45] 07/12/2015 BMI 60.0-69.9, adult (HCC) [Z68.44] 08/01/2015 Clostridium difficile diarrhea [A04.72] 08/08/2015 Hearing loss in right ear [H91.91] 08/08/2015 Prescriptions ordered this encounter Disp Refills Start End ALBUTEROL SULFATE HFA 90 MCG/ACTUATI* 8 g 0 05/22/2024 Cmt: Generic or brand: dispense inhaler preferred by patient/insurance unless YOON flag is selected. Route: INHALATION Sig: Inhale 2 Puffs as instructed every 4 hours as needed for wheezing/shortness of breath. INHALATIONAL SPACING DEVICE 1 Ea* 0 05/22/2024 05/22/2024 Route: Misc Si Device one time only for 1 dose. PREDNISONE 10 MG TABLET 21 t* 0 05/22/2024 Sig: Take 4 tabs daily for 3 days, then 2 tabs daily for 3 days, then 1 tab daily for 3 days with food. Encounter Status:Closed by HUA BECERRIL on 05/22/24 ALLERGIES DATE TYPE / CODE NAME / CODE REACTION SEVERITY SOURCE 03/24/2023 DRUG INGREDI/602100 003(SNOMED CT) CLINDAMYCIN OTHER: SEE C [facility] 04/24/2016 DRUG INGREDI/104280 003(SNOMED CT) CIPROCINONIDE DIARRHEA [facility] 07/12/2015 DRUG INGREDI/811248 003(SNOMED CT) TRAMADOL HCL INTOLERANCE [facility] 08/23/2008 DRUG INGREDI/836106 003(SNOMED CT) HYDROCHLOROTHIAZIDE INTOLERANCE [facility] 02/16/2005 Drug Class/[id number] 3(SNOMED CT) PENICILLINS HIVES Med [facility] 02/16/2005 DRUG INGREDI/078442 003(SNOMED CT) CODEINE INTOLERANCE [facility] ENCOUNTERS ADMIT/DISCHARGE ACCOUNT NUMBER ADMITTING ENCOUNTER CLASS LOC ATION SOURCE 05/22/2024/ 4 [id number] Ambulatory [facility]G [facility] 05/22/2024/ 4 [id number] Ambulatory [facility] Hospital[facility] ing:WOUC [facility] PAYERS ENCOUNTER GUARANTOR PAYER SUBSCRIBER SOURCE 05/22/2024 Primary Insurance:[employer] Number: [id number] Date:[id number] Name:Jorge FLORES: [id number] [place] [address] [facility] 05/22/2024 Primary Insurance:[facility] Number: [id number] Date:2402-51-23Ucpw Name:Jorge ALESIA M SANDRA: [id number] [place] [address] [facility]
--- NOTE | 2025-03-13 10:28 | EKG12_ITS ---
Test Reason : PREOP Blood Pressure : */* mmHG Vent. Rate : 73 BPM Atrial Rate : 51 BPM P-R Int : * ms QRS Dur : 106 ms QT Int : 390 ms P-R-T Axes : * -3 36 degrees QTcB Int : 429 ms Atrial fibrillation Low voltage QRS Nonspecific ST abnormality , probably digitalis effect Abnormal ECG When compared with ECG of 27-Feb-2024 13:57, No significant change was found Confirmed by Jarrett Miranda ([id number]), book editor SILVIA MILLER ([id number]) on 03/15/2025 8:12:02 AM Referred By: Ayde Sahni Confirmed By: Jrarett Miranda
[2025-03-13 12:28] LABS: Hematocrit 41.8 % (37-47); Hemoglobin 13.6 g/dL (12.0-15.0); Mean Corp Hgb Conc 32.5 g/dL (32-36); Mean Corpuscular Volume 94.1 fL (81-99); Mean Platelet Vol. 9.7 fl (6.2-12.0); Platelet Count 335 K/mm3 (150-450); RBC Distribution Width CV 12.9 % (11.6-14.6); RBC Distribution Width SD 44.5 fl (35.1-43.9); Red Blood Count 4.44 M/mm3 (4.2-5.4); White Blood Count 8.0 K/mm3 (4.4-11.0)
[2025-03-13 13:20] LABS: AST(SGOT) 19 U/L (<=31); Alanine Aminotransfer ALT/SGPT 20 U/L (<=34); Albumin, Serum 4.2 g/dL (3.4-4.8); Alkaline Phosphatase 94 U/L (35-104); Anion Gap 11 (5-15); BUN 22 mg/dL (4-19); BUN/Creat Ratio 22.1 RATIO (10-20); Calcium,Total 9.6 mg/dL (7.6-11.0); Carbon Dioxide 22.3 mmol/L (21.0-32.0); Chloride 104 mmol/L (98-108); Globulin 3.2 g/dL (2.2-4.2); Glucose 115 mg/dL (70-99); Potassium 5.0 mmol/L (3.3-5.1)
--- NOTE | 2025-03-14 10:13 | PAT.ANE_ITS ---
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 When Was Last Pacemaker Check QUESTION #4 FULL TEXT: You/Your Family Experience fever (hyperthermia) with Anesthesia Last Oral Intake Last Oral intake: Last Oral Intake NPO since Meds taken in AM with sips of water? 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 Female Yes 03/06/25 11:08 HX of Motion Sickness Yes 03/06/25 11:08 HX of N/V After Surgery Yes 03/06/25 11:08 Non-Smoker Yes 03/06/25 11:08 Duration of Surgery greater No 03/06/25 11:08 than 60 minutes Number of Risk Factors 4 03/06/25 11:08 PONV Score Severe Risk 03/06/25 11:08 Height & Weight Height & Weight: Anesthesia: Height & Weight Height 5 ft 4 in 02/07/25 09:03 Respiratory Assessment Respiratory Assessment - airframe and power plant mechanic: Respiratory Tract Infection Hx - airframe and power plant mechanic Hx Respiratory Tract Infection No 03/06/25 11:08 STOP Sleep Apnea STOP Sleep Apnea - airframe and power plant mechanic: STOP Sleep Apnea - airframe and power plant mechanic Hx Hypertension Yes: PER PT, CONTROLLED ON 03/06/25 11:08 MEDS Hx Sleep Apnea Yes 03/06/25 11:08 CPAP Yes 03/06/25 11:08 BIPAP No 03/06/25 11:08 Do you snore loudly (louder than talking or can be heard Do you often feel tired/ fatigued/ sleepy during daytime? Has anyone observed you stop breathing during sleep? STOP Results Positive 03/06/25 11:08 QUESTION #5 FULL TEXT : Do you snore loudly (louder than talking or can be heard through closed doors)? 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 Specify any problems Hx of Preganancy in last 3 No 03/06/25 11:08 Months Nurse Filling Out Transfusion DSCHRIBER 03/06/25 11:08 & Questions: Date: 03/06/25 03/06/25 11:08 Time: 11:10 03/06/25 11:08 Patient unable to answer at this time (ie. 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 Wears glasses Wears partial dentures Wears dentures Anxiety Walker as ambulation aid History of renal disease Umbilical hernia Former smoker Shortness of breath on exertion History of pain when walking History of edema History of Holter monitoring History of echocardiogram Cardiology follow-up encounter History of atrial fibrillation Left knee pain Radiculopathy, cervical OAB (overactive bladder) Hyperkalemia Wears hearing aid Restless legs CPAP (continuous positive airway pressure) dependence Asthmatic bronchitis with acute exacerbation Postmenopausal bleeding History of benign breast tumor Venous insufficiency Morbid obesity Hypertension Home Medications ?Medication ?Instructions ?Recorded ?Last Taken ?Type multivitamin with folic acid 400 1 tab PO DAILY Unknown History mcg tablet Cpap Supplies #1 ea 08/18/21 Unknown Rx Pancreat-Bet RTk-iia-kztk-pap 250 1 cap PO .with meals 10/23/22 Unknown History mg-162 mg-65 mg-125 mg capsule (Super Enzyme) anita.stocking,knee,reg,xlrg #2 ea 10/23/22 Unknown Rx Cpap Supplies #1 ea 01/27/23 Unknown Rx lisinopril 40 mg tablet 40 mg PO DAILY #90 tabs 02/2011/05/24 Rx fluoxetine 20 mg capsule 20 mg PO DAILY 11/03/24 Unkn own History tizanidine 2 mg tablet 2 mg PO HS PRN for muscle sp asm 12/25/24 Unknown Rx #90 TABLETS apixaban 5 mg tablet (Eliquis) 5 mg PO BID #60 tabs 02/03/25 Rx amlodipine 10 mg tablet 10 mg PO QHS 02/05/25 Unknow n History metoprolol tartrate 25 mg tablet 12.5 mg (1/2 x 25 mg) PO BID #90 02/26/25 Unknown Rx tabs CPAP - Continuous Positive Airway 03/06/25 Unknown Hi story Pressure([facility] INFORMATIONAL USE ONLY) acetaminophen 325 mg capsule 650 mg PO Q4H PRN pain Unknown History magnesium 200 mg tablet 200 mg PO DAILY 03/06/25 Unk nown History Allergy/AdvReac Type Severity Reaction Status Date / Time clindamycin Allergy Severe Hearing Verified 03/13/25 11:33 loss ciprofloxacin (From Cipro) Allergy Other Verified 03/13/25 11:33 codeine Allergy Rash Verified 03/13/25 11:33 hydrochlorothiazide Allergy Other Verified 03/13/25 11:33 Penicillins (PCN) Allergy Rash Verified 03/13/25 11:33 tramadol HCl (From Ultram) Allergy Other Verified 03/13/25 11:33 spironolactone (From AdvReac Causes Verified 03/13/25 11:33 Aldactone) Potassium to elevate Family History Mother CVA (cerebral vascular accident) Hypertension Sister cranial stenosis Father Hypertension Asthma Arthritis Surgical History Hx of colonoscopy with polypectomy History of epidural steroid injection into cervical spine History of hysteroscopy H/O dilation and curettage History of tubal ligation History of cholecystectomy History of placement of ear tubes History of D&C History of section History of benign breast biopsy Social History household members: spouse Smoking Status: Former smoker how long ago did patient quit smokin alcohol intake: current alcohol intake frequency: holidays/special occasions only Alcohol type: wine substance use type: does not use caffeine: Yes what type of physical activity do you participate in: none seatbelt use: always do you feel safe at home: Yes additional social history: [id number] Audit: Pertinent Findings Pertinent Findings Consult pertinent findings: Cardiology note 07/21/2024. Patient with history of hypertension was preparing for colonoscopy. She noticed that she was getting short of breath and having some palpitations. Went to the emergency room and evaluated and was noted to be in A-fib with rapid ventricular response rate. She was placed on Eliquis and metoprolol and has done well. She did have a CTA of her chest ordered which was unremarkable. She has longstanding history of FREDERICK for which she has been on CPAP management. Holter monitor in April 2024 showed A-fib at a controlled rate. She may proceed with colonoscopy. She should hold Eliquis 2 days prior. Recommendation Anesthesia Recommendation Anesthesia recommendation: OPTIMIZED for anesthesia
[2025-03-20] VITALS (9 sets, daily range): BP systolic 78–100; BP diastolic 46–89; PULSE 56–80; RESP 16–18; TEMP 36.3–36.6; O2SAT 90–99; BMI 73.4
[2025-03-20] MEDS: Lactated Ringers 1,000 ML 15 ML IV (09:55)
--- NOTE | 2025-03-20 10:24 | PRE.ANES_ITS ---
ASA Classification* ASA Classification ASA Classification: 3 Assessment & Plan Anesthesia* Anesthesia Assessment Anesthesia Assessment: Discussed sedation and/or anesthesia options, risks, benefits, and alternatives with patient/parents/legal guardian/POA. Questions invited. The patient/parents/legal guardian/POA seems to understand and agrees to proceed with anesthesia plan. Reviewed the physical assessment, medical history, allergy history and patient home medications list prior to surgery/procedure/anesthetic and documented any changes. Performed airway and anesthesia risk assessments. Anesthesia Type Anesthesia Type: MAC History Source History Obtained from:: Patient and Chart Anesthesia Focused Assessment* Temperature: 97.3 F Pulse Rate: 80 Blood Pressure: 100/89 Respiratory Rate: 18 Pulse Ox: 99 Oxygen Delivery Method: Room Air Airway Assessment Mouth opens: >3 cm Mallampati Score: IV Teeth Condition: Dentures (Patient has full upper dentures. And partial lower dentures. They will stay in as long as we are doing sedation anesthesia.) Neck Range of motion (ROM): Limited ROM (Severe Restriction) Labs Anesthesia Preop lab: CBC WBC, (4.4-11.0) 8.0 K/mm3 03/13/25, 11:53 RBC, (4.2-5.4) 4.44 M/mm3 03/13/25, 11:53 Hgb, (12.0-15.0) 13.6 g/dL 03/13/25, 11:53 Hct, (37-47) 41.8 % 03/13/25, 11:53 Plt Count, (150-450) 335 K/mm3 03/13/25, 11:53 CHEMISTRY Potassium, (3.3-5.1) 5.0 mmol/L 03/13/25, 11:53 Sodium, (133-145) 137 mmol/L 03/13/25, 11:53 Magnesium, (1.6-2.6) 1.9 mg/dL 02/27/24, 11:55 BUN, (4-19) 22 mg/dL H 03/13/25, 11:53 Creatinine, (0.70-1.20) 0.98 mg/dL 03/13/25, 11:53 Glucose, (70-99) 115 mg/dL H 03/13/25, 11:53 TSH, (0.358-3.740) 2.180 uIU/mL 02/27/24, 11:55 COAG Pre-Assessment Diagnosis/Proposed Procedure Planned Operative Procedure(s): HYSTEROSCOPY D&C IUD INSERTION Anesthesia History 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 When Was Last Pacemaker Check QUESTION #4 FULL TEXT: You/Your Family Experience fever (hyperthermia) with Anesthesia Last Oral Intake Last Oral intake: Last Oral Intake NPO since 06:45 03/20/25 09:42 Meds taken in AM with sips of Yes 03/20/25 09:42 water? Meds patient instructed to see medlist 03/20/25 09:42 take am of surgery Any additional information?: Yes NPO since: 06:45 (Patient took her medication at 6:45 AM.) Meds taken in AM with sips of water?: Yes PONV PONV - demand generation manager: PONV - demand generation manager Female Yes 03/06/25 11:08 HX of Motion Sickness Yes 03/06/25 11:08 HX of N/V After Surgery Yes 03/06/25 11:08 Non-Smoker Yes 03/06/25 11:08 Duration of Surgery greater No 03/06/25 11:08 than 60 minutes Number of Risk Factors 4 03/06/25 11:08 PONV Score Severe Risk 03/06/25 11:08 Height & Weight Height & Weight: Anesthesia: Height & Weight Height 5 ft 4 in 03/20/25 09:42 Weight: 194 kg 03/20/25 09:42 Body Mass Index (BMI) 73.4 03/20/25 09:42 Respiratory Assessment Respiratory Assessment - demand generation manager: Respiratory Tract Infection Hx - demand generation manager Hx Respiratory Tract Infection No 03/06/25 11:08 STOP Sleep Apnea STOP Sleep Apnea - demand generation manager: STOP Sleep Apnea - demand generation manager Hx Hypertension Yes: PER PT, CONTROLLED ON 03/06/25 11:08 MEDS Hx Sleep Apnea Yes 03/06/25 11:08 CPAP Yes 03/06/25 11:08 BIPAP No 03/06/25 11:08 Do you snore loudly (louder than talking or can be heard Do you often feel tired/ fatigued/ sleepy during daytime? Has anyone observed you stop breathing during sleep? STOP Results Positive 03/06/25 11:08 QUESTION #5 FULL TEXT : Do you snore loudly (louder than talking or can be heard through closed doors)? 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 Specify any problems Hx of Preganancy in last 3 No 03/06/25 11:08 Months Nurse Filling Out Transfusion DSCHRIBER 03/06/25 11:08 & Questions: Date: 03/06/25 03/06/25 11:08 Time: 11:10 03/06/25 11:08 Patient unable to answer at this time (ie. confused, unrespo /Reproduction History /Reproductive History - demand generation manager: /Reproductive Hx- demand generation manager Hx Now Gestational Age (in weeks): EDC: Hx Hx Para Hx Section SAB No 03/13/25 11:36 Active Medications Active Medications: Current Medications Generic Name Dose Route Start Last Admin Trade Name Freq PRN Reason Stop Dose Admin Lactated Ringer's 1,000 mls @ 15 mls/hr 03/20/25 10:00 03/20/25 09:55 IV 15 mls/hr .Q48H ENMANUEL Administration Levonorgestrel 1 each 03/20/25 10:55 Levonorgestrel Iud (Liletta) INTRA-UTER 03/20/25 10:56 X1 ONE PFSH Medical History Chronic low back pain Incontinence of urine Back pain PONV (postoperative nausea and vomiting) Occult blood positive stool longterm current use of anticoagulant Wears glasses Wears partial dentures Wears dentures Anxiety Walker as ambulation aid History of renal disease Umbilical hernia Former smoker Shortness of breath on exertion History of pain when walking History of edema History of Holter monitoring History of echocardiogram Cardiology follow-up encounter History of atrial fibrillation Left knee pain Radiculopathy, cervical OAB (overactive bladder) Hyperkalemia Wears hearing aid Restless legs CPAP (continuous positive airway pressure) dependence Asthmatic bronchitis with acute exacerbation Postmenopausal bleeding History of benign breast tumor Venous insufficiency Morbid obesity Hypertension Home Medications ?Medication ?Instructions ?Recorded ?Last Taken ?Type multivitamin with folic acid 400 1 tab PO DAILY Unknown History mcg tablet Cpap Supplies #1 ea 08/18/21 Unknown Rx Pancreat-Bet BXt-ntp-yeup-pap 250 1 cap PO .with meals 10/23/22 Unknown History mg-162 mg-65 mg-125 mg capsule (Super Enzyme) anita.stocking,knee,reg,xlrg #2 ea 10/23/22 Unknown Rx Cpap Supplies #1 ea 01/27/23 Unknown Rx lisinopril 40 mg tablet 40 mg PO DAILY #90 tabs 02/2011/05/24 Rx fluoxetine 20 mg capsule 20 mg PO DAILY 11/03/24 Unkn own History tizanidine 2 mg tablet 2 mg PO HS PRN for muscle sp asm 12/25/24 Unknown Rx #90 TABLETS apixaban 5 mg tablet (Eliquis) 5 mg PO BID #60 tabs 03/16/25 Rx amlodipine 10 mg tablet 10 mg PO QHS 02/05/25 Unknow n History metoprolol tartrate 25 mg tablet 12.5 mg (1/2 x 25 mg) PO BID #90 02/26/25 03/20/25 Rx tabs CPAP - Continuous Positive Airway 03/06/25 Unknown Hi story Pressure([facility] INFORMATIONAL USE ONLY) acetaminophen 325 mg capsule 650 mg PO Q4H PRN pain Unknown History magnesium 200 mg tablet 200 mg PO DAILY 03/06/25 Unk nown History Allergy/AdvReac Type Severity Reaction Status Date / Time clindamycin Allergy Severe Hearing Verified 03/20/25 09:40 loss ciprofloxacin (From Cipro) Allergy Other Verified 03/20/25 09:40 codeine Allergy Rash Verified 03/20/25 09:40 hydrochlorothiazide Allergy Other Verified 03/13/25 11:33 Penicillins (PCN) Allergy Rash Verified 03/20/25 09:40 tramadol HCl (From Ultram) Allergy Other Verified 03/20/25 09:40 spironolactone (From AdvReac Causes Verified 03/20/25 09:40 Aldactone) Potassium to elevate Family History Mother CVA (cerebral vascular accident) Hypertension Sister cranial stenosis Father Hypertension Asthma Arthritis Surgical History Hx of colonoscopy with polypectomy History of epidural steroid injection into cervical spine History of hysteroscopy H/O dilation and curettage History of tubal ligation History of cholecystectomy History of placement of ear tubes History of D&C History of section History of benign breast biopsy Social History household members: spouse Smoking Status: Former smoker how long ago did patient quit smokin alcohol intake: current alcohol intake frequency: holidays/special occasions only Alcohol type: wine substance use type: does not use caffeine: Yes what type of physical activity do you participate in: none seatbelt use: always do you feel safe at home: Yes additional social history: Hzyagen-Vko-Nsi Review of Systems (Anesthesia) ROS Narrative System reviewed and no additional complaints, except as documented.
--- NOTE | 2025-03-20 10:39 | HP.PCM_ITS ---
History and Physical Date of Admission: 03/20/25 Intake Vital Signs 02/07/2509:03 02/15/2510:54 03/05/2513:13 03/13/2511:31 Height 5 ft 4 in 5 ft 4 in 5 ft 4 in 5 ft 4 in Weight: 418 lb BMI 71.7 BP 132/94 H 136/83 H Blood Pressure Location Rt brachial Position Sitting Respiration 18 Pulse 82 Pulse Source Monitor Temp 96.8 F L Pulse Oximetry (%) 96 Oxygen Delivery Method room air Comment pt declined weight today Intake Visit Reasons: D&C IUD insert Assistant Press Operator Required: No Is patient in pain?: Yes (usual back and left knee pain) Allergies clindamycin Allergy (Severe, Verified 03/13/25 11:33) Hearing loss ciprofloxacin (From Cipro) Allergy (Verified 03/13/25 11:33) Other codeine Allergy (Verified 03/13/25 11:33) Rash hydrochlorothiazide Allergy (Verified 03/13/25 11:33) Other Penicillins (PCN) Allergy (Verified 03/13/25 11:33) Rash tramadol HCl (From Ultram) Allergy (Verified 03/13/25 11:33) Other spironolactone (From Aldactone) Adverse Reaction (Verified 03/13/25 11:33) Causes Potassium to elevate Medications ?Medication ?Instructions ?Recorded ?Confirmed ?Type multivitamin with folic acid 400 1 tab PO DAILY 06/24/15 03/13/25 History mcg tablet Cpap Supplies #1 ea 08/18/21 03/13/25 Rx Pancreat-Bet JCe-vgo-bmjr-pap 250 1 cap PO .with meals 10/23/22 03/13/25 H istory mg-162 mg-65 mg-125 mg capsule (Super Enzyme) anita.stocking,knee,reg,xlrg #2 ea 10/23/22 03/13/25 Rx Cpap Supplies #1 ea 01/27/23 03/13/25 Rx lisinopril 40 mg tablet 40 mg PO DAILY #90 tabs 03/14/24 5 Rx fluoxetine 20 mg capsule 20 mg PO DAILY 11/03/24 03/13/25 History tizanidine 2 mg tablet 2 mg PO HS PRN for muscle spasm 12/25/24 03/13/25 Rx #90 TABLETS apixaban 5 mg tablet (Eliquis) 5 mg PO BID #60 tabs 01/16/25 03/13/25 R x amlodipine 10 mg tablet 10 mg PO QHS 02/05/25 03/13/25 History metoprolol tartrate 25 mg tablet 12.5 mg (1/2 x 25 mg) PO BID #90 5 03/13/25 Rx tabs CPAP - Continuous Positive Airway 03/06/25 03/13/25 History Pressure([facility] INFORMATIONAL USE ONLY) acetaminophen 325 mg capsule 650 mg PO Q4H PRN pain 03/06/25 03/13/25 History magnesium 200 mg tablet 200 mg PO DAILY 03/06/25 03/13/25 Histor y Is last menstrual period known: No Post menopausal: Yes Patient : No : No [facility] Medical History Chronic low back pain Incontinence of urine Back pain PONV (postoperative nausea and vomiting) Occult blood positive stool penitentiary current use of anticoagulant Wears glasses Wears partial dentures Wears dentures Anxiety Walker as ambulation aid History of renal disease Umbilical hernia Former smoker Shortness of breath on exertion History of pain when walking History of edema History of Holter monitoring History of echocardiogram Cardiology follow-up encounter History of atrial fibrillation Left knee pain Radiculopathy, cervical OAB (overactive bladder) Hyperkalemia Wears hearing aid Restless legs CPAP (continuous positive airway pressure) dependence Asthmatic bronchitis with acute exacerbation Postmenopausal bleeding History of benign breast tumor Venous insufficiency Morbid obesity Hypertension Surgical History Hx of colonoscopy with polypectomy History of epidural steroid injection into cervical spine History of hysteroscopy H/O dilation and curettage History of tubal ligation History of cholecystectomy History of placement of ear tubes History of D&C History of section History of benign breast biopsy Family History Mother CVA (cerebral vascular accident) Hypertension Sister cranial stenosis Father Hypertension Asthma Arthritis Social History household members: spouse Smoking Status: Former smoker how long ago did patient quit smokin alcohol intake: current alcohol intake frequency: holidays/special occasions o nly Alcohol type: wine substance use type: does not use caffeine: Yes what type of physical activity do you participate in: none seatbelt use: always do you feel safe at home: Yes additional social history: Srnzrwg-Hwk-Npm HPI D&C IUD insert Details: ANGELINA CALZADA is a 64 year old who presents for preop visit due to postmenopausal bleeding- she had a 3 day episode of vaginal bleeding. she has been on eliquis for over a year due atrial fibrillation. she has had a d and c in the past. she denies any cramping or pain now. she has a history of simple hyperplasia in the past and she hasn't taken the treatment in the past. Female Reproductive History Menopausal Symptoms: Yes night sweats History 5 Elective abortions Hx Para 2 Spontaneous abortions 3 Hx # Term Pregnancies Ectopic pregnancies Hx # Pregnancies Multiple births # of living children Past Pregnancies Del. Date Name GA/Weeks Outcome Route Bth Weight [facility] Gen [facility] F[facility] James-1997 Unknown Patricia-1999 ROS Const Constitutional: Reports night sweats; Denies fatigue, weight gain or weight loss ENT ENT: Reports system reviewed and no additional complaints, except as documented Cardio Card: Denies chest pain Resp Resp: Reports dyspnea; Denies cough GI GI: Reports as per HPI; Denies abdominal pain, constipation, nausea or vomiting : Reports urinary frequency, urinary incontinence and urinary urgency; Denies nipple discharge, urinary hesitancy, vaginal discharge, vaginal dryness, vaginal odor or vaginal pruritus Musc Musc: Reports arthralgias and back pain; Denies muscle weakness Skin Skin/Breast: Denies alopecia, change in hair, dry skin, breast mass, breast pain, breast skin changes or nipple discharge Neuro Neuro: Reports system reviewed and no additional complaints, except as documented Psych Psych: Reports system reviewed and no additional complaints, except as documented Endo Endo: Denies cold intolerance, excessive sweating, heat intolerance or polydipsia Davion/Lymph Hematologic/Lymphatic: Denies easy bleeding, Denies easy bruising and Denies lymphadenopathy Exam Const General: cooperative, healthy appearing, comfortable and no acute distress Orientation: alert HENMT Head: normal to inspection and normocephalic Ears: hearing grossly normal bilaterally and external ears normal Nose: external nose normal and nares normal Face and sinus: normal facial exam Neck Neck: normal visual inspection and no lymphadenopathy Thyroid: thyroid normal Chest Chest palpation & inspection: normal inspection of the chest Resp Effort & Inspection: normal respiratory effort Auscultation: clear to auscultation bilaterally Cardio Rate: regular rate Rhythm: abnormal rhythm Heart Sounds: S1 normal and S2 normal GI Inspection: normal to inspection and non-distended Palpation: soft and no hepatosplenomegaly Musc Other: gross motor intact no deficits, full bilateral strength Skin General: no rashes or lesions noted Neuro General: patient alert, patient awake, moves all extremities and no focal motor deficits Motor: muscle tone normal throughout Extrem General: normal to inspection and no pedal edema Psych Appearance: grossly normal Mental Status: mental status grossly normal Affect: normal affect Speech and Movement: speech and movement normal Coding Level of Care Code No Charge Diagnoses Postmenopausal bleeding N95.0 penitentiary current use of anticoagulant Z79.01 Simple endometrial hyperplasia N85.01 Longstanding persistent atrial fibrillation I48.11 Atrial fibrillation type: longstanding persistent Assessment and Plan Assessment and Plan (1) Postmenopausal bleeding: Status: Acute (2) penitentiary current use of anticoagulant: Status: Acute Comment: gte cardiac clearance will need to hold eliquis for surgery (3) Simple endometrial hyperplasia: Status: Chronic Comment: plan d and c and iud placement (4) Atrial fibrillation: Status: Chronic Qualifiers: Atrial fibrillation type: longstanding persistent Qualified Code(s): I48.11 - Longstanding persistent atrial fibrillation Plan After discussing the patient's diagnosis and treatment plan options, patient wishes to proceed with surgical management. I have discussed with the patient the risks, benefits, and alternatives of the procedure which include but are not limited to risks of anesthesia, bleeding, infection, possible damage to bowel, bladder, or surrounding vasculature which could lead to additional surgery to evaluate any complications. Patient agrees to procedure and wishes to proceed. ACOG/uptodate references given for additional information regarding procedure. UPDATE- I have seen the patient and performed any clinically relevant updates to the history and physical exam. Ayde Sahni MD
--- NOTE | 2025-03-20 10:55 | EMB_PTH ---
PATIENT: ANGELINA CALZADA LOC: [facility] [place] U#:[id number] AGE/SX: 64/F ROOM: RE03/20/[address]: Dr. Ayde Sahin MD : 1960 BED: DIS: 03/20/2025 SPEC #: [id number] RECD: 03/20/25 12:00 STATUS: YOEL RESheba #: [id number] FELIPE: 03/20/25 10:[address]: Ayde Sahni DEPT: SURGICAL PATHOLOGY RECD BY: Leoncio Cooper ENTERED: 03/20/25 13:31 SP TYPE: ENDOM BX/C OTHR DR: Dr. Esthela Wynne MD Tissues: A - Endometrium, NOS Procedures: Surgery Specimen Level IV Comments: FAXED REPORT TO DR ALFREDO ([facility]) PER HER REQUEST TO HER OFFICE DUE TO PATIENT BEING SEEN FOR CONSULTATION - 04-11-25. HEADER OPERATION: Hysteroscopy, dilation and curettage, PAP smear PRE-OP DIAGNOSIS: Simple endometrial hyperplasia, postmenopausal bleeding TISSUE SUBMITTED: A- Endometrial curettings MICROSCOPIC DIAGNOSIS A. Endometrium, curettage: * Fragments of squamous and scant endocervical mucosa. * No endometrium is seen. MICROSCOPIC DESCRIPTION Slides are reviewed. GROSS DESCRIPTION A. Received in formalin labeled with the patient's name and date of . Designated as endometrial curettings is a 1.7 x 0.8 x 0.1 cm aggregate of pink-peng red tissue fragments and mucoid material. Entirely submitted in 1 cassette. MA 03/20/2025 CPT:72721
[2025-03-20] MEDS: Midazolam 2 MG/2 ML Syringe IV (11:42)
[2025-03-20] MEDS: Lidocaine 1% (5 ml sdv) 5 ML Vial 7 ML IV (11:50)
[2025-03-20] MEDS: dexMEDEtomidine 200 MCG/2 ML ML 44 MCG IV (12:05)
[2025-03-20] MEDS: Lidocaine 1% (30 ml sdv) 30 ML Vial (12:14)
--- NOTE | 2025-03-20 12:23 | OP.PCM_ITS ---
Procedures Urinary/Genital 52xxx-59xxx: 22433 Hysteroscopy, Polypectomy, Symphion Operative Report (Standard) Operative Information Date of Procedure: 03/20/25 Pre-Operative Diagnosis: PMB Post-Operative Diagnosis: same Surgery/Procedure Performed: d and c hysteroscopy pap back tender cylinder: No Type of Anesthesia: Local MAC RN Documented Start/Stop Times: Operation Date: 03/20/25 10:55 Case Time Into Pre-Op 03/20/25 09:41 Out of Pre-Op 03/20/25 11:27 Anesthesia Start 03/20/25 11:34 Into Room 03/20/25 11:34 Procedure Start 03/20/25 12:14 Procedure Start Time: 12:14 Procedure Stop Time: 12:21 Select all DRAINS/GRAFTS/IMPLANTS that apply: None Estimated Blood Loss: 50 Specimen collected: Yes Description of specimen(s) removed: EMC and pap Description of surgery: Patient was prepped and draped in a normal sterile fashion under MAC anesthesia. A weighted speculum was placed in the vagina and the anterior lip of the cervix was grasped with a single-tooth tenaculum. A paracervical block was placed with 1% lidocaine. Cervix was progressively dilated to allow passage of a 5 mm hysteroscope. The lining was fully visualized and noted to have a very narrow cavity with thin atrophic lining. Uterine sounded to 7 cm. Curettage was performed and scant specimen obtained, sent to pathology. Due to the narrow cavity seen the decision was made not to place IUD for fear of expulsion or malpositioning. Pap smear was performed all instruments were removed from the vagina and excellent hemostasis was noted. Patient was awoken and taken to recovery in stable condition. Surgical Findings: Thin atrophic lining of the uterus Complications Complications: No
--- NOTE | 2025-03-20 12:27 | DCINST_ITS ---
Discharge Instructions DC O2, CPAP, BIPAP needs Home O2 Discharge instructions: No Dressing / Incision Discharge Activity: Return to Normal Activity, May Shower and May Take a Tub Bath (after 1 week) May resume sexual activity in: 1-2 weeks Weight Bearing Status: Weight bearing as tolerated Lifting Restrictions: none Dressing / Incision Call your doctor if you observe: Fever of 101 or Higher, Using more than 1 pad per hour, Shortness of breath and Uncontrolled pain Follow Up Care Please Follow Up With: Ayde Sahni MD When: Call [phone] to schedule appointment. Test Results: Test results from this visit will be discussed in further detail at your follow- up appointment, if applicable. Discharge Plan Admission Attending Provider: Ayde Sahni Primary Care Provider: Esthela Wynne Instructions Print Language: Maltese Discharge Orders/Prescriptions Prescriptions: Continued (DME) Cpap Supplies See Rx Instructions .Route .MEDSUPPLY Qty: 1 0RF Rx Instructions: As directed Super Enzyme [id number] mg capsule 1 cap PO .with meals (DME) anita.stocking,knee,reg,xlrg Misc See Rx Instructions .ROUTE .MEDSUPPLY Qty: 2 3RF Rx Instructions: As directed for venous inusfficiency 30-40 mmhg multivitamin with folic acid 1 TABLET tablet 1 tab PO DAILY (DME) CPAP - Continuous Positive Airway Pressure([facility] INFORMATIONAL USE ONLY) Device See Rx Instructions .Route Rx Instructions: As directed magnesium 200 mg tablet 200 mg PO DAILY acetaminophen 325 mg capsule 650 mg PO Q4H PRN (Reason: pain) fluoxetine 20 mg capsule 20 mg PO DAILY Rx Instructions: TAKE 1 CAPSULE BY MOUTH EVERY DAY amlodipine 10 mg tablet 10 mg PO QHS (DME) Cpap Supplies See Rx Instructions .Route .MEDSUPPLY Qty: 1 0RF Rx Instructions: As directed lisinopril 40 mg tablet 40 mg PO DAILY Qty: 90 3RF tizanidine 2 mg tablet 2 mg PO HS PRN (Reason: for muscle spasm) Qty: 90 0RF Eliquis 5 mg tablet 5 mg PO BID Qty: 60 3RF Patient Comments: LAST DOSE 02/03 FOR COLONOSCOPY 02/07/25 metoprolol tartrate 25 mg tablet 12.5 mg PO BID Qty: 90 0RF Referrals / Follow Up: Esthela Wynne MD [Primary Care Provider, Internal Medicine] Disposition Disposition (needs filled in before D/C Order can be placed): Home, Self Care
--- NOTE | 2025-03-20 18:21 | PCM.POST.ANE ---
Anesthesia: Postop Eval I Current Vital Signs Temperature: 97.4 F Pulse Rate: 61 Blood Pressure: 93/46 Respiratory Rate: 18 Pulse Ox: 94 Oxygen Delivery Method: Room Air Assessment Airway patent: Yes Spontaneous unlabored respirations: Yes Mental status: Awake nausea: No Vomiting: No Anesthesia Complication: No Fluid Hydration Crystalloid volume administer (ml): 700 Total IV fluid infused: 700 Progress Note Anesthesia document: Postop Eval 1 completed: Yes
--- NOTE | 2025-03-20 22:31 | POSTOPAN2_ITS ---
Anesthesia Postop Eval I Sum Postop Eval Completion status Anesthesia document: Postop Eval 1 completed: Yes Anesthesia Postop Eval I Summary Anesthesia Postop Eval I Summary: Anesthesia Postop Eval I: Assessment Summary Airway patent Yes 03/20/25 18:22 JEWELRY MODEL [email or web address] Spontaneous unlabored Yes 03/20/25 18:22 JEWELRY MODEL [email or web address] respirations Mental status Awake 03/20/25 18:22 JEWELRY MODEL [email or web address].[email or web address] nausea No 03/20/25 18:22 JEWELRY MODEL [email or web address].[email or web address] Vomiting No 03/20/25 18:22 JEWELRY MODEL [email or web address].[email or web address] Anesthesia Postop Eval I: Fluid Summary Crystalloid volume administer 700 03/20/25 18:22 JEWELRY MODEL [email or web address].[email or web address] (ml) Colloids volume administered ( ml) Blood Product volume administered (ml) Total IV fluid infused 700 03/20/25 18:22 JEWELRY MODEL MAKER.[email or web address] Anesthesia Postop Eval I: Summary Notes Anesthesia Complication No 03/20/25 18:22 JEWELRY MODEL [email or web address].[email or web address] Anesthesia Complication Comment: Post-operative progress note Anesthesia: Postop Eval II Evaluation Mental status: Awake and Calm Pain Level: 1 nausea: No Vomiting: No Complications Anesthesia Complication: No
--- NOTE | 2025-03-20 22:31 | PCM.POSTANE2 ---
Anesthesia Postop Eval I Sum Postop Eval Completion status Anesthesia document: Postop Eval 1 completed: Yes Anesthesia Postop Eval I Summary Anesthesia Postop Eval I Summary: Anesthesia Postop Eval I: Assessment Summary Airway patent Yes 03/20/25 18:22 CRISIS MANAGER.[email or web address] Spontaneous unlabored Yes 03/20/25 18:22 CRISIS MANAGER.[email or web address] respirations Mental status Awake 03/20/25 18:22 CRISIS MANAGER.[email or web address] nausea No 03/20/25 18:22 CRISIS MANAGER.[email or web address] Vomiting No 03/20/25 18:22 CRISIS MANAGER.[email or web address] Anesthesia Postop Eval I: Fluid Summary Crystalloid volume administer 700 03/20/25 18:22 CRISIS MANAGER.[email or web address] (ml) Colloids volume administered ( ml) Blood Product volume administered (ml) Total IV fluid infused 700 03/20/25 18:22 CRISIS MANAGER.[email or web address] Anesthesia Postop Eval I: Summary Notes Anesthesia Complication No 03/20/25 18:22 CRISIS MANAGER.[email or web address] Anesthesia Complication Comment: Post-operative progress note Anesthesia: Postop Eval II Evaluation Mental status: Awake and Calm Pain Level: 1 nausea: No Vomiting: No Complications Anesthesia Complication: No
== END 2025-03-20 13:48 | disposition home or self-care (01) ==
LOC: SDC 09:10 → AC 09:12
PROVIDERS: PCP Internal Medicine; Referring Provider Obstetrics & Gynecology; Visit Provider Obstetrics & Gynecology
PROC: 0UDB8ZZ Extraction of Endometrium, Via Natural or Artificial Opening Endoscopic (ICD-10-PCS; CPT 58558; principal; 2025-03-20 10:45)
DX: N85.01 Benign endometrial hyperplasia (principal); I48.11 Longstanding persistent atrial fibrillation; N95.0 Postmenopausal bleeding; I10 Essential (primary) hypertension; Z87.891 Personal history of nicotine dependence; Z79.01 Long term (current) use of anticoagulants; Z79.899 Other long term (current) drug therapy
CPT/HCPCS: 58558; 00952; 36415; 80053; 85027; 86850; 86900; 86901; 88175; 88305; 93005; G0145; J2405

== ENCOUNTER → 2025-04-05 | Outpatient (CLI) | payer MEDICARE, SELFPAY ==
--- NOTE | 2025-04-05 12:30 | BI_ITS ---
EXAM: SCRN MAMM (CAD)W/ELEANOR BILAT DATE: 04/05/2025 CLINICAL HISTORY: F, Age 64 y/o , BREAST CANCER SCREENING TECHNIQUE: Procedure Code: [id number] Modality: MG Procedure: SCRN MAMM (CAD)W/ELEANOR BILAT COMPARISON: Prior exam(s) were compared FINDINGS: TISSUE DENSITY: The breasts are heterogeneously dense, which may obscure small masses. Bilateral Breast Mammographic Findings: No suspicious masses, calcifications or other abnormalities are identified. BI/SCRN MAMM (CAD)W/ELEANOR BILAT IMPRESSION: No mammographic evidence of malignancy in either breast OVERALL FINAL ASSESSMENT BI-RADS 1: NEGATIVE. RECOMMENDATION: Routine annual follow-up in 1 Year Additional Recommendation none A letter with findings and recommendations will be mailed to the patient. Reading Location: [id number]
== END | disposition home or self-care (01) ==
LOC: OPBI 12:08
PROVIDERS: PCP Internal Medicine; Referring Provider Internal Medicine; Visit Provider Internal Medicine
DX: Z12.31 Encounter for screening mammogram for malignant neoplasm of breast (principal)
CPT/HCPCS: 77063; 77067